=== PATIENT | female | born 1950 | race Caucasian/White ===

== ENCOUNTER 2019-07-10 08:56 | Day surgery (SDC) | payer OTHER ==
[2019-07-09 11:58] LABS: Absolute Lymphocytes (CBC) 1.1 K/uL (0.7-4.9); Basophils % 0.6 % (0-1.3); Hematocrit 41.8 % (36.0-45.0); Lymphocytes % 19.5 % (15.3-44.8); MPV 7.7 fL (7.6-11.3); RBC Red Blood Cell Count 5.04 M/uL (3.86-4.86)
[2019-07-09 12:10] LABS: Protime INR 1.12
[2019-07-09 12:16] LABS: BUN Blood Urea Nitrogen 11 mg/dL (7-18); Bicarbonate 32 mmol/L (21-32); Glucose Level 102 mg/dL (74-106); Potassium 3.9 mmol/L (3.5-5.1); Sodium Level 137 mmol/L (136-145)
--- OUTSIDE RECORDS SUMMARY | 2019-07-10 09:06 | XMS REPORT ---
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
--- OUTSIDE RECORDS SUMMARY | 2019-07-10 09:06 | XMS REPORT ---
:1950 [facility] Address [address] [place] [address] Dr. Kearns [address] [place] [address] Care Team Providers Name Role Phone Unavailable Unavailable Unavailable Problems This patient has no known problems. Allergies, Adverse Reactions, Alerts This patient has no known allergies or adverse reactions. Medications This patient has no known medications.
[2019-07-10] MEDS ORDERED: NA CHLORIDE 0.9% 500 ML ONE (09:17)
[2019-07-10 09:50] VITALS: TEMP 97.2
[2019-07-10] MEDS ORDERED: NICARDIPINE HCL 25 MG/10 ML IV ONE (10:06)
[2019-07-10] MEDS ORDERED: FENTANYL CITR 100 MCG/2 ML ONE (10:06)
[2019-07-10] MEDS ORDERED: HEPARIN 5000 UNIT/ML 1 ML VIAL ONE (10:06)
[2019-07-10] MEDS ORDERED: MIDAZOLAM HCL 2 MG/2 ML INJ ONE ×2 (10:06→10:48)
[2019-07-10] MEDS ORDERED: HEPA 1000U/500MLS 2,000 UNIT/1,000 ML BAG IV ONE (10:06)
[2019-07-10] MEDS ORDERED: ATROPINE SULF 1 MG/10 ML SYR IV ONE (10:07)
[2019-07-10] MEDS ORDERED: NA CHLORIDE 0.9% 0 ML ONE (10:07)
[2019-07-10] MEDS ORDERED: HYDRALAZINE HCL 20 MG/ML VIAL ONE (11:23)
[2019-07-10 12:41] VITALS: O2SAT 98
[2019-07-10 14:09] VITALS: BP 135/53
--- NOTE | 2019-07-10 23:20 | OP ---
Surgeon: Mendoza Kurtz MD [employer] T[employer] Inspector: Nalini Gauthier. Primary Care Physician: Beatriz Hartley. Procedure: Left heart catheterization with coronary left ventricular angiography. Findings: The patient has normal coronary arteries. Normal left ventricular ejection fraction. She had systolic hypertension and she had elevated left ventricular end-diastolic pressure or poor left ventricular relaxation and the recommendation is for medical therapy of hypertension. No need for an y intervention. Procedure In Detail: The patient was brought to the cardiac laboratory equipment cleaner in a fasting state. She gave i nformed consent. She was sedated with Versed and fentanyl. Total sedation time 30 minutes. Prepare d and draped in usual sterile fashion. 1% lidocaine was used to anesthetize the skin around the rig t radial artery. The artery was entered using a 21-gauge needle, cannulated with a 0.021 inch diamet er guidewire, 6-Kinyarwanda Terumo sheath was placed using modified Seldinger technique. The sheath was f lushed and radial cocktail was given consisting of nicardipine, heparin, and nitroglycerin. We guide d a TIG catheter into the ascending aorta using fluoroscopy and a short radius J-tip Glidewire. We w ere then able to angiogram left and right coronaries and left ventricle using the same catheter. At the end of the procedure when it was evident, no interventions would be done. The catheter was remov ed over a wire. The sheath was flushed, removed, and the arteriotomy closed using a TR band. There were no complications. Estimated Blood Loss: 5 cc. Complications: None. THEODORE/GEOVANNA Voice ID: [id number] Report ID: [id number]
== END 2019-07-10 13:30 | disposition home or self-care (01) ==
LOC: CCL 08:56
PROVIDERS: ATTEND Internal Medicine
DX: I20.9 Angina pectoris, unspecified (principal); I10 Essential (primary) hypertension; E78.5 Hyperlipidemia, unspecified; F41.9 Anxiety disorder, unspecified; Z79.82 Long term (current) use of aspirin
CPT/HCPCS: 85025; 80048; 36415; 85610; 85730; 93458; C1893; J0360; J1644; J2250 ×2; J3010; J7040; J0583

== ENCOUNTER 2019-12-05 10:49 | Emergency (ER) | payer OTHER ==
--- OUTSIDE RECORDS SUMMARY | 2019-12-05 10:52 | XMS REPORT | Summary of Care ---
:1950 Author Organization [facility] Address [address] [place] [address] Care Team Providers Name Role Phone Josefina Clayton Primary Care Provider Reason for Visit Reason Comments Prescription Encounter Details Date Type Department Care Team Description 11/16/2019 Nurse Triage [facility] Debra Simpson RN Prescription [address] [phone] [place], [place] [id number] Allergies No Known Allergiesdocumented as of this encounter (statuses as of 11/16/2019) Medications Medication Sig Dispensed Refills Start Date End Date Status pravastatin 80 mg Take 80 mg by 0 Active tablet mouth at bedtime. SERTraline 50 mg Take 150 mg by 0 Active tablet mouth daily. DIETARY SUPPLEMENT Take 1 tablet by 0 Active ORAL mouth daily. telmisartan-hydrochlor Take 1 tablet by 0 Active othiazide 40-12.5 mg mouth daily. per tablet aspirin (ASPIRIN LOW Take 81 mg by 0 Active DOSE) 81 mg EC tablet mouth at bedtime. meloxicam 7.5 mg Take 7.5 mg by 0 Active tablet mouth daily. Patient takes prn metoprolol succinate TAKE 1 TABLET BY 0 07/10/2019 Active XL 25 mg 24 hr tablet MOUTH ONCE DAILY azelastine 137 mcg USE 2 SPRAY(S) IN 0 05/28/2019 Active (0.1 %) nasal spray EACH NOSTRIL ONCE DAILY ezetimibe 10 mg tablet Take 10 mg by 0 Active mouth daily. mupirocin (BACTROBAN) Apply to area(s) 15 g 0 11/16/2019 Active 2 % creamIndications: 3 (three) times Burn daily. mupirocin (BACTROBAN) Apply to area(s) 15 g 0 11/16/2019 Active 2 % creamIndications: 3 (three) times Burn daily. documented as of this encounter (statuses as of 11/16/2019) Active Problems Not on filedocumented as of this encounter (statuses as of 11/16/2019) Social History Tobacco Use Types Packs/Day Years Used Date Never Smoker Smokeless Tobacco: Never Used Alcohol Use Drinks/Week oz/Week Comments No reformed aloholi c x 32 years Sex Assigned at Date Recorded Not on file Job Start Date Occupation Industry Not on file Not on file Not on file Travel History Travel Start Travel End No recent travel history available. documented as of this encounter Last Filed Vital Signs Not on filedocumented in this encounter Plan of Treatment Date Type Specialty Care Team Description 02/17/2020 Office Visit Neurology Alexandro Self MD [address] [place] [address]. [place] [phone] Health Maintenance Due Date Last Done Comments HEPATITIS C (HCV) SCREEN 1950 DTaP,Tdap,and Td Vaccines (1 - Tdap) 1959 Breast Cancer Screening (MAMMOGRAM) 1988 COLONOSCOPY 1998 Zoster Recombinant Vaccine (SHINGRIX) (1 of 2) 1998 Medicare Wellness Visit 2013 Osteoporosis Screening 2013 PNEUMOCOCCAL VACCINES 65+ (1 of 2 - PCV13) 2013 INFLUENZA VACCINE (#1) 2019 documented as of this encounter Results Not on filedocumented in this encounter Insurance Payer Benefit Plan Subscriber ID Effective Dates Phone Address Type / Group HUMANA - HUMANA CHOICE [id number] 2017-Presen Medicare Adv MANAGED t PPO MEDICARE documented as of this encounter
--- OUTSIDE RECORDS SUMMARY | 2019-12-05 10:52 | XMS REPORT ---
:1950 Author Organization [facility] Address [address] [place] [address] Dr. Kearns [address] [place] [address] Care Team Providers Name Role Phone Unavailable Unavailable Unavailable Problems Condition Condition Condition Status Onset Resolution Last Treatin g Comments Name Details Category Date Date Treatment Clinician Date Primary Primary Problem Active osteoarthri osteoarthri tis of tis of right knee right knee Arthritis Arthritis Problem Active of foot, of foot, right right Allergies, Adverse Reactions, Alerts This patient has no known allergies or adverse reactions. Medications Ordered Filled Start Stop Current Ordering Indication Dosage Frequency Signature Comments Components Medication Medication Date Date Medication? Clinician (SIG) Name Name Tramadol Tramadol 2017-08 Yes Salvador 1 tablet HCl HCl 0-12 Benson as needed 00:00: 00 Pravastatin Pravastatin Yes Salvador not Sodium Sodium Benson defined Sertraline Sertraline Yes Salvador not HCl HCl Benson defined Telmisartan Telmisartan Yes Salvador not -HCTZ -HCTZ Benson defined Move Free Move Free Yes Salvador not Joint Joint Benson defined Health Health Advance Advance Latanoprost Latanoprost Yes Salvador not Benson defined Meloxicam Meloxicam Yes Salvador TAKE 1 Benson TABLET BY MOUTH ONCE DAILY Amlodipine Amlodipine Yes Salvador not Besylate Besylate Benson defined Aspirin 81 Aspirin 81 Yes Salvador not Benson defined tramadol tramadol Yes Salvador not Benson defined Ezetimibe Ezetimibe Yes Salvador not Benson defined Restasis Restasis Yes Salvador not Benson defined Modafinil Modafinil Yes Salvador not Benson defined Encounters Start End Encounter Admission Attending Care Care Encounter Date/Time Date/Time Type Type Clinicians Facility Department ID 2019-11-04 2019-11-04 Outpatient Nia Esquivelt [id number] 08:36:00 08:36:00 [facility] 2019-10-02 2019-10-02 Outpatient Nia Esquivelt [id number] 16:17:00 16:17:00 [facility] 2019-05-08 2019-05-08 [id number] 14:28:00 14:28:00 [facility] 2019-04-11 2019-04-11 [id number] 13:30:00 13:30:00 [facility] 2019-04-04 2019-04-04 [id number] 08:30:00 08:30:00 [facility] 2019-03-29 2019-03-29 [id number] 08:30:00 08:30:00 [facility] 2019-03-19 2019-03-19 [id number] 15:30:00 15:30:00 [facility] 2019-03-19 2019-03-19 [id number] 09:00:00 09:00:00 [facility] 2018-07-25 2018-07-25 [id number] 08:38:00 08:38:00 [facility] 2018-05-17 2018-05-17 [id number] 09:23:00 09:23:00 [facility] 2018-05-08 2018-05-08 [id number] 08:02:00 08:02:00 [facility]
--- OUTSIDE RECORDS SUMMARY | 2019-12-05 10:52 | XMS REPORT | Summary of Care ---
:1950 Author Organization [facility] Address [address] [place] [address] Care Team Providers Name Role Phone Josefina Clayton Primary Care Provider Reason for Visit Reason Comments Prescription wanting cheaper prescription Encounter Details Date Type Department Care Team Description 11/16/2019 Telephone [facility] Debra Simpson, Prescription (wanting [address] [place] [address] RN cheaper prescription) [place] [address] [place] [address] [facility] [phone] [place], [place] [id number] Allergies No Known Allergiesdocumented as of this [...] 02/17/2020 Office Visit Neurology Alexandro Self MD [address] [place] [address] [phone] Health Maintenance Due Date Last Done [...] Type / Group HUMANA - HUMANA CHOICE [id number] 2017-Presen Medicare Adv MANAGED t PPO MEDICARE documented as of this encounter
--- OUTSIDE RECORDS SUMMARY | 2019-12-05 10:52 | XMS REPORT ---
:1950 Author Organization eClinicalWorks Care Team Providers Name Role Phone Salvador Benson Provider Role Unavailable Allergies No Known Allergies Problems Problem Type Condition Code Onset Dates Condition Statu s Problem Primary osteoarthritis of right M17.11 Active knee Problem Arthritis of foot, right M19.071 Act caridad Medications No Known Medications Results No Known Results Summary Purpose eClinicalWorks Submission
--- OUTSIDE RECORDS SUMMARY | 2019-12-05 10:53 | XMS REPORT | Summary of Care ---
:1950 Author Organization [facility] Address [address] [place] [address] Care Team Providers Name Role Phone Josefina Clayton Primary Care Provider Reason for Visit Reason Comments Prescription questions Encounter Details Date Type Department Care Team Description 11/16/2019 Telephone [facility] Debra Simpson, Prescription [address] [place] [address] RN (questions) [place] [address] [place] [address] [facility] [phone] [place] [id number] Allergies No Known Allergiesdocumented as of this [...] creamIndications: 3 (three) times Burn daily. mupirocin 2 % Apply to area(s) 22 g 0 11/16/2019 Active ointmentIndications: 3 (three) times Burn daily. documented as [...] 02/17/2020 Office Visit Neurology Alexandro Self MD [address] [place] [address]. [place] [phone] Health Maintenance Due Date Last Done [...] Type / Group HUMANA - HUMANA CHOICE [id number] 2017-Presen Medicare Adv MANAGED t PPO MEDICARE documented as of this encounter
[2019-12-05] MEDS ORDERED: NA CHLORIDE 0.9% 1,000 ML ONE (11:46)
[2019-12-05] MEDS ORDERED: ONDANSETRON 4 MG/2 ML VIAL ONE (11:46)
[2019-12-05 12:02] LABS: Absolute Lymphocytes (CBC) 1.2 K/uL (0.7-4.9); Basophils % 0.6 % (0-1.3); Hematocrit 42.6 % (36.0-45.0); Lymphocytes % 16.1 % (15.3-44.8); MPV 7.5 fL (7.6-11.3); RBC Red Blood Cell Count 5.14 M/uL (3.86-4.86)
[2019-12-05 12:20] LABS: Albumin 3.5 g/dL (3.4-5.0); Bilirubin Direct 0.2 mg/dL (0-0.2); Bilirubin Total 0.5 mg/dL (0.2-1.0); Magnesium 2.2 mg/dL (1.8-2.4); Potassium 3.1 mmol/L (3.5-5.1); Protein, Total 6.8 g/dL (6.4-8.2)
--- NOTE | 2019-12-05 13:05 | EDPHYS ---
Physician Documentation [facility] Name: Davina Niño Age: 69 yrs Sex: Female : 1950 Arrival Date: 12/05/2019 Time: 10:55 Bed 8 Private MD: Osmar Felder H ED Physician Bandar Barker HPI: 12/04 12:50 This 69 yrs old Female presents to ER via Ambulatory with complaints of jr8 General Weakness, Diarrhea, Nausea. 12:50 The patient presents to the emergency department with nausea, diarrhea, 1 times since jr8 the onset of symptoms. Onset: The symptoms/episode began/occurred acutely, 2 day(s) ago. Possible causes: unknown. The symptoms are aggravated by nothing. The symptoms are alleviated by nothing. Associated signs and symptoms: Pertinent positives: general weakness . Severity of symptoms: At their worst the symptoms were moderate in the emergency department the symptoms are unchanged. The patient has not experienced similar symptoms in the past. The patient has been recently seen by a physician:. Patient stated that she had lumbar injection two days ago. Went well. Yesterday started to have nausea and diarrhea x1 episode. Feels generally weak . Historical: - Allergies: 11:12 No Known Allergies; hb - Immunization history:: Adult Immunizations up to date. - Social history:: Smoking status: Patient denies any tobacco usage or history of. ROS: 12:50 Eyes: Negative for injury, pain, redness, and discharge, ENT: Negative for injury, jr8 pain, and discharge, Neck: Negative for injury, pain, and swelling, Cardiovascular: Negative for chest pain, palpitations, and edema, Respiratory: Negative for shortness of breath, cough, wheezing, and pleuritic chest pain, Back: Negative for injury and pain, MS/Extremity: Negative for injury and deformity, Skin: Negative for injury, rash, and discoloration, Neuro: Negative for headache, weakness, numbness, tingling, and seizure. 12:50 Constitutional: Positive for fatigue, malaise. 12:50 Abdomen/GI: Positive for nausea, diarrhea, Negative for abdominal pain, abdominal cramps, abdominal distension, anorexia, dysphagia, hematemesis, black/tarry stool, rectal pain, rectal bleeding, bowel incontinence, flatulence. Exam: 12:50 Eyes: Pupils equal round and reactive to light, extra-ocular motions intact. Lids and jr8 lashes normal. Conjunctiva and sclera are non-icteric and not injected. Cornea within normal limits. Periorbital areas with no swelling, redness, or edema. ENT: Nares patent. No nasal discharge, no septal abnormalities noted. Tympanic membranes are normal and external auditory canals are clear. Oropharynx with no redness, swelling, or masses, exudates, or evidence of obstruction, uvula midline. Mucous membranes moist. Neck: Trachea midline, no thyromegaly or masses palpated, and no cervical lymphadenopathy. Supple, full range of motion without nuchal rigidity, or vertebral point tenderness. No Meningismus. Cardiovascular: Regular rate and rhythm with a normal S1 and S2. No gallops, murmurs, or rubs. Normal PMI, no JVD. No pulse deficits. Respiratory: Lungs have equal breath sounds bilaterally, clear to auscultation and percussion. No rales, rhonchi or wheezes noted. No increased work of breathing, no retractions or nasal flaring. Abdomen/GI: Soft, non-tender, with normal bowel sounds. No distension or tympany. No guarding or rebound. No evidence of tenderness throughout. Back: No spinal tenderness. No costovertebral tenderness. Full range of motion. Injections site clean and without tenderness or erythema Skin: Warm, dry with normal turgor. Normal color with no rashes, no lesions, and no evidence of cellulitis. MS/ Extremity: Pulses equal, no cyanosis. Neurovascular intact. Full, normal range of motion. Neuro: Awake and alert, GCS 15, oriented to person, place, time, and situation. Cranial nerves II-XII grossly intact. Motor strength 5/5 in all extremities. Sensory grossly intact. Cerebellar exam normal. Normal gait. Vital Signs: 11:09 BP 169 / 96; Pulse 96; Resp 16; Temp 97.8; Pulse Ox 100% ; Weight 76.2 kg; Height 5 ft. hb 5 in. (165.10 cm); Pain 0/10; 12:04 BP 181 / 87; Pulse 84; Resp 16; Temp 97.5(TE); Pulse Ox 98% ; mh5 11:09 Body Mass Index 27.96 (76.20 kg, 165.10 cm) hb MDM: 10:58 Patient medically screened. jr8 13:02 Data reviewed: vital signs, nurses notes, lab test result(s). Data interpreted: Pulse oximetry: on room air is 98 %. Interpretation: normal. Counseling: I had a detailed discussion with the patient and/or guardian regarding: the historical points, exam findings, and any diagnostic results supporting the discharge/admit diagnosis, lab results, the need for outpatient follow up, a family practitioner, to return to the emergency department if symptoms worsen or persist or if there are any questions or concerns that arise at home. Response to treatment: the patient's symptoms have mildly improved after treatment, patient is well hydrated. ED course: Replaced potassium. No other suspicious lab findings. Patient doing better. No signs indicative of spinal abscess based on exam . 12/04 11:30 Order name: Basic Metabolic Panel; Complete Time: 12:52 12/04 11:30 Order name: CBC with Diff; Complete Time: 12:52 [facility] 12/04 11:30 Order name: Creatinine for Radiology; Complete Time: 12:52 [facility] 12/04 11:30 Order name: Hepatic Function; Complete Time: 12:52 12/04 11:30 Order name: Lipase; Complete Time: 12:52 12/04 11:30 Order name: Urine Microscopic Only; Complete Time: 14:18 12/04 11:30 Order name: IV Saline Lock; Complete Time: 11:35 12/04 11:30 Order name: Labs collected and sent; Complete Time: 11:35 [facility] 12/04 11:30 Order name: Urine Dipstick-Ancillary (obtain specimen); Complete Time: 13:04 12/04 11:31 Order name: Magnesium; Complete Time: 12:52 12/04 13:05 Order name: Urine Dipstick--Ancillary (enter results); Complete Time: 13:27 em1 Administered Medications: 11:53 Drug: Zofran (Ondansetron) 4 mg Route: IVP; Site: right antecubital; em 12:30 Follow up: Response: No adverse reaction; Marked relief of symptoms; Nausea is decreasedem 11:55 Drug: NS 0.9% 1000 ml Route: IV; Rate: 1000 ml; Site: right antecubital; em 13:29 Drug: Potassium Chloride 40 mEq Route: PO; em 13:29 Follow up: Response: No adverse reaction; Medication administered at discharge. em Disposition: 15:00 Co-signature as Attending Physician, Bandar Barker MD I agree with the assessment and [facility] plan of care. Disposition: 12/05/19 13:05 Discharged to Home. Impression: Muscle weakness (generalized), Nausea, Diarrhea, unspecified, Hypokalemia. - Condition is Stable. - Discharge Instructions: Food Choices to Help Relieve Diarrhea, Adult, Diarrhea, Adult, Weakness. - Prescriptions for Zofran 4 mg Oral Tablet - take 1 tablet by ORAL route every 12 hours As needed; 20 tablet. - Medication Reconciliation Form, Thank You Letter, Antibiotic Education, Prescription Opioid Use form. - Follow up: Private Physician; When: 2 - 3 days; Reason: Recheck today's complaints, Continuance of care, Re-evaluation by your physician. - Problem is new. - Symptoms have improved. Signatures: Dispatcher [employer] Bandar Elliott MD MD cha Munoz, Edgar, RN RN Juan Carlos Cole PA PA jr8 Debra Thomas RN RN Corrections: (The following items were deleted from the chart) 13:02 12:50 Eyes: Pupils equal round and reactive to light, extra-ocular motions intact. Lids jr8 and lashes normal. Conjunctiva and sclera are non-icteric and not injected. Cornea within normal limits. Periorbital areas with no swelling, redness, or edema. ENT: Nares patent. No nasal discharge, no septal abnormalities noted. Tympanic membranes are normal and external auditory canals are clear. Oropharynx with no redness, swelling, or masses, exudates, or evidence of obstruction, uvula midline. Mucous membranes moist. Neck: Trachea midline, no thyromegaly or masses palpated, and no cervical lymphadenopathy. Supple, full range of motion without nuchal rigidity, or vertebral point tenderness. No Meningismus. Cardiovascular: Regular rate and rhythm with a normal S1 and S2. No gallops, murmurs, or rubs. Normal PMI, no JVD. No pulse deficits. Respiratory: Lungs have equal breath sounds bilaterally, clear to auscultation and percussion. No rales, rhonchi or wheezes noted. No increased work of breathing, no retractions or nasal flaring. Abdomen/GI: Soft, non-tender, with normal bowel sounds. No distension or tympany. No guarding or rebound. No evidence of tenderness throughout. Back: No spinal tenderness. No costovertebral tenderness. Full range of motion. Skin: Warm, dry with normal turgor. Normal color with no rashes, no lesions, and no evidence of cellulitis. MS/ Extremity: Pulses equal, no cyanosis. Neurovascular intact. Full, normal range of motion. Neuro: Awake and alert, GCS 15, oriented to person, place, time, and situation. Cranial nerves II-XII grossly intact. Motor strength 5/5 in all extremities. Sensory grossly intact. Cerebellar exam normal. Normal gait. jr8 13:42 13:05 12/05/2019 13:05 Discharged to Home. Impression: Muscle weakness (generalized); hb Nausea; Diarrhea, unspecified; Hypokalemia. Condition is Stable. Forms are Medication Reconciliation Form, Thank You Letter, Antibiotic Education, Prescription Opioid Use. Follow up: Private Physician; When: 2 - 3 days; Reason: Recheck today's complaints, Continuance of care, Re-evaluation by your physician. Problem is new. Symptoms have improved. jr8
--- NOTE | 2019-12-05 13:05 | ER ---
Nurse's Notes [facility] Name: Davina Niño Age: 69 yrs Sex: Female : 1950 Arrival Date: 12/05/2019 Time: 10:55 Bed 8 Private MD: Osmar Felder H Diagnosis: Muscle weakness (generalized);Nausea;Diarrhea, unspecified;Hypokalemia Presentation: 12/04 11:09 Chief complaint: Generalized weakness x 3 days, diarrhea x 2 days, chills today. Denies hb SOB/fever/cough. Coronavirus screen: Proceed with normal triage. Ebola Screen: No symptoms or risks identified at this time. Initial Sepsis Screen: Does the patient meet any 2 criteria? HR > 90 bpm. Does the patient have a suspected source of infection? No. Patient's initial sepsis screen is negative. Risk Assessment: Do you want to hurt yourself or someone else? Patient reports no desire to harm self or others. Onset of symptoms was December 02, 2019. 11:09 Method Of Arrival: Ambulatory hb 11:09 Acuity: VERONICA 3 hb Historical: - Allergies: 11:12 No Known Allergies; hb - Immunization history:: Adult Immunizations up to date. - Social history:: Smoking status: Patient denies any tobacco usage or history of. Screenin:17 Abuse screen: Denies threats or abuse. Nutritional screening: No deficits noted. em Tuberculosis screening: No symptoms or risk factors identified. Fall Risk None identified. Assessment: 11:30 General: Appears in no apparent distress. comfortable, Behavior is calm, cooperative, em appropriate for age, Reports fatigue for 1-2 days, Denies fever. Pain: Denies pain. Neuro: Level of Consciousness is awake, alert, obeys commands, Oriented to person, place, time, situation, Appropriate for age Denies headache. Cardiovascular: Capillary refill < 3 seconds Patient's skin is warm and dry. Respiratory: Airway is patent Respiratory effort is even, unlabored, Respiratory pattern is regular, symmetrical, Denies cough, shortness of breath. GI: Abdomen is flat, Bowel sounds present X 4 quads. Abd is soft and non tender X 4 quads. Reports diarrhea, nausea, Patient currently denies vomiting. : Denies burning with urination. Derm: Skin is intact, is thin, Skin is pink, warm \T\ dry. Musculoskeletal: Capillary refill < 3 seconds, Range of motion: intact in all extremities. Vital Signs: 11:09 BP 169 / 96; Pulse 96; Resp 16; Temp 97.8; Pulse Ox 100% ; Weight 76.2 kg; Height 5 ft. hb 5 in. (165.10 cm); Pain 0/10; 12:04 BP 181 / 87; Pulse 84; Resp 16; Temp 97.5(TE); Pulse Ox 98% ; mh5 11:09 Body Mass Index 27.96 (76.20 kg, 165.10 cm) hb ED Course: 10:55 Patient arrived in ED. am2 10:55 Osmar Felder MD is Private Physician. am2 10:58 Juan Carlos Cole PA is [facility]. jr8 10:58 Bandar Barker MD is Attending Physician. jr8 11:11 Triage completed. hb 11:12 Arm band placed on. hb 11:14 Jonas Gabriel, RN is Primary Nurse. em 11:17 Patient has correct armband on for positive identification. Placed in gown. Bed in low em position. Call light in reach. Pulse ox on. NIBP on. 11:50 Inserted saline lock: 20 gauge in right antecubital area, using aseptic technique. em Blood collected. 13:30 No provider procedures requiring assistance completed. IV discontinued, intact, em bleeding controlled, No redness/swelling at site. Pressure dressing applied. Administered Medications: 11:53 Drug: Zofran (Ondansetron) 4 mg Route: IVP; Site: right antecubital; em 12:30 Follow up: Response: No adverse reaction; Marked relief of symptoms; Nausea is decreasedem 11:55 Drug: NS 0.9% 1000 ml Route: IV; Rate: 1000 ml; Site: right antecubital; em 13:29 Drug: Potassium Chloride 40 mEq Route: PO; em 13:29 Follow up: Response: No adverse reaction; Medication administered at discharge. em Outcome: 13:05 Discharge ordered by . jr8 13:30 Discharged to home via wheelchair. em 13:30 Condition: good 13:30 Discharge instructions given to patient, Instructed on discharge instructions, follow up and referral plans. medication usage, Demonstrated understanding of instructions, follow-up care, medications, Prescriptions given X 1. 13:42 Patient left the ED. hb Signatures: Jonas Gabriel RN RN Juan Carlos Jerome PA PA jr8 Debra Thomas RN RN hb Martinez, Maria [facility] Salma Arcos [facility]
[2019-12-05] MEDS ORDERED: POTASSIUM CL SA 10 MEQ TAB PO ONE (13:18)
[2019-12-05 13:24] LABS: Urine Blood TRACE (NEG); Urine Glucose NEGATIVE (NEG); Urine Protein NEGATIVE (NEG); Urine Specific Gravity 1.025 (1.005-1.030)
[2019-12-05 13:27] LABS: Urine Bacteria <20 /HPF (<20); Urine Culture Reflex Order NOT NEEDED; Urine RBC <5 /HPF (NONE SEEN)
[2019-12-05 13:50] VITALS: BP 181/87; TEMP 97.5; O2SAT 98
== END 2019-12-05 13:42 | disposition home or self-care (01) ==
LOC: ER 10:49
DX: E87.6 Hypokalemia (principal); R11.0 Nausea; R19.7 Diarrhea, unspecified
CPT/HCPCS: 85025; 80048; 36415; 83735; 80076; 83690; 96374; 99284; J7030; J2405; 81003; 81015

== ENCOUNTER 2020-07-19 17:45 | Emergency (ER) | payer OTHER ==
--- OUTSIDE RECORDS SUMMARY | 2020-07-19 17:47 | XMS REPORT | Continuity of Care Document ---
:1950 Author Organization [facility] t Address [address] [place] [address] Care Team Providers Name Role Phone Clair MAY, Gene Attending Clinician Problems Condition Condition Condition Status Onset Resolution Last Treating Co mments Source Name Details Category Date Date Treatment Clinician Date Primary Primary Problem Active [facility] osteoarthr osteoarthr Taisha kes - [facility] of [facility] right knee right knee [facility] Arthritis Arthritis Problem Active [facility] of foot, [facility] foot, [facility] - [facility] right [facility] Allergies, Adverse Reactions, Alerts This patient has no known allergies or adverse reactions. Medications Ordered Filled Start Stop Current Ordering Indication Dosage Frequency Signature Comments Components Source Medication Medication Date Date Medication? Clinician (SIG) Name Name Tramadol Tramadol 2017-08 Yes Salvador [address] [facility] HCl HCl 0-12 Benson as needed [facility] - [facility] Pravastatin Pravastatin Yes Salvador not [facility] Sodium Sodium Benson defined [facility] Sertraline Sertraline Yes Salvador not [facility] HCl HCl Benson defined [facility] Telmisartan Telmisartan Yes Salvador not [facility] -HCTZ -HCTZ Benson defined [facility] Move Free Move Free Yes [facility] not [facility] Benson defined [facility] Advance Advance [facility] Clinics Latanoprost Latanoprost Yes Salvador not [facility] Benson defined [facility] Meloxicam Meloxicam Yes Salvador TAKE [address] [facility] Benson TABLET BY [facility] - MOUTH ONCE Memoria DAILY l [facility]pati ent Clinics Amlodipine Amlodipine Yes Salvador not [facility] Besylate Besylate Benson defined [facility] Aspirin 81 Aspirin 81 Yes Salvador not [facility] Benson defined [facility] tramadol tramadol Yes Salvador not [facility] defined [facility] Ezetimibe Ezetimibe Yes Salvador not [facility] Benson defined [facility] Restasis Restasis Yes Salvador not [facility] Benson defined [facility] Modafinil Modafinil Yes [facility] not [facility] Benson defined [facility] Procedures This patient has no known procedures. Encounters Start End Encounter Admission Attending Care Care Encounter Source Date/Time Date/Time Type Type Clinicians Facility Department ID 2020-06-23 2020-06-23 Telephone [facility] [id number] 00:00:00 00:00:00 Alexandro Fraga [id number] [place] [id number] Professio [id number] [address] 2020-06-16 2020-06-16 Office Clair, [facility] [id number] 09:24:15 10:41:13 Visit Alexandro Fraga [id number] [place] [id number] Professio [id number] [address] 2019-11-04 2019-11-04 [facility] [id number] [facility] 08:36:00 08:36:00 [facility] [place] [facility] 2019-10-02 2019-10-02 [facility] [id number] 16:17:00 16:17:00 t [facility] 2019-05-08 2019-05-08 [facility] [id number] [address] 14:28:00 14:28:00 t [facility] [place] [facility] 2019-04-11 2019-04-11 [facility] [id number] 13:30:00 13:30:00 t [facility] [place] [facility] 2019-04-04 2019-04-04 [facility] [id number] 08:30:00 08:30:00 t [facility] [place] [facility] 2019-03-29 2019-03-29 [facility] [id number] 08:30:00 08:30:00 t [facility] 2019-03-19 2019-03-19 [facility] [id number] 15:30:00 15:30:00 t [facility] 2019-03-19 2019-03-19 [facility] [id number] 09:00:00 09:00:00 t [facility] 2018-07-25 2018-07-25 [facility] [id number] 08:38:00 08:38:00 t [facility] 2018-05-17 2018-05-17 [facility] [id number] 09:23:00 09:23:00 t Bone [facility] 2018-05-08 2018-05-08 [facility] [id number] 08:02:00 08:02:00 t Bone [facility] Results This patient has no known results.
--- OUTSIDE RECORDS SUMMARY | 2020-07-19 17:48 | XMS REPORT | Summary of Care ---
:1950 Author Organization [facility] Address [address] [place] [address] Care Team Providers Name Role Phone Josefina Clayton Primary Care Provider Reason for Visit Reason Comments Follow-up Encounter Details Date Type Department Care Team Description 06/16/2020 Office Visit [facility] Alexandro Self tr emor (Primary Dx); Neurology-Philly Vargas MD Chronic fatigue syndrome; [address] [place] [address] [address] Memory loss; [address], [address] [place], [place] [phone] Allergies No Known Allergiesdocumented as of this encounter (statuses as of 07/01/2020) Medications Medication Sig Dispensed Refills Start Date End Date Status pravastatin 80 mg Take 80 mg by mouth 0 Active tablet at bedtime. DIETARY SUPPLEMENT Take 1 tablet by 0 Active ORAL mouth daily. telmisartan-hydrochl Take 1 tablet by 0 Active orothiazide 40-12.5 mouth daily. mg per tablet aspirin (ASPIRIN LOW Take 81 mg by mouth 0 Active DOSE) 81 mg EC at bedtime. tablet metoprolol succinate TAKE 1 TABLET BY 0 07/10/2019 Active XL 25 mg 24 hr MOUTH ONCE DAILY tablet azelastine 137 mcg USE 2 SPRAY(S) IN 0 05/28/2019 Active (0.1 %) nasal spray EACH NOSTRIL ONCE DAILY ezetimibe 10 mg Take 10 mg by mouth 0 Active tablet daily. mupirocin Apply to area(s) 3 15 g 0 11/16/2019 Active (BACTROBAN) 2 % (three) times daily. creamIndications: Burn mupirocin Apply to area(s) 3 15 g 0 11/16/2019 Active (BACTROBAN) 2 % (three) times daily. creamIndications: Burn mupirocin 2 % Apply to area(s) 3 22 g 0 11/16/2019 Active ointmentIndications: (three) times daily. Burn ARIPiprazole 2 mg aripiprazole 2 mg 0 Active tablet tablet TRINTELLIX 10 mg Tab Take 1 tablet by 0 01/15/2020 Active mouth 2 (two) times daily. latanoprost 0.005 % INSTILL 1 DROP INTO 0 01/15/2020 Active ophthalmic drops RIGHT EYE ONCE DAILY AT BEDTIME DULoxetine Take 60 mg by mouth 0 Active (CYMBALTA) 60 mg daily. capsule pregabalin 50 mg Take 50 mg by mouth 0 Active capsule at bedtime. documented as of this encounter (statuses as of 07/01/2020) Active Problems Not on filedocumented as of this encounter (statuses as of 07/01/2020) Social History Tobacco Use Types Packs/Day Years Used Date Never Smoker Smokeless Tobacco: Never Used Alcohol Use Drinks/Week oz/Week Comments No reformed aloholi c x 32 years Sex Assigned at Date Recorded Not on file COVID-19 Exposure Response Date Recorded In the last month, have you been in contact with No / Unsure 06/16/2020 9:22 AM COMMERCIAL INTERIOR DESIGNER someone who was confirmed or suspected to have Coronavirus / COVID-19? documented as of this encounter Last Filed Vital Signs Vital Sign Reading Time Taken Comments Blood Pressure 120/60 06/16/2020 9:42 AM COMMERCIAL INTERIOR DESIGNER Pulse 82 06/16/2020 9:42 AM COMMERCIAL INTERIOR DESIGNER Temperature - - Respiratory Rate - - Oxygen Saturation 97% 06/16/2020 9:42 AM COMMERCIAL INTERIOR DESIGNER Inhaled Oxygen Concentration - - Weight 76.2 kg (168 lb) 06/16/2020 9:42 AM COMMERCIAL INTERIOR DESIGNER Height - - Body Mass Index 28.84 07/12/2019 3:18 PM COMMERCIAL INTERIOR DESIGNER documented in this encounter Progress Notes Alexandro Self MD - 06/16/2020 9:40 AM CST Amanda Niño is a 70 year old female. Chief complaint: Questions about sleep abnormalities. History: Patient did say that she is seen a neurosurgeon in [place]. She is concerned about excessive fatigue. She did show me a sleep study that she was carrying around that was from back in 2002. I did go through her medication list, and she is taking pregabalin, also Cymbalta, but I dont think these medications are really causing her problems. Another issue that she had really been concerned about was tremor. She is noticing more tremor in her upper extremities but not the lower extremities and this tremor situation can be made worse with stress, as an example. I think either family members had also suffered with tremor as well. Past Medical History: recovering alcoholic , high blood pressure , elevated cholesterol. Family History: There is a family history for tremor, maternal grandparents suffered with stroke and paternal grandparents with heart disease. Mother had breast cancer, bone cancer, depression, high blood pressure. Father had coronary artery disease, high blood pressure, tremor, and a sister suffered with depression and breast cancer. A daughter has familial tremor. Surgeries: Appendectomy, also foot and knee surgery 1998. Social history: The patient does not smoke, and she has quit drinking 26 years ago. She is single and she has retired. Current Outpatient Medications: DULoxetine (CYMBALTA) 60 mg capsule, Take 60 mg by mouth daily., Disp: , Rfl: pregabalin 50 mg capsule, Take 50 mg by mouth at bedtime., Disp: , Rfl: latanoprost 0.005 % ophthalmic drops, INSTILL 1 DROP INTO RIGHT EYE ONCE DAILY AT BEDTIME, Disp: , Rfl: pravastatin 80 mg tablet, Take 80 mg by mouth at bedtime., Disp: , Rfl: telmisartan-hydrochlorothiazide 40-12.5 mg per tablet, Take 1 tablet by mouth daily., Disp: , Rfl: ARIPiprazole 2 mg tablet, aripiprazole 2 mg tablet, Disp: , Rfl: TRINTELLIX 10 mg Tab, Take 1 tablet by mouth 2 (two) times daily., Disp: , Rfl: mupirocin (BACTROBAN) 2 % cream, Apply to area(s) 3 (three) times daily., Disp: 15 g, Rfl: 0 mupirocin (BACTROBAN) 2 % cream, Apply to area(s) 3 (three) times daily., Disp: 15 g, Rfl: 0 mupirocin 2 % ointment, Apply to area(s) 3 (three) times daily., Disp: 22 g, Rfl: 0 azelastine 137 mcg (0.1 %) nasal spray, USE 2 SPRAY(S) IN EACH NOSTRIL ONCE DAILY, Disp: , Rfl:0 ezetimibe 10 mg tablet, Take 10 mg by mouth daily., Disp: , Rfl: metoprolol succinate XL 25 mg 24 hr tablet, TAKE 1 TABLET BY MOUTH ONCE DAILY, Disp: , Rfl: 0 aspirin (ASPIRIN LOW DOSE) 81 mg EC tablet, Take 81 mg by mouth at bedtime., Disp: , Rfl: DIETARY SUPPLEMENT ORAL, Take 1 tablet by mouth daily., Disp: , Rfl: BP 120/60 (BP Location: Right arm, Patient Position: Sitting, BP CUFF SIZE: Adult Medium) | Pulse 82 | Wt 168 lb (76.2 kg) | SpO2 97% | BMI 28.84 kg/m General findings: no new focal weakness of arms, UE tone unchanged, no new focal weakness of legs, LE tone unchanged, normal gait. Patient alert and oriented times 3, cooperative during the examination and no language rn transitional care/expression errors. She does have tremor, it is more of an intention tremor, it was noticed at times when she was movingher hands greater on the right side. Tremor more noticeable than during last exam ICD-10-CM ICD-9-CM 1. Essential tremor G25.0 333.1 2. Chronic fatigue syndrome R53.82 780.71 3. Memory loss R41.3 780.93 4. Dysthymia F34.1 300.4 Impression: I did tell her that there is treatment for tremor and that likely she has essential tremor which is worse as one gets older. Propranolol might be an option for her, but I did encourage herto check back in with her primary provider about that before starting it. I had suggested dosage of 20 mg per day to start off with. Mysoline I am afraid would make her drowsy, and I think Topamax alsowould give her issues with comprehension. She will let me know with her provider says about the possibility of the propranolol. She does utilize an outside hoop driving machine operator helper. Creation of the note was aided by utilizing a cut/paste operation of text from a [employer] Word template created with [employer]. The text was dictated into the template via Dragon Naturally Speaking. ERCIAL INTERIOR DESIGNER documented in this encounter Plan of Treatment Date Type Specialty Care Team Description 08/18/2020 Office Visit Neurology Alexandro Self MD [address] [place] [address]. [place], [place] [phone] Health Maintenance Due Date Last Done Comments HEPATITIS C (HCV) SCREEN 1950 DTaP,Tdap,and Td Vaccines (1 - Tdap) 1967 Breast Cancer Screening (MAMMOGRAM) 1988 COLON CANCER SCREENING ANNUAL FIT/FOBT 1998 COLON CANCER SCREENING FIT DNA EVERY 3 YEARS 1998 COLON CANCER SCREENING SIGMOIDOSCOPY EVERY 5 YEARS 1998 COLONOSCOPY 1998 Colorectal Cancer Screening 1998 Zoster Recombinant Vaccine (SHINGRIX) (1 of 2) 1998 Medicare Wellness Visit 2013 Osteoporosis Screening 2013 PNEUMOCOCCAL VACCINES 65+ (1 of 1 - PPSV23) 2013 INFLUENZA VACCINE (#1) 2020 Depression Screening 06/16/2021 06/16/2020 documented as of this encounter Results Not on filedocumented in this encounter Visit Diagnoses Diagnosis Essential tremor - Primary Essential and other specified forms of t remor Chronic fatigue syndrome Memory loss Dysthymia Dysthymic disorder documented in this encounter Insurance Payer Benefit Plan Subscriber ID Effective Dates Phone Address Type / Group HUMANA - HUMANA CHOICE [id number] 2017-Presen Medicare Adv MANAGED t PPO MEDICARE documented as of this encounter"
--- OUTSIDE RECORDS SUMMARY | 2020-07-19 17:48 | XMS REPORT | Summary of Care ---
:1950 Author Organization [facility] Address [address] [place] [address] Care Team Providers Name Role Phone Josefina Clayton Primary Care Provider Reason for Visit Reason Comments Follow-up Encounter Details Date Type Department Care Team Description 06/16/2020 Office Visit [facility] Alexandro Self tr emor (Primary Dx); Neurology-Philly Vargas MD Chronic fatigue syndrome; [address] [place] [address] [address] Memory loss; [address], [address] [place], [place] [phone] Allergies No Known Allergiesdocumented [...] with No / Unsure 06/16/2020 9:22 AM COMMUNITY ORGANIZATION WORKER someone who was confirmed or suspected to have Coronavirus / COVID-19? documented as of this encounter Last Filed Vital Signs Vital Sign Reading Time Taken Comments Blood Pressure 120/60 06/16/2020 9:42 AM COMMUNITY ORGANIZATION WORKER Pulse 82 06/16/2020 9:42 AM COMMUNITY ORGANIZATION WORKER Temperature - - Respiratory Rate - - Oxygen Saturation 97% 06/16/2020 9:42 AM COMMUNITY ORGANIZATION WORKER Inhaled Oxygen Concentration - - Weight 76.2 kg (168 lb) 06/16/2020 9:42 AM COMMUNITY ORGANIZATION WORKER Height - - Body Mass Index 28.84 07/12/2019 3:18 PM COMMUNITY ORGANIZATION WORKER documented in this encounter Progress Notes Alexandro Self MD - 06/16/2020 9:40 AM CST Amanda Niño is a 70 year old female. Chief complaint: Questions about sleep abnormalities. History: Patient did say that she is seen a neurosurgeon in [place]. She is concerned about excessive fatigue. She [...] cooperative during the examination and no language sales receptionist/expression errors. She does have tremor, it is [...] the propranolol. She does utilize an outside photographic enlarger operator. Creation of the note was aided by utilizing a cut/paste operation of text from a [employer] Word template created with [employer]. The text was dictated into the template via Dragon Naturally Speaking. UNITY ORGANIZATION WORKER documented in this encounter Plan of Treatment Date Type Specialty Care Team Description 08/18/2020 Office Visit Neurology Alexandro Self MD [address] [place] [address]. [place], [place] [phone] Health Maintenance Due Date [...] Type / Group HUMANA - HUMANA CHOICE [id number] 2017-[employer] Medicare Adv MANAGED t PPO MEDICARE documented as of this encounter"
--- OUTSIDE RECORDS SUMMARY | 2020-07-19 17:48 | XMS REPORT | Summary of Care ---
:1950 Author Organization [facility] Address [address] [place] [address] Care Team Providers Name Role Phone Josefina Clayton Primary Care Provider Reason for Visit Reason Comments Appointment telehealth Rx Concern/Question Encounter Details Date Type Department Care Team Description 06/22/2020 Telephone [facility] Alexandro Self Appoin tment Neurology-[place] MAY (telehealth); Rx [address], [address] [place] [phone] Allergies No Known Allergiesdocumented as of this encounter (statuses as of 06/23/2020) Medications Medication Sig Dispensed Refills Start Date [...] as of this encounter (statuses as of 06/23/2020) Active Problems Not on filedocumented as of this encounter (statuses as of 06/23/2020) Social History Tobacco Use Types Packs/Day Years Used Date Never Smoker Smokeless Tobacco: Never Used Alcohol Use Drinks/Week oz/Week Comments No reformed algaviota c x 32 years Sex Assigned at Date Recorded Not on file COVID-19 Exposure Response Date Recorded In the last month, have you been in contact with No / Unsure 06/16/2020 9:22 AM AMMUNITION OFFICER someone who was confirmed or suspected to have Coronavirus / COVID-19? documented as of this encounter Last Filed Vital Signs Not on filedocumented in this encounter Miscellaneous Notes Telephone Encounter - Hammad Graves LVN - 06/23/2020 2:39 PM CSTNurse attempted to call patient to verify if she is wanting a telehealth with Dr. Self or if she wants to discuss medication. . HAMMAD GRAVES LVN 06/23/2020 2:41 PM elephone Encounter - Arianna Oneal - 06/23/2020 11:10 AM CSTAmanda Umesh Niño is a 70 year old female patient calling to see if Dr. Self has spoken with Dr. Mark prieto regarding metoprolol succinate XL 25 mg 24 hr tablet for tremors. Please call. NITION OFFICER Telephone Encounter - Rose Presley - 06/22/2020 9:41 AM CSTAmanda Niño is a 70 year old female Patient is calling to request telehealth appointment to discuss new medication. Please contact at [phone] (home) documented in this encounter Plan of Treatment Date Type Specialty Care Team Description 08/18/2020 Office Visit Neurology Alexandro Self MD [address] [place] [phone] Health Maintenance Due Date Last Done [...] Type / Group HUMANA - HUMANA CHOICE [id number] 2017-[facility] Medicare Adv MANAGED t PPO MEDICARE documented as of this encounter
--- OUTSIDE RECORDS SUMMARY | 2020-07-19 17:48 | XMS REPORT | Summary of Care ---
:1950 Author Organization [facility] Address [address] [place] [address] Care Team Providers Name Role Phone Josefina Clayton Primary Care Provider Reason for Visit Reason Comments Rx Concern/Question Encounter Details Date Type Department Care Team Description 06/23/2020 Telephone [facility] Alexandro Self, Rx Con cern/Question Neurology-[place] [facility] [address], [address] [place] [address]. [address] [place] [id number] Allergies No Known Allergiesdocumented [...] Alcohol Use Drinks/Week oz/Week Comments No reformed kyle c x 32 years Sex Assigned at Date Recorded Not on file COVID-19 Exposure Response Date Recorded In the last month, have you been in contact with No / Unsure 06/16/2020 9:22 AM AGILE TEST LEAD someone who was confirmed or suspected to have Coronavirus / COVID-19? documented as of this encounter Last Filed Vital Signs Not on filedocumented in this encounter Miscellaneous Notes Telephone Encounter - Nandini Bueno LVN - 07/01/2020 2:29 PM CSTSpoke to patient and she stated she had talked to her doctor's office yesterday and they had all theinformation and was under the understanding he is going to contact Dr. Self. Closing encounter. elephone Encounter - Alexandro Self MD - 06/30/2020 4:13 PM CSTMy understanding was that she was going to bring that up with him about the medications switch and it was from metoprolol to propranolol. Metoprolol will not have any effect on tremor. elephone Encounter - Nandini Bueno LVN - 06/29/2020 11:01 AM CSTDrSelin Self, Patient called and is wanting to know if you spoke to Dr. Gonzalez regarding her Metoprolol SuccinateXL 25 mg for tremors. Patient is also asking if she can set up a telehealth appointment to discuss new medication. Please review and advise. E TEST LEAD Telephone Encounter - Arianna Oneal - 06/26/2020 2:31 PM CSTDavinasidney Niño is a 70 year old female patient returning call to clinic. Please call back [phone] signed by Arianna Oneal at 06/26/2020 2:32 PM AGILE TEST LEAD Telephone Encounter - Maru Roche - 06/23/2020 3:10 PM CSTDavinasidney Niño is a 70 year old female Patient is calling and requesting to know if Dr. Self has spoken with Dr. Gonzalez regarding her bp medication and new prescription for tremors as discussed in the last appointment with Dr. Self. Patient provided Dr. Gonzalez # [phone]. Please call patient. documented in this encounter Plan of Treatment Date Type Specialty Care Team Description 08/18/2020 Office Visit Neurology Alexandro Self MD [address] [place], [place] [address]. [place], [place] [phone] Health Maintenance Due Date [...] Type / Group HUMANA - HUMANA CHOICE [id number] 2017-Presen Medicare Adv MANAGED t O MEDICARE documented as of this encounter
[2020-07-19 18:26] LABS: Urine Bacteria <20 /HPF (<20); Urine RBC <5 /HPF (NONE SEEN)
[2020-07-19 18:41] LABS: Absolute Lymphocytes (CBC) 0.7 K/uL (0.7-4.9); Basophils % 0.4 % (0-1.3); Hematocrit 36.4 % (36.0-45.0); Lymphocytes % 4.6 % (15.3-44.8); RBC Red Blood Cell Count 4.54 M/uL (3.86-4.86)
[2020-07-19 18:58] LABS: ALT/SGPT 28 U/L (12-78); AST/SGOT 20 U/L (15-37); Albumin 2.9 g/dL (3.4-5.0); Alkaline Phosphatase 63 U/L (45-117); BUN Blood Urea Nitrogen 9 mg/dL (7-18); Bicarbonate 25 mmol/L (21-32); Bilirubin Direct 0.1 mg/dL (0-0.2); Bilirubin Total 0.4 mg/dL (0.2-1.0); Glucose Level 112 mg/dL (74-106); Lipase 88 U/L (73-393); Magnesium 2.1 mg/dL (1.8-2.4); Potassium 3.1 mmol/L (3.5-5.1); Protein, Total 6.8 g/dL (6.4-8.2); Sodium Level 136 mmol/L (136-145)
[2020-07-19] MEDS ORDERED: NA CHLORIDE 0.9% 500 ML ONE (19:24)
--- NOTE | 2020-07-19 19:28 | RAD REPORT ---
EXAM DESCRIPTION: RAD - Chest Single View - 07/19/2020 6:42 pm CLINICAL HISTORY: FEVER, syncope COMPARISON: June 2019 TECHNIQUE: AP portable chest image was obtained 07/19/2020 6:42 pm . FINDINGS: Lung volumes are low. Lung base assessment is limited but no gross abnormality seen. No si gnificant failure or volume overload. No acute process seen in the mid or upper lung kunz. Heart an d vasculature are normal. No measurable pleural effusion and no pneumothorax. No acute bony abnormali ty seen. No acute aortic findings suspected. IMPRESSION: Shallow inspiration chest exam is without acute cardiopulmonary finding. Lung base/posterior gutter assessment is very limited.
[2020-07-19 20:00] LABS: Urine Blood 2+ (NEG); Urine Glucose NEGATIVE (NEG); Urine Protein NEGATIVE (NEG); Urine Specific Gravity 1.015 (1.005-1.030)
--- NOTE | 2020-07-19 20:08 | RAD REPORT ---
EXAM DESCRIPTION: CT - Head Brain Wo Cont - 07/19/2020 7:33 pm CLINICAL HISTORY: WEAKNESS COMPARISON: <Comparisons> TECHNIQUE: Axial 5 mm thick images of the head were obtained without IV contrast. All CT scans are performed using dose optimization technique as appropriate and may include automated exposure control or mA/KV adjustment according to patient size. FINDINGS: No intracranial hemorrhage is present. There is extensive edema of the right frontal lobe and anterior parietal lobe white matter. Decreased white matter attenuation extends into the right te mporal lobe. There is 13 mm of right to left midline shift at the level of the lateral ventricles. Th e right lateral ventricle is mostly compressed and displaced across the midline. There is entrapment and dilatation of the temporal horn and trigone region of the left lateral ventricle. Right-sided sul ci are effaced. Findings most likely represent an intracranial malignancy with associated Mastoid air cells and visualized portions of the paranasal sinuses are clear. No acute bony findings. IMPRESSION: No intracranial hemorrhage. Pronounced vasogenic edema throughout the right frontal lobe and extending into the parietal and temp oral lobes on the right. Approximately 13 mm of right to left subfalcine shift with right lateral ventricle compression and co ntralateral lateral ventricle entrapment. There appears to be a 3 centimeter right frontal lobe soft tissue mass. There may be an additional ma ss at the right frontal parietal junction approximately 2.5 cm in size.
[2020-07-19] MEDS ORDERED: LEVETIRACETAM 500 MG/5 ML VIAL IV ONE (20:27)
[2020-07-19] MEDS ORDERED: dexAMETHasone 4 MG/ML VIAL ONE (20:27)
[2020-07-19] MEDS ORDERED: CEFTRIAXONE/SWI 1gm 2 GM/20 ML SYR ONE (20:28)
[2020-07-19] MEDS ORDERED: NA CHLORIDE 0.9% 100 ML ONE (20:28)
--- NOTE | 2020-07-19 20:41 | ER ---
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 17:55 Coronavirus screen: Client denies travel out of the [place] in the last 14 days. chills, jl7 fever, Client presents with at least one sign or symptom that may indicate coronavirus-19. Standard/surgical mask placed on the client. Provider contacted for isolation considerations. Ebola Screen: No symptoms or risks identified at this time. Initial Sepsis Screen: Does the patient meet any 2 criteria? Temp <36.0*C (96.8*F)) or > 38.3*C (100.9*F). HR > 90 bpm. Yes Does the patient have a suspected source of infection? Yes: Dysuria/Frequency/Urgency/UTI. Risk Assessment: Do you want to hurt yourself or someone else? Patient reports no desire to harm self or others. Onset of symptoms was July 12, 2020. Care prior to arrival: Medication(s) given: Tylenol, 1000 mg, IV initiated. 20 GA, in the right forearm, Glucose check: 131. 17:55 Method Of Arrival: EMS: [facility] jl7 17:55 Acuity: VERONICA 3 jl7 Triage Assessment: 17:50 General: Appears in no apparent distress. uncomfortable, ill, Behavior is cooperative, jl7 anxious. Pain: Denies pain. Neuro: Level of Consciousness is awake, alert, obeys commands, Oriented to person, place, time, situation. Cardiovascular: Patient's skin is warm and dry. Respiratory: Airway is patent Respiratory effort is even, unlabored, Respiratory pattern is regular, symmetrical. : Reports burning with urination, x 1 week. Derm: Skin is pink, warm \T\ dry. Bruising that is dark purple, on left gluteus svetlana. Historical: - Allergies: 18:38 No Known Allergies; jl7 - PMHx: 18:38 Hyperlipidemia; Hypertension; jl7 - Immunization history:: Adult Immunizations unknown. - Social history:: Smoking status: unknown. Screenin:30 Abuse screen: Denies threats or abuse. Denies injuries from another. Nutritional jl7 screening: No deficits noted. Tuberculosis screening: No symptoms or risk factors identified. Fall Risk Fall in past 12 months (25 points). IV access (20 points). Total Brown Fall Scale indicates Low Risk Score (25-44 pts). Fall prevention measures have been instituted. Side Rails Up X 2 Placed close to Nursing Station Frequent Obs/Assesments occuring Family Present and informed to notify staff if they need to leave bedside As available Patient and Family Educated on Fall Prevention Program and strategies. Assessment: 19:27 General: Appears in no apparent distress. ill, Behavior is appropriate for age. Pain: ea Denies pain. Neuro: Level of Consciousness is awake, alert, obeys commands, Oriented to person, place, time, situation. Cardiovascular: Patient's skin is warm and dry. Respiratory: Airway is patent Respiratory effort is even, unlabored, Respiratory pattern is regular, symmetrical. Derm: Skin is dry, Skin is pale, Skin temperature is warm. 19:30 Reassessment: Patient and/or family updated on plan of care and expected duration. Pain ea level reassessed. Pt taken to CT. 20:10 Reassessment: Patient and/or family updated on plan of care and expected duration. Pain ea level reassessed. Provider at bedside updating pt on plan of care. 21:36 Reassessment: Patient and/or family updated on plan of care and expected duration. Pain ea level reassessed. Patient is alert, oriented x 3, equal unlabored respirations, skin warm/dry/pink. 22:34 Reassessment: Patient and/or family updated on plan of care and expected duration. Pain ea level reassessed. Patient is alert, oriented x 3, equal unlabored respirations, skin warm/dry/pink. 23:07 Reassessment: Report called to Liz RAGLAND [facility]. ea 07/20 00:01 Reassessment: Patient and/or family updated on plan of care and expected duration. Pain ea level reassessed. Patient is alert, oriented x 3, equal unlabored respirations, skin warm/dry/pink. Pt transferred to [facility] at facility for transfer, pt left ED via stretcher per EMS, pt tolerating well. Vital Signs: 07/19 17:55 BP 166 / 91; Pulse 105; Resp 22; Temp 100.3; Pulse Ox 97% ; jl7 18:30 BP 156 / 90; Pulse 94; Resp 17; Pulse Ox 97% ; jl7 19:15 BP 155 / 91; Pulse 95; Resp 16; Pulse Ox 97% ; ea 20:11 Temp 98.6(O); tt3 21:01 BP 146 / 77; Pulse 84; Resp 20; Pulse Ox 99% on R/A; ea 22:35 BP 151 / 71; Pulse 84; Resp 20; Pulse Ox 98% on R/A; ea 23:50 BP 148 / 70; Pulse 80; Resp 18; Pulse Ox 98% on R/A; ea 07/20 00:04 Temp 98.6; ea ED Course: 07/19 17:51 Patient arrived in ED. jl7 17:53 Bandar Calabrese PA is PHCP. cp 17:53 Bandar Barker MD is Attending Physician. cp 17:57 Triage completed. jl7 18:00 Patient has correct armband on for positive identification. Bed in low position. Call jl light in reach. Side rails up X 1. Side rails up X2. Pulse ox on. NIBP on. 18:10 Straight cath inserted, using sterile technique, 16 Fr. Specimen obtained. Returned jl7 clear yellow urine. Patient tolerated well. 18:20 First set of blood cultures drawn by ok. jl7 18:24 Initial lab(s) drawn, by ok, sent to lab. Second set of blood cultures drawn by ok. jl7 18:28 Johnathan Rae, OBIE is Primary Nurse. jl7 18:28 Inserted saline lock: 20 gauge in left wrist, using aseptic technique. Blood collected. jl7 18:32 XRAY CXR (1 view) In Process Unspecified. EDMS 19:33 CT Head Brain wo Cont In Process Unspecified. EDMS 19:36 Arm band placed on right wrist. ea 20:16 Initiated transfer with Jennifer Burr at [facility]. tt3 21:02 No provider procedures requiring assistance completed. Patient transferred, IV remains ea in place. 21:28 Updated Jennifer on covid results - still pending. tt3 Administered Medications: 19:15 Drug: NS 0.9% 500 ml Route: IV; Rate: bolus; Site: right antecubital; ea 21:36 Follow up: Response: No adverse reaction; IV Status: Completed infusion; IV Intake: ea 500ml 20:20 Drug: Decadron - Dexamethasone 10 mg Route: IVP; Site: right wrist; ea 21:37 Follow up: Response: No adverse reaction ea 20:24 Drug: Rocephin - (cefTRIAXone) 2 grams Route: IVPB; Infused Over: 30 mins; Site: right ea wrist; 21:00 Follow up: Response: No adverse reaction; IV Status: Completed infusion ea 20:25 Drug: Keppra 1000 mg Route: IV; Rate: calculated rate; Site: left antecubital; ea 20:40 Follow up: Response: No adverse reaction; IV Status: Completed infusion; IV Intake: ea 100ml 21:54 Drug: Potassium Effervescent Tablet 50 mEq Route: PO; ea 21:56 Follow up: Response: No adverse reaction ea Intake: 20:40 IV: 100ml; Total: 100ml. ea 21:36 IV: 500ml; Total: 600ml. ea Outcome: 20:40 ER care complete, transfer ordered by . cp 21:02 Instructed on the need for transfer, Demonstrated understanding of instructions. ea 07/20 00:01 Transferred by ground EMS to other acute care facility: [facility] . Transfer ea form completed. Condition: stable 00:04 Patient left the ED. ea Signatures: Dispatcher [employer] EDMS Bandar Calabrese PA PA cp Leal, Jahala, RN RN jl7 Antunez, Elena, RN RN ea Trim, Tyler tt3 Corrections: (The following items were deleted from the chart) 07/19 19:17 17:50 BP 156 / 90; Pulse 94bpm; Resp 17bpm; Pulse Ox 97%; jl7 jl7 21:02 21:01 BP 160 / 146; Pulse 84bpm; Resp 20bpm; Pulse Ox 99% RA; ea ea
--- NOTE | 2020-07-19 20:41 | EDPHYS ---
Physician Documentation [facility] Name: Davina Niño Age: 70 yrs Sex: Female : 1950 Arrival Date: 07/19/2020 Time: 17:51 Bed 8 Private MD: ED Physician Bandar Barker HPI: 07/19 18:10 This 70 yrs old Female presents to ER via EMS with complaints of Fever. cp 18:10 The patient reports fever, that was measured at 101.3 degrees Fahrenheit. cp 18:10 Onset: The symptoms/episode began/occurred today. cp 18:10 Associated signs and symptoms: Pertinent positives: general weakness. EMS was called to cp patient's home after patient reports becoming weak and falling to ground while attempting to sit on bed. EMS reports temp of 101.3 and patient c/o burning with urination. Historical: - Allergies: 18:38 No Known Allergies; jl7 - PMHx: 18:38 Hyperlipidemia; Hypertension; jl7 - Immunization history:: Adult Immunizations unknown. - Social history:: Smoking status: unknown. ROS: 18:15 Constitutional: Positive for fever. cp 18:15 Eyes: Negative for injury, pain, redness, and discharge. cp 18:15 Cardiovascular: Negative for chest pain, palpitations. 18:15 Respiratory: Negative for cough, shortness of breath, wheezing. 18:15 Abdomen/GI: Negative for abdominal pain, nausea, vomiting, and diarrhea. 18:15 : Positive for burning with urination. 18:15 Neuro: Positive for general weakness, Negative for altered mental status. 18:15 All other systems are negative. Exam: 18:20 Constitutional: The patient appears in no acute distress, alert, awake, cp non-diaphoretic, non-toxic, well developed, well nourished. 18:20 Head/Face: Normocephalic, atraumatic. cp 18:20 Eyes: Periorbital structures: appear normal, Pupils: equal, round, and reactive to cp light and accomodation, Extraocular movements: intact throughout, Conjunctiva: normal, no exudate, no injection, Lids and lashes: appear normal, bilaterally. 18:20 ENT: External ear(s): are unremarkable, Nose: is normal, Mouth: Lips: moist, Oral mucosa: moist, Posterior pharynx: is normal, airway is patent, no erythema, no exudate. 18:20 Neck: ROM/movement: is normal, is supple, without pain, no range of motions cp limitations, no meningismus. 18:20 Chest/axilla: Inspection: normal, Palpation: is normal, no crepitus, no tenderness. cp 18:20 Cardiovascular: Rate: tachycardic, Rhythm: regular, Edema: is not appreciated, JVD: is not appreciated. 18:20 Respiratory: the patient does not display signs of respiratory distress, Respirations: normal, no use of accessory muscles, no retractions, labored breathing, is not present, Breath sounds: are clear throughout, no decreased breath sounds, no stridor, no wheezing. 18:20 Abdomen/GI: Inspection: abdomen appears normal, Bowel sounds: active, all quadrants, Palpation: soft, in all quadrants, mild abdominal tenderness, in the suprapubic area, rebound tenderness, is not appreciated, voluntary guarding, is not appreciated, involuntary guarding, is not appreciated. 18:20 Back: CVA tenderness, is absent. 18:20 Skin: cellulitis, is not appreciated, no rash present. 18:20 Neuro: Orientation: to person, place \T\ time. Mentation: is normal, Cerebellar function: Romberg testing is negative, normal finger to nose testing, heel to walton testing is normal, Motor: moves all fours, general weakness without focal deficits, Sensation: no obvious gross deficits. Vital Signs: 17:55 BP 166 / 91; Pulse 105; Resp 22; Temp 100.3; Pulse Ox 97% ; jl7 18:30 BP 156 / 90; Pulse 94; Resp 17; Pulse Ox 97% ; jl7 19:15 BP 155 / 91; Pulse 95; Resp 16; Pulse Ox 97% ; ea 20:11 Temp 98.6(O); tt3 21:01 BP 146 / 77; Pulse 84; Resp 20; Pulse Ox 99% on R/A; ea 22:35 BP 151 / 71; Pulse 84; Resp 20; Pulse Ox 98% on R/A; ea 23:50 BP 148 / 70; Pulse 80; Resp 18; Pulse Ox 98% on R/A; ea 07/20 00:04 Temp 98.6; ea MDM: 07/19 17:57 Patient medically screened. donte 20:28 Data reviewed: vital signs, nurses notes, lab test result(s), EKG, radiologic studies, cp CT scan, plain films. Test interpretation: by ED physician or midlevel provider: ECG, chest xray negative for infiltrates. 21:57 Physician consultation: was contacted at 21:58, regarding regarding transfer, [facility] consult, patient's condition, spoke with DR White, neurosurgery, requests transfer to ICU. 22:31 Physician consultation: was contacted at 22:31, regarding regarding transfer, [facility] patient's condition, accepting physician will be DR Green. 07/19 18:01 Order name: Urine Microscopic Only 07/19 18:01 Order name: Basic Metabolic Panel; Complete Time: 18:59 07/19 18:59 Interpretation: Normal except: K 3.1; GLUC 112. 07/19 18:01 Order name: CBC with Diff; Complete Time: 20:58 07/19 19:33 Interpretation: Normal except: WBC 14.7; PLT 468; MPV 7.0; FRANSISCA% 89.9; LYM% 4.6; NEUT A cp 13.2. 07/19 18:01 Order name: Hepatic Function; Complete Time: 18:59 07/19 18:01 Order name: Lipase; Complete Time: 18:59 07/19 18:01 Order name: Procalcitonin; Complete Time: 19:33 07/19 18:01 Order name: Lactate; Complete Time: 19:33 07/19 18:01 Order name: Blood Culture Adult (2) 07/19 18:01 Order name: Magnesium; Complete Time: 18:59 07/19 18:03 Order name: Urine Microscopic Only; Complete Time: 18:48 EDID 07/19 18:48 Interpretation: Reviewed. 07/19 18:12 Order name: Urine Dipstick--Ancillary (enter results); Complete Time: 20:10 em 07/19 20:10 Interpretation: Normal except: UBLD 2+. 07/19 20:18 Order name: Manual Differential; Complete Time: 20:58 EDID 07/19 21:56 Order name: SARS-COV-2 RT PCR; Complete Time: 22:29 EDID 07/19 18:01 Order name: Urine Dipstick-Ancillary (obtain specimen); Complete Time: 18:11 cp 07/19 18:01 Order name: IV Saline Lock; Complete Time: 18:29 cp 07/19 18:01 Order name: Labs collected and sent; Complete Time: 18:29 cp 07/19 18:01 Order name: Cath; Complete Time: 18:29 cp 07/19 18:01 Order name: XRAY CXR (1 view); Complete Time: 19:33 cp 07/19 19:00 Order name: CT Head Brain wo Cont; Complete Time: 20:10 cp Administered Medications: 19:15 Drug: NS 0.9% 500 ml Route: IV; Rate: bolus; Site: right antecubital; ea 21:36 Follow up: Response: No adverse reaction; IV Status: Completed infusion; IV Intake: ea 500ml 20:20 Drug: Decadron - Dexamethasone 10 mg Route: IVP; Site: right wrist; ea 21:37 Follow up: Response: No adverse reaction ea 20:24 Drug: Rocephin - (cefTRIAXone) 2 grams Route: IVPB; Infused Over: 30 mins; Site: right ea wrist; 21:00 Follow up: Response: No adverse reaction; IV Status: Completed infusion ea 20:25 Drug: Keppra 1000 mg Route: IV; Rate: calculated rate; Site: left antecubital; ea 20:40 Follow up: Response: No adverse reaction; IV Status: Completed infusion; IV Intake: ea 100ml 21:54 Drug: Potassium Effervescent Tablet 50 mEq Route: PO; ea 21:56 Follow up: Response: No adverse reaction ea Disposition: 07/20 10:45 Co-signature as Attending Physician, Bandar Barker MD I agree with the assessment and [facility] plan of care. Disposition: 07/19/20 20:40 Transfer ordered to [facility]. 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 - Reason for transfer: Higher level of care. - Accepting physician is DR Green. - Condition is Stable. - Problem is new. - Symptoms have improved. Signatures: Dispatcher [employer] Bandar Elliott MD MD cha Page, Corey, PA PA cp Leal, Jahala, RN RN jl7 Norman, Stefanie, RN RN ea Corrections: (The following items were deleted from the chart) 07/19 20:53 20:25 CORONAVIRUS+MR.[email or web address].CAROLINAZ ordered. EDMS EDMS 22:31 20:40 07/19/2020 20:40 Transfer ordered to [facility]. 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 Reason for transfer: Higher level of care. Accepting physician is Doctor. Condition is Stable. Problem is new. Symptoms have improved. cp 07/20 00:04 07/19 22:31 07/19/2020 20:40 Transfer ordered to [facility]. 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 Reason for transfer: Higher level of care. Accepting physician is DR Green. Condition is Stable. Problem is new. Symptoms have improved. cp
[2020-07-19 20:50] LABS: Blood Morphology Comment NOT SEEN (NOT SEEN); Platelet Estimate ADEQ
[2020-07-19] MEDS ORDERED: POTASSIUM 25 MEQ EFFERV TAB ONE (22:00)
[2020-07-23 05:45] VITALS: TEMP 98.6
[2020-07-23 05:48] VITALS: O2SAT 98
[2020-07-23 05:49] VITALS: BP 148/70
== END 2020-07-20 00:04 | disposition short-term general hospital (02) ==
LOC: ER 17:45
DX: R53.1 Weakness (principal); G93.89 Other specified disorders of brain; Z20.828 Contact with and (suspected) exposure to other viral communicable diseases; I10 Essential (primary) hypertension; W01.0XXA Fall on same level from slipping, tripping and stumbling without subsequent striking against object, initial encounter; Y93.89 Activity, other specified; Y92.9 Unspecified place or not applicable
CPT/HCPCS: 87040 ×2; 85025; 80048; 36415; 83735; 80076; 83605; 83690; 84145; 70450; 71045; 51702; 99285; U0003; J1100; J1953; J0696; J7040; 81003; 81015

== ENCOUNTER 2021-10-22 14:55 | Emergency (ER) | payer OTHER ==
--- OUTSIDE RECORDS SUMMARY | 2021-10-22 15:01 | XMS REPORT | Continuity of Care Document ---
:1950 Author Organization [facility] t Address [address] [place] [address] Care Team Providers Name Role Phone DL CORRALES Attending Clinician Unavailable Ankit NORRIS Attending Clinician Unavailable MARCIANO FULTON Attending Clinician Unavailable ANDER Attending Clinician Unavailable MD GRACIELA RODRIGUEZ Attending Clinician Unavailable JENNIFER Attending Clinician Unavailable SAM SELF Attending Clinician Unavailable SAM SELF Attending Clinician Unavailable Sam Self MD Attending Clinician MICHELL Attending Clinician Unavailable Doctor Unassigned, Name Attending Clinician Unavailable AYE Attending Clinician Unavailable Calvin RAGLAND, M Attending Clinician Unavailable DL CORRALES Admitting Clinician Unavailable JENNIFER Admitting Clinician Unavailable MD GRACIELA RODRIGUEZ Admitting Clinician Unavailable ERNA Admitting Clinician Unavailable Payers Payer Name Policy Type Policy Number Effective Date Expiration Date S ource [employer] MEDICARE [id number] 2018 ADV 00:00:00 MEDICARE A B [id number] 2020 00:00:00 UNITED MEDICARE [id number] 2020 O 00:00:00 [employer] CHOICE [id number] 2017 00:00:00 Problems Condition Condition Condition Status Onset Resolution Last Treating Co mments Source Name Details Category Date Date Treatment Clinician Date Primary Primary Problem Active [facility]r [facility] k[facility] - [facility] right knee right knee [facility] Arthritis Arthritis Problem Active [facility] Allergies, Adverse Reactions, Alerts Allergy Allergy Status Severity Reaction(s) Onset Inactive Treating Comm ents Source Name Type Date Date Clinician NO KNOWN Allergy Active [facility]ERG[facility] S NO KNOWN Drug Active [facility]ERGIE [facility] [place] [facility] [place] Social History Social Habit Start Date Stop Date Quantity Comments Source Sex Assigned At [facility] Exposure to Not sure [facility] SARS-CoV-2 [facility] (event) Branch Tobacco use and 2020-06-16 2020-06-16 Never used Universit [facility] of exposure 00:00:00 00:00:00 [facility] Alcohol intake 2020-06-16 2020-06-16 Current [facility] 00:00:00 00:00:00 non-drinker of [facility] alcohol Branch (finding) Alcohol Comment 2017-12-26 2017-12-26 reformed [facility] of 00:00:00 00:00:00 aloholic x 34 [place] [facility] Branch Smoking Status Start Date Stop Date Source Never smoker [facility] Medications Ordered Filled Start Stop Current Ordering Indication Dosage Frequency Signature Comments Components Source Medication Medication Date Date Medication? Clinician (SIG) Name Name DULoxetine 2019-08 Yes 60mg Take 60 mg U nivers (CYMBALTA) 1-10 by mouth ity o f 60 mg 15:47: daily. [facility] pregabalin 2019-08 Yes 50mg Take 50 mg U nivers 50 mg 1-10 by mouth ity of capsule 15:47: at [place] [address] bedtime. Medical Branch DULoxetine 2019-08 Yes 60mg Take 60 mg U nivers (CYMBALTA) 1-10 by mouth ity o f 60 mg 15:47: daily. [place] capsule [facility] pregabalin 2019-08 Yes 50mg Take 50 mg U nivers 50 mg 1-10 by mouth ity of capsule 15:47: at [place] [address] bedtime. Medical Branch DULoxetine 2019-08 Yes 60mg Take 60 mg U nivers (CYMBALTA) 1-10 by mouth ity o f 60 mg 15:47: daily. [place] capsule [facility] pregabalin 2019-08 Yes 50mg Take 50 mg U nivers 50 mg 1-10 by mouth ity of capsule 15:47: at [place] [address] bedtime. Medical Branch DULoxetine 2019-08 Yes 60mg Take 60 mg U nivers (CYMBALTA) 1-10 by mouth ity o f 60 mg 15:47: daily. capsule Medical Branch pregabalin 2019-08 Yes 50mg Take 50 mg U nivers 50 mg 1-10 by mouth ity of capsule 15:47: at [place] 01 bedtime. Medical Branch DULoxetine 2019-08 Yes 60mg Take 60 mg U nivers (CYMBALTA) 1-10 by mouth ity o f 60 mg 15:47: daily. capsule Medical Branch pregabalin 2019-08 Yes 50mg Take 50 mg U nivers 50 mg 1-10 by mouth ity of capsule 15:47: at [place] [address] bedtime. Medical Branch pravastatin 2019-08 Yes 80mg Take 80 mg Univers 80 mg 1-10 by mouth ity of tablet 15:41: at [place] [address] bedtime. Medical Branch telmisartan 2019-08 Yes 1{tbl} Take 1 Un jes -hydrochlor 1-10 tablet by ity of othiazide 15:41: mouth [place] 40-12.5 mg 53 daily. Medical per tablet Branch aspirin 2019-08 Yes 81mg Take 81 mg Univ ers (ASPIRIN 1-10 by mouth ity of LOW DOSE) 15:41: at [place] 81 mg EC 53 bedtime. Medical tablet Branch ARIPiprazol 2019-08 Yes aripiprazo Univers e 2 mg 1-10 le 2 mg ity of tablet 15:41: tablet [place] [facility] pravastatin 2019-08 Yes 80mg Take 80 mg Univers 80 mg 1-10 by mouth ity of tablet 15:41: at [place] [address] bedtime. Medical Branch telmisartan 2019-08 Yes 1{tbl} Take 1 Un jes -hydrochlor 1-10 tablet by ity of othiazide 15:41: mouth [place] 40-12.5 mg 53 daily. Medical per tablet Branch aspirin 2019-08 Yes 81mg Take 81 mg Univ ers (ASPIRIN 1-10 by mouth ity of LOW DOSE) 15:41: at [place] 81 mg EC 53 bedtime. Medical tablet Branch ARIPiprazol 2019-08 Yes aripiprazo Univers e 2 mg 1-10 le 2 mg ity of tablet 15:41: tablet Medical Branch pravastatin 2019-08 Yes 80mg Take 80 mg Univers 80 mg 1-10 by mouth ity of tablet 15:41: at [place] [address] bedtime. Medical Branch telmisartan 2019-08 Yes 1{tbl} Take 1 Un jes -hydrochlor 1-10 tablet by ity of othiazide 15:41: mouth [place] 40-12.5 mg 53 daily. Medical per tablet Branch aspirin 2019-08 Yes 81mg Take 81 mg Univ ers (ASPIRIN 1-10 by mouth ity of LOW DOSE) 15:41: at [place] 81 mg EC 53 bedtime. Medical tablet Branch ARIPiprazol 2019-08 Yes aripiprazo Univers e 2 mg 1-10 le 2 mg ity of tablet 15:41: tablet [place] [address] Medical Branch pravastatin 2019-08 Yes 80mg Take 80 mg Univers 80 mg 1-10 by mouth ity of tablet 15:41: at [place] [address] bedtime. Medical Branch telmisartan 2019-08 Yes 1{tbl} Take 1 Un jes -hydrochlor 1-10 tablet by ity of othiazide 15:41: mouth [place] 40-12.5 mg 53 daily. Medical per tablet Branch aspirin 2019-08 Yes 81mg Take 81 mg Univ ers (ASPIRIN 1-10 by mouth ity of LOW DOSE) 15:41: at [place] 81 mg EC 53 bedtime. Medical tablet Branch ARIPiprazol 2019-08 Yes aripiprazo Univers e 2 mg 1-10 le 2 mg ity of tablet 15:41: tablet [place] [address] Medical Branch pravastatin 2019-08 Yes 80mg Take 80 mg Univers 80 mg 1-10 by mouth ity of tablet 15:41: at [place] [address] bedtime. Medical Branch telmisartan 2019-08 Yes 1{tbl} Take 1 Un jes -hydrochlor 1-10 tablet by ity of othiazide 15:41: mouth [place] 40-12.5 mg 53 daily. Medical per tablet Branch aspirin 2019-08 Yes 81mg Take 81 mg Univ ers (ASPIRIN 1-10 by mouth ity of LOW DOSE) 15:41: at [place] 81 mg EC 53 bedtime. Medical tablet Branch ARIPiprazol 2019-08 Yes aripiprazo Univers e 2 mg 1-10 le 2 mg ity of tablet 15:41: tablet [place] [address] Medical Branch meloxicam 2020-0 2020- No 7.5mg Take 7.5 Un jes 7.5 mg 7-07 07-07 mg by ity of tablet 21:21: 00:00 mouth [place] 40 :00 daily. Medical Patient Branch takes prn meloxicam 2019-0 2020- No 7.5mg Take 7.5 Un jes 7.5 mg 7-07 07-07 mg by ity of tablet 21:21: 00:00 mouth [place] 40 :00 daily. Medical Patient Branch takes prn ARIPiprazol 2020-0 Yes aripiprazo Univers e 2 mg 7-07 le 2 mg ity of tablet 21:20: tablet [place] 19 Medical Branch ARIPiprazol 2020-0 Yes aripiprazo Univers e 2 mg 7-07 le 2 mg ity of tablet 21:20: tablet [place] 19 Medical Branch ARIPiprazol 2020-0 Yes aripiprazo Univers e 2 mg 7-07 le 2 mg ity of tablet 21:20: tablet [place] 19 Medical Branch ARIPiprazol 2020-0 Yes aripiprazo Univers e 2 mg 7-07 le 2 mg ity of tablet 21:20: tablet [place] 19 Medical Branch SERTraline 2019-0 2020- No 150mg Take 150 U nivers 50 mg 7-07 07-07 mg by ity of tablet 21:19: 00:00 mouth [place] 43 :00 daily. Medical Branch SERTraline 2020-0 2020- No 150mg Take 150 U nivers 50 mg 7-07 07-07 mg by ity of tablet 21:19: 00:00 mouth [place] 43 :00 daily. Medical Branch TRINTELLIX 2020-0 Yes 1{tbl} Take 1 Uni vers 10 mg Tab 6-10 tablet by ity o f 00:00: mouth 2 [place] (two) Medical times Branch daily. latanoprost 2020-0 Yes INSTILL 1 U nivers 0.005 % 6-10 DROP INTO ity of ophthalmic 00:00: RIGHT EYE [place] drops 00 ONCE DAILY Medical AT BEDTIME Branch TRINTELLIX 2020-0 Yes 1{tbl} Take 1 Uni vers 10 mg Tab 6-10 tablet by ity o f 00:00: mouth 2 [place] 00 (two) Medical times Branch daily. latanoprost 2020-0 Yes INSTILL 1 U nivers 0.005 % 6-10 DROP INTO ity of ophthalmic 00:00: RIGHT EYE [place] drops 00 ONCE DAILY Medical AT BEDTIME Branch TRINTELLIX 2020-0 Yes 1{tbl} Take 1 Uni vers 10 mg Tab 6-10 tablet by ity o f 00:00: mouth 2 (two) Medical times Branch daily. latanoprost 2020-0 Yes INSTILL 1 U nivers 0.005 % 6-10 DROP INTO ity of ophthalmic 00:00: RIGHT EYE [place] drops 00 ONCE DAILY Medical AT BEDTIME Branch TRINTELLIX 2020-0 Yes 1{tbl} Take 1 Uni vers 10 mg Tab 6-10 tablet by ity o f 00:00: mouth 2 (two) Medical times Branch daily. latanoprost 2020-0 Yes INSTILL 1 U nivers 0.005 % 6-10 DROP INTO ity of ophthalmic 00:00: RIGHT EYE [place] drops 00 ONCE DAILY Medical AT BEDTIME Branch TRINTELLIX 2020-0 Yes 1{tbl} Take 1 Uni vers 10 mg Tab 6-10 tablet by ity o f 00:00: mouth 2 (two) Medical times Branch daily. latanoprost 2020-0 Yes INSTILL 1 U nivers 0.005 % 6-10 DROP INTO ity of ophthalmic 00:00: RIGHT EYE [place] drops 00 ONCE DAILY Medical AT BEDTIME Branch TRINTELLIX 2020-0 Yes 1{tbl} Take 1 Uni vers 10 mg Tab 6-10 tablet by ity o f 00:00: mouth 2 (two) Medical times Branch daily. latanoprost 2020-0 Yes INSTILL 1 U nivers 0.005 % 6-10 DROP INTO ity of ophthalmic 00:00: RIGHT EYE [place] drops 00 ONCE DAILY Medical AT BEDTIME Branch TRINTELLIX 2020-0 Yes 1{tbl} Take 1 Uni vers 10 mg Tab 6-10 tablet by ity o f 00:00: mouth 2 (two) Medical times Branch daily. latanoprost 2020-0 Yes INSTILL 1 U nivers 0.005 % 6-10 DROP INTO ity of ophthalmic 00:00: RIGHT EYE [place] drops 00 ONCE DAILY Medical AT BEDTIME Branch TRINTELLIX 2020-0 Yes 1{tbl} Take 1 Uni vers 10 mg Tab 6-10 tablet by ity o f 00:00: mouth 2 [place] 00 (two) Medical times Branch daily. latanoprost 2020-0 Yes INSTILL 1 U nivers 0.005 % 6-10 DROP INTO ity of ophthalmic 00:00: RIGHT EYE [place] drops 00 ONCE DAILY Medical AT BEDTIME Branch TRINTELLIX 2020-0 Yes 1{tbl} Take 1 Uni vers 10 mg Tab 6-10 tablet by ity o f 00:00: mouth 2 (two) Medical times [place] daily. latanoprost 2020-0 Yes INSTILL 1 U nivers 0.005 % 6-10 DROP INTO ity of ophthalmic 00:00: RIGHT EYE [place] drops 00 ONCE DAILY Medical AT BEDTIME Branch mupirocin 2020-0 Yes [id number] Apply to Univers (BACTROBAN) 4-11 area(s) 3 ity of 2 % cream 00:00: (three) [place] 00 times Medical daily. Branch mupirocin 2020-0 Yes [id number] Apply to Univers (BACTROBAN) 4-11 area(s) 3 ity of 2 % cream 00:00: (three) [place] 00 times Medical daily. Branch mupirocin 2 2020-0 Yes [id number] Apply to Univers % ointment 4-11 area(s) 3 ity of 00:00: (three) [place] 00 times Medical daily. Branch mupirocin 2020-0 Yes [id number] Apply to Univers (BACTROBAN) 4-11 area(s) 3 ity of 2 % cream 00:00: (three) [place] 00 times Medical daily. Branch mupirocin 2020-0 Yes [id number] Apply to Univers (BACTROBAN) 4-11 area(s) 3 ity of 2 % cream 00:00: (three) [place] 00 times Medical daily. Branch mupirocin 2 2020-0 Yes [id number] Apply to Univers % ointment 4-11 area(s) 3 ity of 00:00: (three) [place] 00 times Medical daily. Branch mupirocin 2020-0 Yes [id number] Apply to Univers (BACTROBAN) 4-11 area(s) 3 ity of 2 % cream 00:00: (three) [place] 00 times Medical daily. Branch mupirocin 2020-0 Yes [id number] Apply to Univers (BACTROBAN) 4-11 area(s) 3 ity of 2 % cream 00:00: (three) [place] 00 times Medical daily. Branch mupirocin 2 2020-0 Yes [id number] Apply to Univers % ointment 4-11 area(s) 3 ity of 00:00: (three) [place] 00 times Medical daily. Branch mupirocin 2020-0 Yes [id number] Apply to Univers (BACTROBAN) 4-11 area(s) 3 ity of 2 % cream 00:00: (three) [place] 00 times Medical daily. Branch mupirocin 2020-0 Yes [id number] Apply to Univers (BACTROBAN) 4-11 area(s) 3 ity of 2 % cream 00:00: (three) [place] 00 times Medical daily. Branch mupirocin 2 2020-0 Yes [id number] Apply to Univers % ointment 4-11 area(s) 3 ity of 00:00: (three) [place] 00 times Medical daily. Branch mupirocin 2020-0 Yes [id number] Apply to Univers (BACTROBAN) 4-11 area(s) 3 ity of 2 % cream 00:00: (three) [place] 00 times Medical daily. Branch mupirocin 2020-0 Yes [id number] Apply to Univers (BACTROBAN) 4-11 area(s) 3 ity of 2 % cream 00:00: (three) [place] 00 times Medical daily. Branch mupirocin 2 2020-0 Yes [id number] Apply to Univers % ointment 4-11 area(s) 3 ity of 00:00: (three) [place] 00 times Medical daily. Branch mupirocin 2020-0 Yes [id number] Apply to Univers (BACTROBAN) 4-11 area(s) 3 ity of 2 % cream 00:00: (three) [place] 00 times Medical daily. Branch mupirocin 2020-0 Yes [id number] Apply to Univers (BACTROBAN) 4-11 area(s) 3 ity of 2 % cream 00:00: (three) [place] 00 times Medical daily. Branch mupirocin 2 2020-0 Yes [id number] Apply to Univers % ointment 4-11 area(s) 3 ity of 00:00: (three) [place] 00 times Medical daily. Branch mupirocin 2020-0 Yes [id number] Apply to Univers (BACTROBAN) 4-11 area(s) 3 ity of 2 % cream 00:00: (three) [place] 00 times Medical daily. Branch mupirocin 2020-0 Yes [id number] Apply to Univers (BACTROBAN) 4-11 area(s) 3 ity of 2 % cream 00:00: (three) [place] 00 times Medical daily. Branch mupirocin 2 2020-0 Yes [id number] Apply to Univers % ointment 4-11 area(s) 3 ity of 00:00: (three) [place] 00 times Medical daily. Branch mupirocin 2020-0 Yes [id number] Apply to Univers (BACTROBAN) 4-11 area(s) 3 ity of 2 % cream 00:00: (three) [place] 00 times Medical daily. Branch mupirocin 2020-0 Yes [id number] Apply to Univers (BACTROBAN) 4-11 area(s) 3 ity of 2 % cream 00:00: (three) [place] 00 times Medical daily. Branch mupirocin 2 2020-0 Yes [id number] Apply to Univers % ointment 4-11 area(s) 3 ity of 00:00: (three) [place] 00 times Medical daily. Branch mupirocin 2020-0 Yes [id number] Apply to Univers (BACTROBAN) 4-11 area(s) 3 ity of 2 % cream 00:00: (three) [place] 00 times Medical daily. Branch mupirocin 2020-0 Yes [id number] Apply to Univers (BACTROBAN) 4-11 area(s) 3 ity of 2 % cream 00:00: (three) [place] 00 times Medical daily. Branch mupirocin 2020-0 Yes [id number] Apply to Univers (BACTROBAN) 4-11 area(s) 3 ity of 2 % cream 00:00: (three) [place] 00 times Medical daily. Branch mupirocin 2020-0 Yes [id number] Apply to Univers (BACTROBAN) 4-11 area(s) 3 ity of 2 % cream 00:00: (three) [place] 00 times Medical daily. Branch mupirocin 2020-0 Yes [id number] Apply to Univers (BACTROBAN) 4-11 area(s) 3 ity of 2 % cream 00:00: (three) [place] 00 times Medical daily. Branch mupirocin 2020-0 Yes [id number] Apply to Univers (BACTROBAN) 4-11 area(s) 3 ity of 2 % cream 00:00: (three) [place] 00 times Medical daily. Branch mupirocin 2 2020-0 Yes [id number] Apply to Univers % ointment 4-11 area(s) 3 ity of 00:00: (three) [place] 00 times Medical daily. Branch mupirocin 2020-0 Yes [id number] Apply to Univers (BACTROBAN) 4-11 area(s) 3 ity of 2 % cream 00:00: (three) [place] 00 times Medical daily. Branch mupirocin 2020-0 Yes [id number] Apply to Univers (BACTROBAN) 4-11 area(s) 3 ity of 2 % cream 00:00: (three) [place] 00 times Medical daily. Branch mupirocin 2 2020-0 Yes [id number] Apply to Univers % ointment 4-11 area(s) 3 ity of 00:00: (three) [place] 00 times Medical daily. [place] ezetimibe 2018-08 Yes 10mg Take 10 mg Un jes 10 mg 2-06 by mouth ity of tablet 21:23: daily. [address] ezetimibe 2018-08 Yes 10mg Take 10 mg Un jes 10 mg 2-06 by mouth ity of tablet 21:23: daily. [address] ezetimibe 2018-08 Yes 10mg Take 10 mg Un jes 10 mg 2-06 by mouth ity of tablet 21:23: daily. [address] ezetimibe 2018-08 Yes 10mg Take 10 mg Un jes 10 mg 2-06 by mouth ity of tablet 21:23: daily. [address] ezetimibe 2018-08 Yes 10mg Take 10 mg Un jes 10 mg 2-06 by mouth ity of tablet 21:23: daily. [address] ezetimibe 2018-08 Yes 10mg Take 10 mg Un jes 10 mg 2-06 by mouth ity of tablet 21:23: daily. [address] ezetimibe 2018-08 Yes 10mg Take 10 mg Un jes 10 mg 2-06 by mouth ity of tablet 21:23: daily. [address] ezetimibe 2018-08 Yes 10mg Take 10 mg Un jes 10 mg 2-06 by mouth ity of tablet 21:23: daily. [address] ezetimibe 2018-08 Yes 10mg Take 10 mg Un jes 10 mg 2-06 by mouth ity of tablet 21:23: daily. [address] ezetimibe 2018-08 Yes 10mg Take 10 mg Un jes 10 mg 2-06 by mouth ity of tablet 21:23: daily. [address] ezetimibe 2018-08 Yes 10mg Take 10 mg Un jes 10 mg 2-06 by mouth ity of tablet 21:23: daily. [address] ezetimibe 2018-08 Yes 10mg Take 10 mg Un jes 10 mg 2-06 by mouth ity of tablet 21:23: daily. [address] ezetimibe 2018-08 Yes 10mg Take 10 mg Un jes 10 mg 2-06 by mouth ity of tablet 21:23: daily. [address] ezetimibe 2018-08 Yes 10mg Take 10 mg Un jes 10 mg 2-06 by mouth ity of tablet 21:23: daily. [address] ezetimibe 2018-08 Yes 10mg Take 10 mg Un jes 10 mg 2-06 by mouth ity of tablet 21:23: daily. [address] SERTraline 2018-08 Yes 150mg Take 150 Un jes 50 mg 2-06 mg by ity of tablet 21:23: mouth [place] 09 daily. [facility] Branch SERTraline 2018-08 Yes 150mg Take 150 Un jes 50 mg 2-06 mg by ity of tablet 21:23: mouth [place] 09 daily. [facility] SERTraline 2018-08 Yes 150mg Take 150 Un jes 50 mg 2-06 mg by ity of tablet 21:23: mouth [place] 09 daily. [facility] Branch SERTraline 2018-08 Yes 150mg Take 150 Un jes 50 mg 2-06 mg by ity of tablet 21:23: mouth [place] 09 daily. [facility] SERTraline 2018-08 Yes 150mg Take 150 Un jes 50 mg 2-06 mg by ity of tablet 21:23: mouth [place] 09 daily. [facility] Branch SERTraline 2018-08 Yes 150mg Take 150 Un jes 50 mg 2-06 mg by ity of tablet 21:23: mouth [place] 09 daily. Medical Branch aspirin 2018-08 Yes 81mg Take 81 mg Univ ers (ASPIRIN 2-06 by mouth ity of LOW DOSE) 21:21: at [place] 81 mg EC 39 bedtime. Medical tablet Branch pravastatin 2018-08 Yes 80mg Take 80 mg Univers 80 mg 2-06 by mouth ity of tablet 21:21: at [place] 39 bedtime. Medical Branch DIETARY 2018-08 Yes 1{tbl} Take 1 Univer s SUPPLEMENT 2-06 tablet by ity of ORAL 21:21: mouth [place] 39 daily. Medical Branch telmisartan 2018-08 Yes 1{tbl} Take 1 Un jes -hydrochlor 2-06 tablet by ity of othiazide 21:21: mouth [place] 40-12.5 mg 39 daily. Medical per tablet Branch aspirin 2018-08 Yes 81mg Take 81 mg Univ ers (ASPIRIN 2-06 by mouth ity of LOW DOSE) 21:21: at [place] 81 mg EC 39 bedtime. Medical tablet Branch meloxicam 2018-08 Yes 7.5mg Take 7.5 Uni vers 7.5 mg 2-06 mg by ity of tablet 21:21: mouth [place] 39 daily. Medical Patient Branch takes prn pravastatin 2018-08 Yes 80mg Take 80 mg Univers 80 mg 2-06 by mouth ity of tablet 21:21: at [place] 39 bedtime. Medical Branch DIETARY 2018-08 Yes 1{tbl} Take 1 Univer s SUPPLEMENT 2-06 tablet by ity of ORAL 21:21: mouth [place] 39 daily. Medical Branch telmisartan 2018-08 Yes 1{tbl} Take 1 Un jes -hydrochlor 2-06 tablet by ity of othiazide 21:21: mouth [place] 40-12.5 mg 39 daily. Medical per tablet Branch aspirin 2018-08 Yes 81mg Take 81 mg Univ ers (ASPIRIN 2-06 by mouth ity of LOW DOSE) 21:21: at [place] 81 mg EC 39 bedtime. Medical tablet Branch pravastatin 2018-08 Yes 80mg Take 80 mg Univers 80 mg 2-06 by mouth ity of tablet 21:21: at [place] 39 bedtime. Medical Branch DIETARY 2018-08 Yes 1{tbl} Take 1 Univer s SUPPLEMENT 2-06 tablet by ity of ORAL 21:21: mouth [place] 39 daily. Medical Branch telmisartan 2018-08 Yes 1{tbl} Take 1 Un jes -hydrochlor 2-06 tablet by ity of othiazide 21:21: mouth [place] 40-12.5 mg 39 daily. Medical per tablet Branch aspirin 2018-08 Yes 81mg Take 81 mg Univ ers (ASPIRIN 2-06 by mouth ity of LOW DOSE) 21:21: at [place] 81 mg EC 39 bedtime. Medical tablet Branch DIETARY 2018-08 Yes 1{tbl} Take 1 Univer s SUPPLEMENT 2-06 tablet by ity of ORAL 21:21: mouth [place] 39 daily. Medical Branch DIETARY 2018-08 Yes 1{tbl} Take 1 Univer s SUPPLEMENT 2-06 tablet by ity of ORAL 21:21: mouth [place] 39 daily. Medical Branch pravastatin 2018-08 Yes 80mg Take 80 mg Univers 80 mg 2-06 by mouth ity of tablet 21:21: at [place] 39 bedtime. Medical Branch DIETARY 2018-08 Yes 1{tbl} Take 1 Univer s SUPPLEMENT 2-06 tablet by ity of ORAL 21:21: mouth [place] 39 daily. Medical Branch DIETARY 2018-08 Yes 1{tbl} Take 1 Univer s SUPPLEMENT 2-06 tablet by ity of ORAL 21:21: mouth [place] 39 daily. Medical Branch DIETARY 2018-08 Yes 1{tbl} Take 1 Univer s SUPPLEMENT 2-06 tablet by ity of ORAL 21:21: mouth [place] 39 daily. Medical Branch telmisartan 2018-08 Yes 1{tbl} Take 1 Un jes -hydrochlor 2-06 tablet by ity of othiazide 21:21: mouth [place] 40-12.5 mg 39 daily. Medical per tablet Branch DIETARY 2018-08 Yes 1{tbl} Take 1 Univer s SUPPLEMENT 2-06 tablet by ity of ORAL 21:21: mouth [place] 39 daily. Medical Branch aspirin 2018-08 Yes 81mg Take 81 mg Univ ers (ASPIRIN 2-06 by mouth ity of LOW DOSE) 21:21: at [place] 81 mg EC 39 bedtime. Medical tablet Branch meloxicam 2018-08 Yes 7.5mg Take 7.5 Uni vers 7.5 mg 2-06 mg by ity of tablet 21:21: mouth [place] 39 daily. Medical Patient Branch takes prn pravastatin 2018-08 Yes 80mg Take 80 mg Univers 80 mg 2-06 by mouth ity of tablet 21:21: at [place] 39 bedtime. Medical Branch DIETARY 2018-08 Yes 1{tbl} Take 1 Univer s SUPPLEMENT 2-06 tablet by ity of ORAL 21:21: mouth [place] 39 daily. Medical Branch telmisartan 2018-08 Yes 1{tbl} Take 1 Un jes -hydrochlor 2-06 tablet by ity of othiazide 21:21: mouth [place] 40-12.5 mg 39 daily. Medical per tablet Branch aspirin 2018-08 Yes 81mg Take 81 mg Univ ers (ASPIRIN 2-06 by mouth ity of LOW DOSE) 21:21: at [place] 81 mg EC 39 bedtime. Medical tablet Branch meloxicam 2018-08 Yes 7.5mg Take 7.5 Uni vers 7.5 mg 2-06 mg by ity of tablet 21:21: mouth [place] 39 daily. Medical Patient Branch takes prn pravastatin 2018-08 Yes 80mg Take 80 mg Univers 80 mg 2-06 by mouth ity of tablet 21:21: at [place] 39 bedtime. Medical Branch DIETARY 2018-08 Yes 1{tbl} Take 1 Univer s SUPPLEMENT 2-06 tablet by ity of ORAL 21:21: mouth [place] 39 daily. Medical Branch telmisartan 2018-08 Yes 1{tbl} Take 1 Un jes -hydrochlor 2-06 tablet by ity of othiazide 21:21: mouth [place] 40-12.5 mg 39 daily. Medical per tablet Branch aspirin 2018-08 Yes 81mg Take 81 mg Univ ers (ASPIRIN 2-06 by mouth ity of LOW DOSE) 21:21: at [place] 81 mg EC 39 bedtime. Medical tablet Branch meloxicam 2018-08 Yes 7.5mg Take 7.5 Uni vers 7.5 mg 2-06 mg by ity of tablet 21:21: mouth [place] 39 daily. Medical Patient Branch takes prn pravastatin 2018-08 Yes 80mg Take 80 mg Univers 80 mg 2-06 by mouth ity of tablet 21:21: at [place] 39 bedtime. Medical Branch DIETARY 2018-08 Yes 1{tbl} Take 1 Univer s SUPPLEMENT 2-06 tablet by ity of ORAL 21:21: mouth [place] 39 daily. Medical Branch telmisartan 2018-08 Yes 1{tbl} Take 1 Un jes -hydrochlor 2-06 tablet by ity of othiazide 21:21: mouth [place] 40-12.5 mg 39 daily. Medical per tablet Branch aspirin 2018-08 Yes 81mg Take 81 mg Univ ers (ASPIRIN 2-06 by mouth ity of LOW DOSE) 21:21: at [place] 81 mg EC 39 bedtime. Medical tablet Branch meloxicam 2018-08 Yes 7.5mg Take 7.5 Uni vers 7.5 mg 2-06 mg by ity of tablet 21:21: mouth [place] 39 daily. Medical Patient Branch takes prn pravastatin 2018-08 Yes 80mg Take 80 mg Univers 80 mg 2-06 by mouth ity of tablet 21:21: at [place] 39 bedtime. Medical Branch pravastatin 2018-08 Yes 80mg Take 80 mg Univers 80 mg 2-06 by mouth ity of tablet 21:21: at [place] 39 bedtime. Medical Branch DIETARY 2018-08 Yes 1{tbl} Take 1 Univer s SUPPLEMENT 2-06 tablet by ity of ORAL 21:21: mouth [place] 39 daily. Medical Branch telmisartan 2018-08 Yes 1{tbl} Take 1 Un jes -hydrochlor 2-06 tablet by ity of othiazide 21:21: mouth [place] 40-12.5 mg 39 daily. Medical per tablet Branch aspirin 2018-08 Yes 81mg Take 81 mg Univ ers (ASPIRIN 2-06 by mouth ity of LOW DOSE) 21:21: at [place] 81 mg EC 39 bedtime. Medical tablet Branch meloxicam 2018-08 Yes 7.5mg Take 7.5 Uni vers 7.5 mg 2-06 mg by ity of tablet 21:21: mouth [place] 39 daily. Medical Patient Branch takes prn DIETARY 2018-08 Yes 1{tbl} Take 1 Univer s SUPPLEMENT 2-06 tablet by ity of ORAL 21:21: mouth [place] 39 daily. Medical Branch pravastatin 2018-08 Yes 80mg Take 80 mg Univers 80 mg 2-06 by mouth ity of tablet 21:21: at [place] 39 bedtime. Medical Branch DIETARY 2018-08 Yes 1{tbl} Take 1 Univer s SUPPLEMENT 2-06 tablet by ity of ORAL 21:21: mouth [place] 39 daily. Medical Branch telmisartan 2018-08 Yes 1{tbl} Take 1 Un jes -hydrochlor 2-06 tablet by ity of othiazide 21:21: mouth [place] 40-12.5 mg 39 daily. Medical per tablet Branch aspirin 2018-08 Yes 81mg Take 81 mg Univ ers (ASPIRIN 2-06 by mouth ity of LOW DOSE) 21:21: at [place] 81 mg EC 39 bedtime. Medical tablet Branch telmisartan 2018-08 Yes 1{tbl} Take 1 Un jes -hydrochlor 2-06 tablet by ity of othiazide 21:21: mouth [place] 40-12.5 mg 39 daily. Medical per tablet Branch metoprolol 2018-08 Yes TAKE 1 Unive rs succinate 2-04 TABLET BY ity o f XL 25 mg 24 00:00: MOUTH ONCE [place] hr tablet 00 DAILY Medical Branch metoprolol 2018-08 Yes TAKE 1 Unive rs succinate 2-04 TABLET BY ity o f XL 25 mg 24 00:00: MOUTH ONCE [place] hr tablet 00 DAILY Medical Branch metoprolol 2018-08 Yes TAKE 1 Unive rs succinate 2-04 TABLET BY ity o f XL 25 mg 24 00:00: MOUTH ONCE [place] hr tablet 00 DAILY Medical Branch metoprolol 2018-08 Yes TAKE 1 Unive rs succinate 2-04 TABLET BY ity o f XL 25 mg 24 00:00: MOUTH ONCE [place] hr tablet 00 DAILY Medical Branch metoprolol 2018-08 Yes TAKE 1 Unive rs succinate 2-04 TABLET BY ity o f XL 25 mg 24 00:00: MOUTH ONCE [place] hr tablet 00 DAILY Medical Branch metoprolol 2018-08 Yes TAKE 1 Unive rs succinate 2-04 TABLET BY ity o f XL 25 mg 24 00:00: MOUTH ONCE [place] hr tablet 00 DAILY Medical Branch metoprolol 2018-08 Yes TAKE 1 Unive rs succinate 2-04 TABLET BY ity o f XL 25 mg 24 00:00: MOUTH ONCE [place] hr tablet 00 DAILY Medical Branch metoprolol 2018-08 Yes TAKE 1 Unive rs succinate 2-04 TABLET BY ity o f XL 25 mg 24 00:00: MOUTH ONCE [place] hr tablet 00 DAILY Medical Branch metoprolol 2018-08 Yes TAKE 1 Unive rs succinate 2-04 TABLET BY ity o f XL 25 mg 24 00:00: MOUTH ONCE [place] hr tablet 00 DAILY Medical Branch metoprolol 2018-08 Yes TAKE 1 Unive rs succinate 2-04 TABLET BY ity o f XL 25 mg 24 00:00: MOUTH ONCE [place] hr tablet 00 DAILY Medical Branch metoprolol 2018-08 Yes TAKE 1 Unive rs succinate 2-04 TABLET BY ity o f XL 25 mg 24 00:00: MOUTH ONCE [place] hr tablet 00 DAILY Medical Branch metoprolol 2018-08 Yes TAKE 1 Unive rs succinate 2-04 TABLET BY ity o f XL 25 mg 24 00:00: MOUTH ONCE [place] hr tablet 00 DAILY Medical Branch metoprolol 2018-08 Yes TAKE 1 Unive rs succinate 2-04 TABLET BY ity o f XL 25 mg 24 00:00: MOUTH ONCE [place] hr tablet 00 DAILY Medical Branch metoprolol 2018-08 Yes TAKE 1 Unive rs succinate 2-04 TABLET BY ity o f XL 25 mg 24 00:00: MOUTH ONCE [place] hr tablet 00 DAILY Medical Branch metoprolol 2018-08 Yes TAKE 1 Unive rs succinate 2-04 TABLET BY ity o f XL 25 mg 24 00:00: MOUTH ONCE [place] hr tablet 00 DAILY Medical Branch azelastine 2018-08 Yes USE 2 Univer s 137 mcg 0-22 SPRAY(S) ity of (0.1 %) 00:00: IN EACH [place] nasal spray 00 NOSTRIL Medic al ONCE DAILY Branch azelastine 2018-08 Yes USE 2 Univer s 137 mcg 0-22 SPRAY(S) ity of (0.1 %) 00:00: IN EACH [place] nasal spray 00 NOSTRIL Medic al ONCE DAILY Branch azelastine 2018-08 Yes USE 2 Univer s 137 mcg 0-22 SPRAY(S) ity of (0.1 %) 00:00: IN EACH [place] nasal spray 00 NOSTRIL Medic al ONCE DAILY Branch azelastine 2018-08 Yes USE 2 Univer s 137 mcg 0-22 SPRAY(S) ity of (0.1 %) 00:00: IN EACH [place] nasal spray 00 NOSTRIL Medic al ONCE DAILY Branch azelastine 2018-08 Yes USE 2 Univer s 137 mcg 0-22 SPRAY(S) ity of (0.1 %) 00:00: IN EACH [place] nasal spray 00 NOSTRIL Medic al ONCE DAILY Branch azelastine 2018-08 Yes USE 2 Univer s 137 mcg 0-22 SPRAY(S) ity of (0.1 %) 00:00: IN EACH [place] nasal spray 00 NOSTRIL Medic al ONCE DAILY Branch azelastine 2018-08 Yes USE 2 Univer s 137 mcg 0-22 SPRAY(S) ity of (0.1 %) 00:00: IN EACH [place] nasal spray 00 NOSTRIL Medic al ONCE DAILY Branch azelastine 2018-08 Yes USE 2 Univer s 137 mcg 0-22 SPRAY(S) ity of (0.1 %) 00:00: IN EACH [place] nasal spray 00 NOSTRIL Medic al ONCE DAILY Branch azelastine 2018-08 Yes USE 2 Univer s 137 mcg 0-22 SPRAY(S) ity of (0.1 %) 00:00: IN EACH [place] nasal spray 00 NOSTRIL Medic al ONCE DAILY Branch azelastine 2018-08 Yes USE 2 Univer s 137 mcg 0-22 SPRAY(S) ity of (0.1 %) 00:00: IN EACH [place] nasal spray 00 NOSTRIL Medic al ONCE DAILY Branch azelastine 2018-08 Yes USE 2 Univer s 137 mcg 0-22 SPRAY(S) ity of (0.1 %) 00:00: IN EACH [place] nasal spray 00 NOSTRIL Medic al ONCE DAILY Branch azelastine 2018-08 Yes USE 2 Univer s 137 mcg 0-22 SPRAY(S) ity of (0.1 %) 00:00: IN EACH [place] nasal spray 00 NOSTRIL Medic al ONCE DAILY Branch azelastine 2018-08 Yes USE 2 Univer s 137 mcg 0-22 SPRAY(S) ity of (0.1 %) 00:00: IN EACH [place] nasal spray 00 NOSTRIL Medic al ONCE DAILY Branch azelastine 2018-08 Yes USE 2 Univer s 137 mcg 0-22 SPRAY(S) ity of (0.1 %) 00:00: IN EACH [place] nasal spray 00 NOSTRIL Medic al ONCE DAILY Branch azelastine 2018-08 Yes USE 2 Univer s 137 mcg 0-22 SPRAY(S) ity of (0.1 %) 00:00: IN EACH [place] nasal spray 00 NOSTRIL Medic al ONCE DAILY Branch Tramadol Tramadol 2017-08 Yes [place] 1 tablet [...] [facility] [...] [facility] Vital Signs Vital Name Observation Time Observation Value Comments Source WEIGHT 2020-07-29 07:00:00 76.749 kg WEIGHT 2020-07-28 05:14:00 70.988 kg WEIGHT 2020-07-27 03:22:00 74.345 kg WEIGHT 2020-07-26 03:11:00 76.749 kg WEIGHT 2020-07-25 03:35:00 75.524 kg WEIGHT 2020-07-24 03:37:00 75.932 kg WEIGHT 2020-07-22 06:00:00 76.431 kg WEIGHT 2020-07-21 05:00:00 76.386 kg WEIGHT 2020-07-20 07:00:00 71.532 kg HEIGHT 2020-07-20 04:30:00 162.6 cm WEIGHT 2020-07-20 04:30:00 70.126 kg HEIGHT 2020-07-20 02:24:00 162.6 cm WEIGHT 2020-07-20 02:24:00 70.126 kg HEIGHT 2021-01-18 11:01:00 162.6 cm WEIGHT 2021-01-18 11:01:00 68.04 kg WEIGHT 2020-11-16 09:41:00 68.04 kg HEIGHT 2020-11-16 09:41:00 162.6 cm HEIGHT 2020-08-17 11:31:00 162.6 cm WEIGHT 2020-08-17 11:31:00 70.534 kg WEIGHT 2020-07-29 07:00:00 76.749 kg WEIGHT 2020-07-28 05:14:00 70.988 kg WEIGHT 2020-07-27 03:22:00 74.345 kg WEIGHT 2020-07-26 03:11:00 76.749 kg WEIGHT 2020-07-25 03:35:00 75.524 kg WEIGHT 2020-07-24 03:37:00 75.932 kg WEIGHT 2020-07-22 06:00:00 76.431 kg WEIGHT 2020-07-21 05:00:00 76.386 kg WEIGHT 2020-07-20 07:00:00 71.532 kg HEIGHT 2020-07-20 04:30:00 162.6 cm WEIGHT 2020-07-20 04:30:00 70.126 kg HEIGHT 2020-07-20 02:24:00 162.6 cm WEIGHT 2020-07-20 02:24:00 70.126 kg Systolic blood 2020-06-16 15:42:00 120 mm[Hg] Univer sity of [facility] Diastolic blood 2020-06-16 15:42:00 60 mm[Hg] Unive rsity of [facility] Heart rate 2020-06-16 15:42:00 82 /min [facility] Body weight 2020-06-16 15:42:00 76.[address] [facility] BMI 2020-06-16 15:42:00 28.84 kg/m2 [facility] Oxygen saturation in 2020-06-16 15:42:00 97 /min [facility] Arterial blood by [facility] Pulse oximetry Branch Systolic blood 2020-06-16 15:42:00 120 mm[Hg] Univer sity of [facility] Diastolic blood 2020-06-16 15:42:00 60 mm[Hg] Unive rsity of [facility] Heart rate 2020-06-16 15:42:00 82 /min [facility] Body weight 2020-06-16 15:42:00 76.204 kg [facility] [place] [facility] [place] BMI 2020-06-16 15:42:00 28.84 kg/m2 Universi ty [facility] Oxygen saturation in 2020-06-16 15:42:00 97 /min [facility] Arterial blood by [facility] Pulse oximetry Branch Systolic blood 2020-02-11 21:18:00 149 mm[Hg] Univer sity of pressure [facility] Diastolic blood 2020-02-11 21:18:00 80 mm[Hg] Unive rsity of pressure [facility] Heart rate 2020-02-11 21:17:00 74 /min Universi ty of [facility] Respiratory rate 2020-02-11 21:17:00 19 /min Univ ersity of [facility] Body weight 2020-02-11 21:17:00 77.474 kg Universi ty [facility] BMI 2020-02-11 21:17:00 29.32 kg/m2 Universi ty [facility] Procedures Procedure Date / Time Performed Performing Clinician [facility] e REFERRAL- 2020-02-25 05:01:00 Doctor Unassigned, No [facility] [place] REQUEST/RESPONSE Name [facility] COGNITIVE ASSESSMENT 2020-02-11 05:01:00 Doctor Unassigned, No [facility] [place] Name [facility] COGNITIVE ASSESSMENT 2019-08-19 06:01:00 Doctor Unassigned, No [facility] of [place] [facility] Encounters Start End Encounter Admission Attending Care Care Encounter Source Date/Time Date/Time Type Type Clinicians Facility Department ID 2020-07-20 Inpatient ER ANTONI, [facility] Neuro ICU [id number] [facility] 01:51:00 DAIMA 2021-12-01 2021-12-01 Outpatient CARMEN TENORIO [facility] [id number] SLE 00:00:00 00:00:00 SITA 2021-01-18 2021-01-18 Outpatient IONA FULTON [facility] [id number] 00:00:00 00:00:00 [facility] 2020-12-28 2020-12-28 Outpatient CARMEN MARTINEZ [facility] [id number] [facility] 00:00:00 00:00:00 [place] 2020-11-16 2020-11-16 [id number] 00:00:00 00:00:00 [facility] 2020-11-16 2020-11-[address] [facility] [id number] 00:00:00 00:00:00 [facility] 2020-09-18 2020-09-23 Inpatient FAKHRI, [facility] [id number] [place] 00:00:00 00:00:00 ALIFIYA [address] 2020-09-14 2020-09-14 Outpatient BUNYAN, [facility] [id number] [place] 00:00:00 00:00:00 SAYL [address] 2020-08-18 2020-08-18 Outpatient ALEXANDRO LARSON [facility] [id number] Univers 16:00:00 16:00:00 ALEXANDRO SELF [id number] [facility] 2020-08-18 2020-08-18 Outpatient ALEXANDRO LARSON [facility] [id number] [facility] 16:00:00 16:00:00 ALEXANDRO SELF [facility] 2020-08-17 2020-08-[address] [facility] [id number] [facility] [address] 11:25:35 11:25:35 [facility] 2020-07-20 2020-07-20 [facility] 1.2.840.114 [id number] Univers 00:00:00 00:00:00 Alexandro Fraga [id number] ity [facility] [id number] [phone] Mt dicnj nal [address] [place] [address] 2020-06-23 2020-06-23 [facility] 1.2.840.114 [id number] Univers 00:00:00 00:00:00 Alexandro Fraga [id number] ity [place] [id number] [phone] Mt dical nal [address] [place] [address] 2020-06-23 2020-06-23 [facility] 1.2.840.114 [id number] 00:00:00 00:00:00 Alexandro Fraga [id number] [place] [id number] Professio [phone] [address] 2020-06-22 2020-06-22 Telephone Ananda [facility] 1.2.840.114 [id number] Univers 00:00:00 00:00:00 Alexandro Fraga [id number] ity [place] [id number] [phone] Mt dic[address] 2020-06-16 2020-06-16 Office Ananda [facility] 1.2.840.114 [id number] [facility] 09:24:15 10:41:13 Visit Alexandro Fraga [id number] ity [place] [id number] [phone] [address] 2020-06-16 2020-06-16 Office Ananda [facility] 1.2.840.114 [id number] [facility] 09:24:15 10:41:13 Visit Alexandro Fraga [id number] [place] [id number] Professio [phone] [address] 2020-06-16 2020-06-16 Outpatient Sveta CONTRERASAsael ALEXANDRO [facility] [id number] Univers 09:40:00 09:40:00 ALEXANDRO SELF [facility] 2020-06-16 2020-06-16 Outpatient Sveta CONTRERASALEXANDRO Vyas [facility] [id number] Univers 09:40:00 09:40:00 ALEXANDRO SELF [facility] 2020-03-27 2020-03-27 Outpatient Sveta GALARZA [facility] [id number] Univers 13:00:00 13:00:00 AMIE [id number] [facility] 2020-03-13 2020-03-13 Outpatient Sveta GALARZA [facility] [id number] Univers 08:30:00 08:30:00 AMIE [facility] 2020-03-13 2020-03-13 Outpatient R MICHELL [facility] [id number] Univers 08:30:00 08:30:00 [facility] 2020-02-25 2020-02-25 Orders Doctor TORI 1.2.840.114 [id number] Univers 00:00:00 00:00:00 Only Unassigned, MAHAD [id number] ity of [place] [facility] [id number] [place] [phone] [address] 2020-02-17 2020-02-17 Outpatient R ALEXANDRO SELF [facility] [id number] Univers 11:00:00 11:00:00 [facility] [id number] [facility] 2020-02-17 2020-02-17 Outpatient R ALEXANDRO SELF [facility] [id number] Univers 11:00:00 11:00:00 ALEXANDRO SELF [facility] 2020-02-11 2020-02-11 Office Ananda [facility] 1.2.840.114 [id number] Univers 16:01:34 16:54:44 Visit Alexandro Fraga [id number] [id number] [phone] [facility] 2020-02-11 2020-02-11 Outpatient R ALEXANDRO SELF [facility] [id number] Univers 16:00:00 16:00:00 [facility]F [id number] [facility] 2020-02-11 2020-02-11 Outpatient R ALEXANDRO SELF [facility] [id number] Univers 16:00:00 16:00:00 ALEXANDRO SELF [facility] 2020-02-11 2020-02-11 Orders Doctor TORI 1.2.840.114 [id number] Univers 00:00:00 00:00:00 Only Unassigned, MAHAD [id number] ity of [place] [facility] [id number] [place] [phone] [address] 2019-11-16 2019-11-16 Outpatient R [facility] [id number] Univers 12:00:00 12:00:00 [id number] ity of [facility] 2019-11-16 2019-11-16 Outpatient R AYE [facility] [id number] Univers 12:00:00 12:00:00 STONE ity of [facility] 2019-11-16 2019-11-16 Nurse TORI Simpson 1.2.840.114 [id number] Univers 00:00:00 00:00:00 Triage Debra M MAHAD [id number] ity of [facility] [id number] [place] [phone] [address] 2019-11-16 2019-11-16 Telephone TORI Simpson 1.2.840.114 [id number] Univers 00:00:00 00:00:00 Debra M MAHAD [id number] ity of [facility] [id number] [place] [phone] [address] 2019-11-16 2019-11-16 Telephone TORI Simpson 1.2.840.114 [id number] Univers 00:00:00 00:00:00 Debra M MAHAD [id number] ity of [facility] [id number] [place] [phone] [address] 2019-11-04 2019-11-04 [facility] [id number] 08:36:00 08:36:00 [facility] [place] 2019-10-02 2019-10-02 [facility] [id number] 16:17:00 16:17:00 t [facility] [place] 2019-08-19 2019-08-19 Office Ananda MOLESLIE 1.2.840.114 [id number] [facility] 16:09:28 16:55:12 Visit Alexandro Fraga [id number] ity [facility] [id number] [phone] [facility] 2019-08-19 2019-08-19 Orders Doctor TORI 1.2.840.114 [id number] Univers 00:00:00 00:00:00 Only Unassigned, MAHAD [id number] ity of [place] [facility] [id number] [place] [phone] [place] [address] Branch 2019-05-08 2019-05-08 Out[facility] [id number] 14:28:00 14:28:00 t [facility] 2019-04-11 2019-04-11 [facility] [id number] 13:30:00 13:30:00 t [facility] 2019-04-04 2019-04-04 [facility] [id number] 08:30:00 08:30:00 t [facility] ent [facility] 2019-03-29 2019-03-29 Out[facility] [id number] 08:30:00 08:30:00 t [facility] ent [facility] 2019-03-19 2019-03-19 Out[facility] [id number] 15:30:00 15:30:00 t [facility] ent [facility] 2019-03-19 2019-03-19 Out[facility] [id number] 09:00:00 09:00:00 t [facility] [place] [place] 2018-07-25 2018-07-25 Out[facility] [id number] 08:38:00 08:38:00 t [facility] [place] [place] 2018-05-17 2018-05-17 Out[facility] [id number] 09:23:00 09:23:00 t [facility] [place] 2018-05-08 2018-05-08 Out[facility] [id number] 08:02:00 08:02:00 t [facility] Results Test Description Test Time Test Comments Results Result [facility] e Comments MR, BRAIN, WITHOUT 2020-12-29 Unlisted / WITH IV CONTRAST 07:50:00 Reason for Exam - Click [facility] Yes and Enter [facility]: Rahat NIÑO->Adriana WHELAN : 1950 Sex: F FINAL REPORT MR, BRAIN, WITHOUT / WITH IV CONTRAST HISTORY: Brain mass COMPARISON: MRI of the brain 07/29/2020 and 07/21/2020 TECHNIQUE:Multiplanar, multisequence MRI of the brain (including diffusion-weighted imaging) was performed before and after the administration of intravenous, gadolinium based contrast. DISCUSSION: Scalp/bone marrow: Right frontotemporal craniotomy changes.Brain sulci: Appropriate for patient's age.Ventricles: Normal in size and configuration. No hydrocephalus. Extra-axial spaces: No definite residual meningioma is seen.No other masses or fluid collections. Parenchyma:Previously seen extensive right frontal vasogenic edema, extending into the right insula and temporal lobe, has nearly completely resolved. Focal encephalomalacia along the right inferior frontal gyrus (pars orbitalis) is present. Residual focal T2/FLAIR hyperintensity adjacent to the encephalomalacia, extending towards the right frontal periventricular white matter, may be gliosis or residual vasogenic edema. There is no significant mass effect. Previously seen right to left midline shift and mild right transalar herniation have resolved. Underlying scattered punctate T2/FLAIR hyperintense foci throughout the supratentorial white matter and monica are likely chronic microvascular ischemic changes.Punctate chronic microhemorrhage in the left cerebellum is stable.Otherwise no mass, acute hemorrhage, or acute vascular insults. Vessels: Normal flow voids in major arteries and veins.Sellar/Suprasell ar region: No abnormalities.Cranioce rvical junction: No abnormalities.Incident al findings: Left ocular lens replacement is noted. IMPRESSION:1.Status post right frontotemporal craniotomy for resection of right inferior frontal meningioma. No definite residual meningioma.2.Previousl y seen extensive right frontal vasogenic edema has nearly completely resolved. Focal encephalomalacia along the right inferior frontal gyrus (pars orbitalis) is more conspicuous. Residual focal T2/FLAIR hyperintensity adjacent to the encephalomalacia, extending towards the right frontal periventricular white matter, may be gliosis or residual vasogenic edema. There is no significant mass effect. Previously seen right to left midline shift and mild right transalar herniation have resolved.3.Otherwise, no acute intracranial abnormalities.4.Underl carlos mild supratentorial/pontine chronic microvascular ischemic change. Signed: Darrell Villegas Verified Date/Time: 12/29/2020 07:50:40 Reading Location: [facility] Room [address] [place] [address] -CoV-2 (COVID-19) RNA [Presence] in Respiratory sp ecimen by 2020-09-14 22:54:18 KENNETH with probe detection Test Item Value Reference Range Interpretation Comme nts SARS-CoV-2 (COVID-19) RNA [Presence] in Respiratory Not detected No t-Detected specimen by KENNETH with probe detection (test code = 33018-4) POCT-GLUCOSE [id number] 11:32:00 Test Item Value Reference Range Interpretation Comments POC-GLUCOSE METER 108 mg/dL 70-110 : TESTED A T [facility] [address] (BEAKER) (test code [facility], = 1538) [place] [address] 384: Simulation Developer/Techni emil ID = [id number] for T yana Cecile POCT-GLUCOSE [id number] 11:31:00 Test Item Value Reference Range Interpretation Comments POC-GLUCOSE METER 169 mg/dL 70-110 H : TESTED A T [facility] [address]47 (BEAKER) (test code [facility] [address], = 1538) [place] [address] 384: Simulation Developer/Techni emil ID = [id number] for A Sheryl dawn POCT-GLUCOSE [id number] 11:31:00 Test Item Value Reference Range Interpretation Comments POC-GLUCOSE METER 75 mg/dL 70-110 : TESTED A T [facility] [address]5680 (BEAKER) (test code = [address], 1538) [place] [address] 384: Simulation Developer/Techni emil ID = [id number] for A lcaraz, Sheryl POCT-GLUCOSE [id number] 11:31:00 Test Item Value Reference Range Interpretation Comments POC-GLUCOSE METER 103 mg/dL 70-110 : TESTED A T [facility] [address]409 (BEAKER) (test code [address] THE, = 1538) [place] [address] 384: Simulation Developer/Techni emil ID = [id number] for Sakina Araujo TISSUE [id number] 11:14:00Surgical Pathology Report Case: [id number] Authorizing Provider: Ramu Fulton Collected: 07/28/2020 02:42 PM MD Marciano OrderingLocation: [facility] - Perioperative Received: 07/28/2020 02:48 PM Services Pathologist: Moi Ruffin MD Specimens: A) -Brain, brain tumor B) - Brain, Brain Tumor A. BRAIN, RIGHT FRONTAL, CRANIOTOMY:SECRETORY MENINGIOMA WITH ATYPICAL FEATURES (SEE COMMENT)B. BRAIN, RIGHT FRONTAL, CRANIOTOMY:SECRETORY MENINGIOMA WITH ATYPICAL FEATURES (SEE COMMENT) Signing Pathologist Direct Phone Line: [phone] signed by Moi Ruffin MD on 08/11/2020 at 11:14 AMThe meningioma is highly cellular with focally prominent nucleoli. Vague whorling is present, although some confluent growth is present. Mitoses number 1-2 or less per 10 high power kunz. No definite necrosis is present, and brain invasion is absent. There are multifocal pseudopsamomma bodies that are filled with proteinaceous inclusions and are rimmed by MADISYN positive tumor cells, typical of the secretory subtype.The Ki67 proliferation index is 15.7%, consistent with a moderately elevated proliferation index. Given the high cellularity and focally prominent nucleoli, just short of fulfilling the criteria for Grade II meningioma, but elevated proliferation index, the tumor may be predisposed to recurrence or aggressive behavior. Close clinical follow- up may be warranted if clinically indicated. 18137 x 2; 10086; 48472; 56013Ppcmb tumor. Procedure: Stealth craniotomy. A. Brain tumor; B. Brain tumorThe instrument, paperwork, containers and cassettes all read [id number].Received in formalin labeled with the patient's name (Niño), and medical record number. Specimen A: . Received in formalin labeled as "braintumor" is a specimen that was previously submitted for frozen section evaluation. This tissue will be transferred to cassette A1FS for permanent section. The remainder of the tissue in the container will be submitted in cassette A2 for permanent section. Specimen B: Received in formalin labeled as "brain tissue" are two luna-emmanuel rubbery segments of tissue. The first measures 2.5 x 1.7 x 1.5 cm. The other measures 2.7 x 2.6 x 2.0 cm. Sectioning reveals a luna-emmanuel cut surface. The specimen is sectioned. The smaller segment is totally submitted in B1 and B2. The larger segment is totally submitted in B3 through B5. JF/pl INTRAOPERATIVE CONSULTATION WITH FROZEN [id number]: BRAIN, MASS LESION, CRANIOTOMY WITH FROZEN SECTION:- MENINGIOMANote: The above findings are preliminary based on limited evaluation at the time of surgery. (dg/es). Please refer to the final report.Quality of frozen section slide= AcceptableIdentify of patient = confirmed prior to giving verbal resultResults given directly to surgeon (Dr. Fulton) at time of preliminary verify.Performed on A and BThe interpretation of this case included the use of immunohistochemistry or special stains.Control Slides Examined: In-house knownpositive controls were evaluated along with the test tissue. These control slides run alongside of the patients sample show appropriate staining. Internal positive and negative controls when availableare evaluated Immunohistochemistry technical testing was performed at [facility], Pathology Laboratory where it was developed and its performance characteristics were determined. It has not been cleared or approved by the U.S. Food and Drug Administration. The FDA has determined that such clearance or approval is not necessary. The test is used for clinical purposes. It should not be regarded as investigational or for research. This laboratory is certified under the Clinical Laboratory Improvement Amendments of 1988 (CLIA- 88) as qualified to perform high complexity clinical laboratory testing.POCT- GLUCOSE [id number] 12:25:00 Test Item Value Reference Range Interpretation Comments POC-GLUCOSE METER 130 mg/dL 70-110 H : TESTED A T [facility] 43784 (BEAKER) (test code [address], = 1538) [place] [address]: Simulation Developer/Techni emil ID = [id number] for Gibson Obregon POCT-GLUCOSE [id number] 05:39:00 Test Item Value Reference Range Interpretation Comments POC-GLUCOSE METER 106 mg/dL 70-110 : TESTED A T [facility] 69755 (BEAKER) (test code [address], = 1538) [place] [address] 384: Simulation Developer/Techni emil ID = [id number] for Damien Cisneros POCT-GLUCOSE [id number] 21:35:00 Test Item Value Reference Range Interpretation Comments POC-GLUCOSE METER 130 mg/dL 70-110 H : TESTED A T [facility] 00124 (BEAKER) (test code [address], = 1538) [place] [address] 384: Simulation Developer/Techni emil ID = [id number] for Damien Cisneros POCT-GLUCOSE [id number] 14:45:00 Test Item Value Reference Range Interpretation Comments POC-GLUCOSE METER 165 mg/dL 70-110 H : TESTED A T [facility] 45016 (BEAKER) (test code [address], = 1538) [place] [address]: Simulation Developer/Techni emil ID = [id number] for Damien Cisneros POCT-GLUCOSE [id number] 12:10:00 Test Item Value Reference Range Interpretation Comments POC-GLUCOSE METER 214 mg/dL 70-110 H : TESTED A T [facility] 85020 (BEAKER) (test code [address], = 1538) [place] [address] 384: Simulation Developer/Techni emil ID = [id number] for Melissa yana Cecile POCT-GLUCOSE [id number] 05:51:00 Test Item Value Reference Range Interpretation Comments POC-GLUCOSE METER 103 mg/dL 70-110 : TESTED A T [facility] 02796 (BEAKER) (test code [address], = 1538) [place] [address]: Simulation Developer/Techni emil ID = [id number] for Damine Cisneros POCT-GLUCOSE [id number] 15:14:00 Test Item Value Reference Range Interpretation Comments POC-GLUCOSE METER 104 mg/dL 70-110 : TESTED A T [facility] [address]66 (BEAKER) (test code [address], = 1538) [place] [address]: Simulation Developer/Techni emil ID = [id number] for Toña Pacheco POCT-GLUCOSE [id number] 15:13:00 Test Item Value Reference Range Interpretation Comments POC-GLUCOSE METER 156 mg/dL 70-110 H : TESTED A T [facility] 78718 (BEAKER) (test code [address], = 1538) [place] [address]: Simulation Developer/Techni emil ID = [id number] for Keanu Wilde POCT-GLUCOSE [id number] 15:12:00 Test Item Value Reference Range Interpretation Comments POC-GLUCOSE METER 89 mg/dL 70-110 : TESTED A T [facility] 36549 (BEAKER) (test code = [address], 1538) [place] [address]: Simulation Developer/Techni emil ID = [id number] for Damien Cisneros POCT-GLUCOSE [id number] 15:12:00 Test Item Value Reference Range Interpretation Comments POC-GLUCOSE METER 228 mg/dL 70-110 H : Notified RN/MD: TESTED (BEAKER) (test code AT [facility] [address] = 1538) [facility] [address]: Simulation Developer/Techni emil ID = [id number] for Damien Cisneros POCT-GLUCOSE [id number] 15:12:00 Test Item Value Reference Range Interpretation Comments POC-GLUCOSE METER 111 mg/dL 70-110 H : TESTED A T [facility] 61828 (BEAKER) (test code [address], = 1538) [place] [address]: Simulation Developer/Techni emil ID = [id number] for S Marylu sevilla POCT-GLUCOSE [id number] 07:46:00 Test Item Value Reference Range Interpretation Comments POC-GLUCOSE METER 93 mg/dL 70-110 : TESTED A T [facility] 42631 (BEAKER) (test code = [facility] [address], 1538) [place] [address]: Simulation Developer/Techni emil ID = [id number] for A Jessica saenz POCT-GLUCOSE [id number] 11:33:00 Test Item Value Reference Range Interpretation Comments POC-GLUCOSE METER 170 mg/dL 70-110 H : TESTED A T [facility] 44784 (BEAKER) (test code [facility] [address], = 1538) [facility] 77 384: Simulation Developer/Techni emil ID = [id number] for Kim Caballero SARS-COV2/RT-PCR ([facility])2020-08-05 11:10:00 Test Item Value Reference Range Interpretation Comments SARS-COV2/RT-PCR (test Negative Not Detected, Negative, code = 0887324) See external report for linked test SARS-COV-2 PERFORMING LAB [facility] (test code = 1497146) Negative result for this test determines that SARS-CoV-2 RNA was not present in the specimen above the Limit of Detection (LOD). However, Negative results do not preclude SARS-CoV-2 infection and should not be used as the sole basis for treatment or patient management decisions. Negative results mustbe combined with clinical observations, patient history, and epidemiological information. A false negative result may occur if a specimen is improperly collected, transported or handled. A false negative result should be considered if patient's recent exposures or clinical presentation indicate that COVID-19 (SARS-CoV-2) is likely and diagnostic tests for other causes of illness are negative. Re-testing should be considered in cases of suspected false negatives.The limit of detection for this assay is 800 copies/mL.This SARS CoV-2 test is a real-time RT-PCR test intended for the qualitative detection of nucleic acid from SARS-CoV-2 in a nasopharyngeal swab specimen collected from individuals suspected of COVID-19 by their healthcare provider.This test has not been Food and Drug Administration (FDA) cleared or approved. This is a modified version of an approved Emergency Use Authorization (EUA) and is in the process of review by the FDA. Once authorized by the FDA, the issued EUA will be effective until the declaration that circumstances exist justifying the authorization of the emergency use of in vitro diagnostic tests for detection and/or diagnosis of COVID-19 is terminated under Section 564(b)(2) of the Act or the EUA is revoked under Section 564(g) of the Act.Fact Sheet for Healthcare Providers:https://www.[employer]/sites/default/files/product/documents/Fact_Shee s_VD_Gbvnhyvtk_Poak_ZSHF-TlD-2.pdfFact Sheet for Healthcare Patients:https://www.[employer]/sites/default/files/product/ documents/Aryr_Kvhwk_Btzqcane_Wzyp_GHVD-TvJ-3.pdfPerforming Laboratory:[place] [address], [place] [address]DAYJ-PJIWVJG METER 2020-08-04 21:50:00 Test Item Value Reference Range Interpretation Comments POC-GLUCOSE METER 145 mg/dL 70-110 H : TESTED A T [facility] 84836 (BEAKER) (test code [address], = 1538) [place] [address]: Simulation Developer/Techni emil ID = [id number] for Toña Pacheco POCT-GLUCOSE [id number] 16:42:00 Test Item Value Reference Range Interpretation Comments POC-GLUCOSE METER 171 mg/dL 70-110 H : TESTED A T [facility] [address]8300 (BEAKER) (test code [address], = 1538) [place] [address]: Simulation Developer/Techni emil ID = [id number] for Shai Wildeis POCT-GLUCOSE [id number] 11:09:00 Test Item Value Reference Range Interpretation Comments POC-GLUCOSE METER 146 mg/dL 70-110 H : TESTED A T [facility] 07929 (BEAKER) (test code [address], = 1538) [place] [address]: Simulation Developer/Techni emil ID = [id number] for Antony Amber sevillae CBC W/PLT COUNT & AUTO [id number] 09:57:00 Test Item Value Reference Range Interpretation Comments WHITE BLOOD CELL COUNT (BEAKER) 12.6 K/ L 4.0-10.0 H (test code = 775) RED BLOOD CELL COUNT (BEAKER) 4.38 M/ L 4.00-5.00 (test code = 761) HEMOGLOBIN (BEAKER) (test code = 12.0 GM/DL 12.0-15.5 410) HEMATOCRIT (BEAKER) (test code = 36.0 % 36.0-46.0 411) MEAN CORPUSCULAR VOLUME (BEAKER) 82.2 fL 82.0-99.0 (test code = 753) MEAN CORPUSCULAR HEMOGLOBIN 27.4 pg 27.0-33.0 (BEAKER) (test code = 751) MEAN CORPUSCULAR HEMOGLOBIN CONC 33.3 GM/DL 32.0-36.0 (BEAKER) (test code = 752) RED CELL DISTRIBUTION WIDTH 13.5 % 12.0-15.0 (BEAKER) (test code = 412) PLATELET COUNT (BEAKER) (test 320 K/CU MM 150-430 code = 756) MEAN PLATELET VOLUME (BEAKER) 9.3 fL 6.0-11.5 (test code = 754) NUCLEATED RED BLOOD CELLS 0 /100 WBC 0-0 (BEAKER) (test code = 413) NEUTROPHILS RELATIVE PERCENT 82 % (BEAKER) (test code = 429) LYMPHOCYTES RELATIVE PERCENT 11 % (BEAKER) (test code = 430) MONOCYTES RELATIVE PERCENT 6 % (BEAKER) (test code = 431) EOSINOPHILS RELATIVE PERCENT 0 % (BEAKER) (test code = 432) BASOPHILS RELATIVE PERCENT 0 % (BEAKER) (test code = 437) NEUTROPHILS ABSOLUTE COUNT 10.27 K/ L 1.80-8.00 H (BEAKER) (test code = 670) LYMPHOCYTES ABSOLUTE COUNT 1.33 K/ L 1.48-4.50 L (BEAKER) (test code = 414) MONOCYTES ABSOLUTE COUNT (BEAKER) 0.70 K/ L 0.00-1.30 (test code = 415) EOSINOPHILS ABSOLUTE COUNT 0.02 K/ L 0.00-0.50 (BEAKER) (test code = 416) BASOPHILS ABSOLUTE COUNT (BEAKER) 0.02 K/ L 0.00-0.20 (test code = 417) IMMATURE GRANULOCYTES-RELATIVE 2 % 0-0 H PERCENT (BEAKER) (test code = 2801) POCT-GLUCOSE [id number] 07:28:00 Test Item Value Reference Range Interpretation Comments POC-GLUCOSE METER 91 mg/dL 70-110 : TESTED A T [facility] 80338 (BEAKER) (test code = [address], 153) [place] [address]: Simulation Developer/Techni emil ID = [id number] for Roland-Alfonso bay, [place] POCT-GLUCOSE [id number] 06:00:00 Test Item Value Reference Range Interpretation Comments POC-GLUCOSE METER 93 mg/dL 70-110 : TESTED A T [facility] 71775 (BEAKER) (test code = [address], 1537) [place] [address]: Simulation Developer/Techni emil ID = [id number] for Shoemaker-Alfonso phu, [place] POCT-GLUCOSE [id number] 22:06:00 Test Item Value Reference Range Interpretation Comments POC-GLUCOSE METER 115 mg/dL 70-110 H : TESTED A T [facility] 20654 (BEAKER) (test code [address], = 1538) [place] [address]: Simulation Developer/Techni emil ID = [id number] for Nays-Roman, Kim POCT-GLUCOSE [id number] 22:05:00 Test Item Value Reference Range Interpretation Comments POC-GLUCOSE METER 148 mg/dL 70-110 H : TESTED A T [facility] 39940 (BEAKER) (test code [address], = 1538) [place] [address]: Simulation Developer/Techni emil ID = [id number] for Nays-Roman, Kim POCT-GLUCOSE [id number] 05:23:00 Test Item Value Reference Range Interpretation Comments POC-GLUCOSE METER 108 mg/dL 70-110 : TESTED A T [facility] 79092 (BEAKER) (test code [address], = 1538) [place] [address]: Simulation Developer/Techni emil ID = [id number] for A ndersmadeline, Jessica POCT-GLUCOSE [id number] 22:26:00 Test Item Value Reference Range Interpretation Comments POC-GLUCOSE METER 152 mg/dL 70-110 H : TESTED A T [facility] 41820 (BEAKER) (test code [address], = 1538) [place] [address]: Simulation Developer/Techni emil ID = [id number] for Artem Lerma POCT-GLUCOSE [id number] 11:46:00 Test Item Value Reference Range Interpretation Comments POC-GLUCOSE METER 189 mg/dL 70-110 H : TESTED A T [facility] 74038 (BEAKER) (test code [address], = 1538) [place] [address]: Simulation Developer/Techni emil ID = [id number] for Marylu Batres POCT-GLUCOSE [id number] 09:46:00 Test Item Value Reference Range Interpretation Comments POC-GLUCOSE METER 152 mg/dL 70-110 H : TESTED A T [facility] 54100 (BEAKER) (test code [address], = 1538) [place] [address]: Simulation Developer/Techni emil ID = [id number] for R Soledad somers POCT-GLUCOSE [id number] 06:51:00 Test Item Value Reference Range Interpretation Comments POC-GLUCOSE METER 103 mg/dL 70-110 : TESTED A T [facility] 97338 (BEAKER) (test code [address], = 1538) [place] [address]: Simulation Developer/Techni emil ID = [id number] for Shoemaker-Alfonso phu, [place] POCT-GLUCOSE [id number] 22:14:00 Test Item Value Reference Range Interpretation Comments POC-GLUCOSE METER 137 mg/dL 70-110 H : TESTED A T [facility] 33551 (BEAKER) (test code [address], = 1538) [place] [address]: Simulation Developer/Techni emil ID = [id number] for Shoemaker-Alfonso phu, [place] POCT-GLUCOSE [id number] 16:25:00 Test Item Value Reference Range Interpretation Comments POC-GLUCOSE METER 133 mg/dL 70-110 H : TESTED A T [facility] 76342 (BEAKER) (test code [address], = 1538) [place] [address]: Simulation Developer/Techni emil ID = [id number] for Gibson Obregon POCT-GLUCOSE [id number] 12:01:00 Test Item Value Reference Range Interpretation Comments POC-GLUCOSE METER 126 mg/dL 70-110 H : TESTED A T [facility] 14764 (BEAKER) (test code [address], = 1538) [place] [address]: Simulation Developer/Techni emil ID = [id number] for Gibson Obregon POCT-GLUCOSE [id number] 05:35:00 Test Item Value Reference Range Interpretation Comments POC-GLUCOSE METER 136 mg/dL 70-110 H : TESTED Joe Torres [facility] 25826 (BEAKER) (test code [facility], = 1538) [facility] 77 384: Simulation Developer/Techni emil ID = [id number] for Jessica Nguyen BASIC METABOLIC [id number] 04:34:00 Test Item Value Reference Range Interpretation Comments SODIUM (BEAKER) 138 meq/L 135-148 (test code = 381) POTASSIUM (BEAKER) 3.5 meq/L 3.5-5.5 (test code = 379) CHLORIDE (BEAKER) 104 meq/L 98-106 (test code = 382) CO2 (BEAKER) (test 24 meq/L 20-31 code = 355) BLOOD UREA NITROGEN 15 mg/dL 10-26 (BEAKER) (test code = 354) CREATININE (BEAKER) 0.61 mg/dL 0.50-1.20 (test code = 358) GLUCOSE RANDOM 150 mg/dL 70-110 H (BEAKER) (test code = 652) CALCIUM (BEAKER) 8.1 mg/dL 8.5-10.5 L (test code = 697) EGFR (BEAKER) (test 96 mL/min/1.73 ESTIMA ASHLEIGH GFR IS code = 1092) sq m NOT ACCURATE CREATININE CLEARANCE IN PREDICTING GLOMERULAR FILTRATION RATE . ESTIMATED GFR I S NOT APPLICABLE FOR DIALYSIS PATIEN TS. Simulation Developer ID - [id number] W/PLT COUNT & AUTO [id number] 03:55:00 Test Item Value Reference Range Interpretation Comments WHITE BLOOD CELL COUNT (BEAKER) 13.1 K/ L 4.0-10.0 H (test code = 775) RED BLOOD CELL COUNT (BEAKER) 3.80 M/ L 4.00-5.00 L (test code = 761) HEMOGLOBIN (BEAKER) (test code = 10.2 GM/DL 12.0-15.5 L 410) HEMATOCRIT (BEAKER) (test code = 31.3 % 36.0-46.0 L 411) MEAN CORPUSCULAR VOLUME (BEAKER) 82.4 fL 82.0-99.0 (test code = 753) MEAN CORPUSCULAR HEMOGLOBIN 26.8 pg 27.0-33.0 L (BEAKER) (test code = 751) MEAN CORPUSCULAR HEMOGLOBIN CONC 32.6 GM/DL 32.0-36.0 (BEAKER) (test code = 752) RED CELL DISTRIBUTION WIDTH 13.4 % 12.0-15.0 (BEAKER) (test code = 412) PLATELET COUNT (BEAKER) (test 288 K/CU MM 150-430 code = 756) MEAN PLATELET VOLUME (BEAKER) 9.4 fL 6.0-11.5 (test code = 754) NUCLEATED RED BLOOD CELLS 0 /100 WBC 0-0 (BEAKER) (test code = 413) NEUTROPHILS RELATIVE PERCENT 87 % (BEAKER) (test code = 429) LYMPHOCYTES RELATIVE PERCENT 6 % (BEAKER) (test code = 430) MONOCYTES RELATIVE PERCENT 5 % (BEAKER) (test code = 431) EOSINOPHILS RELATIVE PERCENT 0 % (BEAKER) (test code = 432) BASOPHILS RELATIVE PERCENT 0 % (BEAKER) (test code = 437) NEUTROPHILS ABSOLUTE COUNT 11.33 K/ L 1.80-8.00 H (BEAKER) (test code = 670) LYMPHOCYTES ABSOLUTE COUNT 0.78 K/ L 1.48-4.50 L (BEAKER) (test code = 414) MONOCYTES ABSOLUTE COUNT (BEAKER) 0.67 K/ L 0.00-1.30 (test code = 415) EOSINOPHILS ABSOLUTE COUNT 0.00 K/ L 0.00-0.50 (BEAKER) (test code = 416) BASOPHILS ABSOLUTE COUNT (BEAKER) 0.01 K/ L 0.00-0.20 (test code = 417) IMMATURE GRANULOCYTES-RELATIVE 2 % 0-0 H PERCENT (BEAKER) (test code = 2801) POCT-GLUCOSE [id number] 21:42:00 Test Item Value Reference Range Interpretation Comments POC-GLUCOSE METER 159 mg/dL 70-110 H : TESTED A T [facility] [address] (BEAKER) (test code [facility], = 1538) [place] [address]: Simulation Developer/Techni emil ID = [id number] for Toña Pacheco POCT-GLUCOSE [id number] 11:41:00 Test Item Value Reference Range Interpretation Comments POC-GLUCOSE METER 182 mg/dL 70-110 H : TESTED A T [facility] 53557 (BEAKER) (test code [facility], = 1538) [place] [address]: Simulation Developer/Techni emil ID = [id number] for Soledad Wilson POCT-GLUCOSE [id number] 06:11:00 Test Item Value Reference Range Interpretation Comments POC-GLUCOSE METER 170 mg/dL 70-110 H : TESTED A T [facility] 07391 (BEAKER) (test code [facility], = 1538) [place] [address]: Simulation Developer/Techni emil ID = [id number] for Irene Hardin MR, BRAIN, [id number] 18:43:00S/p resectionUnlisted Reason for Exam - Click Yes and Enter Reason Below->No [facility] 1950 Sex: FFINAL REPORT MR, BRAIN, WITH \\T\\ WITHOUT CONTRAST INDICATION: Brain mass or lesion, follow-up Technique: MRI of the brain utilizing axial T1, T2, FLAIR, GRE, DWI, sagittal T1; and postgadolinium axial, sagittal, and coronal T1-weighted images. COMPARISON: Preoperative MRI July 21, 2020 FINDINGS: Status post right frontotemporal craniotomy for resection of right sphenoid inferior frontal convexity extra-axial mass (presumed meningioma). A small 3 mm extra-axial collection layers along the right frontal and anterior temporal convexity. No residual enhancing lesionis demonstrated. Additionally, dural thickening formerly seen extending along the anterior temporal convexity (presumed extended meningioma) has also presumably been resected and is no longer identified. There is decreased mass effect and midline shift following resection, formerly 1.3 cm midline shift and now with 1 cm rightward midline shift. Persistent subfalcine herniation, although decreased. There is persistent mild downward displacement of the frontal horn of the right lateral ventricle (without left lateral ventricular entrapment) and unchanged vasogenic edema throughout the right frontal, anterior parietal and temporal white matter. No hydrocephalus. Orbits are within normal limits. No obstructive paranasal sinus disease. Additional findings: None. IMPRESSION: Decreased midline shift and mass effect following resection of presumed meningioma along the right inferior frontal convexity. By imaging, no residual tumor is identified. Signed: Keely Reynolds MDReport Verified Date/Time: 07/29/2020 18:43:09 Reading Location: [address] Neuro Reading Room [id number] 05:31:00 Test Item Value Reference Range Interpretation Comments MAGNESIUM (BEAKER) (test code = 1.8 mg/dL 1.5-3.0 627) Simulation Developer ID - [id number] METABOLIC [id number] 04:14:00 Test Item Value Reference Range Interpretation Comments SODIUM (BEAKER) 140 meq/L 135-148 (test code = 381) POTASSIUM (BEAKER) 3.2 meq/L 3.5-5.5 L (test code = 379) CHLORIDE (BEAKER) 107 meq/L 98-106 H (test code = 382) CO2 (BEAKER) (test 23 meq/L 20-31 code = 355) BLOOD UREA NITROGEN 11 mg/dL 10-26 (BEAKER) (test code = 354) CREATININE (BEAKER) 0.66 mg/dL 0.50-1.20 (test code = 358) GLUCOSE RANDOM 177 mg/dL 70-110 H (BEAKER) (test code = 652) CALCIUM (BEAKER) 8.2 mg/dL 8.5-10.5 L (test code = 697) EGFR (BEAKER) (test 88 mL/min/1.73 ESTIMA ASHLEIGH GFR IS code = 1092) sq m NOT ACCURATE CREATININE CLEARANCE IN PREDICTING GLOMERULAR FILTRATION RATE . ESTIMATED GFR I S NOT APPLICABLE FOR DIALYSIS PATIEN TS. Simulation Developer ID - [id number] (HEMOGRAM ONLY)2020-07-29 03:43:00 Test Item Value Reference Range Interpretation Comments WHITE BLOOD CELL COUNT (BEAKER) 18.9 K/ L 4.0-10.0 H (test code = 775) RED BLOOD CELL COUNT (BEAKER) 4.19 M/ L 4.00-5.00 (test code = 761) HEMOGLOBIN (BEAKER) (test code = 11.2 GM/DL 12.0-15.5 L 410) HEMATOCRIT (BEAKER) (test code = 34.3 % 36.0-46.0 L 411) MEAN CORPUSCULAR VOLUME (BEAKER) 81.9 fL 82.0-99.0 L (test code = 753) MEAN CORPUSCULAR HEMOGLOBIN 26.7 pg 27.0-33.0 L (BEAKER) (test code = 751) MEAN CORPUSCULAR HEMOGLOBIN CONC 32.7 GM/DL 32.0-36.0 (BEAKER) (test code = 752) RED CELL DISTRIBUTION WIDTH 12.7 % 12.0-15.0 (BEAKER) (test code = 412) PLATELET COUNT (BEAKER) (test 395 K/CU MM 150-430 code = 756) MEAN PLATELET VOLUME (BEAKER) 9.1 fL 6.0-11.5 (test code = 754) NUCLEATED RED BLOOD CELLS 0 /100 WBC 0-0 (BEAKER) (test code = 413) POCT-GLUCOSE [id number] 00:24:00 Test Item Value Reference Range Interpretation Comments POC-GLUCOSE METER 208 mg/dL 70-110 H : TESTED A T [facility] [address] (BEAKER) (test code [facility], = 1538) [place] [address] 384: Simulation Developer/Techni emil ID = [id number] for Andrea Mejia SARS-COV2/RT-PCR ([facility])2020-07-28 17:27:00 Test Item Value Reference Range Interpretation Comments SARS-COV2/RT-PCR (test Negative Not Detected, Negative, code = 1046142) See external report for linked test SARS-COV-2 PERFORMING LAB [facility] (test code = 0910146) Negative result for this test determines that SARS-CoV-2 RNA was not present in the specimen above the Limit of Detection (LOD). However, Negative results do not preclude SARS-CoV-2 infection and should not be used as the sole basis for treatment or patient management decisions. Negative results mustbe combined with clinical observations, patient history, and epidemiological information. A false negative result may occur if a specimen is improperly collected, transported or handled. A false negative result should be considered if patient's recent exposures or clinical presentation indicate that COVID-19 (SARS-CoV-2) is likely and diagnostic tests for other causes of illness are negative. Re-testing should be considered in cases of suspected false negatives.The limit of detection for this assay is 800 copies/mL.This SARS CoV-2 test is a real-time RT-PCR test intended for the qualitative detection of nucleic acid from SARS-CoV-2 in a nasopharyngeal swab specimen collected from individuals suspected of COVID-19 by their healthcare provider.This test has not been Food and Drug Administration (FDA) cleared or approved. This is a modified version of an approved Emergency Use Authorization (EUA) and is in the process of review by the FDA. Once authorized by the FDA, the issued EUA will be effective until the declaration that circumstances exist justifying the authorization of the emergency use of in vitro diagnostic tests for detection and/or diagnosis of COVID-19 is terminated under Section 564(b)(2) of the Act or the EUA is revoked under Section 564(g) of the Act.Fact Sheet for Healthcare Providers:https://www.Greenbureau.Retailigence/sites/default/files/product/documents/Fact_Shee c_EK_Vxikatqwe_Urxr_SCBX-VpF-2.pdfFact Sheet for Healthcare Patients:https://www.Greenbureau.com/sites/default/files/product/ documents/Crsx_Vemtc_Ocbnrwis_Lymz_KMND-RwI-4.pdfPerforming Laboratory:[facility], [place] [address]EF/[id number] 04:58:00 Test Item Value Reference Range Interpretation Comments PROTIME (BEAKER) (test code = 14.3 seconds 11.8-14.4 759) INR (BEAKER) (test code = 370) 1.11 1.20-1.50 L PARTIAL THROMBOPLASTIN TIME 27.5 seconds 23.2-36.1 (BEAKER) (test code = 760) RECOMMENDED COUMADIN/WARFARIN INR THERAPY RANGESSTANDARD DOSE: 2.0 - 3.0 Includes: PROPHYLAXIS forvenous thrombosis, systemic embolization; TREATMENT for venous thrombosis and/or pulmonary embolus.HIGH RISK: Target INR is 2.5-3.5 for patients with mechanical heart valves.PROTHROMBIN [id number] 04:57:00 Test Item Value Reference Range Interpretation Comments PROTIME (BEAKER) (test code = 14.3 seconds 11.8-14.4 759) INR (BEAKER) (test code = 370) 1.11 1.20-1.50 L RECOMMENDED COUMADIN/WARFARIN INR THERAPY RANGESSTANDARD DOSE: 2.0 - 3.0 Includes: PROPHYLAXIS forvenous thrombosis, systemic embolization; TREATMENT for venous thrombosis and/or pulmonary embolus.HIGH RISK: Target INR is 2.5-3.5 for patients with mechanical heart valves.POCT-GLUCOSE [id number] 22:05:00 Test Item Value Reference Range Interpretation Comments POC-GLUCOSE METER 167 mg/dL 70-110 H : TESTED A T [facility] 44081 (BEAKER) (test code [facility], = 1538) [place] [address] 384: Simulation Developer/Techni emil ID = [id number] for C mary Daya POCT-GLUCOSE [id number] 16:10:00 Test Item Value Reference Range Interpretation Comments POC-GLUCOSE METER 120 mg/dL 70-110 H : TESTED A T [facility] [address]018 (BEAKER) (test code [facility] [employer] [address] [facility], = 1538) [place] [address] 384: Simulation Developer/Techni emil ID = [id number] for T u-Haja, Aquilito POCT-GLUCOSE [id number] 11:14:00 Test Item Value Reference Range Interpretation Comments POC-GLUCOSE METER 106 mg/dL 70-110 : TESTED A T [facility] 90820 (BEAKER) (test code [facility], = 1538) [place] [address] 384: Simulation Developer/Techni emil ID = [id number] for T u-Haja, Aquilito POCT-GLUCOSE [id number] 05:21:00 Test Item Value Reference Range Interpretation Comments POC-GLUCOSE METER 136 mg/dL 70-110 H : TESTED A T [facility] 22107 (BEAKER) (test code [facility], = 1538) [place] [address] 384: Simulation Developer/Techni emil ID = [id number] for C Daya hernandez POCT-GLUCOSE [id number] 20:53:00 Test Item Value Reference Range Interpretation Comments POC-GLUCOSE METER 136 mg/dL 70-110 H : TESTED A T [facility] 73771 (BEAKER) (test code [facility], = 1538) [place] [address] 384: Simulation Developer/Techni emil ID = [id number] for C Daya hernandez POCT-GLUCOSE [id number] 17:21:00 Test Item Value Reference Range Interpretation Comments POC-GLUCOSE METER 132 mg/dL 70-110 H : TESTED A T [facility] 69424 (BEAKER) (test code [facility], = 1538) [place] [address] 384: Simulation Developer/Techni emil ID = [id number] for P elisabeth, Liz POCT-GLUCOSE [id number] 11:58:00 Test Item Value Reference Range Interpretation Comments POC-GLUCOSE METER 118 mg/dL 70-110 H : TESTED A T [facility] [address]179 (BEAKER) (test code [facility], = 1538) [place] [address] 384: Simulation Developer/Techni emil ID = [id number] for P elisabeth, Liz POCT-GLUCOSE [id number] 05:51:00 Test Item Value Reference Range Interpretation Comments POC-GLUCOSE METER 125 mg/dL 70-110 H : TESTED A T [facility] 90065 (BEAKER) (test code [facility], = 1538) [place] [address] 384: Simulation Developer/Techni emil ID = [id number] for M ang, Patsy POCT-GLUCOSE [id number] 21:10:00 Test Item Value Reference Range Interpretation Comments POC-GLUCOSE METER 85 mg/dL 70-110 : TESTED A T [facility] 32423 (BEAKER) (test code = [facility] [address], 153) [place] [address] 384: Simulation Developer/Techni emil ID = [id number] for M ang, Patsy POCT-GLUCOSE [id number] 16:40:00 Test Item Value Reference Range Interpretation Comments POC-GLUCOSE METER 207 mg/dL 70-110 H : TESTED A T [facility] 69950 (BEAKER) (test code [facility], = 1538) [place] [address] 384: Simulation Developer/Techni emil ID = [id number] for Liz Maddox POCT-GLUCOSE [id number] 11:54:00 Test Item Value Reference Range Interpretation Comments POC-GLUCOSE METER 187 mg/dL 70-110 H : TESTED A T [facility] 04128 (BEAKER) (test code [facility], = 1538) [place] [address] 384: Simulation Developer/Techni emil ID = [id number] for Liz Maddox BASIC METABOLIC [id number] 04:45:00 Test Item Value Reference Range Interpretation Comments SODIUM (BEAKER) 139 meq/L 135-148 (test code = 381) POTASSIUM (BEAKER) 3.4 meq/L 3.5-5.5 L (test code = 379) CHLORIDE (BEAKER) 104 meq/L 98-106 (test code = 382) CO2 (BEAKER) (test 26 meq/L 20-31 code = 355) BLOOD UREA NITROGEN 12 mg/dL 10-26 (BEAKER) (test code = 354) CREATININE (BEAKER) 0.67 mg/dL 0.50-1.20 (test code = 358) GLUCOSE RANDOM 131 mg/dL 70-110 H (BEAKER) (test code = 652) CALCIUM (BEAKER) 8.9 mg/dL 8.5-10.5 (test code = 697) EGFR (BEAKER) (test 87 mL/min/1.73 ESTIMA ASHLEIGH GFR IS code = 1092) sq m NOT ACCURATE CREATININE CLEARANCE IN PREDICTING GLOMERULAR FILTRATION RATE . ESTIMATED GFR I S NOT APPLICABLE FOR DIALYSIS PATIEN TS. Simulation Developer ID - [id number] 03:59:00 Test Item Value Reference Range Interpretation Comments POC-GLUCOSE METER 126 mg/dL 70-110 H : TESTED A T [facility] 08372 (BEAKER) (test code [facility] [address] [facility], = 1538) [place] [address] 384: Simulation Developer/Techni emil ID = [id number] for Patsy Thibodeaux CBC W/PLT COUNT & AUTO [id number] 03:57:00 Test Item Value Reference Range Interpretation Comments WHITE BLOOD CELL COUNT (BEAKER) 8.5 K/ L 4.0-10.0 (test code = 775) RED BLOOD CELL COUNT (BEAKER) 4.85 M/ L 4.00-5.00 (test code = 761) HEMOGLOBIN (BEAKER) (test code = 13.0 GM/DL 12.0-15.5 410) HEMATOCRIT (BEAKER) (test code = 39.4 % 36.0-46.0 411) MEAN CORPUSCULAR VOLUME (BEAKER) 81.2 fL 82.0-99.0 L (test code = 753) MEAN CORPUSCULAR HEMOGLOBIN 26.8 pg 27.0-33.0 L (BEAKER) (test code = 751) MEAN CORPUSCULAR HEMOGLOBIN CONC 33.0 GM/DL 32.0-36.0 (BEAKER) (test code = 752) RED CELL DISTRIBUTION WIDTH 12.5 % 12.0-15.0 (BEAKER) (test code = 412) PLATELET COUNT (BEAKER) (test 404 K/CU MM 150-430 code = 756) MEAN PLATELET VOLUME (BEAKER) 8.7 fL 6.0-11.5 (test code = 754) NUCLEATED RED BLOOD CELLS 0 /100 WBC 0-0 (BEAKER) (test code = 413) NEUTROPHILS RELATIVE PERCENT 77 % (BEAKER) (test code = 429) LYMPHOCYTES RELATIVE PERCENT 17 % (BEAKER) (test code = 430) MONOCYTES RELATIVE PERCENT 5 % (BEAKER) (test code = 431) EOSINOPHILS RELATIVE PERCENT 0 % (BEAKER) (test code = 432) BASOPHILS RELATIVE PERCENT 0 % (BEAKER) (test code = 437) NEUTROPHILS ABSOLUTE COUNT 6.51 K/ L 1.80-8.00 (BEAKER) (test code = 670) LYMPHOCYTES ABSOLUTE COUNT 1.45 K/ L 1.48-4.50 L (BEAKER) (test code = 414) MONOCYTES ABSOLUTE COUNT (BEAKER) 0.38 K/ L 0.00-1.30 (test code = 415) EOSINOPHILS ABSOLUTE COUNT 0.00 K/ L 0.00-0.50 (BEAKER) (test code = 416) BASOPHILS ABSOLUTE COUNT (BEAKER) 0.03 K/ L 0.00-0.20 (test code = 417) IMMATURE GRANULOCYTES-RELATIVE 1 % 0-0 H PERCENT (BEAKER) (test code = 2801) POCT-GLUCOSE [id number] 20:30:00 Test Item Value Reference Range Interpretation Comments POC-GLUCOSE METER 133 mg/dL 70-110 H : TESTED A T [facility] 90337 (BEAKER) (test code [facility] [address], = 1538) [place] [address] 384: Simulation Developer/Techni emil ID = [id number] for M mychal, Patsy POCT-GLUCOSE [id number] 15:57:00 Test Item Value Reference Range Interpretation Comments POC-GLUCOSE METER 261 mg/dL 70-110 H : TESTED A T [facility] 60509 (BEAKER) (test code [facility] [address] [address] [facility], = 1538) [place] [address] 384: Simulation Developer/Techni emil ID = [id number] for T u-Haja, Aquilito POCT-GLUCOSE [id number] 11:36:00 Test Item Value Reference Range Interpretation Comments POC-GLUCOSE METER 134 mg/dL 70-110 H : TESTED A T [facility] 08607 (BEAKER) (test code [facility] [address] [facility], = 1538) [place] [address] 384: Simulation Developer/Techni emil ID = [id number] for T u-Haja, Aquilito POCT-GLUCOSE [id number] 06:20:00 Test Item Value Reference Range Interpretation Comments POC-GLUCOSE METER 119 mg/dL 70-110 H : TESTED A T [facility] 69667 (BEAKER) (test code [facility] [address] [facility], = 1538) [place] [address] 384: Simulation Developer/Techni emil ID = [id number] for M ang, Patsy POCT-GLUCOSE [id number] 21:11:00 Test Item Value Reference Range Interpretation Comments POC-GLUCOSE METER 112 mg/dL 70-110 H : TESTED A T [facility] 84663 (BEAKER) (test code [facility] [address] [address] [facility], = 1538) [place] [address] 384: Simulation Developer/Techni emil ID = [id number] for M ang, Patsy POCT-GLUCOSE [id number] 16:23:00 Test Item Value Reference Range Interpretation Comments POC-GLUCOSE METER 130 mg/dL 70-110 H : TESTED A T [facility] 46471 (BEAKER) (test code [facility] [address] [address] [facility], = 1538) [place] [address] 384: Simulation Developer/Techni emil ID = [id number] for May Toney POCT-GLUCOSE [id number] 11:44:00 Test Item Value Reference Range Interpretation Comments POC-GLUCOSE METER 242 mg/dL 70-110 H : TESTED A T [facility] 95162 (BEAKER) (test code [facility], = 1538) [place] [address] 384: Simulation Developer/Techni emil ID = [id number] for May Toney CBC W/PLT COUNT & AUTO [id number] 04:32:00 Test Item Value Reference Range Interpretation Comments WHITE BLOOD CELL COUNT (BEAKER) 7.9 K/ L 4.0-10.0 (test code = 775) RED BLOOD CELL COUNT (BEAKER) 4.58 M/ L 4.00-5.00 (test code = 761) HEMOGLOBIN (BEAKER) (test code = 12.2 GM/DL 12.0-15.5 410) HEMATOCRIT (BEAKER) (test code = 37.8 % 36.0-46.0 411) MEAN CORPUSCULAR VOLUME (BEAKER) 82.5 fL 82.0-99.0 (test code = 753) MEAN CORPUSCULAR HEMOGLOBIN 26.6 pg 27.0-33.0 L (BEAKER) (test code = 751) MEAN CORPUSCULAR HEMOGLOBIN CONC 32.3 GM/DL 32.0-36.0 (BEAKER) (test code = 752) RED CELL DISTRIBUTION WIDTH 12.3 % 12.0-15.0 (BEAKER) (test code = 412) PLATELET COUNT (BEAKER) (test 445 K/CU MM 150-430 H code = 756) MEAN PLATELET VOLUME (BEAKER) 8.7 fL 6.0-11.5 (test code = 754) NUCLEATED RED BLOOD CELLS 0 /100 WBC 0-0 (BEAKER) (test code = 413) NEUTROPHILS RELATIVE PERCENT 76 % (BEAKER) (test code = 429) LYMPHOCYTES RELATIVE PERCENT 18 % (BEAKER) (test code = 430) MONOCYTES RELATIVE PERCENT 5 % (BEAKER) (test code = 431) EOSINOPHILS RELATIVE PERCENT 0 % (BEAKER) (test code = 432) BASOPHILS RELATIVE PERCENT 0 % (BEAKER) (test code = 437) NEUTROPHILS ABSOLUTE COUNT 6.02 K/ L 1.80-8.00 (BEAKER) (test code = 670) LYMPHOCYTES ABSOLUTE COUNT 1.39 K/ L 1.48-4.50 L (BEAKER) (test code = 414) MONOCYTES ABSOLUTE COUNT (BEAKER) 0.40 K/ L 0.00-1.30 (test code = 415) EOSINOPHILS ABSOLUTE COUNT 0.00 K/ L 0.00-0.50 (BEAKER) (test code = 416) BASOPHILS ABSOLUTE COUNT (BEAKER) 0.03 K/ L 0.00-0.20 (test code = 417) IMMATURE GRANULOCYTES-RELATIVE 1 % 0-0 H PERCENT (BEAKER) (test code = 2801) SARS-COV2/RT-PCR ([facility])2020-07-22 09:14:00 Test Item Value Reference Range Interpretation Comments SARS-COV2/RT-PCR (test Negative Not Detected, Negative, code = 0340769) See external report for linked test SARS-COV-2 PERFORMING LAB [facility] (test code = 8773289) Negative result for this test determines that SARS-CoV-2 RNA was not present in the specimen above the Limit of Detection (LOD). However, Negative results do not preclude SARS-CoV-2 infection and should not be used as the sole basis for treatment or patient management decisions. Negative results mustbe combined with clinical observations, patient history, and epidemiological information. A false negative result may occur if a specimen is improperly collected, transported or handled. A false negative result should be considered if patient's recent exposures or clinical presentation indicate that COVID-19 (SARS-CoV-2) is likely and diagnostic tests for other causes of illness are negative. Re-testing should be considered in cases of suspected false negatives.The limit of detection for this assay is 100 copies/mL.This SARS CoV-2 test is a real-time RT-PCR test intended for the qualitative detection of nucleic acid from SARS-CoV-2 in a nasopharyngeal swab specimen collected from individuals suspected of COVID-19 by their healthcare provider.This test has not been Food and Drug Administration (FDA) cleared or approved. This is a modified version of an approved Emergency Use Authorization (EUA) and is in the process of review by the FDA. Once authorized by the FDA, the issued EUA will be effective until the declaration that circumstances exist justifying the authorization of the emergency use of in vitro diagnostic tests for detection and/or diagnosis of COVID-19 is terminated under Section 564(b)(2) of the Act or the EUA is revoked under Section 564(g) of the Act.Testing was performed using the Monta[employer] SARS-CoV-2 assay.Fact Sheet for Healthcare Providers:https://www.[employer].montaño/wilfredo/ WU_TQBX-QkG-0_RSZ_Uoqn_Uojdc_73-434400.pdfFact Sheet for Healthcare Patients:https://www.[employer].JungleC[employer] scott/wilfredo/DG_PSIX-BsV-2_Ykbhmln_Emwk_Uqiji_GP_37-378217J5.pdfPerforming Laboratory:[address] [place] [address] BASIC METABOLIC [id number] 05:03:00 Test Item Value Reference Range Interpretation Comments SODIUM (BEAKER) 138 meq/L 135-148 (test code = 381) POTASSIUM (BEAKER) 3.8 meq/L 3.5-5.5 (test code = 379) CHLORIDE (BEAKER) 103 meq/L 98-106 (test code = 382) CO2 (BEAKER) (test 24 meq/L 20-31 code = 355) BLOOD UREA NITROGEN 7 mg/dL 10-26 L (BEAKER) (test code = 354) CREATININE (BEAKER) 0.62 mg/dL 0.50-1.20 (test code = 358) GLUCOSE RANDOM 121 mg/dL 70-110 H (BEAKER) (test code = 652) CALCIUM (BEAKER) 8.9 mg/dL 8.5-10.5 (test code = 697) EGFR (BEAKER) (test 95 mL/min/1.73 ESTIMA ASHLEIGH GFR IS code = 1092) sq m NOT ACCURATE CREATININE CLEARANCE IN PREDICTING GLOMERULAR FILTRATION RATE . ESTIMATED GFR I S NOT APPLICABLE FOR DIALYSIS PATIEN TS. Simulation Developer ID - [id number] W/PLT COUNT & AUTO [id number] 04:34:00 Test Item Value Reference Range Interpretation Comments WHITE BLOOD CELL COUNT (BEAKER) 7.4 K/ L 4.0-10.0 (test code = 775) RED BLOOD CELL COUNT (BEAKER) 4.69 M/ L 4.00-5.00 (test code = 761) HEMOGLOBIN (BEAKER) (test code = 12.7 GM/DL 12.0-15.5 410) HEMATOCRIT (BEAKER) (test code = 39.0 % 36.0-46.0 411) MEAN CORPUSCULAR VOLUME (BEAKER) 83.2 fL 82.0-99.0 (test code = 753) MEAN CORPUSCULAR HEMOGLOBIN 27.1 pg 27.0-33.0 (BEAKER) (test code = 751) MEAN CORPUSCULAR HEMOGLOBIN CONC 32.6 GM/DL 32.0-36.0 (BEAKER) (test code = 752) RED CELL DISTRIBUTION WIDTH 12.5 % 12.0-15.0 (BEAKER) (test code = 412) PLATELET COUNT (BEAKER) (test 441 K/CU MM 150-430 H code = 756) MEAN PLATELET VOLUME (BEAKER) 8.6 fL 6.0-11.5 (test code = 754) NUCLEATED RED BLOOD CELLS 0 /100 WBC 0-0 (BEAKER) (test code = 413) NEUTROPHILS RELATIVE PERCENT 79 % (BEAKER) (test code = 429) LYMPHOCYTES RELATIVE PERCENT 15 % (BEAKER) (test code = 430) MONOCYTES RELATIVE PERCENT 5 % (BEAKER) (test code = 431) EOSINOPHILS RELATIVE PERCENT 0 % (BEAKER) (test code = 432) BASOPHILS RELATIVE PERCENT 0 % (BEAKER) (test code = 437) NEUTROPHILS ABSOLUTE COUNT 5.81 K/ L 1.80-8.00 (BEAKER) (test code = 670) LYMPHOCYTES ABSOLUTE COUNT 1.09 K/ L 1.48-4.50 L (BEAKER) (test code = 414) MONOCYTES ABSOLUTE COUNT (BEAKER) 0.40 K/ L 0.00-1.30 (test code = 415) EOSINOPHILS ABSOLUTE COUNT 0.00 K/ L 0.00-0.50 (BEAKER) (test code = 416) BASOPHILS ABSOLUTE COUNT (BEAKER) 0.02 K/ L 0.00-0.20 (test code = 417) IMMATURE GRANULOCYTES-RELATIVE 1 % 0-0 H PERCENT (BEAKER) (test code = 2801) CT, SPINE, LUMBAR, WO [id number] 10:50:00Pt had recent nerve block done in lumbar area, rule out abscess.Unlisted Reason for Exam - Click Yesand Enter Reason Below->No [facility] : 1950 Sex: FFINAL REPORT CT, SPINE, LUMBAR, WO CONTRAST INDICATION: Back pain or radiculopathy, > 6 wks COMPARISON: None TECHNIQUE: Contiguous noncontrast axial images of the lumbar spine are obtained. Computer reformatted coronal and sagittal images are also provided. Axial images are available in both bone and soft tissue algorithm. DOSE REDUCTION: Dose modulation, iterativereconstruction, and/or weight-based adjustment of the mA/kV was utilized to reduce the radiation dose to as low as reasonably achievable. FINDINGS:Limited by suboptimal positioning. There is no evidence of fracture or traumatic subluxation. Alignment demonstrates dextroscoliotic curvature. There are co mpensatory degenerative endplate and facet changes. Vertebral height and integrity is normal. The bones are diffusely demineralized. Intervertebral disk height is decreased throughout the lumbar spine with vacuum disc phenomenon at L3-4 and L5-S1. Pertinent findings by level:L1-2: Broad disc bulge andfacet arthropathy. Mild canal narrowing. Mild bilateral foraminal stenosis. L2-3: Broad disc bulge and facet arthropathy. Moderate canal narrowing. Moderate bilateral foraminal stenosis. L3-4: Broad disc bulge with facet arthropathy and ligamentous redundancy. Moderate canal narrowing. Moderate right and severe left foraminal stenosis. L4-5: Grade 1 anterolisthesis of L5 on S1. Degenerative endplate changes, disc bulge and ligamentous redundancy creating severe canal narrowing. Moderate to severe bilateral foraminal stenosis. L5-S1: multifactorial mild canal narrowing. Severe bilateral foraminal stenosis. Paraspinal soft tissues reveal sequela of diverticulitis. Perforation and abscess formation are not well characterized in the current examination. IMPRESSION: Degenerative changes and scoliotic deformity creating severe canal narrowing and moderate to severe bilateral foraminal stenosis at L4-5. Severe left foraminal stenosis at L3-4. Severe bilateral foraminal stenosis at L5-S1. Signed: JR Zapien Robert MDReport Verified Date/Time: 07/21/2020 10:50:54 Reading Location: [address] Neuro Reading Room MR, BRAIN, WITH 2020-07-21 10:28:00Please complete with Teleborderalth protocolUnlisted Reason for Exam - Click Yes and Enter Reason Below->YesUnlisted Reason for Exam->brain massDeos the patient have an implanted electronic device?->No [facility] : 1950 Sex: FFINAL REPORT MR, BRAIN, WITH \\T\\ WITHOUT CONTRAST INDICATION: Unlisted Reason for Exambrain mass TECHNIQUE: Multiplanar, multisequence MR imaging of the brain was obtained before and after uneventful administration of gadolinium contrast. COMPARISON: None FINDINGS:Right greater sphenoid wing dural based lesion extends to the squamous portion of the right temporal bone. There is avid postcontrast enhancement. Maximal measurements are approximately 26 x 29 x 30 mm. Mild subjacent hyperostosis is present. There is marked mass effect on the underlying brain parenchyma with extensive edema projecting posteriorly to the parieto-occipital junction. More local mass effect results in 16 mm leftward midline shift of the septum pellucidum with anterior subfalcine herniation of the cingulate gyrus. Remaining brain parenchyma demonstrates mild white matter disease but no evidence of recent infarct or hemorrhage. There is no ventricular entrapment. Remote from the mass location, there is no abnormality of the skull base or calvarium. The included paranasal sinuses, mastoid air cells, and orbits are within normal limits. 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 Underlying mass effect creating a marked right hemispheric edema, associated 16 mm leftward midline shift and subfalcine herniation of the cingulate gyrus. Signed: JR Curry, Antoine ZHOUeport Verified Date/Time: 07/21/2020 10:28:53 Reading Location: [facility] C0[facility] Neuro Reading Room E lectronically signed by: ANTOINE ZAPIEN on 07/21/2020 10:28 AMBASIC METABOLIC [id number] 06:42:00 Test Item Value Reference Range Interpretation Comments SODIUM (BEAKER) 140 meq/L 135-148 (test code = 381) POTASSIUM (BEAKER) 3.2 meq/L 3.5-5.5 L (test code = 379) CHLORIDE (BEAKER) 105 meq/L 98-106 (test code = 382) CO2 (BEAKER) (test 25 meq/L 20-31 code = 355) BLOOD UREA NITROGEN 9 mg/dL 10-26 L (BEAKER) (test code = 354) CREATININE (BEAKER) 0.64 mg/dL 0.50-1.20 (test code = 358) GLUCOSE RANDOM 96 mg/dL 70-110 (BEAKER) (test code = 652) CALCIUM (BEAKER) 8.4 mg/dL 8.5-10.5 L (test code = 697) EGFR (BEAKER) (test 91 mL/min/1.73 ESTIMA ASHLEIGH GFR IS code = 1092) sq m NOT ACCURATE CREATININE CLEARANCE IN PREDICTING GLOMERULAR FILTRATION RATE . ESTIMATED GFR I S NOT APPLICABLE FOR DIALYSIS PATIEN TS. Simulation Developer ID - [id number] W/PLT COUNT & AUTO [id number] 06:13:00 Test Item Value Reference Range Interpretation Comments WHITE BLOOD CELL COUNT (BEAKER) 9.8 K/ L 4.0-10.0 (test code = 775) RED BLOOD CELL COUNT (BEAKER) 4.34 M/ L 4.00-5.00 (test code = 761) HEMOGLOBIN (BEAKER) (test code = 11.7 GM/DL 12.0-15.5 L 410) HEMATOCRIT (BEAKER) (test code = 36.5 % 36.0-46.0 411) MEAN CORPUSCULAR VOLUME (BEAKER) 84.1 fL 82.0-99.0 (test code = 753) MEAN CORPUSCULAR HEMOGLOBIN 27.0 pg 27.0-33.0 (BEAKER) (test code = 751) MEAN CORPUSCULAR HEMOGLOBIN CONC 32.1 GM/DL 32.0-36.0 (BEAKER) (test code = 752) RED CELL DISTRIBUTION WIDTH 12.4 % 12.0-15.0 (BEAKER) (test code = 412) PLATELET COUNT (BEAKER) (test 403 K/CU MM 150-430 code = 756) MEAN PLATELET VOLUME (BEAKER) 8.6 fL 6.0-11.5 (test code = 754) NUCLEATED RED BLOOD CELLS 0 /100 WBC 0-0 (BEAKER) (test code = 413) NEUTROPHILS RELATIVE PERCENT 70 % (BEAKER) (test code = 429) LYMPHOCYTES RELATIVE PERCENT 20 % (BEAKER) (test code = 430) MONOCYTES RELATIVE PERCENT 9 % (BEAKER) (test code = 431) EOSINOPHILS RELATIVE PERCENT 0 % (BEAKER) (test code = 432) BASOPHILS RELATIVE PERCENT 0 % (BEAKER) (test code = 437) NEUTROPHILS ABSOLUTE COUNT 6.77 K/ L 1.80-8.00 (BEAKER) (test code = 670) LYMPHOCYTES ABSOLUTE COUNT 1.98 K/ L 1.48-4.50 (BEAKER) (test code = 414) MONOCYTES ABSOLUTE COUNT (BEAKER) 0.87 K/ L 0.00-1.30 (test code = 415) EOSINOPHILS ABSOLUTE COUNT 0.03 K/ L 0.00-0.50 (BEAKER) (test code = 416) BASOPHILS ABSOLUTE COUNT (BEAKER) 0.04 K/ L 0.00-0.20 (test code = 417) IMMATURE GRANULOCYTES-RELATIVE 1 % 0-0 H PERCENT (BEAKER) (test code = 2801) URINALYSIS W/ REFLEX URINE [id number] 13:49:00 Test Item Value Reference Range Interpretation Comments COLOR (BEAKER) (test code = 470) Yellow CLARITY (BEAKER) (test code = 469) Cloudy SPECIFIC GRAVITY UA (BEAKER) (test 1.024 1.001-1.035 code = 468) PH UA (BEAKER) (test code = 467) 5.0 5.0-8.0 PROTEIN UA (BEAKER) (test code = Negative Negative 464) GLUCOSE UA (BEAKER) (test code = Negative Negative 365) KETONES UA (BEAKER) (test code = 20 mg/dL Negative A 371) BILIRUBIN UA (BEAKER) (test code = Negative Negative 462) BLOOD UA (BEAKER) (test code = 461) Negative Negative NITRITE UA (BEAKER) (test code = Negative Negative 465) LEUKOCYTE ESTERASE UA (BEAKER) (test Small Negative A code = 466) UROBILINOGEN UA (BEAKER) (test code < mg/dL 0.2-1.0 = 463) RBC UA (BEAKER) (test code = 519) 4 /HPF WBC UA (BEAKER) (test code = 520) 6 /HPF MUCUS (BEAKER) (test code = 1574) Rare SQUAMOUS EPITHELIAL (BEAKER) (test 1 /HPF code = 516) SOURCE(BEAKER) (test code = 2795) Simulation Developer ID - [auto]Simulation Developer ID - [email or web address] TIME/[id number] 06:51:00 Test Item Value Reference Range Interpretation Comments PROTIME (BEAKER) (test code = 15.4 seconds 11.8-14.4 H 759) INR (BEAKER) (test code = 370) 1.22 1.20-1.50 RECOMMENDED COUMADIN/WARFARIN INR THERAPY RANGESSTANDARD DOSE: 2.0 - 3.0 Includes: PROPHYLAXIS forvenous thrombosis, systemic embolization; TREATMENT for venous thrombosis and/or pulmonary embolus.HIGH RISK: Target INR is 2.5-3.5 for patients with mechanical heart valves.CT, CHEST, WITHOUT [id number] 05:01:00Unlisted Reason for Exam - Click Yes and Enter Reason Below- >YesUnlisted Reason for Exam->ruleout masses [facility] 1950 Sex: FFINAL REPORT CT, CHEST, WITHOUT CONTRAST, CT, ABDOMEN \\T\\ PELVIS, WI THOUT IV CONTRAST INDICATION: Unlisted Reason for Examrule out masses COMPARISON: None TECHNIQUE: Post contrast axially oriented images were obtained from the thoracic inlet through the pelvis. Coronal and sagittal reformats were provided. DOSE REDUCTION: Dose modulation, iterative reconstruction, and/or weight-based adjustment of the mA/kV was utilized to reduce the radiation dose to as low as reasonably achievable. FINDINGS: Chest:Lungs and Pleura: Minimal basilar scarring or atelectasis. No effusion or pneumothorax.Central airways: Patent.Mediastinum: No acute findings.Heart and pericardium: Noacute findings.Great vessels: No acute findings. Regional skeletal structures: Intact. Abdomen and Pelvis:Hepatobiliary: No acute findings. Right liver lobe cyst, 1.8 cm.Pancreas: No acute findings.Spleen: No acute findings.Adrenal Glands: No acute findings.Kidneys and ureters: No hydronephrosis or nephrolithiasis.Bladder and reproductive organs: Asymmetric urinary bladder wall thickening along the margin of the pelvic inflammatory changes..Gastrointestinal tract: Peridiverticular inflammatory changes of the sigmoid colon with circumferential wall thickening and peridiverticular collection containing gas estimated at 2.7 x 2.1 x 1.3 cm. The bowel obstruction..Major vascular structures: No acute fin dings..Peritoneum and retroperitoneum: Small volume free pelvic fluid. Pelvic inflammatory changes with extraluminal gas and poorly defined collection, 2.7 x 2.1 x 2.3 cm.Musculoskeletal: No acute abnormality. Yiko-gb-ybvzyveq lumbar spondylosis. Additional Findings: None. IMPRESSION:ABSENCE OF INTRAVENOUS CONTRAST DECREASES SENSITIVITY FOR DETECTION OF FOCAL LESIONS AND VASCULAR PATHOLOGY. No acuteintrathoracic abnormality. Acute perforated sigmoid diverticulitis. Small peridiverticular poorly defined collection measuring 2.7 x 2.1 x 1.3 cm concerning for developing abscess. Secondary urinary bladder cystitis. Findings discussed with the patient's nurse, Liz, to be immediately conveyed to thepatient's physician on 07/20/2020 4:56 AM. Signed: Chencho Nichole MDReport Verified Date/Time: 07/20/2020 05:01:28 CT, [id number] 05:01:00Unlisted Reason for Exam - Click Yes and Enter Reason Below- >YesUnlisted Reason for Exam->ruleout masses [facility] 1950 Sex: FFINAL REPORT CT, CHEST, WITHOUT CONTRAST, CT, ABDOMEN \\T\\ PELVIS, WI THOUT IV CONTRAST INDICATION: Unlisted Reason for Examrule out masses COMPARISON: None TECHNIQUE: Post contrast axially oriented images were obtained from the thoracic inlet through the pelvis. Coronal and sagittal reformats were provided. DOSE REDUCTION: Dose modulation, iterative reconstruction, and/or weight-based adjustment of the mA/kV was utilized to reduce the radiation dose to as low as reasonably achievable. FINDINGS: Chest:Lungs and Pleura: Minimal basilar scarring or atelectasis. No effusion or pneumothorax.Central airways: Patent.Mediastinum: No acute findings.Heart and pericardium: Noacute findings.Great vessels: No acute findings. Regional skeletal structures: Intact. Abdomen and Pelvis:Hepatobiliary: No acute findings. Right liver lobe cyst, 1.8 cm.Pancreas: No acute findings.Spleen: No acute findings.Adrenal Glands: No acute findings.Kidneys and ureters: No hydronephrosis or nephrolithiasis.Bladder and reproductive organs: Asymmetric urinary bladder wall thickening along the margin of the pelvic inflammatory changes..Gastrointestinal tract: Peridiverticular inflammatory changes of the sigmoid colon with circumferential wall thickening and peridiverticular collection containing gas estimated at 2.7 x 2.1 x 1.3 cm. The bowel obstruction..Major vascular structures: No acute fin dings..Peritoneum and retroperitoneum: Small volume free pelvic fluid. Pelvic inflammatory changes with extraluminal gas and poorly defined collection, 2.7 x 2.1 x 2.3 cm.Musculoskeletal: No acute abnormality. Muec-id-whcvfudz lumbar spondylosis. Additional Findings: None. IMPRESSION:ABSENCE OF INTRAVENOUS CONTRAST DECREASES SENSITIVITY FOR DETECTION OF FOCAL LESIONS AND VASCULAR PATHOLOGY. No acuteintrathoracic abnormality. Acute perforated sigmoid diverticulitis. Small peridiverticular poorly defined collection measuring 2.7 x 2.1 x 1.3 cm concerning for developing abscess. Secondary urinary bladder cystitis. Findings discussed with the patient's nurse, Liz, to be immediately conveyed to thepatient's physician on 07/20/2020 4:56 AM. Signed: Chencho Nichole MDReport Verified Date/Time: 07/20/2020 05:01:28 BASIC METABOLIC PANEL 2020-07-20 03:52:00 Test Item Value Reference Range Interpretation Comments SODIUM (BEAKER) 137 meq/L 135-148 (test code = 381) POTASSIUM (BEAKER) 3.8 meq/L 3.5-5.5 (test code = 379) CHLORIDE (BEAKER) 101 meq/L 98-106 (test code = 382) CO2 (BEAKER) (test 23 meq/L 20-31 code = 355) BLOOD UREA NITROGEN 7 mg/dL 10-26 L (BEAKER) (test code = 354) CREATININE (BEAKER) 0.60 mg/dL 0.50-1.20 (test code = 358) GLUCOSE RANDOM 171 mg/dL 70-110 H (BEAKER) (test code = 652) CALCIUM (BEAKER) 8.7 mg/dL 8.5-10.5 (test code = 697) EGFR (BEAKER) (test 98 mL/min/1.73 ESTIMA ASHLEIGH GFR IS code = 1092) sq m NOT ACCURATE CREATININE CLEARANCE IN PREDICTING GLOMERULAR FILTRATION RATE . ESTIMATED GFR I S NOT APPLICABLE FOR DIALYSIS PATIEN TS. Simulation Developer ID - SHERFARAPID INFLUENZA A&B [id number] 03:46:00 Test Item Value Reference Range Interpretation Comments RAPID INFLUENZA A AG (BEAKER) (test Negative Negative code = 1622) RAPID INFLUENZA B AG (BEAKER) (test Negative Negative code = 1623) CBC (HEMOGRAM ONLY)2020-07-20 03:31:00 Test Item Value Reference Range Interpretation Comments WHITE BLOOD CELL COUNT (BEAKER) 11.1 K/ L 4.0-10.0 H (test code = 775) RED BLOOD CELL COUNT (BEAKER) 4.59 M/ L 4.00-5.00 (test code = 761) HEMOGLOBIN (BEAKER) (test code = 12.3 GM/DL 12.0-15.5 410) HEMATOCRIT (BEAKER) (test code = 37.2 % 36.0-46.0 411) MEAN CORPUSCULAR VOLUME (BEAKER) 81.0 fL 82.0-99.0 L (test code = 753) MEAN CORPUSCULAR HEMOGLOBIN 26.8 pg 27.0-33.0 L (BEAKER) (test code = 751) MEAN CORPUSCULAR HEMOGLOBIN CONC 33.1 GM/DL 32.0-36.0 (BEAKER) (test code = 752) RED CELL DISTRIBUTION WIDTH 12.4 % 12.0-15.0 (BEAKER) (test code = 412) PLATELET COUNT (BEAKER) (test 432 K/CU MM 150-430 H code = 756) MEAN PLATELET VOLUME (BEAKER) 8.9 fL 6.0-11.5 (test code = 754) NUCLEATED RED BLOOD CELLS 0 /100 WBC 0-0 (BEAKER) (test code = 413)
--- NOTE | 2021-10-22 16:29 | RAD REPORT ---
EXAM DESCRIPTION: CT - Head Brain Wo Cont - 10/22/2021 4:16 pm CLINICAL HISTORY: DIZZINESS Headache, drowsiness COMPARISON: Head Brain Wo Cont dated 07/19/2020 TECHNIQUE: All CT scans are performed using dose optimization technique as appropriate and may inclu de automated exposure control or mA/KV adjustment according to patient size. FINDINGS: No intracranial hemorrhage, hydrocephalus or extra-axial fluid collection.Postsurgical donte nges are present right frontal region.No midline shift is evident. The paranasal sinuses and mastoids are clear. Right sided craniotomy noted. IMPRESSION: No acute intracranial abnormality.
[2021-10-22] MEDS ORDERED: MECLIZINE HCL 12.5 MG TAB ONE (18:44)
[2021-10-22] MEDS ORDERED: ONDANSETRON 4 MG/2 ML VIAL ONE ×2 (18:44→21:23)
[2021-10-22 19:02] LABS: Absolute Lymphocytes (CBC) 0.6 K/uL (0.7-4.9); Hematocrit 41.7 % (36.0-45.0); Lymphocytes % 10.8 % (15.3-44.8); MPV 7.1 fL (7.6-11.3); RBC Red Blood Cell Count 5.01 M/uL (3.86-4.86)
[2021-10-22 19:22] LABS: ALT/SGPT 36 U/L (12-78); AST/SGOT 16 U/L (15-37); Albumin 3.8 g/dL (3.4-5.0); Alkaline Phosphatase 75 U/L (45-117); BUN Blood Urea Nitrogen 6 mg/dL (7-18); Bicarbonate 28 mmol/L (21-32); Bilirubin Direct 0.1 mg/dL (0-0.2); Bilirubin Total 0.4 mg/dL (0.2-1.0); Glucose Level 143 mg/dL (74-106); Potassium 3.4 mmol/L (3.5-5.1); Protein, Total 7.1 g/dL (6.4-8.2); Sodium Level 134 mmol/L (136-145)
--- NOTE | 2021-10-22 21:19 | RAD REPORT ---
EXAM DESCRIPTION: CT - Head angio - 10/22/2021 9:06 pm CLINICAL HISTORY: DIZZINESS Headache, drowsiness COMPARISON: Head Brain Wo Cont dated 10/22/2021; Head Brain Wo Cont dated 07/19/2020 TECHNIQUE: CT angiography of the head was performed with MIPs. All CT scans are performed using dose optimization technique as appropriate and may include automated exposure control or mA/KV adjustment according to patient size. FINDINGS: No evidence of aneurysm is detected. No flow-limiting stenosis or vascular malformation id entified. Antegrade flow is seen in the vertebral arteries. The vertebral arteries are codominant. The visualized dural venous sinuses are patent. IMPRESSION: No significant flow abnormality is detected.
[2021-10-22] MEDS ORDERED: POTASSIUM 25 MEQ EFFERV TAB ONE (21:23)
--- NOTE | 2021-10-22 21:25 | RAD REPORT ---
EXAM DESCRIPTION: CT - Neck Angio - 10/22/2021 9:06 pm CLINICAL HISTORY: dizziness Neck pain, headache, drowsiness COMPARISON: No comparisons TECHNIQUE: CT angiography of the neck vessels was performed with MIPs. All CT scans are performed using dose optimization technique as appropriate and may include automated exposure control or mA/KV adjustment according to patient size. FINDINGS: A left aortic arch is identified with normal three vessel configuration of the great vesse ls. No significant flow abnormality is seen of the common carotid bilaterally. Minimal hard plaque is seen left carotid bulb without significant stenosis. Mild narrowing of the rig ht carotid bulb is seen estimated less than 50%. Normal flow is seen within both vertebral arteries. IMPRESSION: Mild narrowing the right carotid bulb with stenosis estimated less than 50% based on SOPHIA CET criteria.
--- NOTE | 2021-10-22 21:32 | EDPHYS ---
Physician Documentation [facility] Name: Davina Niño Age: 71 yrs Sex: Female : 1950 Arrival Date: 10/22/2021 Time: 14:58 Bed 27 Private MD: ED Physician Fabi Nieto HPI: 10/22 18:10 This 71 yrs old Female presents to ER via Wheelchair with complaints of Dizziness, cp Abdominal Pain, Nausea/Vomiting. 18:10 The patient presents with dizziness, lightheadedness, sense of spinning. Onset: The cp symptoms/episode began/occurred today, about 1000. Context: just prior to the episode the patient experienced no apparent symptoms. Associated signs and symptoms: Pertinent positives: nausea, vomiting, Pertinent negatives: abdominal pain, blurred vision, chest pain, confusion, focal weakness, head injury, headache, numbness, palpitations. Severity of symptoms: in the emergency department the symptoms are unchanged despite home interventions. Patient's baseline: Neuro: alert and fully oriented, Motor: no deficits, Ambulation: walks without assistance, Speech: normal, The patient has a previous history of intracranial tumor. Historical: - Allergies: 15:08 No Known Allergies; aa5 - PMHx: 15:08 Hyperlipidemia; Hypertension; aa5 - PSHx: 15:08 Brain Tumor removed 2019; Colon resection 2020; aa5 - Immunization history:: Client reports having NOT received the Covid vaccine. Flu vaccine is not up to date. - Social history:: Smoking status: Patient denies any tobacco usage or history of. ROS: 18:15 Eyes: Negative for injury, pain, redness, and discharge. cp 18:15 Constitutional: Negative for body aches, chills, fever, poor PO intake. 18:15 ENT: Negative for ear pain, sore throat, difficulty swallowing, difficulty handling secretions. 18:15 Cardiovascular: Negative for chest pain, edema, palpitations. 18:15 Respiratory: Negative for cough, shortness of breath, wheezing. 18:15 Abdomen/GI: Positive for nausea and vomiting, Negative for abdominal pain, diarrhea, constipation, hematemesis, black/tarry stool, rectal bleeding. 18:15 Neuro: Positive for dizziness, Negative for altered mental status, loss of consciousness, numbness, syncope, weakness. 18:15 All other systems are negative. Exam: 18:20 Head/Face: Normocephalic, atraumatic. cp 18:20 Constitutional: The patient appears in no acute distress, alert, awake, non-diaphoretic, non-toxic, well developed, well nourished. 18:20 Eyes: Periorbital structures: appear normal, Pupils: equal, round, and reactive to light and accomodation, Extraocular movements: intact throughout, Conjunctiva: normal, no exudate, no injection, Sclera: no appreciated abnormality, Lids and lashes: appear normal, bilaterally. 18:20 ENT: External ear(s): are unremarkable, Nose: is normal, Mouth: Lips: moist, Oral mucosa: moist, Posterior pharynx: Airway: no evidence of obstruction, patent. 18:20 Chest/axilla: Inspection: normal, Palpation: is normal, no crepitus, no tenderness. 18:20 Cardiovascular: Rate: normal, Rhythm: regular, Edema: is not appreciated, JVD: is not appreciated. 18:20 Respiratory: the patient does not display signs of respiratory distress, Respirations: normal, no use of accessory muscles, no retractions, labored breathing, is not present, Breath sounds: are clear throughout, no decreased breath sounds, no stridor, no wheezing. 18:20 Abdomen/GI: Inspection: abdomen appears normal, Palpation: abdomen is soft and non-tender, in all quadrants. 18:20 Back: pain, is absent, ROM is normal. 18:20 Neuro: Orientation: to person, place \T\ time. Mentation: is normal, Cerebellar function: Romberg testing is negative, Motor: moves all fours, strength is normal, Sensation: is normal. Vital Signs: 15:07 BP 182 / 74; Pulse 66; Resp 18 S; Temp 98.4(O); Pulse Ox 98% on R/A; Weight 71.21 kg aa5 (R); Height 5 ft. 4 in. (162.56 cm) (R); 17:45 BP 183 / 74; Pulse 63; Resp 17 S; Pulse Ox 99% ; jg9 18:45 BP 166 / 79; Pulse 66; Resp 17 S; Pulse Ox 98% ; jg9 19:28 BP 172 / 77; Pulse 67; Resp 18; Pulse Ox 99% on R/A; ss7 20:30 BP 174 / 97; Pulse 87; Resp 18; Pulse Ox 99% on R/A; ss7 21:30 BP 174 / 97; Pulse 87; Resp 18; Pulse Ox 99% on R/A; ss7 15:07 Body Mass Index 26.95 (71.21 kg, 162.56 cm) [facility] MDM: 17:00 Differential diagnosis: cardiac arrhythmia, CVA, GI bleed, hypovolemia, idiopathic cp dizziness, TIA, vertigo. 18:03 Patient medically screened. 21:32 Data reviewed: vital signs, nurses notes, lab test result(s), EKG, radiologic studies, cp CT scan, plain films. 21:32 Test interpretation: by ED physician or midlevel provider: ECG, plain radiologic cp studies. Counseling: I had a detailed discussion with the patient and/or guardian regarding: the historical points, exam findings, and any diagnostic results supporting the discharge/admit diagnosis, lab results, radiology results, to return to the emergency department if symptoms worsen or persist or if there are any questions or concerns that arise at home. Response to treatment: the patient's symptoms have markedly improved after treatment, and as a result, I will discharge patient. ED course: VSS. Patient reports symptoms markedly improved with meds. Will discharge to home for continued monitoring. 10/22 15:25 Order name: Glucose, Ancillary Testing EDMS 10/22 18:04 Order name: Basic Metabolic Panel; Complete Time: 20:41 cp 10/22 20:41 Interpretation: Normal except: NA 134; K 3.4; GLUC 143; BUN 6. cp 10/22 18:04 Order name: CBC with Diff; Complete Time: 20:41 cp 10/22 18:04 Order name: LFT's; Complete Time: 20:41 cp 10/22 18:04 Order name: Magnesium; Complete Time: 20:41 cp 10/22 18:04 Order name: Troponin HS; Complete Time: 20:41 cp 10/22 15:14 Order name: CT Head Brain wo Cont; Complete Time: 17:28 aa5 10/22 18:30 Interpretation: Report reviewed. cp 10/22 18:04 Order name: EKG; Complete Time: 18:04 cp 10/22 20:43 Order name: CT Head Angio; Complete Time: 21:30 cp 10/22 20:43 Order name: CT Neck Angio; Complete Time: 21:30 cp 10/22 21:31 Interpretation: Report reviewed. cp 10/22 15:15 Order name: EKG - Nurse/Tech; Complete Time: 15:23 aa5 10/22 18:04 Order name: Cardiac monitoring; Complete Time: 18:51 cp 10/22 18:04 Order name: IV Saline Lock; Complete Time: 18:51 cp 10/22 18:04 Order name: Labs collected and sent; Complete Time: 18:52 cp 10/22 18:04 Order name: O2 Per Protocol; Complete Time: 19:11 cp 10/22 18:04 Order name: O2 Sat Monitoring; Complete Time: 18:52 cp Administered Medications: 18:50 Drug: Zofran (Ondansetron) 4 mg Route: IVP; Site: right forearm; jg9 19:18 Follow up: Response: No adverse reaction; Nausea is decreased jg9 18:52 Drug: Meclizine 25 mg Route: PO; jg9 19:18 Follow up: Response: No adverse reaction jg9 21:29 Drug: Potassium Effervescent Tablet 50 mEq Route: PO; ss7 21:36 Follow up: Response: Medication administered at discharge. ss7 21:30 Drug: Zofran (Ondansetron) 4 mg Route: IVP; Site: right forearm; ss7 21:35 Follow up: Response: Medication administered at discharge. ss7 Point of Care Testing: Blood Glucose: 15:13 Blood Glucose: 161 mg/dL; aa5 Ranges: Critical Glucose Levels:Adult <50 mg/dl or >400 mg/dl <40 mg/dl or >180 mg/dl Disposition Summary: 10/22/21 21:32 Discharge Ordered Location: Home cp Problem: new cp Symptoms: have improved cp Condition: Stable cp Diagnosis - Dizziness and giddiness cp - Nausea with vomiting, unspecified cp Followup: cp - With: Private Physician - When: 2 - 3 days - Reason: Recheck today's complaints Discharge Instructions: - Discharge Summary Sheet cp - Dizziness cp - Nausea and Vomiting, Adult cp Forms: - Medication Reconciliation Form cp - Thank You Letter cp - Antibiotic Education cp - Prescription Opioid Use cp Prescriptions: - Meclizine 25 mg Oral Tablet - take 1 tablet by ORAL route every 8 hours As needed; 30 tablet; Refills: 0, cp Product Selection Permitted - Zofran 4 mg Oral Tablet - take 1 tablet by ORAL route every 12 hours As needed; 20 tablet; Refills: 0, cp Product Selection Permitted Signatures: Dispatcher [employer] EDJackeline Zuniga RN RN aa5 Bandar Calabrese PA PA cp Fabi Nieto MD MD ma2 Daya Sams RN RN jg9 Carmen Peace RN RN ss7 Corrections: (The following items were deleted from the chart) 15:10 15:08 PMHx: Brain sx; aa5 aa5 10/23 20:49 10/22 15:30 This 71 yrs old Female presents to ER via Wheelchair with complaints of cp Dizziness, Abdominal Pain, Nausea/Vomiting. cp 10/24 19:10/22 15:30 The patient presents with dizziness, lightheadedness, sense of spinning, cp cp 10/24 19:10/22 15:30 Onset: The symptoms/episode began/occurred today, about 1000, cp cp 10/24 19:10/22 15:30 Context: just prior to the episode the patient experienced no apparent cp symptoms, cp 10/24 19:10/22 15:30 Associated signs and symptoms: Pertinent positives: nausea, vomiting, cp Pertinent negatives: abdominal pain, blurred vision, chest pain, confusion, focal weakness, head injury, headache, numbness, palpitations, cp 10/23 20:49 10/22 15:30 Severity of symptoms: in the emergency department the symptoms are cp unchanged despite home interventions, cp 10/24 19:10/22 15:30 Patient's baseline: Neuro: alert and fully oriented, Motor: no deficits, cp Ambulation: walks without assistance, Speech: normal, The patient has a previous history of intracranial tumor, cp 10/23 20:50 10/22 15:35 Constitutional: Negative for body aches, chills, fever, poor PO intake, cp cp 10/23 20:50 10/22 15:35 Cardiovascular: Negative for chest pain, edema, palpitations, cp cp 10/23 20:50 10/22 15:35 Respiratory: Negative for cough, shortness of breath, wheezing, cp cp 10/23 20:50 10/22 15:35 Abdomen/GI: Positive for nausea and vomiting, Negative for abdominal pain, cp diarrhea, constipation, hematemesis, black/tarry stool, rectal bleeding, cp 10/23 20:50 10/22 15:35 Eyes: Negative for injury, pain, redness, and discharge, cp cp 10/23 20:50 10/22 15:35 ENT: Negative for ear pain, sore throat, difficulty swallowing, difficulty cp handling secretions, cp 10/23 20:50 10/22 15:35 Neuro: Positive for dizziness, Negative for altered mental status, loss of cp consciousness, numbness, syncope, weakness, cp 10/23 20:50 10/22 15:35 All other systems are negative, cp cp 10/23 20:51 10/22 15:40 Constitutional: The patient appears in no acute distress, alert, awake, cp non-diaphoretic, non-toxic, well developed, well nourished, cp 10/24 19:10/22 15:40 Head/Face: Normocephalic, atraumatic. cp cp 10/24 19:10/22 15:40 Eyes: Periorbital structures: appear normal, Pupils: equal, round, and cp reactive to light and accomodation, Extraocular movements: intact throughout, Conjunctiva: normal, no exudate, no injection, Sclera: no appreciated abnormality, Lids and lashes: appear normal, bilaterally, cp 10/24 19:10/22 15:40 ENT: External ear(s): are unremarkable, Nose: is normal, Mouth: Lips: cp moist, Oral mucosa: moist, Posterior pharynx: Airway: no evidence of obstruction, patent, cp 10/24 19:10/22 15:40 Chest/axilla: Inspection: normal, Palpation: is normal, no crepitus, no cp tenderness, cp 10/24 19:10/22 15:40 Cardiovascular: Rate: normal, Rhythm: regular, Edema: is not appreciated, cp JVD: is not appreciated, cp 10/24 19:10/22 15:40 Respiratory: the patient does not display signs of respiratory distress, cp Respirations: normal, no use of accessory muscles, no retractions, labored breathing, is not present, Breath sounds: are clear throughout, no decreased breath sounds, no stridor, no wheezing, cp 10/24 19:10/22 15:40 Abdomen/GI: Inspection: abdomen appears normal, Palpation: abdomen is soft cp and non-tender, in all quadrants, cp 10/23 20:51 10/22 15:40 Back: pain, is absent, ROM is normal, cp cp 10/23 20:51 10/22 15:40 Neuro: Orientation: to person, place \T\ time. Mentation: is normal, cp Cerebellar function: Romberg testing is negative, Motor: moves all fours, strength is normal, Sensation: is normal, cp
--- NOTE | 2021-10-22 21:32 | ER ---
Nurse's Notes [facility] Name: Davina Niño Age: 71 yrs Sex: Female : 1950 Arrival Date: 10/22/2021 Time: 14:58 Bed 27 Private MD: Diagnosis: Dizziness and giddiness;Nausea with vomiting, unspecified Presentation: 10/22 15:07 Chief complaint: Patient states: dizziness, nausea/vomiting since 1000 today. Pt states aa5 "it feels like I am going to pass out". Pt states "I am being treated for colitis". Coronavirus screen: nausea, vomiting. Ebola Screen: No symptoms or risks identified at this time. Onset of symptoms was October 22, 2021. 15:07 Method Of Arrival: Wheelchair aa5 15:07 Acuity: VERONICA 2 aa5 15:07 Initial Sepsis Screen: Does the patient meet any 2 criteria? No. Patient's initial aa5 sepsis screen is negative. Does the patient have a suspected source of infection? No. Patient's initial sepsis screen is negative. Risk Assessment: Do you want to hurt yourself or someone else? Patient reports no desire to harm self or others. Triage Assessment: 18:30 General: Appears in no apparent distress. Behavior is calm, cooperative. Pain: Denies jg9 pain. GI: Reports nausea. Historical: - Allergies: 15:08 No Known Allergies; aa5 - PMHx: 15:08 Hyperlipidemia; Hypertension; aa5 - PSHx: 15:08 Brain Tumor removed 2019; Colon resection 2020; aa5 - Immunization history:: Client reports having NOT received the Covid vaccine. Flu vaccine is not up to date. - Social history:: Smoking status: Patient denies any tobacco usage or history of. Screenin:19 Abuse screen: Denies threats or abuse. Denies injuries from another. Nutritional jg9 screening: No deficits noted. Tuberculosis screening: No symptoms or risk factors identified. Fall Risk None identified. Assessment: 15:12 Reassessment: Pt states "I want yall to have my care provider on file please", November with [facility] [phone]. 18:30 GI: Bowel sounds present X 4 quads. Abd is soft and non tender X 4 quads. jg9 18:30 Reassessment: No changes from previously documented assessment. jg9 19:28 Reassessment: Care assumed. Pt in stable condition with no current pending orders. Will ss7 continue to monitor. . Vital Signs: 15:07 BP 182 / 74; Pulse 66; Resp 18 S; Temp 98.4(O); Pulse Ox 98% on R/A; Weight 71.21 kg aa5 (R); Height 5 ft. 4 in. (162.56 cm) (R); 17:45 BP 183 / 74; Pulse 63; Resp 17 S; Pulse Ox 99% ; jg9 18:45 BP 166 / 79; Pulse 66; Resp 17 S; Pulse Ox 98% ; jg9 19:28 BP 172 / 77; Pulse 67; Resp 18; Pulse Ox 99% on R/A; ss7 20:30 BP 174 / 97; Pulse 87; Resp 18; Pulse Ox 99% on R/A; ss7 21:30 BP 174 / 97; Pulse 87; Resp 18; Pulse Ox 99% on R/A; ss7 15:07 Body Mass Index 26.95 (71.21 kg, 162.56 cm) aa5 ED Course: 14:58 Patient arrived in ED. ja2 15:06 Arm band placed on. aa5 15:14 Triage completed. aa5 15:22 EKG done, by ED staff, reviewed by Fabi Nieto MD. 5 16:16 CT Head Brain wo Cont In Process Unspecified. EDMS 17:27 Patient placed in an exam room, on a stretcher. ll1 17:57 Bandar Calabrese PA is PHCP. cp 17:57 Fabi Nieto MD is Attending Physician. cp 18:26 Daya Sams, OBIE is Primary Nurse. jg9 18:51 Inserted saline lock: 20 gauge in right forearm, using aseptic technique. Blood jg9 collected. 19:11 Glucose, Ancillary Testing Sent. ss7 19:20 Patient has correct armband on for positive identification. Bed in low position. Call jg9 light in reach. 21:06 CT Head Angio In Process Unspecified. EDMS 21:06 CT Neck Angio In Process Unspecified. EDMS 21:33 No provider procedures requiring assistance completed. IV discontinued, intact. ss7 Administered Medications: 18:50 Drug: Zofran (Ondansetron) 4 mg Route: IVP; Site: right forearm; jg9 19:18 Follow up: Response: No adverse reaction; Nausea is decreased j9 18:52 Drug: Meclizine 25 mg Route: PO; jg9 19:18 Follow up: Response: No adverse reaction jg9 21:29 Drug: Potassium Effervescent Tablet 50 mEq Route: PO; ss7 21:36 Follow up: Response: Medication administered at discharge. ss7 21:30 Drug: Zofran (Ondansetron) 4 mg Route: IVP; Site: right forearm; ss7 21:35 Follow up: Response: Medication administered at discharge. ss7 Point of Care Testing: Blood Glucose: 15:13 Blood Glucose: 161 mg/dL; aa5 Ranges: Outcome: 21:32 Discharge ordered by MD. cp 21:33 Discharged to home via wheelchair, with family. ss7 21:33 Condition: good 21:33 Discharge instructions given to patient, Instructed on discharge instructions, follow up and referral plans. Demonstrated understanding of instructions, follow-up care. 21:47 Patient left the ED. ss7 Signatures: Dispatcher [employer] EDMS Jackeline Virgen RN RN aa5 Bandar Calabrese PA PA cp Martinez, Maria mh5 Lewis, Lynsay, RN RN Shayy Dolan Jennifer, RN RN jg9 Carmen Peace RN RN ss7 Corrections: (The following items were deleted from the chart) 15:10 15:08 PMHx: Brain sx; aa5 aa5
[2021-10-22 22:42] VITALS: TEMP 98.4
[2021-10-22 22:56] VITALS: O2SAT 99
[2021-10-22 22:57] VITALS: BP 174/97
--- NOTE | 2021-10-25 08:26 | EKG ---
Test Date: 2021-10-22 Test Time: 14:17:03 Violin Mechanic: OUSMANE MEASUREMENT RESULTS: Intervals: Rate: 62 OK: 130 QRSD: 120 QT: 478 QTc: 485 [place]: P: 18 OK: 130 QRS: 33 T: 42 INTERPRETIVE STATEMENTS: Normal sinus rhythm Right bundle branch block Abnormal ECG Compared to ECG 07/01/2019 16:07:49 Atrial premature complex(es) no longer present Ventricular premature complex(es) no longer present Electronically Signed On 10-25-21 08:21:37 CDT by Georgi Gonzalez
== END 2021-10-22 21:47 | disposition home or self-care (01) ==
LOC: ER 14:55
DX: R42 Dizziness and giddiness (principal); R11.2 Nausea with vomiting, unspecified; I10 Essential (primary) hypertension
CPT/HCPCS: 93005; 85025; 80048; 36415; 83735; 82947; 80076; 84484; 70450; 70496; 70498; 96374; 99284; Q9967; J2405 ×2; J8597

== ENCOUNTER 2022-07-13 11:58 | Observation (INO) | payer OTHER ==
[2022-07-13 12:47] LABS: Lymphocytes % 12.6 % (15.3-44.8); MCV 84.7 fL (80-100); MPV 6.6 fL (7.6-11.3); RBC Red Blood Cell Count 5.31 M/uL (3.86-4.86)
[2022-07-13 12:51] LABS: Specific Gravity 1.005 (1.005-1.030); Urine Bilirubin NEGATIVE (Negative); Urine Blood Negative (Negative); Urine Clarity Clear (Clear); Urine Color Yellow (Yellow); Urine Glucose NEGATIVE (Negative); Urine Protein NEGATIVE (Negative); Urine Urobilinogen Normal (Normal)
[2022-07-13 12:53] LABS: Protime INR 1.12
[2022-07-13 13:14] LABS: SARS-CoV-2 Antigen Rapid Res Negative (Negative)
[2022-07-13 13:22] LABS: UR MICROALBUMIN 0.6 mg/dL (< 1.9)
[2022-07-13 13:30] LABS: Albumin 4.2 g/dL (3.4-5.0); Bilirubin Direct 0.1 mg/dL (0-0.2); Bilirubin Total 0.5 mg/dL (0.2-1.0); Magnesium 2.4 mg/dL (1.8-2.4); Potassium 3.9 mmol/L (3.5-5.1); Protein, Total 7.5 g/dL (6.4-8.2); Thyroid Stimulating Hormone 1.21 uIU/mL (0.360-3.740)
--- OUTSIDE RECORDS SUMMARY | 2022-07-13 13:34 | XMS REPORT | Continuity of Care Document ---
:1950 Author Organization [facility] t Address [address] [place] [address] Care Team Providers Name Role Phone No, Pcp [facility] Primary Care Physician Unavailable DANE CORRALES Attending Clinician Unavailable SITA DIAZ Attending Clinician Unavailable Sita Diaz MD Attending Clinician SITA DIAZ Attending Clinician Unavailable 1.5, [facility] iFor Mr Attending Clinician Unavailable RAMU FULTON Attending Clinician Unavailable HERIBERTO WORTHINGTON Attending Clinician Unavailable MD ALYSE RODRIGUEZ Attending Clinician Unavailable ALYSE RODRIGUEZ Attending Clinician Unavailable ALEXANDRO SELF Attending Clinician Unavailable ALEXANDRO SELF Attending Clinician Unavailable Alexandro Self MD Attending Clinician AMIE GALARZA Attending Clinician Unavailable Doctor Unassigned, [place] Attending Clinician Unavailable STONE GRIFFITHS Attending Clinician Unavailable Debra Simpson RN Attending Clinician Unavailable DANE CORRALES Admitting Clinician Unavailable ALYSE RODRIGUEZ Admitting Clinician Unavailable MD ALYSE RODRIGUEZ Admitting Clinician Unavailable YUSRA UMANZOR Admitting Clinician Unavailable Payers Payer Name Policy Type Policy Number Effective Date Expiration Date S [facility] MEDICARE [id number] 2018 ADV 00:00:00 MEDICARE A B [id number] 2020 00:00:00 UNITED MEDICARE [id number] 2021 HMO 00:00:00 [facility] MEDICARE [id number] [facility] CHOICE [id number] PPO/MEDICARE PPO MEDICARE PART A [id number] \\T\\ B - [id number] 2021 [facility] 00:00:00 HUMAN CHOICE [id number] 2017 00:00:00 Problems Condition Condition Condition Status Onset Resolution Last Treating Co mments Source Name Details Category Date Date Treatment Clinician Date Palliative Palliative Disease Active 2019-[address] care care 2[facility]16 [facility] encounter [facility]: [facility] joie 00 Center Counseling Counseling Disease Active 2019-[address] regarding regarding 2-16 [facility] advance advance 00:00: Medical care care 00 Center planning planning and goals and goals of care of care Full code Full code Disease Active 2019-[address] [facility] status status 2-16 [facility] 00:[facility]: Medical 00 [place] Brain Brain Disease Active 2019-[address] [facility] tumor tumor 2-14 [facility] 00:[facility]: Medical 00 Center Perforated Perforated Disease Active 2019-[address] diverticul diverticul 2-14 Chris kes um um 00:00: Medical 00 Center Primary Primary Problem Active 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 - [facility] right knee right knee [facility] Arthritis Arthritis Problem Active Com mon of foot, of foot, Spirit right right - [facility] Allergies, Adverse Reactions, Alerts Allergy Allergy Status Severity Reaction(s) Onset Inactive Treating Comm ents Source Name Type Date Date Clinician NO KNOWN Drug Active Univers ALLERGIE Class [facility] [place] [facility] NO KNOWN Allergy Active [facility] ALLERGIE S Social History Social Habit Start Date Stop Date Quantity Comments Source Exposure to Not sure University of SARS-CoV-2 [place] [facility] (event) Branch History SDOH [facility] Alcohol Std Medical Cent[facility] r Drinks History SDOH [facility] Alcohol Binge Medical Ayesha ter Alcohol intake 2021-01-18 2021-01-18 Ex-drinker [facility] es 00:00:00 00:00:00 (finding) Medical Center History SDOH 2020-07-20 2020-07-20 ETOH abuse for KARRIE Patricio Alcohol Comment 00:00:00 00:00:00 34 years. Last Medic al Center drink in 1983. Tobacco use and 2020-07-20 2020-07-[address] Chris lopez exposure 00:00:00 00:00:00 Medical Center History SDOH 2020-07-20 2020-07-[address] [facility] Alcohol Frequency 00:00:00 00:00:00 Medical Center Sex [birth year] F KARRIE Azevedo 00:00:00 00:00:00 Medical Center Smoking Status Start Date Stop Date Source Never smoker [facility] Medications Ordered Filled Start Stop Current Ordering Indication Dosage Frequency Signature Comments Components Source Medication Medication Date Date Medication? Clinician (SIG) Name Name metoprolol Yes 50mg QD Take [address] succinate 6-14 by mouth [facility] (TOPROL-XL) 11:04: daily. Medi joie 50 MG 24 hr 34 Center tablet pravastatin Yes 80mg QD Take [address] (PRAVACHOL) 6-14 by mouth Luke s 80 MG 11:04: nightly. Medical tablet 34 Center telmisartan Yes 1{tbl} Q.5D Take [address] -hydrochlor 6-14 tablet by Shari es othiazide 11:04: mouth 2 Medic al (MICARDIS 34 (two) Center HCT) times 80-12.5 mg daily. per tablet latanoprost Yes 1[drp] QD [address] (XALATAN) 6-14 nightly. [facility] 0.005 % 11:04: Medical ophthalmic 34 Center solution cycloSPORIN Yes 1[drp] QD Apply [address] E 6-14 drop to [facility] (RESTASIS) 11:04: eye(s) Medic al 0.05 % 34 daily Gel Center ophthalmic . emulsion DULoxetine Yes anxiety 60mg QD Take [address] (CYMBALTA) 6-14 with by mouth [facility] 60 MG 11:04: depression nightly. Me dical capsule 34 Center pregabalin Yes 50mg QD Take [address] (LYRICA) 50 6-14 by mouth Luke s MG capsule 11:04: nightly. Med ical 34 [place] amLODIPine Yes 5mg QD Take [address] (NORVASC) 5 3-12 by mouth Luke s MG tablet 00:00: daily. Medica l 00 [place] senna-docus 202- No 1{tbl} Q.5D Take [address] ate -08-08 tablet by [facility] (SENOKOT S) 00:00: 23:59 mouth 2 Me dical 8.6-50 mg 00 :00 (two) Center per tablet times daily. DULoxetine 2019-08 Yes 60mg Take 60 mg U nivers (CYMBALTA) 1-10 by mouth ity o f 60 mg 15:47: daily. [facility] Medical Branch pregabalin 2019-08 Yes 50mg Take 50 mg U nivers 50 mg 1-10 by mouth ity of capsule 15:47: at [place] bedtime. Medical Branch DULoxetine 2019-08 Yes 60mg Take 60 mg U nivers (CYMBALTA) 1-10 by mouth ity o f 60 mg 15:47: daily. [place] [facility] Medical Branch pregabalin 2019-08 Yes 50mg Take 50 mg U nivers 50 mg 1-10 by mouth ity of capsule 15:47: at [place] bedtime. Medical Branch DULoxetine 2019-08 Yes 60mg Take 60 mg U nivers (CYMBALTA) 1-10 by mouth ity o f 60 mg 15:47: daily. [place] [facility] Medical Branch pregabalin 2019-08 Yes 50mg Take 50 mg U nivers 50 mg 1-10 by mouth ity of capsule 15:47: at [place] bedtime. Medical Branch DULoxetine 2019-08 Yes 60mg Take 60 mg U nivers (CYMBALTA) 1-10 by mouth ity o f 60 mg 15:47: daily. [place] [facility] Medical Branch pregabalin 2019-08 Yes 50mg Take 50 mg U nivers 50 mg 1-10 by mouth ity of capsule 15:47: at [place] bedtime. Medical Branch DULoxetine 2019-08 Yes 60mg Take 60 mg U nivers (CYMBALTA) 1-10 by mouth ity o f 60 mg 15:47: daily. [facility] Medical Branch pregabalin 2019-08 Yes 50mg Take 50 mg U nivers 50 mg 1-10 by mouth ity of capsule 15:47: at [place] 01 bedtime. Medical Branch pravastatin 2019-08 Yes 80mg Take 80 mg Univers 80 mg 1-10 by mouth ity of tablet 15:41: at [place] 53 bedtime. Medical Branch telmisartan 2019-08 Yes 1{tbl} [...] 2 mg ity of tablet 15:41: tablet [place] [address] Medical Branch pravastatin 2019-08 Yes 80mg Take 80 mg Univers 80 mg 1-10 by mouth ity of tablet 15:41: at [place] 53 bedtime. Medical Branch telmisartan 2019-08 Yes 1{tbl} [...] 2 mg ity of tablet 15:41: tablet [place] [address] Medical Branch pravastatin 2019-08 Yes 80mg Take 80 mg Univers 80 mg 1-10 by mouth ity of tablet 15:41: at [place] 53 bedtime. Medical Branch telmisartan 2019-08 Yes 1{tbl} [...] 2 mg ity of tablet 15:41: tablet [place] [address] Medical Branch pravastatin 2019-08 Yes 80mg Take 80 mg Univers 80 mg 1-10 by mouth ity of tablet 15:41: at [place] 53 bedtime. Medical Branch telmisartan 2019-08 Yes 1{tbl} [...] 2 mg ity of tablet 15:41: tablet [place] [address] Medical Branch pravastatin 2019-08 Yes 80mg Take 80 mg Univers 80 mg 1-10 by mouth ity of tablet 15:41: at [place] 53 bedtime. Medical Branch telmisartan 2019-08 Yes 1{tbl} [...] 2 mg ity of tablet 15:41: tablet [place] 53 Medical Branch meloxicam 2020-0 2020- No 7.5mg Take 7.5 Un jes 7.5 mg 7-07 07-07 mg by ity of tablet 21:21: 00:00 mouth [place] 40 :00 daily. Medical Patient Branch takes prn meloxicam 2020-0 2020- No 7.5mg Take 7.5 Un jse 7.5 mg 7-07 07-07 mg by ity of tablet 21:21: 00:00 mouth [place] 40 :00 daily. Medical Patient Branch takes prn ARIPiprazol 2019-0 Yes aripiprazo Univers e 2 mg 7-07 le 2 mg ity of tablet 21:20: tablet [place] [facility] ARIPiprazol 2020-0 Yes aripiprazo Univers e 2 mg 7-07 le 2 mg ity of tablet 21:20: tablet [place] [facility] ARIPiprazol 2020-0 Yes aripiprazo Univers e 2 mg 7-07 le 2 mg ity of tablet 21:20: tablet [place] [facility] ARIPiprazol 2020-0 Yes aripiprazo Univers e 2 mg 7-07 le 2 mg ity of tablet 21:20: tablet [place] [facility] SERTraline 2019-0 2020- No 150mg Take 150 U nivers 50 mg 7-07 07-07 mg by ity of tablet 21:19: 00:00 mouth [place] 43 :00 daily. Medical Branch SERTraline 2019-0 2020- No 150mg [...] by ity o f 00:00: mouth 2 [place] (two) Medical times Branch daily. latanoprost 2020-0 [...] Medical AT BEDTIME Branch mupirocin 2020-0 Yes [id number] Apply to Univers (BACTROBAN) 4-11 area(s) 3 ity of 2 % cream 00:00: (three) [place] 00 times Medical daily. Branch mupirocin 2020-0 Yes [id number] Apply to Univers (BACTROBAN) 4-11 area(s) 3 ity of 2 % cream 00:00: (three) [place] 00 times Medical daily. Branch mupirocin 2 2020-0 Yes [id number] Apply to Univers % ointment 4-11 area(s) 3 ity of 00:00: (three) [place] 00 times Medical daily. Branch mupirocin 2020-0 Yes [id number] Apply to Univers (BACTROBAN) 4-11 area(s) 3 ity of 2 % cream 00:00: (three) [place] 00 times Medical daily. Branch mupirocin 2020-0 Yes [id number] Apply to Univers (BACTROBAN) 4-11 area(s) 3 ity of 2 % cream 00:00: (three) [place] 00 times Medical daily. Branch mupirocin 2 2020-0 Yes [id number] Apply to Univers % ointment 4-11 area(s) 3 ity of 00:00: (three) [place] 00 times Medical daily. Branch mupirocin 2020-0 Yes [id number] Apply to Univers (BACTROBAN) 4-11 area(s) 3 ity of 2 % cream 00:00: (three) [place] 00 times Medical daily. Branch mupirocin 2020-0 Yes [id number] Apply to Univers (BACTROBAN) 4-11 area(s) 3 ity of 2 % cream 00:00: (three) [place] 00 times Medical daily. Branch mupirocin 2 2020-0 Yes [id number] Apply to Univers % ointment 4-11 area(s) 3 ity of 00:00: (three) [place] 00 times Medical daily. Branch mupirocin 2020-0 Yes [id number] Apply to Univers (BACTROBAN) 4-11 area(s) 3 ity of 2 % cream 00:00: (three) [place] 00 times Medical daily. Branch mupirocin 2020-0 Yes [id number] Apply to Univers (BACTROBAN) 4-11 area(s) 3 ity of 2 % cream 00:00: (three) [place] 00 times Medical daily. Branch mupirocin 2 2020-0 Yes [id number] Apply to Univers % ointment 4-11 area(s) 3 ity of 00:00: (three) [place] 00 times Medical daily. Branch mupirocin 2020-0 Yes [id number] Apply to Univers (BACTROBAN) 4-11 area(s) 3 ity of 2 % cream 00:00: (three) [place] 00 times Medical daily. Branch mupirocin 2020-0 Yes [id number] Apply to Univers (BACTROBAN) 4-11 area(s) 3 ity of 2 % cream 00:00: (three) [place] 00 times Medical daily. Branch mupirocin 2 2020-0 Yes [id number] Apply to Univers % ointment 4-11 area(s) 3 ity of 00:00: (three) [place] 00 times Medical daily. Branch mupirocin 2020-0 Yes [id number] Apply to Univers (BACTROBAN) 4-11 area(s) 3 ity of 2 % cream 00:00: (three) [place] 00 times Medical daily. Branch mupirocin 2020-0 Yes [id number] Apply to Univers (BACTROBAN) 4-11 area(s) 3 ity of 2 % cream 00:00: (three) [place] 00 times Medical daily. Branch mupirocin 2 2020-0 Yes [id number] Apply to Univers % ointment 4-11 area(s) 3 ity of 00:00: (three) [place] 00 times Medical daily. Branch mupirocin 2020-0 Yes [id number] Apply to Univers (BACTROBAN) 4-11 area(s) 3 ity of 2 % cream 00:00: (three) [place] 00 times Medical daily. Branch mupirocin 2020-0 Yes [id number] Apply to Univers (BACTROBAN) 4-11 area(s) 3 ity of 2 % cream 00:00: (three) [place] 00 times Medical daily. Branch mupirocin 2 2020-0 Yes [id number] Apply to Univers % ointment 4-11 area(s) 3 ity of 00:00: (three) [place] 00 times Medical daily. Branch mupirocin 2020-0 Yes [id number] Apply to Univers (BACTROBAN) 4-11 area(s) 3 ity of 2 % cream 00:00: (three) [place] 00 times Medical daily. Branch mupirocin 2020-0 Yes [id number] Apply to Univers (BACTROBAN) 4-11 area(s) 3 ity of 2 % cream 00:00: (three) [place] 00 times Medical daily. Branch mupirocin 2 2020-0 Yes [id number] Apply to Univers % ointment 4-11 area(s) 3 ity of 00:00: (three) [place] 00 times Medical daily. Branch mupirocin 2020-0 Yes [id number] Apply to Univers (BACTROBAN) 4-11 area(s) 3 ity of 2 % cream 00:00: (three) [place] 00 times Medical daily. Branch mupirocin 2020-0 Yes [id number] Apply to Univers (BACTROBAN) 4-11 area(s) 3 ity of 2 % cream 00:00: (three) [place] 00 times Medical daily. Branch mupirocin 2020-0 Yes [id number] Apply to Univers (BACTROBAN) 4-11 area(s) 3 ity of 2 % cream 00:00: (three) [place] 00 times Medical daily. Branch mupirocin 2020-0 Yes [id number] Apply to Univers (BACTROBAN) 4-11 area(s) 3 ity of 2 % cream 00:00: (three) [place] 00 times Medical daily. Branch mupirocin 2020-0 Yes [id number] Apply to Univers (BACTROBAN) 4-11 area(s) 3 ity of 2 % cream 00:00: (three) [place] 00 times Medical daily. Branch mupirocin 2020-0 Yes [id number] Apply to Univers (BACTROBAN) 4-11 area(s) 3 ity of 2 % cream 00:00: (three) [place] 00 times Medical daily. Branch mupirocin 2 2020-0 Yes [id number] Apply to Univers % ointment 4-11 area(s) 3 ity of 00:00: (three) [place] 00 times Medical daily. Branch mupirocin 2020-0 Yes [id number] Apply to Univers (BACTROBAN) 4-11 area(s) 3 ity of 2 % cream 00:00: (three) [place] 00 times Medical daily. Branch mupirocin 2020-0 Yes [id number] Apply to Univers (BACTROBAN) 4-11 area(s) 3 ity of 2 % cream 00:00: (three) [place] 00 times Medical daily. Branch mupirocin 2 2019-0 Yes [id number] Apply to Univers % ointment 4-11 area(s) 3 ity of 00:00: (three) [place] 00 times Medical daily. [place] ezetimibe 2018-08 Yes 10mg Take 10 mg Un jes 10 mg 2-06 by mouth ity of tablet 21:23: daily. [address] ezetimibe 2018-08 Yes 10mg Take 10 mg Un jes 10 mg 2-06 by mouth ity of tablet 21:23: daily. [address] ezetimibe 2018-08 Yes 10mg Take 10 mg Un jes 10 mg 2-06 by mouth ity of tablet 21:23: daily. [address] ezetimibe 2018-08 Yes 10mg Take 10 mg Un jes 10 mg 2-06 by mouth ity of tablet 21:23: daily. [address] ezetimibe 2018-08 Yes 10mg Take 10 mg Un jes 10 mg 2-06 by mouth ity of tablet 21:23: daily. [address] ezetimibe 2018-08 Yes 10mg Take 10 mg Un jes 10 mg 2-06 by mouth ity of tablet 21:23: daily. [address] ezetimibe 2018-08 Yes 10mg Take 10 mg Un jes 10 mg 2-06 by mouth ity of tablet 21:23: daily. [address] ezetimibe 2018-08 Yes 10mg Take 10 mg Un jes 10 mg 2-06 by mouth ity of tablet 21:23: daily. [address] ezetimibe 2018-08 Yes 10mg Take 10 mg Un jes 10 mg 2-06 by mouth ity of tablet 21:23: daily. [address] ezetimibe 2018-08 Yes 10mg Take 10 mg Un jes 10 mg 2-06 by mouth ity of tablet 21:23: daily. [address] ezetimibe 2018-08 Yes 10mg Take 10 mg Un jes 10 mg 2-06 by mouth ity of tablet 21:23: daily. [place] [address] Medical Branch ezetimibe 2018-08 Yes 10mg Take 10 mg Un jes 10 mg 2-06 by mouth ity of tablet 21:23: daily. [place] [address] Medical Branch ezetimibe 2018-08 Yes 10mg Take 10 mg Un jes 10 mg 2-06 by mouth ity of tablet 21:23: daily. [place] [address] Medical Branch ezetimibe 2018-08 Yes 10mg Take 10 mg Un jes 10 mg 2-06 by mouth ity of tablet 21:23: daily. [place] [address] Medical Branch ezetimibe 2018-08 Yes 10mg Take 10 mg Un jes 10 mg 2-06 by mouth ity of tablet 21:23: daily. [place] [address] Medical Branch SERTraline 2018-08 Yes 150mg Take 150 Un jes 50 mg 2-06 mg by ity of tablet 21:23: mouth [place] 09 daily. Medical Branch SERTraline 2018-08 Yes 150mg Take 150 Un jes 50 mg 2-06 mg by ity of tablet 21:23: mouth [place] 09 daily. Medical Branch SERTraline 2018-08 Yes 150mg Take 150 Un jes 50 mg 2-06 mg by ity of tablet 21:23: mouth [place] 09 daily. Medical Branch SERTraline 2018-08 Yes 150mg Take 150 Un jes 50 mg 2-06 mg by ity of tablet 21:23: mouth [place] 09 daily. Medical Branch SERTraline 2018-08 Yes 150mg Take 150 Un jes 50 mg 2-06 mg by ity of tablet 21:23: mouth [place] 09 daily. Medical Branch SERTraline 2018-08 Yes 150mg Take 150 [...] hr tablet 00 DAILY Medical Branch metoprolol 2018- Yes TAKE 1 Unive rs succinate 2-04 TABLET BY ity o f XL 25 mg 24 00:00: MOUTH ONCE [place] hr tablet 00 DAILY Medical Branch metoprolol 2018- Yes TAKE 1 Unive rs succinate 2-04 TABLET BY ity o f XL 25 mg 24 00:00: MOUTH ONCE [place] hr tablet 00 DAILY Medical Branch metoprolol 2018- Yes TAKE 1 Unive rs succinate 2-04 TABLET BY ity o f XL 25 mg 24 00:00: MOUTH ONCE [place] hr tablet 00 DAILY Medical Branch metoprolol 2018-08 Yes TAKE 1 Unive rs succinate 2-04 TABLET BY ity o f XL 25 mg 24 00:00: MOUTH ONCE [place] hr tablet 00 DAILY Medical Branch metoprolol 2018- Yes TAKE 1 Unive rs succinate 2-04 TABLET BY ity o f XL 25 mg 24 00:00: MOUTH ONCE [place] hr tablet 00 DAILY Medical Branch metoprolol 2018- Yes TAKE 1 Unive rs succinate 2-04 TABLET BY ity o f XL 25 mg 24 00:00: MOUTH ONCE [place] hr tablet 00 DAILY Medical Branch metoprolol 2018- Yes TAKE 1 Unive rs succinate 2-04 TABLET BY ity o f XL 25 mg 24 00:00: MOUTH ONCE [place] hr tablet 00 DAILY Medical Branch metoprolol 2018- Yes TAKE 1 Unive rs succinate 2-04 TABLET BY ity o f XL 25 mg 24 00:00: MOUTH ONCE [place] hr tablet 00 DAILY Medical Branch metoprolol 2018- Yes TAKE 1 Unive rs succinate 2-04 TABLET BY ity o f XL 25 mg 24 00:00: MOUTH ONCE [place] hr tablet 00 DAILY Medical Branch metoprolol 2018- Yes TAKE 1 Unive rs succinate 2-04 TABLET BY ity o f XL 25 mg 24 00:00: MOUTH ONCE [place] hr tablet 00 DAILY Medical Branch metoprolol 2018- Yes TAKE 1 Unive rs succinate 2-04 TABLET BY ity o f XL 25 mg 24 00:00: MOUTH ONCE [place] hr tablet 00 DAILY Medical Branch metoprolol 2018- Yes TAKE 1 Unive rs succinate 2-04 TABLET BY ity o f XL 25 mg 24 00:00: MOUTH ONCE [place] hr tablet 00 DAILY Medical Branch metoprolol 2018-08 Yes TAKE 1 Unive rs succinate 2-04 TABLET BY ity o f XL 25 mg 24 00:00: MOUTH ONCE [place] hr tablet 00 DAILY Medical Branch azelastine 2018-08 Yes USE 2 Univer s 137 mcg 0-22 SPRAY(S) ity of (0.1 %) 00:00: IN EACH [place] nasal spray 00 NOSTRIL Medic al ONCE DAILY Branch azelastine 2018-08 Yes USE 2 Univer s 137 mcg 0-22 SPRAY(S) ity of (0.1 %) 00:00: IN EACH [place] nasal spray 00 NOSTRIL Medic al ONCE DAILY Branch azelastine 2018-08 Yes USE 2 Univer s 137 mcg 0-22 SPRAY(S) ity of (0.1 %) 00:00: IN EACH [place] nasal spray 00 NOSTRIL Medic al ONCE DAILY Branch azelastine 2018-08 Yes USE 2 Univer s 137 mcg 0-22 SPRAY(S) ity of (0.1 %) 00:00: IN EACH [place] nasal spray 00 NOSTRIL Medic al ONCE DAILY Branch azelastine 2018-08 Yes USE 2 Univer s 137 mcg 0-22 SPRAY(S) ity of (0.1 %) 00:00: IN EACH [place] nasal spray 00 NOSTRIL Medic al ONCE DAILY Branch azelastine 2018-08 Yes USE 2 Univer s 137 mcg 0-22 SPRAY(S) ity of (0.1 %) 00:00: IN EACH [place] nasal spray 00 NOSTRIL Medic al ONCE DAILY Branch azelastine 2018-08 Yes USE 2 Univer s 137 mcg 0-22 SPRAY(S) ity of (0.1 %) 00:00: IN EACH [place] nasal spray 00 NOSTRIL Medic al ONCE DAILY Branch azelastine 2018-08 Yes USE 2 Univer s 137 mcg 0-22 SPRAY(S) ity of (0.1 %) 00:00: IN EACH [place] nasal spray 00 NOSTRIL Medic al ONCE DAILY Branch azelastine 2018-08 Yes USE 2 Univer s 137 mcg 0-22 SPRAY(S) ity of (0.1 %) 00:00: IN EACH [place] nasal spray 00 NOSTRIL Medic al ONCE DAILY Branch azelastine 2018-08 Yes USE 2 Univer s 137 mcg 0-22 SPRAY(S) ity of (0.1 %) 00:00: IN EACH [place] nasal spray 00 NOSTRIL Medic al ONCE DAILY Branch azelastine 2018-08 Yes USE 2 Univer s 137 mcg 0-22 SPRAY(S) ity of (0.1 %) 00:00: IN EACH [place] nasal spray 00 NOSTRIL Medic al ONCE DAILY Branch azelastine 2018-08 Yes USE 2 Univer s 137 mcg 0-22 SPRAY(S) ity of (0.1 %) 00:00: IN EACH [place] nasal spray 00 NOSTRIL Medic al ONCE DAILY Branch azelastine 2018-08 Yes USE 2 Univer s 137 mcg 0-22 SPRAY(S) ity of (0.1 %) 00:00: IN EACH [place] nasal spray 00 NOSTRIL Medic al ONCE DAILY Branch azelastine 2018-08 Yes USE 2 Univer s 137 mcg 0-22 SPRAY(S) ity of (0.1 %) 00:00: IN EACH [place] nasal spray 00 NOSTRIL Medic al ONCE DAILY Branch azelastine 2018-08 Yes USE 2 Univer s 137 mcg 0-22 SPRAY(S) ity of (0.1 %) 00:00: IN EACH [place] nasal spray 00 NOSTRIL Medic al ONCE DAILY Branch Tramadol Tramadol 2017-08 Yes [place] 1 tablet Common HCl HCl 0-12 [place] as needed [facility] 00:00: - [facility] 00 [facility] Pravastatin Pravastatin Yes [place] not Common Sodium Sodium [place] defined [facility] Sertraline Sertraline Yes [place] not Common HCl HCl [place] defined [facility] Telmisartan Telmisartan Yes [place] not Common -HCTZ -HCTZ [place] defined [facility] Move Free Move Free Yes [place] not Co mmon [facility] Benson defined [facility] Latanoprost Latanoprost Yes [place] not Common [place] defined [facility] Meloxicam Meloxicam Yes [place] TAKE 1 Common [place] TABLET BY Spirit MOUTH ONCE - CHI DAILY [facility] Amlodipine Amlodipine Yes [place] not Common Besylate Besylate [facility] defined [facility] Aspirin 81 Aspirin 81 Yes [place] not Common [place] defined [facility] tramadol tramadol Yes [place] not Comm on [place] defined [facility] Ezetimibe Ezetimibe Yes [place] not Co mmon [place] defined [facility] Restasis Restasis Yes [place] not Comm on [place] defined [facility] Modafinil Modafinil Yes [place] not Co mmon [place] defined [facility] Vital Signs Vital Name Observation Time Observation [...] 2020-06-16 15:42:00 120 mm[Hg] Univer sity of pressure [place] [facility] Diastolic blood 2020-06-16 15:42:00 60 mm[Hg] Unive rsity of pressure [place] [facility] Heart rate 2020-06-16 15:42:00 82 /min [facility]i ty of [place] [facility] [place] Body weight 2020-06-16 15:42:00 76.204 kg [facility]i ty [facility] [place] [facility] BMI 2020-06-16 15:42:00 28.84 kg/m2 Universi ty of [facility] Branch Oxygen saturation in 2020-06-16 15:42:00 97 /min University of Arterial blood by [facility] Pulse oximetry Branch Systolic blood 2020-06-16 15:42:00 120 mm[Hg] Univer sity of pressure [place] [facility] Diastolic blood 2020-06-16 15:42:00 60 mm[Hg] Unive rsity of pressure [place] [facility] Heart rate 2020-06-16 15:42:00 82 /min [facility]i ty [facility] [place] [facility] Body weight 2020-06-16 15:42:00 76.204 kg [facility] [place] [facility] BMI 2020-06-16 15:42:00 28.84 kg/m2 [facility] [place] [facility] Oxygen saturation in 2020-06-16 15:42:00 97 /min University of Arterial blood by [facility] Pulse oximetry Branch Systolic blood 2020-02-11 21:18:00 149 mm[Hg] Univer sity of pressure [place] [facility] Diastolic blood 2020-02-11 21:18:00 80 mm[Hg] Unive rsity of pressure [place] [facility] Heart rate 2020-02-11 21:17:00 74 /min [facility]i ty [facility] [place] [facility] Respiratory rate 2020-02-11 21:17:00 19 /min Univ ersity of [place] [facility] Body weight 2020-02-11 21:17:00 77.474 kg [facility] BMI 2020-02-11 21:17:00 29.32 kg/m2 [facility] Procedures Procedure Date / Time Performed Performing Clinician Joanna shelley MR BRAIN WITH & 2021-12-01 13:14:[address] [facility] WITHOUT IV CONTRAST Center REFERRAL- 2020-02-25 05:01:00 Doctor Unassigned, No Univer sity of [place] REQUEST/RESPONSE Name [facility] COGNITIVE ASSESSMENT 2020-02-11 05:01:00 Doctor Unassigned, No U niversity of [facility] COGNITIVE ASSESSMENT 2019-08-19 06:01:00 [facility] Care Planned Activity Planned Date Details Comments Source Future Scheduled 2022-04-07 INFLUENZA VACCINE (#1) [facility] [code = INFLUENZA Medical Ce nter VACCINE (#1)] Future Scheduled 2022-01-[address] [facility] 00:00:00 Counseling and Medical Cente r Screening (12+) [code = Tobacco Cessation Counseling and Screening (12+)] Future Scheduled 2021-08-[address] [facility] 00:00:00 WELLNESS (YEAR 2 or Medical Center FIRST YEAR if no IPPE) [code = MEDICARE ANNUAL WELLNESS (YEAR 2 or FIRST YEAR if no IPPE)] Future Scheduled 2021-08-[address] [facility] 00:00:00 (12+) [code = Medical Center DEPRESSION SCREENING (12+)] Future Scheduled 2021-08-07 FALLS RISK SCREENING [facility] 00:00:00 [code = FALLS RISK Medical C enter SCREENING] Future Scheduled 1998 SHINGLES VACCINES ([address] [facility] 00:00:00 2) [code = SHINGLES Medical Center VACCINES (1 of 2)] Future Scheduled 1967 DTAP/TDAP/TD [facility]ACCINES [facility] 00:00:00 (1 - Tdap) [code = Medical C enter DTAP/TDAP/TD VACCINES (1 - Tdap)] Future Scheduled 1966 HEPATITIS C [facility]CRE[facility]ING [facility] 00:00:00 [code = HEPATITIS C Medical Center SCREENING] Future Scheduled 1954 PNEUMOCOCCAL 65+ YRS ([address] [facility] 00:00:00 - PCV) [code = Medical Cente r PNEUMOCOCCAL 65+ YRS (1 - PCV)] Future Scheduled 1948 COVID-19 VACCINE (#1) [facility] 00:00:00 [code = COVID-[address] VACCINE (#1)] Future Scheduled 1948 Screening for malignant [facility] 00:00:00 neoplasm of breast Medical C enter (procedure) [code = 515054771] Future Scheduled 1948 CT Colonography (combo) [facility] 00:00:00 [code = CT Colonography [facility] (combo)] Future Scheduled 1948 Screening for malignant [facility] 00:00:00 neoplasm of colon Medical Ce nter (procedure) [code = 505531462] Future Scheduled 1948 Screening for malignant [facility] 00:00:00 neoplasm of colon Medical Ce nter (procedure) [code = 320660974] Future Scheduled 1950 DXA SCAN [code = DXA [facility] 00:00:00 SCAN] Medical Center Future Scheduled 1948 Screening for malignant [facility] 00:00:00 neoplasm of colon Medical Ce nter (procedure) [code = 525104317] Future Scheduled 1948 Screening for malignant [facility] 00:00:00 neoplasm of colon Medical Ce nter (procedure) [code = 898690922] Future Scheduled 1950 Sigmoidoscopy [code = [facility] Sigmoidoscopy] Medical Cente r Encounters Start End Encounter Admission Attending Care Care Encounter Source Date/Time Date/Time Type Type Clinicians Facility Department ID 2020-07-20 Inpatient ER ANTONI, [facility] Neuro ICU [id number] [facility] 01:51:00 DAIMA 2022-08-24 2022-08-24 Outpatient MARIETTA COLINMARIETTA [facility] [id number] [facility] 00:00:00 00:00:00 SITA 2022-08-24 2022-08-24 Outpatient MARIETTA DIAZ [facility] [id number] [facility] 00:00:00 00:00:00 [facility] 2022-06-27 2022-06-27 Outside Joe [facility] [id number] 00:00:00 00:00:00 Orders [facility] 2021-12-15 2021-12-15 Outpatient SUNSHINE DIAZ [facility] [id number] [facility] 08:47:20 09:30:32 [facility] Ivan e of Medicin e 2021-12-01 2021-12-01 Outpatient SHARON TENORIO [facility] [id number] [facility] 12:10:26 23:59:00 [facility] 2021-12-01 2021-12-01 [facility] Sita Diaz [facility] [id number] 12:10:26 23:59:00 Encounter 1.5, [facility] 2021-01-18 2021-01-18 Outpatient ALY [facility] [id number] 00:00:00 00:00:00 [facility] 2020-12-28 2020-12-28 Outpatient MARIETTA FULTON [facility] [id number] [facility] 00:00:00 00:00:00 BLAINE 2020-11-16 2020-11-16 Outpatient ALY [facility] [id number] 00:00:00 00:00:00 [facility] 2020-11-16 2020-11-16 Outpatient ALY [facility] [id number] 00:00:00 00:00:00 [facility] 2020-09-18 2020-09-23 Inpatient FAKHRI, [facility] [id number] [place] 00:00:00 00:00:00 HERIBERTO [address] 2020-09-14 2020-09-14 Outpatient JENNIFER, [facility] [id number] [place] 00:00:00 00:00:00 SAYL [address] 2020-08-18 2020-08-18 Outpatient ALEXANDRO LARSON [facility] [id number] [facility] 16:00:00 16:00:00 ALEXANDRO SELF itasmita of [facility] 2020-08-17 2020-08-17 Outpatient ALY, [facility] [id number] [facility] 11:25:35 11:25:35 [facility] 2020-07-20 2020-07-20 Telephone Clair [facility] 1.2.840.114 [id number] [facility] 00:00:00 00:00:00 Alexandro Fraga [id number] [place] [phone] Fl dicco nal [address] [place] [address] 2020-06-23 2020-06-23 Rogers Clair, [facility] 1.2.840.114 [id number] [facility] 00:00:00 00:00:00 Alexandro Fraga [id number] [place] [phone] Fl dic[address] 2020-06-23 2020-06-23 [facility] 1.2.840.114 [id number] 00:00:00 00:00:00 Alexandro Fraga 350.1.13.10 [place] 4.2.7.2.686 Professio [phone] [address] 2020-06-22 2020-06-22 Rogers Clair, [facility] 1.2.840.114 [id number] [facility] 00:00:00 00:00:00 Alexandro Fraga [id number] [place] [phone] Fl dicco nal [address] [place] [address] 2020-06-16 2020-06-16 Office Clair, [facility] 1.2.840.[id number] [place] [address] 09:24:15 10:41:13 Visit Alexandro Fraga 350.1.13.10 [place] [phone] Fl dicco nal [address] [place] [address] 2020-06-16 2020-06-16 [facility] 1.2.840.114 [id number] 09:24:15 10:41:13 Visit Alexandro Sam Fraga 350.1.13.10 [place] 4.2.7.2.686 Professio [phone] [address] 2020-06-16 2020-06-16 Outpatient ALEXANDRO LARSON [facility] [id number] Univers 09:40:00 09:40:00 ALEXANDRO SELF [facility] 2020-03-13 2020-03-13 Outpatient R MICHELL [facility] [id number] Univers 08:30:00 08:30:00 AMIE arias [facility] 2020-02-25 2020-02-25 Orders Doctor TORI 1.2.840.114 [id number] Univers 00:00:00 00:00:00 Only Unassigned, MAHAD 350.1.13.10 ity of [place] [facility] 4.2.7.2.686 [place] as [phone] [address] 2020-02-17 2020-02-17 Outpatient ALEXANDRO LARSON [facility] [id number] Univers 11:00:00 11:00:00 ALEXANDRO SELF [facility] 2020-02-11 2020-02-11 Office Clair [facility] 1.2.840.114 [id number] Univers 16:01:34 16:54:44 Visit Alexandro [place] 350.1.13.10 ity [facility] [place] [phone] Fl dical [address] 2020-02-11 2020-02-11 Outpatient ALEXANDRO LARSON [facility] [id number] Univers 16:00:00 16:00:00 ALEXANDRO SELF nahidasmita [facility] 2020-02-11 2020-02-11 Orders Doctor TORI 1.2.840.114 [id number] Univers 00:00:00 00:00:00 Only Unassigned, MAHAD 350.1.13.10 ity of [place] [facility] 4.2.7.2.686 [place] [phone] [address] 2019-11-16 2019-11-16 Outpatient R AYE [facility] [id number] Univers 12:00:00 12:00:00 STONE ity of [facility] 2019-11-16 2019-11-16 Nurse TORI Simpson 1.2.840.114 [id number] Univers 00:00:00 00:00:00 Triage Debra Tayla MAHAD 350.1.13.10 ity of [facility] [id number] [place] [phone] [address] 2019-11-16 2019-11-16 Telephone TORI Simpson 1.2.840.114 [id number] Univers 00:00:00 00:00:00 Debra M MAHAD 350.1.13.10 ity of [facility] [id number] [place] [phone] [address] 2019-11-16 2019-11-16 Telephone TORI Simpson 1.2.840.114 [id number] Univers 00:00:00 00:00:00 Debra M MAHAD 350.1.13.10 ity of [facility] [id number] [place] [phone] [address] 2019-11-04 2019-11-04 Outpatient [facility] [id number] Common 08:36:00 08:36:00 t [facility] Bone [facility] Sp[facility] t [facility] 2019-10-02 2019-10-02 Outpatient [facility] [id number] Common 16:17:00 16:17:00 t Bone Bone and Spiri t and Joint [facility] 2019-08-19 2019-08-19 Crys Self [facility] 1.2.840.114 [id number] Univers 16:09:28 16:55:12 Visit Alexandro Fraga 350.1.13.10 ity of [place] [phone] Fl dical nal [address] [facility] 2019-08-19 2019-08-19 Orders Doctor TORI 1.2.840.114 [id number] Univers 00:00:00 00:00:00 Only Unassigned, MAHAD 350.1.13.10 ity of [place] [facility] 4.2.7.2.686 [place] [phone] [place] [address] Branch 2019-05-08 2019-05-08 Out[facility] [id number] Common 14:28:00 14:28:00 t Bone Bone and Spiri t and Joint [facility] 2019-04-11 2019-04-11 Out[facility] [id number] Common 13:30:00 13:30:00 t Bone Bone and Spiri t and Joint [facility] 2019-04-04 2019-04-04 Outpatient [facility] [id number] Common 08:30:00 08:30:00 t Bone Bone and Spiri t and Joint [facility] 2019-03-29 2019-03-29 Outpatient [facility] [id number] Common 08:30:00 08:30:00 t Bone Bone and Spiri t and Joint [facility] 2019-03-19 2019-03-19 Outpatient [facility] [id number] Common 15:30:00 15:30:00 t Bone Bone and Spiri t and Joint [facility] 2019-03-19 2019-03-19 Outpatient [facility] [id number] Common 09:00:00 09:00:00 t Bone Bone and Spiri t and Joint [facility] 2018-07-25 2018-07-25 Outpatient [facility] [id number] Common 08:38:00 08:38:00 t Bone Bone and Spiri t and Joint [facility] 2018-05-17 2018-05-17 Outpatient [facility] [id number] Common 09:23:00 09:23:00 t Bone Bone and Spiri t and Joint [facility] 2018-05-08 2018-05-08 Outpatient [facility] [id number] Common 08:02:00 08:02:00 t Bone Bone and Spiri t and Joint [facility] - [facility] Results Test Description Test Time Test Comments Results Result [facility] e Comments MR, BRAIN, 2021-12-01 Unlisted Reason WITHOUT / WITH IV 14:54:00 for Exam - Click CONTRAST Yes and Enter [facility] - MEDICAL Below->YesUnlist CENTERName: SIA NIÑO ed Reason for RADHA CLEOPATRA : Exam->benign 1950 Sex: meningiomaAnesth F esia:->NoneDoes the patient have FINAL an implanted REPORT PATIENT ID: electronic [id number] MR, BRAIN, device?->No WITHOUT / WITH IV CONTRAST. History: 71-year-old female with meningioma. Comparison studies: Multiple brain MRIs, most recent dated 12/28/2020. Technique: Multiplanar, multisequence images of the brain without and with IV contrast. Intravenous contrast: 9 cc of Gadavist. FINDINGS: Scalp/bone: Postsurgical changes related to remote right frontotemporal craniotomy for resection of a right inferior frontal meningioma. Extra-axial: No mass, fluid collection, or hemorrhage. Brain sulci: Mildly prominent.Ventricles: Mild compensatory dilatation. No hydrocephalus. Parenchyma:Unchanged confluent right frontal white matter T2/FLAIR hyperintense signal, likely gliosis. Scattered Supratentorial and pontine T2/FLAIR hyperintense foci in the supratentorial white matter, nonspecific however, may represent microvascular ischemic changes. No mass, hemorrhage, acute or chronic vascular insults.No enhancing abnormalities. Suprasellar region: No abnormalities.Cranioce rvical junction: No abnormalities. Patent foramen magnum. No Chiari I malformation.Vessels: Normal flow-voids in the arteries and sinuses. IMPRESSION: Stable postsurgical changes from prior right frontal total meningioma resection with no evidence of recurrent tumor. Signed: Susan Albarado MDReport Verified Date/Time: 12/01/2021 14:54:36 , BRAIN, 2020-12-29 Unlisted Reason WITHOUT / WITH IV 07:50:00 for Exam - Click CONTRAST Yes and Enter [facility] Reason Below->[facility] : 1950 Sex: F FINAL REPORT MR, [...] Villegas Verified Date/Time: 12/29/2020 07:50:40 Reading Location: [facility] Reading Room [address] [place] [address] -CoV-2 (COVID-19) RNA [Presence] in Respiratory sp ecimen by 2020-09-14 22:54:18 KENNETH with probe detection Test Item Value Reference Range Interpretation Comme nts SARS-CoV-2 (COVID-19) RNA [Presence] in Respiratory Not detected No t-Detected specimen by KENNETH with probe detection (test code = 54339-4) [facility] [id number] 11:32:00 Test Item Value Reference Range Interpretation Comments POC-GLUCOSE METER 108 mg/dL 70-110 : TESTED A T [facility] [address] (BEAKER) (test code [facility], = 1538) [place] [address] 384: Electric Serviceman/Techni emil ID = [id number] for Cecile Garcia POCT-GLUCOSE [id number] 11:31:00 Test Item Value Reference Range Interpretation Comments POC-GLUCOSE METER 169 mg/dL 70-110 H : TESTED A T [facility] 77414 (BEAKER) (test code [facility] [address], = 1538) [place] [address] 384: Electric Serviceman/Techni emil ID = [id number] for A Koko dawniana POCT-GLUCOSE [id number] 11:31:00 Test Item Value Reference Range Interpretation Comments POC-GLUCOSE METER 75 mg/dL 70-110 : TESTED A T [facility] 99713 (BEAKER) (test code = [facility] [address], 1538) [place] [address] 384: Electric Serviceman/Techni emil ID = [id number] for A lcaraz, Sheryl POCT-GLUCOSE [id number] 11:31:00 Test Item Value Reference Range Interpretation Comments POC-GLUCOSE METER 103 mg/dL 70-110 : TESTED A T [facility] 14343 (BEAKER) (test code [facility], = 1538) [place] [address] 384: Electric Serviceman/Techni emil ID = [id number] for Sakina Araujo TISSUE [id number] 11:14:00Surgical Pathology Report Case: [id number] Authorizing Provider: Ramu Fulton Collected: 07/28/2020 02:42 PM MD Marciano Ordering Location: [facility] - Perioperative Received: 07/28/2020 02:48 PM Serv [facility] Pathologist: Moi Ruffin MD Specimens: A) - Brain, brain tumor B) - Brain, Brain Tumor A. BRAIN, RIGHT FRONTAL, CRANIOTOMY:SECRETORY MENINGIOMA WITH ATYPICAL FEATURES (SEE COMMENT)B. BRAIN, RIGHT FRONTAL, CRANIOTOMY:SECRETORY MENINGIOMA WITH ATYPICAL FEATURES (SEE COMMENT) Signing Pathologist Direct Phone Line: [phone] signed by Moi Ruffin MD on 08/11/2020 [...] positive tumor cells, typical of the secretory subtype. The Ki67 proliferation index is 15.7%, consistent with a moderately elevated proliferation index. Given the high cellularity and focally prominent nucleoli, just short of fulfilling the c riteria for Grade II meningioma, but elevated proliferation index, the tumor may be predisposed to recurrence or aggressive behavior. Close clinical follow-up may be warranted if clinically indicated. 40681 x 2; 16316; 01603; 41779Qivyv tumor. Procedure: Stealth craniotomy. A. Brain tumor; B. Brain tumorThe instrument, paperwork, containers and cassettes all read [id number].Received in formalin labeled with the patient's name (Niño), and medical record number. Specimen A: . Received in formalin labeled as "brain tumor" is a specimen that was previously submitted [...] Sectioning reveals a luna-emmanuel cut surface. The specimenis sectioned. The smaller segment is totally submitted in B1 and B2. The larger segment is totally submitted in B3 through B5. JF/pl INTRAOPERATIVE CONSULTATION WITH FROZEN [id number]: BRAIN, MASS LESION, CRANIOTOMY WITH FROZEN SECTION:- MENINGIOMANote: The above findings are preliminary based on limited evaluation at the time of surgery. (dg/es). Please refer to the final report.Quality of frozen section slide = AcceptableIdentify of patient = confirmed prior to giving verbal resultResults given directly to surgeon (Dr. Fulton) at time of preliminary verify.Performed on A and BThe interpretationof this case included the use of immunohistochemistry or special stains.Control Slides Examined: In-house known positive controls were evaluated along with the test tissue. These control slides run alongside of the patients sample show appropriate staining. Internal positive and negative controls whenavailable are evaluated Immunohistochemistry technical testing was performed at [facility], Pathology Laboratory where it was developed and [...] perform high complexity clinical laboratory testing.POCT- GLUCOSE [id number] 12:25:00 Test Item Value Reference Range Interpretation Comments POC-GLUCOSE METER 130 mg/dL 70-110 H : TESTED A T [facility] 13909 (BEAKER) (test code [facility] [address], = 1538) [place] [address] 384: Electric Serviceman/Techni emil ID = [id number] for Gibson Obregon POCT-GLUCOSE [id number] 05:39:00 Test Item Value Reference Range Interpretation Comments POC-GLUCOSE METER 106 mg/dL 70-110 : TESTED A T [facility] 53188 (BEAKER) (test code [facility] [address], = 1538) [place] [address] 384: Electric Serviceman/Techni emil ID = [id number] for Damien Cisneros POCT-GLUCOSE [id number] 21:35:00 Test Item Value Reference Range Interpretation Comments POC-GLUCOSE METER 130 mg/dL 70-110 H : TESTED A T [facility] 77192 (BEAKER) (test code [facility] [address], = 1538) [place] [address] 384: Electric Serviceman/Techni emil ID = [id number] for Damien Cisneros POCT-GLUCOSE [id number] 14:45:00 Test Item Value Reference Range Interpretation Comments POC-GLUCOSE METER 165 mg/dL 70-110 H : TESTED A T [facility] 49728 (BEAKER) (test code [facility] [address], = 1538) [place] [address] 384: Electric Serviceman/Techni meil ID = [id number] for Damien Cisneros POCT-GLUCOSE [id number] 12:10:00 Test Item Value Reference Range Interpretation Comments POC-GLUCOSE METER 214 mg/dL 70-110 H : TESTED A T [facility] 14310 (BEAKER) (test code [facility] [address], = 1538) [place] [address] 384: Electric Serviceman/Techni emil ID = [id number] for Melissa millan Cecile POCT-GLUCOSE [id number] 05:51:00 Test Item Value Reference Range Interpretation Comments POC-GLUCOSE METER 103 mg/dL 70-110 : TESTED A T [facility] 77019 (BEAKER) (test code [facility] [address], = 1538) [place] [address] 384: Electric Serviceman/Techni emil ID = [id number] for Damien Cisneros POCT-GLUCOSE [id number] 15:14:00 Test Item Value Reference Range Interpretation Comments POC-GLUCOSE METER 104 mg/dL 70-110 : TESTED A T [facility] 29352 (BEAKER) (test code [facility], = 1538) [place] [address] 384: Electric Serviceman/Techni emil ID = [id number] for Toña Pacheco POCT-GLUCOSE [id number] 15:13:00 Test Item Value Reference Range Interpretation Comments POC-GLUCOSE METER 156 mg/dL 70-110 H : TESTED A T [facility] 17485 (BEAKER) (test code [facility], = 1538) [place] [address] 384: Electric Serviceman/Techni emil ID = [id number] for Keanu Wilde POCT-GLUCOSE [id number] 15:12:00 Test Item Value Reference Range Interpretation Comments POC-GLUCOSE METER 89 mg/dL 70-110 : TESTED A T [facility] 25850 (BEAKER) (test code = [facility] [address], 1538) [place] [address] 384: Electric Serviceman/Techni emil ID = [id number] for Damien Cisneros POCT-GLUCOSE [id number] 15:12:00 Test Item Value Reference Range Interpretation Comments POC-GLUCOSE METER 228 mg/dL 70-110 H : Notified RN/MD: TESTED (BEAKER) (test code AT [facility] [address] [address] = 1538) [facility] [address]93: Electric Serviceman/Techni emil ID = [id number] for Damien Cisneros POCT-GLUCOSE [id number] 15:12:00 Test Item Value Reference Range Interpretation Comments POC-GLUCOSE METER 111 mg/dL 70-110 H : TESTED A T [facility] 92963 (BEAKER) (test code [facility], = 1538) [place] [address] 384: Electric Serviceman/Techni emil ID = [id number] for S lennyMarylu pat POCT-GLUCOSE [id number] 07:46:00 Test Item Value Reference Range Interpretation Comments POC-GLUCOSE METER 93 mg/dL 70-110 : TESTED A T [facility] 63454 (BEAKER) (test code = [facility] [address] [facility], 1538) [place] [address] 384: Electric Serviceman/Techni emil ID = [id number] for A Jessica saenz POCT-GLUCOSE [id number] 11:33:00 Test Item Value Reference Range Interpretation Comments POC-GLUCOSE METER 170 mg/dL 70-110 H : TESTED A T [facility] 57124 (BEAKER) (test code [facility] [address], = 1538) [place] [address] 384: Electric Serviceman/Techni emil ID = [id number] for Radha Caballero SARS-COV2/RT-PCR ([facility])2020-08-05 11:10:00 Test Item Value Reference Range Interpretation Comments SARS-COV2/RT-PCR (test Negative Not Detected, Negative, code = 8642784) See external report for linked test SARS-COV-2 PERFORMING LAB [facility] (test code = 4003431) Negative result for this test determines that SARS-CoV-2 RNA was not present in the specimen above the Limit of Detection (LOD). However, Negative results do not preclude SARS-CoV-2 infection and should not be used as the sole basis for treatment or patient management decisions. Negative results must be combined with clinical observations, patient history, and [...] justifying the authorization of the emergency use ofin vitro diagnostic tests for detection and/or diagnosis of COVID-19 is terminated under Section 564(b)(2) of the Act or the EUA is revoked under Section 564(g) of the Act.Fact Sheet for Healthcare Prov iders:https://www.[employer]/sites/default/files/product/documents/Fact_Sheet_HC _Lyxgqyslk_Qqvc_GESM-RsP-9.pdfFact Sheet for Healthcare Patients:https://www.[employer]/sites/default/files/product/docume nts/Bfsk_Ffwzn_Nqbieoxa_Rfap_XNMT-YhN-2.pdfPerforming Laboratory:[facility], [place] [address]KYOF-GGSEOBL METER 2020-08-04 21:50:00 Test Item Value Reference Range Interpretation Comments POC-GLUCOSE METER 145 mg/dL 70-110 H : TESTED A T [facility] 37230 (BEAKER) (test code [facility] [address], = 1538) [place] [address] 384: Electric Serviceman/Techni emil ID = [id number] for Toña Pacheco POCT-GLUCOSE [id number] 16:42:00 Test Item Value Reference Range Interpretation Comments POC-GLUCOSE METER 171 mg/dL 70-110 H : TESTED A T [facility] 75536 (BEAKER) (test code [facility] [address], = 1538) [place] [address] 384: Electric Serviceman/Techni emil ID = [id number] for Keanu Wilde POCT-GLUCOSE [id number] 11:09:00 Test Item Value Reference Range Interpretation Comments POC-GLUCOSE METER 146 mg/dL 70-110 H : TESTED A T [facility] 69877 (BEAKER) (test code [facility] [address], = 1538) [place] [address] 384: Electric Serviceman/Techni emil ID = [id number] for Antony Marylu sevilla CBC W/PLT COUNT & AUTO [id number] 09:57:00 Test Item Value Reference Range Interpretation [...] PERCENT (BEAKER) (test code = 2801) POCT-GLUCOSE [id number] 07:28:00 Test Item Value Reference Range Interpretation Comments POC-GLUCOSE METER 91 mg/dL 70-110 : [place] [address] (BEAKER) (test code = [facility] [address], 1537) [place] [address] 384: Electric Serviceman/Techni emil ID = [id number] for Shoemaker-Alfonso phu, Millard POCT-GLUCOSE [id number] 06:00:00 Test Item Value Reference Range Interpretation Comments POC-GLUCOSE METER 93 mg/dL 70-110 : TESTED A T [facility] 39027 (BEAKER) (test code = [address], 1537) [place] [address] 384: Electric Serviceman/Techni emil ID = [id number] for Shoemaker-Alfonso phu, Millard POCT-GLUCOSE [id number] 22:06:00 Test Item Value Reference Range Interpretation Comments POC-GLUCOSE METER 115 mg/dL 70-110 H : TESTED A T [facility] 50055 (BEAKER) (test code [address], = 153) [place] [address] 384: Electric Serviceman/Techni emil ID = [id number] for Nays-Roman, Radha POCT-GLUCOSE [id number] 22:05:00 Test Item Value Reference Range Interpretation Comments POC-GLUCOSE METER 148 mg/dL 70-110 H : TESTED A T [facility] 87998 (BEAKER) (test code [address], = 153) [place] [address] 384: Electric Serviceman/Techni emil ID = [id number] for Nays-Roman, Radha POCT-GLUCOSE [id number] 05:23:00 Test Item Value Reference Range Interpretation Comments POC-GLUCOSE METER 108 mg/dL 70-110 : TESTED A T [facility] 99249 (BEAKER) (test code [address], = 1538) [place] [address] 384: Electric Serviceman/Techni emil ID = [id number] for A ndersmadeline, Jessica POCT-GLUCOSE [id number] 22:26:00 Test Item Value Reference Range Interpretation Comments POC-GLUCOSE METER 152 mg/dL 70-110 H : TESTED A T [facility] 15850 (BEAKER) (test code [address], = 153) [place] [address] 384: Electric Serviceman/Techni emil ID = [id number] for S Artem mazariegos POCT-GLUCOSE [id number] 11:46:00 Test Item Value Reference Range Interpretation Comments POC-GLUCOSE METER 189 mg/dL 70-110 H : TESTED A T [facility] 29832 (BEAKER) (test code [address], = 1538) [place] [address] 384: Electric Serviceman/Techni emil ID = [id number] for Marylu Batres POCT-GLUCOSE [id number] 09:46:00 Test Item Value Reference Range Interpretation Comments POC-GLUCOSE METER 152 mg/dL 70-110 H : TESTED A T [facility] 92789 (BEAKER) (test code [address], = 1538) [place] [address] 384: Electric Serviceman/Techni emil ID = [id number] for R Shyam somersabella POCT-GLUCOSE [id number] 06:51:00 Test Item Value Reference Range Interpretation Comments POC-GLUCOSE METER 103 mg/dL 70-110 : TESTED A T [facility] 23378 (BEAKER) (test code [address], = 1538) [place] [address] 384: Electric Serviceman/Techni emil ID = [id number] for Shoemaker-Alfonso phu, Millard POCT-GLUCOSE [id number] 22:14:00 Test Item Value Reference Range Interpretation Comments POC-GLUCOSE METER 137 mg/dL 70-110 H : TESTED A T [facility] 28995 (BEAKER) (test code [address], = 1538) [place] [address] 384: Electric Serviceman/Techni emil ID = [id number] for Shoemaker-Alfonso phu, Millard POCT-GLUCOSE [id number] 16:25:00 Test Item Value Reference Range Interpretation Comments POC-GLUCOSE METER 133 mg/dL 70-110 H : TESTED A T [facility] 01818 (BEAKER) (test code [address], = 1538) [place] [address] 384: Electric Serviceman/Techni emil ID = [id number] for Gibson Obregon POCT-GLUCOSE [id number] 12:01:00 Test Item Value Reference Range Interpretation Comments POC-GLUCOSE METER 126 mg/dL 70-110 H : TESTED A T [facility] 11791 (BEAKER) (test code [address], = 1538) [place] [address] 384: Electric Serviceman/Techni emil ID = [id number] for Kyara solis, Gibson POCT-GLUCOSE [id number] 05:35:00 Test Item Value Reference Range Interpretation Comments POC-GLUCOSE METER 136 mg/dL 70-110 H : TESTED A T [facility] 65870 (BEAKER) (test code [facility], = 1538) [facility] 77 384: Electric Serviceman/Techni emil ID = [id number] for A Jessica saenz BASIC METABOLIC [id number] 04:34:00 Test Item Value Reference Range Interpretation [...] S NOT APPLICABLE FOR DIALYSIS PATIEN TS. Electric Serviceman ID - [id number] W/PLT COUNT & AUTO [id number] 03:55:00 Test Item Value Reference Range Interpretation [...] PERCENT (BEAKER) (test code = 2801) POCT-GLUCOSE [id number] 21:42:00 Test Item Value Reference Range Interpretation Comments POC-GLUCOSE METER 159 mg/dL 70-110 H : TESTED A T [facility] 18329 (BEAKER) (test code [facility], = 1538) [place] [address] 384: Electric Serviceman/Techni emil ID = [id number] for Toña Pacheco POCT-GLUCOSE [id number] 11:41:00 Test Item Value Reference Range Interpretation Comments POC-GLUCOSE METER 182 mg/dL 70-110 H : TESTED A T [facility] 66155 (BEAKER) (test code [facility], = 1538) [place] [address] 384: Electric Serviceman/Techni emil ID = [id number] for Soledad Wilson POCT-GLUCOSE [id number] 06:11:00 Test Item Value Reference Range Interpretation Comments POC-GLUCOSE METER 170 mg/dL 70-110 H : TESTED A T [facility] 59266 (BEAKER) (test code [facility], = 1538) [place] [address] 384: Electric Serviceman/Techni emil ID = [id number] for Irene Hardin MR, BRAIN, [id number] 18:43:00S/p resectionUnlisted Reason for Exam - Click Yes and Enter Reason Below->No [facility] 1950 Sex: FFINAL REPORT MR, BRAIN, WITH \\T\\ WITHOUT CONTRAST INDICATION: Brain mass or lesion,follow-up Technique: MRI of the brain utilizing axial T1, T2, FLAIR, GRE, DWI, sagittal T1; and postgadolinium axial, sagittal, and coronal T1- weighted images. COMPARISON: Preoperative MRI July FINDINGS: Status post right frontotemporal craniotomy for resection of right sphenoid inferior f rontal convexity extra-axial mass (presumed meningioma). A small 3 mm extra- axial collection layers along the right frontal and anterior temporal convexity. No residual enhancing lesion is demonstrated. Additionally, dural thickening formerly seen extending along the anterior temporal convexity (presumed extended meningioma) has also presumably been resected and is no longer identified. There is decreased mass effect and midline shift following resection, formerly 1.3 cm midline shift and now with 1cm rightward midline shift. Persistent subfalcine herniation, although decreased. There is persistent mild downward displacement of the frontal horn of the right lateral ventricle (without left lateralventricular entrapment) and unchanged vasogenic edema throughout the [...] MDReport Verified Date/Time: 07/29/2020 18:43:09 Reading Location: [address] Neuro Reading Room [id number] 05:31:00 Test Item Value Reference Range Interpretation Comments MAGNESIUM (BEAKER) (test code = 1.8 mg/dL 1.5-3.0 627) Electric Serviceman ID - [id number] METABOLIC [id number] 04:14:00 Test Item Value Reference Range Interpretation [...] S NOT APPLICABLE FOR DIALYSIS PATIEN TS. Electric Serviceman ID - [id number] (HEMOGRAM ONLY)2020-07-29 03:43:00 Test Item Value Reference [...] 0-0 (BEAKER) (test code = 413) POCT-GLUCOSE [id number] 00:24:00 Test Item Value Reference Range Interpretation Comments POC-GLUCOSE METER 208 mg/dL 70-110 H : TESTED A T [facility] 51831 (BEAKER) (test code [facility], = 1538) [place] [address] 384: Electric Serviceman/Techni emil ID = [id number] for Andrea Mejia SARS-COV2/RT-PCR ([facility])2020-07-28 17:27:00 Test Item Value Reference Range Interpretation Comments SARS-COV2/RT-PCR (test Negative Not Detected, Negative, code = 2265380) See external report for linked test SARS-COV-2 PERFORMING LAB [facility] (test code = 9324015) Negative result for this test determines that SARS-CoV-2 RNA was not present in the specimen above the Limit of Detection (LOD). However, Negative results do not preclude SARS-CoV-2 infection and should not be used as the sole basis for treatment or patient management decisions. Negative results must be combined with clinical observations, patient history, and [...] justifying the authorization of the emergency use ofin vitro diagnostic tests for detection and/or diagnosis of COVID-19 is terminated under Section 564(b)(2) of the Act or the EUA is revoked under Section 564(g) of the Act.Fact Sheet for Healthcare Prov iders:https://www.[employer]/sites/default/files/product/documents/Fact_Sheet_HC _Fobxwgzwk_Hfsw_FDUG-KtY-4.pdfFact Sheet for Healthcare Patients:https://www.[employer]/sites/default/files/product/docume nts/Mcro_Wvljm_Uoeizqvi_Rejm_JYUC-SuU-4.pdfPerforming Laboratory:[facility], [place] [address]SS/[id number] 04:58:00 Test Item Value Reference Range Interpretation Comments PROTIME (BEAKER) (test code = 14.3 seconds 11.8-14.4 759) INR (BEAKER) (test code = 370) 1.11 1.20-1.50 L PARTIAL THROMBOPLASTIN TIME 27.5 seconds 23.2-36.1 (BEAKER) (test code = 760) RECOMMENDED COUMADIN/WARFARIN INR THERAPY RANGESSTANDARD DOSE: 2.0 - 3.0 Includes: PROPHYLAXIS for venous thrombosis, systemic embolization; TREATMENT for venous thrombosis and/or pulmonary embolus.HIGH RISK: Target INR is 2.5-3.5 for patients with mechanical heart valves.PROTHROMBIN [id number] 04:57:00 Test Item Value Reference Range Interpretation Comments PROTIME (BEAKER) (test code = 14.3 seconds 11.8-14.4 759) INR (BEAKER) (test code = 370) 1.11 1.20-1.50 L RECOMMENDED COUMADIN/WARFARIN INR THERAPY RANGESSTANDARD DOSE: 2.0 - 3.0 Includes: PROPHYLAXIS for venous thrombosis, systemic embolization; TREATMENT for venous thrombosis and/or pulmonary embolus.HIGH RISK: Target INR is 2.5-3.5 for patients with mechanical heart valves.POCT-GLUCOSE [id number] 22:05:00 Test Item Value Reference Range Interpretation Comments POC-GLUCOSE METER 167 mg/dL 70-110 H : TESTED A T [facility] 30807 (BEAKER) (test code [address], = 1538) [place] [address] 384: Electric Serviceman/Techni emil ID = [id number] for C Daya hernandez POCT-GLUCOSE [id number] 16:10:00 Test Item Value Reference Range Interpretation Comments POC-GLUCOSE METER 120 mg/dL 70-110 H : TESTED A T [facility] 26547 (BEAKER) (test code [address], = 1538) [place] [address] 384: Electric Serviceman/Techni emil ID = [id number] for T u-Haja, Aquilito POCT-GLUCOSE [id number] 11:14:00 Test Item Value Reference Range Interpretation Comments POC-GLUCOSE METER 106 mg/dL 70-110 : TESTED A T [facility] 87916 (BEAKER) (test code [address], = 1538) [place] [address] 384: Electric Serviceman/Techni emil ID = [id number] for T u-Haja, Aquilito POCT-GLUCOSE [id number] 05:21:00 Test Item Value Reference Range Interpretation Comments POC-GLUCOSE METER 136 mg/dL 70-110 H : TESTED A T [facility] 83441 (BEAKER) (test code [address], = 1538) [place] [address] 384: Electric Serviceman/Techni emil ID = [id number] for C randycaDaya POCT-GLUCOSE [id number] 20:53:00 Test Item Value Reference Range Interpretation Comments POC-GLUCOSE METER 136 mg/dL 70-110 H : TESTED A T [facility] 78088 (BEAKER) (test code [facility] WAY THE, = 1538) [place] [address] 384: Electric Serviceman/Techni emil ID = [id number] for C randyca, Daya POCT-GLUCOSE [id number] 17:21:00 Test Item Value Reference Range Interpretation Comments POC-GLUCOSE METER 132 mg/dL 70-110 H : TESTED A T [facility] 94638 (BEAKER) (test code [facility] WAY THE, = 1538) [place] [address] 384: Electric Serviceman/Techni emil ID = [id number] for P elisabeth, Liz POCT-GLUCOSE [id number] 11:58:00 Test Item Value Reference Range Interpretation Comments POC-GLUCOSE METER 118 mg/dL 70-110 H : TESTED A T [facility] 08037 (BEAKER) (test code [facility] [address] THE, = 1538) [place] [address] 384: Electric Serviceman/Techni emil ID = [id number] for P elisabeth, Liz POCT-GLUCOSE [id number] 05:51:00 Test Item Value Reference Range Interpretation Comments POC-GLUCOSE METER 125 mg/dL 70-110 H : TESTED A T [facility] 52120 (BEAKER) (test code [facility] [address] THE, = 1538) [place] [address] 384: Electric Serviceman/Techni emil ID = [id number] for M ang, Patsy POCT-GLUCOSE [id number] 21:10:00 Test Item Value Reference Range Interpretation Comments POC-GLUCOSE METER 85 mg/dL 70-110 : TESTED A T [facility] 40709 (BEAKER) (test code = [facility] [address] THE, 1538) [place] [address] 384: Electric Serviceman/Techni emil ID = [id number] for M ang, Patsy POCT-GLUCOSE [id number] 16:40:00 Test Item Value Reference Range Interpretation Comments POC-GLUCOSE METER 207 mg/dL 70-110 H : TESTED A T [facility] 76680 (BEAKER) (test code [facility] [address] THE, = 1538) [place] [address] 384: Electric Serviceman/Techni emil ID = [id number] for Liz Maddox POCT-GLUCOSE [id number] 11:54:00 Test Item Value Reference Range Interpretation Comments POC-GLUCOSE METER 187 mg/dL 70-110 H : TESTED A T [facility] 91962 (BEAKER) (test code [facility], = 1538) [place] [address] 384: Electric Serviceman/Techni emil ID = [id number] for Liz Maddox BASIC METABOLIC [id number] 04:45:00 Test Item Value Reference Range Interpretation [...] S NOT APPLICABLE FOR DIALYSIS PATIEN TS. Electric Serviceman ID - [id number] 03:59:00 Test Item Value Reference Range Interpretation Comments POC-GLUCOSE METER 126 mg/dL 70-110 H : TESTED A T [facility] 15750 (BEAKER) (test code [facility], = 1538) [place] [address] 384: Electric Serviceman/Techni emil ID = [id number] for Patsy Thibodeaux CBC W/PLT COUNT & AUTO [id number] 03:57:00 Test Item Value Reference Range Interpretation [...] PERCENT (BEAKER) (test code = 2801) POCT-GLUCOSE [id number] 20:30:00 Test Item Value Reference Range Interpretation Comments POC-GLUCOSE METER 133 mg/dL 70-110 H : TESTED A T [facility] 49911 (BEAKER) (test code [address], = 1538) [place] [address] 384: Electric Serviceman/Techni emil ID = [id number] for M Mario Alberto hortaanca POCT-GLUCOSE [id number] 15:57:00 Test Item Value Reference Range Interpretation Comments POC-GLUCOSE METER 261 mg/dL 70-110 H : TESTED A T [facility] 66797 (BEAKER) (test code [address], = 1538) [place] [address] 384: Electric Serviceman/Techni emil ID = [id number] for T u-Haja, Aquilito POCT-GLUCOSE [id number] 11:36:00 Test Item Value Reference Range Interpretation Comments POC-GLUCOSE METER 134 mg/dL 70-110 H : TESTED A T [facility] 52786 (BEAKER) (test code [address], = 1538) [place] [address] 384: Electric Serviceman/Techni emil ID = [id number] for T u-Haja, Aquilito POCT-GLUCOSE [id number] 06:20:00 Test Item Value Reference Range Interpretation Comments POC-GLUCOSE METER 119 mg/dL 70-110 H : TESTED A T [facility] 63255 (BEAKER) (test code [facility] [address], = 1538) [place] [address] 384: Electric Serviceman/Techni emil ID = [id number] for Tayla horta, Patsy POCT-GLUCOSE [id number] 21:11:00 Test Item Value Reference Range Interpretation Comments POC-GLUCOSE METER 112 mg/dL 70-110 H : TESTED A T [facility] 38542 (BEAKER) (test code [facility] [address], = 1538) [place] [address] 384: Electric Serviceman/Techni emil ID = [id number] for M ang, Patsy POCT-GLUCOSE [id number] 16:23:00 Test Item Value Reference Range Interpretation Comments POC-GLUCOSE METER 130 mg/dL 70-110 H : TESTED A T [facility] 37409 (BEAKER) (test code [facility] [address], = 1538) [place] [address] 384: Electric Serviceman/Techni emil ID = [id number] for May Toney POCT-GLUCOSE [id number] 11:44:00 Test Item Value Reference Range Interpretation Comments POC-GLUCOSE METER 242 mg/dL 70-110 H : TESTED A T [facility] 44428 (BEAKER) (test code [facility] [address] [facility], = 1538) [place] [address] 384: Electric Serviceman/Techni emil ID = [id number] for May Toney CBC W/PLT COUNT & AUTO [id number] 04:32:00 Test Item Value Reference Range Interpretation [...] (BEAKER) (test code = 2801) SARS-COV2/RT-PCR ([facility])2020-07-22 09:14:00 Test Item Value Reference Range Interpretation Comments SARS-COV2/RT-PCR (test Negative Not Detected, Negative, code = 8837006) See external report for linked test SARS-COV-2 PERFORMING LAB [facility] (test code = 5487217) Negative result for this test determines that SARS-CoV-2 RNA was not present in the specimen above the Limit of Detection (LOD). However, Negative results do not preclude SARS-CoV-2 infection and should not be used as the sole basis for treatment or patient management decisions. Negative results must be combined with clinical observations, patient history, and [...] justifying the authorization of the emergency use ofin vitro diagnostic tests for detection and/or diagnosis of COVID-19 is terminated under Section 564(b)(2) of the Act or the EUA is revoked under Section 564(g) of the Act.Testing was performed using the Montaño SARS-CoV-2 assay.Fact Sheet for Healthcare Providers:https://www.[employer].Gruvi/wilfredo/RT_SAR K-DxK-8_EWS_Xgyp_Mdgpf_34-705141.pdfFact Sheet for Healthcare Patients:https://www.[employer].Gruvi/s al/EX_JEEZ-HdF-7_Isuflyw_Mdqt_Ipxya_GM_19-956659F6.pdfPerforming Laboratory:[address] [address] BASIC METABOLIC [id number] 05:03:00 Test Item Value Reference Range Interpretation [...] S NOT APPLICABLE FOR DIALYSIS PATIEN TS. Electric Serviceman ID - [id number] W/PLT COUNT & AUTO [id number] 04:34:00 Test Item Value Reference Range Interpretation [...] code = 2801) CT, SPINE, LUMBAR, WO [id number] 10:50:00Pt had recent nerve block done in lumbar area, rule out abscess.Unlisted Reason for Exam - Click Yesand Enter Reason Below->No [facility] : 1950 Sex: FFINAL REPORT CT, SPINE, LUMBAR, WO CONTRAST INDICATION: Back pain or radiculopathy,> 6 wks COMPARISON: None TECHNIQUE: Contiguous noncontrast axial images of the lumbar spine are obtained. Computer reformatted coronal and sagittal images are also provided. Axial images are available in both bone and soft tissue algorithm. DOSE REDUCTION: Dose modulation, iterative reconstruction,and/or weight-based adjustment of the mA/kV was utilized to reduce the radiation dose to as low as reasonably achievable. FINDINGS:Limited by suboptimal positioning. There is no evidence of fracture ortraumatic subluxation. Alignment demonstrates dextroscoliotic curvature. There are compensatory degenerative endplate and facet changes. Vertebral height and integrity is normal. The bones are diffusely demineralized. Intervertebral disk height is decreased throughout the lumbar spine with vacuum discphenomenon at L3-4 and L5-S1. Pertinent findings by level:L1-2: Broad disc bulge and facet arthropathy. Mild canal narrowing. Mild bilateral foraminal [...] MDReport Verified Date/Time: 07/21/2020 10:50:54 Reading Location: [address] Neuro Reading Room MR, BRAIN, [id number] 10:28:00Please complete with Lawn [place] protocolUnlisted Reason for Exam - Click Yes and Enter Reason Below->YesUnlisted Reason for Exam->brain massDeos the patient have an implanted electronic device?->No [facility] 1950 Sex: FFINAL REPORT [...] More local mass effect results in 16 mmleftward midline shift of the septum pellucidum with anterior subfalcine herniation of the cingulategyrus. Remaining brain parenchyma demonstrates mild white matter disease but no evidence of recent infarct or hemorrhage. There is no ventricular entrapment. Remote from the mass location, there is no abnormality of the skull base or calvarium. The included paranasal sinuses, mastoid air cells, and orb its are within normal limits. 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 Underlying mass effect creating a marked right hemispheric edema, associated 16 mm leftward midline shift andsubfalcine herniation of the cingulate gyrus. Signed: JR Curry, Antoine ZHOUeprochelle Verified Date/Time: 07/21/2020 10:28:53 Reading Location: [facility] C013V Neuro Reading Room BASIC METABOLIC [id number] 06:42:00 Test Item Value Reference Range Interpretation [...] S NOT APPLICABLE FOR DIALYSIS PATIEN TS. Electric Serviceman ID - [id number] W/PLT COUNT & AUTO [id number] 06:13:00 Test Item Value Reference Range Interpretation [...] code = 2801) URINALYSIS W/ REFLEX URINE [id number] 13:49:00 Test Item Value Reference Range Interpretation [...] = 516) SOURCE(BEAKER) (test code = 2795) Electric Serviceman ID - [auto]Electric Serviceman ID - [id number] 06:51:00 Test Item Value Reference Range Interpretation Comments PROTIME (BEAKER) (test code = 15.4 seconds 11.8-14.4 H 759) INR (BEAKER) (test code = 370) 1.22 1.20-1.50 RECOMMENDED COUMADIN/WARFARIN INR THERAPY RANGESSTANDARD DOSE: 2.0 - 3.0 Includes: PROPHYLAXIS for venous thrombosis, systemic embolization; TREATMENT for venous thrombosis and/or pulmonary embolus.HIGH RISK: Target INR is 2.5-3.5 for patients with mechanical heart valves.CT, CHEST, WITHOUT [id number] 05:01:00Unlisted Reason for Exam - Click Yes and Enter Reason Below- >YesUnlisted Reason for Exam->ruleout masses [facility] 1950 Sex: FFINAL REPORT CT, CHEST, WITHOUT CONTRAST, CT, ABDOMEN \\T\\ PELVIS, WITHOUT IV CONTRAST INDICATION: Unlisted Reason for Examrule out masses COMPARISON: None TECHNIQUE: Post contrast axially oriented images were obtained from the thoracic inlet through the pelvis. Coronal and sagittal reformats were provided. DOSE REDUCTION: Dose modulation, iterative reconstruction, and/or weight-basedadjustment of the mA/kV was utilized to reduce the radiation dose to as low as reasonably achievable. FINDINGS: Chest:Lungs and Pleura: Minimal basilar scarring or atelectasis. No effusion or pneumothorax.Central airways: Patent.Mediastinum: No acute findings.Heart and pericardium: No acute findings.Great vessels: No acute findings. Regional skeletal structures: Intact. Abdomen and Pelvis:Hepatobiliary: No acute findings. Right liver lobe cyst, 1.8 cm.Pancreas: No acute findings.Spleen: No acute findings.Adrenal Glands: No acute findings.Kidneys and ureters: No hydronephrosis or nephrolithiasis.Bladder and reproductive organs: Asymmetric urinary bladder wall thickening along the margin of the pelvic inflammatory changes..Gastrointestinal tract: Peridiverticular inflammatory changes of the sigmoidcolon with circumferential wall thickening and peridiverticular collection containing gas estimated at 2.7 x 2.1 x 1.3 cm. The bowel obstruction..Major vascular structures: No acute findings..Peritoneum and retroperitoneum: Small volume free pelvic fluid. Pelvic inflammatory changes with extraluminal gas and poorly defined collection, 2.7 x 2.1 x 2.3 cm.Musculoskeletal: No acute abnormality. Kzce-bl-ybbjlndy lumbar spondylosis. Additional Findings: None. IMPRESSION:ABSENCE OF INTRAVENOUS CONTRAST DECREASES SENSITIVITY FOR DETECTION OF FOCAL LESIONS AND VASCULAR PATHOLOGY. No acute intrathoracic abnormality. Acute perforated sigmoid diverticulitis. Small peridiverticular poorly defined collection measuring 2.7 x 2.1 x 1.3 cm concerning for developing abscess. Secondary urinary bladder cystitis. Findings discussed with the patient's nurse, Liz, to be immediately conveyed to the patient's physician on 07/20/2020 4:56 AM. Signed: Chencho Plummer MDReport Verified Date/Time: 07/20/2020 05:01:28 CT, [id number] 05:01:00Unlisted Reason for Exam - Click Yes and Enter Reason Below- >YesUnlisted Reason for Exam->ruleout masses [facility] : 1950 Sex: FFINAL REPORT CT, CHEST, WITHOUT CONTRAST, CT, ABDOMEN \\T\\ PELVIS, WITHOUT IV CONTRAST INDICATION: Unlisted Reason for Examrule out masses COMPARISON: None TECHNIQUE: Post contrast axially oriented images were obtained from the thoracic inlet through the pelvis. Coronal and sagittal reformats were provided. DOSE REDUCTION: Dose modulation, iterative reconstruction, and/or weight-basedadjustment of the mA/kV was utilized to reduce the radiation dose to as low as reasonably achievable. FINDINGS: Chest:Lungs and Pleura: Minimal basilar scarring or atelectasis. No effusion or pneumothorax.Central airways: Patent.Mediastinum: No acute findings.Heart and pericardium: No acute findings.Great vessels: No acute findings. Regional skeletal structures: Intact. Abdomen and Pelvis:Hepatobiliary: No acute findings. Right liver lobe cyst, 1.8 cm.Pancreas: No acute findings.Spleen: No acute findings.Adrenal Glands: No acute findings.Kidneys and ureters: No hydronephrosis or nephrolithiasis.Bladder and reproductive organs: Asymmetric urinary bladder wall thickening along the margin of the pelvic inflammatory changes..Gastrointestinal tract: Peridiverticular inflammatory changes of the sigmoidcolon with circumferential wall thickening and peridiverticular collection containing gas estimated at 2.7 x 2.1 x 1.3 cm. The bowel obstruction..Major vascular structures: No acute findings..Peritoneum and retroperitoneum: Small volume free pelvic fluid. Pelvic inflammatory changes with extraluminal gas and poorly defined collection, 2.7 x 2.1 x 2.3 cm.Musculoskeletal: No acute abnormality. Kdkw-sk-coplybsm lumbar spondylosis. Additional Findings: None. IMPRESSION:ABSENCE OF INTRAVENOUS CONTRAST DECREASES SENSITIVITY FOR DETECTION OF FOCAL LESIONS AND VASCULAR PATHOLOGY. No acute intrathoracic abnormality. Acute perforated sigmoid diverticulitis. Small peridiverticular poorly defined collection measuring 2.7 x 2.1 x 1.3 cm concerning for developing abscess. Secondary urinary bladder cystitis. Findings discussed with the patient's nurse, Liz, to be immediately conveyed to the patient's physician on 07/20/2020 4:56 AM. Signed: Chencho Plummer MDReport Verified Date/Time: 07/20/2020 05:01:28 BASIC METABOLIC [...] S NOT APPLICABLE FOR DIALYSIS PATIEN TS. Electric Serviceman ID - MILLYID INFLUENZA A&B [id number] 03:46:00 Test Item Value Reference Range Interpretation [...]
[2022-07-13] MEDS ORDERED: ONDANSETRON 4 MG (ODT) TAB PO PRN (15:00)
[2022-07-13] MEDS ORDERED: DIPHENHYDRAMINE 25 MG TAB/CAP PO PRN (15:00)
[2022-07-13] MEDS ORDERED: ACETAMINOPHEN 325 MG TABLET PO PRN (15:00)
[2022-07-13] MEDS ORDERED: POLYETHYL GLY 3350 17 GM/DOSE PO PRN (15:00)
[2022-07-13] MEDS ORDERED: LOPERAMIDE HCL 2 MG CAPSULE PO PRN (15:00)
[2022-07-13] MEDS ORDERED: ONDANSETRON 4 MG/2 ML VIAL IV PRN (15:00)
--- NOTE | 2022-07-13 15:34 | RAD REPORT ---
EXAM DESCRIPTION: RAD - Chest Pa And Lat (2 Views) - 07/13/2022 3:23 pm CLINICAL HISTORY: hyponatremia COMPARISON: Thirteen , two view chest 07/01/2019 TECHNIQUE: Frontal and lateral views of the chest were obtained. FINDINGS: The lungs are clear of an acute process. Interstitial pattern matches comparison. Heart size is normal and central vasculature is within normal limits. No pleural effusion or pneumothorax seen. No acute bony finding noted. No aortic abnormality. No significant change from comparison st udy. IMPRESSION: No acute cardiopulmonary process.
[2022-07-13 16:27] VITALS: BMI 26.2
--- NOTE | 2022-07-13 17:04 | RAD REPORT ---
EXAM DESCRIPTION: MRI - Brain W/Wo Cont - 07/13/2022 4:42 pm CLINICAL HISTORY: Hyponatremia COMPARISON: Head Brain Wo Cont dated 10/22/2021 TECHNIQUE: Sagittal and axial T1-weighted images were obtained. Axial PD/heavily T2-weighted and T2- FLAIR images were obtained along with axial DWI/ADC mapping sequences. Coronal heavily T2 weighted s equence obtained. Axial and coronal post-contrast T1-weighted images were also obtained. A 15 ml Mul tihance contrast following utilized. FINDINGS: No intracranial hemorrhage, mass or acute infarction. There is no edema or shift of midli ne structures. No extra-axial fluid collections. Focal hypointense T1 and hyperintense T2 signal is p resent in the right frontal lobe. There is overlying craniotomy changes to the skull. This is presume d to be the site prior right-sided brain tumor removal. No suspicion for residual or recurrent tumor. Atrophy changes are mild. Ventricles are in proportion to volume loss. Mild cerebral white matter ch ronic ischemic signal pattern is present. This is seen minimally in the brainstem. Post-contrast imag es show no abnormal enhancement the surgical site nor elsewhere in the dura or brain parenchyma. Sig nal voids are seen as a normal finding in the major intracranial vessels. No cortical edema or enhancement findings. No suspicion for osmotic demyelination syndrome on imaging . Mastoid air cells and paranasal sinuses are clear. No globe or orbital content abnormality. IMPRESSION: No acute intracranial findings are identifiable. Postsurgical changes are present in the right frontal lobe and adjacent dura and skull. No suspicion for residual or recurrent tumor. Patient has mild atrophy and minimal chronic ischemic change.
[2022-07-13] MEDS ORDERED: METOPROLOL XL 50 MG TAB PO PRN (17:49)
[2022-07-13] MEDS ORDERED: PREGABALIN 50 MG CAP PO PRN (17:49)
[2022-07-13] MEDS ORDERED: LACTOBACILLUS/ACIDOPHILUS TAB PO SCH ×2 (21:00)
[2022-07-13] MEDS ORDERED: FAMOTIDINE 20 MG TAB PO SCH (21:00)
[2022-07-13] MEDS: HOME MED 1 EA UNK (Cyclosporine [Restasis] Droperette) OPTH SCH (21:00)
[2022-07-13] MEDS ORDERED: BIMATOPROST OPHTH DROPS/2.5 ML BTL OPTH SCH (21:00)
[2022-07-14 04:03] LABS: Absolute Lymphocytes (CBC) 1.8 K/uL (0.7-4.9); Hematocrit 39.5 % (36.0-45.0); Lymphocytes % 30.7 % (15.3-44.8); MCV 84.6 fL (80-100); MPV 6.6 fL (7.6-11.3); RBC Red Blood Cell Count 4.67 M/uL (3.86-4.86)
[2022-07-14 04:11] LABS: Magnesium 2.4 mg/dL (1.8-2.4); Phosphorus 4.4 mg/dL (2.5-4.9); Potassium 4.4 mmol/L (3.5-5.1)
[2022-07-14] MEDS: VENLAFAXINE HCL XR 75 MG CAP PO SCH ×2 (08:38→09:00)
[2022-07-14] MEDS ORDERED: METOPROLOL XL 50 MG TAB PO SCH (09:00)
[2022-07-14] MEDS ORDERED: ENOXAPARIN 40 MG/0.4 ML SQ SCH (09:00)
[2022-07-14] MEDS ORDERED: MAGNESIUM GLYCINATE MAG OXIDE PO SCH (09:00)
[2022-07-14] MEDS: HOME MED 1 EA UNK (Cyclosporine [Restasis] Droperette) OPTH SCH (09:00)
[2022-07-14 12:54] VITALS: BP 139/84; TEMP 98
--- NOTE | 2022-07-14 13:09 | P.DS ---
Admission Date: 07/13/22 Discharge Date: 07/14/22 Disposition: ROUTINE DISCHARGE Discharge Condition: FAIR Brief History of Present Illness: KRYSTAL IS AN ANXIOUS LADY. HER BP WAS DOING GREAT ON SPIRONOLACTONE. SHE STARTED TO DRINK TOO MUCH LIQUIDS A DAY AND SODIUM DROPPED. HER LAB REPORTS SUGGEST POLYDYPSIA INDUCED HYPONATREMIA. I PUT HER ON FLUID RESTRICTION AND SODIUM CAME UP FROM 126 AT [facility] TO 134 HERE. SHE IS STABLE. SHE IS TO LIMIT DRINKS, STOP ALDACTONE AND ADD HYDROXYZINE FOR ANXIETY. Vital Signs/Physical Exam: Temp Pulse Resp BP Pulse Ox 98.0 F 87 16 139/84 98 07/14/22 12:00 07/14/22 12:00 07/14/22 12:00 07/14/22 12:00 07/14/22 12:00 Laboratory Data at Discharge: WBC Cancelled 07/14/22 14:37 Hgb Cancelled 07/14/22 14:37 Hct Cancelled 07/14/22 14:37 Plt Count Cancelled 07/14/22 14:37 PT 12.3 SECONDS (9.5-12.5) 07/13/22 12:32 INR 1.12 07/13/22 12:32 APTT 34.4 SECONDS (24.3-36.9) 07/14/22 03:34 Sodium Cancelled 07/14/22 14:38 Potassium Cancelled 07/14/22 14:38 BUN Cancelled 07/14/22 14:38 Creatinine Cancelled 07/14/22 14:38 Glucose Cancelled 07/14/22 14:38 Phosphorus Cancelled 07/14/22 Unknown Magnesium 2.4 mg/dL (1.8-2.4) 07/14/22 03:34 Total Bilirubin Cancelled 07/13/22 Unknown AST Cancelled 07/13/22 Unknown ALT Cancelled 07/13/22 Unknown Alkaline Phosphatase Cancelled 07/13/22 Unknown Home Medications: Bimatoprost [Lumigan Opthalmic Drops*] 1 drop EACH EYE BEDTIME 07/13/22 Cyclosporine [Restasis] 1 drop EACH EYE BID 07/13/22 Famotidine 1 tab PO DAILY 07/13/22 L.acidoph/B.long/L.plant/B.lac [Probiotic Pearls Max Potency] 1 cap PO BEDTIME 07/13/22 Lactobacillus Acidophilus [Digestive Probiotic] 1 cap PO DAILY 07/13/22 Magnesium Glycinate, Mag Oxide [Magnesium Glycinate] 2 cap PO DAILY 07/13/22 Metoprolol Succinate [Toprol Xl*] 1 tab PO BEDTIME PRN 07/13/22 Metoprolol Succinate [Toprol Xl*] 1 tab PO DAILY 07/13/22 Pregabalin [Lyrica*] 1 cap PO BEDTIME PRN 07/13/22 Pregabalin [Lyrica*] 1 cap PO DAILY 07/13/22 Venlafaxine HCl [Venlafaxine HCl ER] 1 tab PO DAILY 07/13/22 hydrOXYzine pamoate [Hydroxyzine Pamoate] 25 mg PO BID #60 07/14/22 New Medications: hydrOXYzine pamoate [Hydroxyzine Pamoate] 25 mg PO BID #60
--- NOTE | 2022-07-14 16:01 | EKG ---
Test Date: 2022-07-13 Test Time: 14:38:58 Senior Electrical Engineer: ARLEEN MEASUREMENT RESULTS: Intervals: Rate: 69 MO: 142 QRSD: 114 QT: 416 QTc: 445 [place]: P: 78 MO: 142 QRS: 87 T: 42 INTERPRETIVE STATEMENTS: Normal sinus rhythm Right bundle branch block Abnormal ECG Compared to ECG 10/22/2021 14:17:03 No significant changes Electronically Signed On 07-14-22 16:00:14 LEAN MANAGER by John Murrieta
[2022-07-14] MEDS ORDERED: BIMATOPROST OPTH SCH (21:00)
== END 2022-07-14 15:35 | disposition home or self-care (01) ==
LOC: 2ND 13:27
PROVIDERS: ADMIT Internal Medicine; ATTEND Internal Medicine
DX: E87.1 Hypo-osmolality and hyponatremia (principal); R63.1 Polydipsia; F41.9 Anxiety disorder, unspecified
CPT/HCPCS: 36415; 70553; 71046; 80048; 80076; 81003; 82043; 82306; 82570; 82607; 83036; 83735; 83930; 83935; 84100; 84300; 84443; 85025; 85610; 85730; 87811; 93005; A9577; G0378; G0379; J1650

== ENCOUNTER 2022-10-03 17:32 | Emergency (ER) | payer OTHER ==
--- OUTSIDE RECORDS SUMMARY | 2022-10-03 17:38 | XMS REPORT | Continuity of Care Document ---
:1950 Author Organization [facility] t Address [address] [facility]. [address] [place] [address] Care Team Providers Name Role Phone No, Pcp [facility] Primary Care Physician Unavailable DANE CORRALES Attending Clinician Unavailable SITA DIAZ Attending Clinician Unavailable SITA DIAZ Attending Clinician Unavailable Sita Diaz MD Attending Clinician 1.5, [facility] Fior Mr Attending Clinician Unavailable RAMU FULTON Attending Clinician Unavailable HERIBERTO WORTHINGTON Attending Clinician Unavailable MD ALYSE RODRIGUEZ Attending Clinician Unavailable ALYSE RODRIGUEZ Attending Clinician Unavailable ALEXANDRO SELF Attending Clinician Unavailable ALEXANDRO SELF Attending Clinician Unavailable Alexandro Self MD Attending Clinician AMIE GALARZA Attending Clinician Unavailable Doctor Unassigned, Boomer Attending Clinician Unavailable STONE GRIFFITHS Attending Clinician Unavailable Debra Simpson RN Attending Clinician Unavailable DANE CORRALES Admitting Clinician Unavailable ALYSE RODRIGUEZ Admitting Clinician Unavailable MD ALYSE RODRIGUEZ Admitting Clinician Unavailable YUSRA UMANZOR Admitting Clinician Unavailable Payers Payer Name Policy Type Policy Number Effective Date Expiration Date S [facility] MEDICARE [id number] 2018 ADV 00:00:00 MEDICARE A B [id number] 2020 00:00:00 UNITED MEDICARE [id number] 2021 HMO 00:00:00 [facility] MEDICARE [id number] [facility] CHOICE [id number] PPO/MEDICARE PPO MEDICARE PART A [id number] \\T\\ [id number] MEDICARE ANEUDY [id number] 2021 [facility] 00:00:00 [facility] CHO[facility] [id number] 2017 00:00:00 Problems Condition Condition Condition Status Onset Resolution Last Treating Co mments Source Name Details Category Date Date Treatment Clinician Date Diverticul Diverticul Disease Active M ethodi itis of itis of -[facility] large 00:00: Hospita intestine intestine 00 l with with abscess abscess without without bleeding bleeding Palliative Palliative Disease Active 2019-[address] care care 2-16 [facility] encounter [facility]: [facility] joie 00 Center Counseling Counseling Disease Active 2019-[address] regarding regarding 2-16 [facility] advance advance 00:00: Medical care care 00 Center planning planning and goals and goals of care of care Full code Full code Disease Active 2019-[address] [facility] [address] status status 2-16 [facility] 00:[facility]: Medical 00 [place] 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 right knee [facility] Arthritis Arthritis Problem Active Com mon of foot, of foot, Spirit right right - [facility] Allergies, Adverse Reactions, Alerts Allergy Allergy Status Severity Reaction(s) Onset Inactive Treating Comm ents Source Name Type Date Date Clinician NO KNOWN Drug Active Univers ALLERGIE Class ity of S [facility] NO KNOWN Allergy Active [facility] ALLERGIE S Family History Family Member Diagnosis Comments Start Date Stop Date Source Paternal grandfather Heart disease [facility] Paternal grandfather Hypertension [facility] Paternal grandmother Hypertension [facility] Natural father Hyperlipidemia Method [facility] Natural father Hypertension [facility] Maternal grandfather Heart disease [facility] Maternal grandmother Hypertension [facility] Natural mother Cancer [facility] Natural mother Hyperlipidemia Method [facility] Natural mother Hypertension [facility] Natural mother Stroke [facility] Social History Social Habit Start Date Stop Date Quantity Comments Source Exposure to Not sure [facility]-CoV-2 [place] [facility] (event) Branch History SDOH [facility] Alcohol Std Medical Cente r Drinks History SDOH [facility] Alcohol Binge Medical Ayesha ter Alcohol intake 2020-09-22 2020-09-22 Ex-drinker [facility] 00:00:00 00:00:00 (finding) Alcohol Comment 2020-09-09 2020-09-09 sober 37 yrs [facility] 00:00:00 00:00:00 Tobacco use and 2020-07-20 2020-07-[address] [address] [facility] exposure 00:00:00 00:00:00 Medical Center History SDOH 2020-07-20 2020-07-[address] [facility] Alcohol Frequency 00:00:00 00:00:[address] [facility] Sex Assigned At [address] [facility] 00:00:00 00:00:00 Medical Center Smoking Status Start Date Stop Date Source Never smoker [facility] Branch Medications Ordered Filled Start Stop Current Ordering [...] nightly. [facility] 0.005 % 11:04: Medical ophthalmic [address] [place] [address] solution cycloSPORIN Yes 1[drp] QD Apply [address] E 6-14 drop to [facility] (RESTASIS) 11:04: eye(s) Medic al 0.05 % 34 daily Gel Center ophthalmic . emulsion DULoxetine Yes anxiety 60mg QD Take [address] (CYMBALTA) 6-14 with by mouth [facility] 60 MG 11:04: depression nightly. Me dical capsule 34 [place] pregabalin Yes 50mg QD Take [address] (LYRICA) 50 6-14 by mouth Luke s MG capsule 11:04: nightly. Med ical 34 [place] metoprolol Yes 50mg QD Take [address] succinate 6-14 by mouth [facility] (TOPROL-XL) 11:04: daily. Medi joie 50 MG 24 hr 34 [place] tablet pravastatin Yes 80mg QD Take [address] (PRAVACHOL) 6-14 by mouth Luke s 80 MG 11:04: nightly. Medical tablet 34 [place] telmisartan Yes 1{tbl} Q.5D Take [address] -hydrochlor 6-14 tablet by Shari es othiazide 11:04: mouth 2 Medic al (MICARDIS 34 (two) Center HCT) times 80-12.5 mg daily. per tablet latanoprost Yes 1[drp] QD [address] (XALATAN) 6-14 nightly. [facility] 0.005 % 11:04: Medical ophthalmic [address] [place] [address] solution cycloSPORIN Yes 1[drp] QD Apply [address] E 6-14 drop to [facility] (RESTASIS) 11:04: eye(s) Medic al 0.05 % 34 daily Gel Center ophthalmic . emulsion DULoxetine Yes anxiety 60mg QD Take [address] (CYMBALTA) 6-14 with by mouth [facility] 60 MG 11:04: depression nightly. Me dical capsule [address] [place] [address] pregabalin 2021-0 Yes 50mg QD Take [address] (LYRICA) 50 6-14 by mouth Luke s MG capsule 11:04: nightly. [address] metoprolol Yes 50mg QD Take [address] succinate 6-14 by mouth [facility] (TOPROL-XL) 11:04: daily. Medi joie 50 MG 24 hr 34 [place] tablet pravastatin Yes 80mg QD Take [address] (PRAVACHOL) 6-14 by mouth Luke s 80 MG 11:04: nightly. Medical tablet [address] [place] [address] telmisartan Yes 1{tbl} Q.5D Take [address] -hydrochlor 6-14 tablet by Shari es othiazide 11:04: mouth 2 Medic al (MICARDIS 34 (two) Center HCT) times 80-12.5 mg daily. per tablet latanoprost Yes 1[drp] QD [address] (XALATAN) 6-14 nightly. [facility] 0.005 % 11:04: Medical ophthalmic [address] [place] [address] solution cycloSPORIN Yes 1[drp] QD Apply [address] E 6-14 drop to [facility] (RESTASIS) 11:04: eye(s) Medic al 0.05 % 34 daily Gel Center ophthalmic . emulsion DULoxetine Yes anxiety 60mg QD Take [address] (CYMBALTA) 6-14 with by mouth [facility] 60 MG 11:04: depression nightly. Me dical capsule [address] [place] [address] pregabalin Yes 50mg QD Take [address] (LYRICA) 50 6-14 by mouth Luke s MG capsule 11:04: nightly. [address] metoprolol Yes 50mg QD Take [address] succinate 6-14 by mouth [facility] (TOPROL-XL) 11:04: daily. Medi joie 50 MG 24 hr 34 Center tablet pravastatin Yes 80mg QD Take [address] (PRAVACHOL) 6-14 by mouth Luke s 80 MG 11:04: nightly. Medical tablet [address] [place] [address] telmisartan Yes 1{tbl} Q.5D Take [address] -hydrochlor 6-14 tablet by Shari es othiazide 11:04: mouth 2 Medic al (MICARDIS 34 (two) Center HCT) times 80-12.5 mg daily. per tablet latanoprost Yes 1[drp] QD [address] (XALATAN) 6-14 nightly. [facility] 0.005 % 11:04: Medical ophthalmic [address] [place] [address] solution cycloSPORIN Yes 1[drp] QD Apply [address] E 6-14 drop to [facility] (RESTASIS) 11:04: eye(s) Medic al 0.05 % 34 daily Gel Center ophthalmic . emulsion DULoxetine Yes anxiety 60mg QD Take [address] (CYMBALTA) 6-14 with by mouth [facility] 60 MG 11:04: depression nightly. Me dical capsule 34 [place] pregabalin Yes 50mg QD Take [address] (LYRICA) 50 6-14 by mouth Luke s MG capsule 11:04: nightly. Med ical 34 [place] metoprolol Yes 50mg QD Take [address] succinate 6-14 by mouth [facility] (TOPROL-XL) 11:04: daily. Medi joie 50 MG 24 hr 34 [place] tablet pravastatin Yes 80mg QD Take [address] (PRAVACHOL) 6-14 by mouth Luke s 80 MG 11:04: nightly. Medical tablet 34 [place] telmisartan Yes 1{tbl} Q.5D Take [address] -hydrochlor 6-14 tablet by Shari es othiazide 11:04: mouth 2 Medic al (MICARDIS 34 (two) [place] HCT) times 80-12.5 mg daily. per tablet latanoprost Yes 1[drp] QD [address] (XALATAN) 6-14 nightly. [facility] 0.005 % 11:04: Medical ophthalmic [address] [place] [address] solution cycloSPORIN Yes 1[drp] QD Apply [address] E 6-14 drop to [facility] (RESTASIS) 11:04: eye(s) Medic al 0.05 % 34 daily Gel Center ophthalmic . emulsion DULoxetine Yes anxiety 60mg QD Take [address] (CYMBALTA) 6-14 with by mouth [facility] 60 MG 11:04: depression nightly. Me dical capsule [address] [place] [address] pregabalin Yes 50mg QD Take [address] (LYRICA) 50 6-14 by mouth Luke s MG capsule 11:04: nightly. Med ica[address] metoprolol Yes 50mg QD Take [address] succinate 6-14 by mouth [facility] (TOPROL-XL) 11:04: daily. Medi joie 50 MG 24 hr 34 [place] tablet pravastatin Yes 80mg QD Take [address] (PRAVACHOL) 6-14 by mouth Luke s 80 MG 11:04: nightly. Medical tablet [address] [place] [address] telmisartan Yes 1{tbl} Q.5D Take [address] -hydrochlor 6-14 tablet by Shari es othiazide 11:04: mouth 2 Medic al (MICARDIS 34 (two) Center HCT) times 80-12.5 mg daily. per tablet latanoprost Yes 1[drp] QD [address] (XALATAN) 6-14 nightly. [facility] 0.005 % 11:04: Medical ophthalmic [address] [place] [address] solution cycloSPORIN Yes 1[drp] QD Apply [address] E 6-14 drop to [facility] (RESTASIS) 11:04: eye(s) Medic al 0.05 % 34 daily Gel [place] ophthalmic . emulsion DULoxetine Yes anxiety 60mg QD Take [address] (CYMBALTA) 6-14 with by mouth [facility] 60 MG 11:04: depression nightly. Me dical capsule [address] [place] [address] pregabalin Yes 50mg QD Take [address] (LYRICA) 50 6-14 by mouth Luke s MG capsule 11:04: nightly. [facility] ica[address] metoprolol Yes 50mg QD Take [address] succinate 6-14 by mouth [facility] (TOPROL-XL) 11:04: daily. Medi joie 50 MG 24 hr 34 [place] tablet pravastatin Yes 80mg QD Take [address] (PRAVACHOL) 6-14 by mouth Luke s 80 MG 11:04: nightly. Medical tablet [address] [place] [address] telmisartan Yes 1{tbl} Q.5D Take [address] -hydrochlor 6-14 tablet by Shari es othiazide 11:04: mouth 2 Medic al (MICARDIS 34 (two) Center HCT) times 80-12.5 mg daily. per tablet latanoprost Yes 1[drp] QD [address] (XALATAN) 6-14 nightly. [facility] 0.005 % 11:04: Medical ophthalmic 34 [place] solution cycloSPORIN Yes 1[drp] QD Apply [address] E 6-14 drop to [facility] (RESTASIS) 11:04: eye(s) Medic al 0.05 % 34 daily Gel Center ophthalmic . emulsion DULoxetine Yes anxiety 60mg QD Take [address] (CYMBALTA) 6-14 with by mouth [facility] 60 MG 11:04: depression nightly. Me dical capsule 34 [place] pregabalin Yes 50mg QD Take [address] (LYRICA) 50 6-14 by mouth Luke s MG capsule 11:04: nightly. Med ical 34 Center metoprolol Yes 50mg QD Take [address] succinate 6-14 by mouth [facility] (TOPROL-XL) 11:04: daily. Medi joie 50 MG 24 hr 34 Center tablet pravastatin Yes 80mg QD Take [address] (PRAVACHOL) 6-14 by mouth Luke s 80 MG 11:04: nightly. Medical tablet 34 [place] telmisartan Yes 1{tbl} Q.5D Take [address] -hydrochlor 6-14 tablet by Shari es othiazide 11:04: mouth 2 Medic al (MICARDIS 34 (two) Center HCT) times 80-12.5 mg daily. per tablet latanoprost Yes 1[drp] QD [address] (XALATAN) 6-14 nightly. [facility] 0.005 % 11:04: Medical ophthalmic [address] [place] [address] solution cycloSPORIN Yes 1[drp] QD Apply [address] E 6-14 drop to [facility] (RESTASIS) 11:04: eye(s) Medic al 0.05 % 34 daily Gel Center ophthalmic . emulsion DULoxetine Yes anxiety 60mg QD Take [address] (CYMBALTA) 6-14 with by mouth [facility] 60 MG 11:04: depression nightly. Ga dical capsule 34 Center pregabalin Yes 50mg QD Take [address] (LYRICA) 50 6-14 by mouth Luke s MG capsule 11:04: nightly. Med ical 34 [place] amLODIPine Yes 5mg QD Take [address] (NORVASC) 5 3-12 by mouth Luke s MG tablet 00:00: daily. Medica 00 [place] amLODIPine 0 Yes 5mg QD Take [address] (NORVASC) 5 3-12 by mouth Luke s MG tablet 00:00: daily. Medica 00 [place] amLODIPine Yes 5mg QD Take [address] (NORVASC) 5 3-12 by mouth Luke s MG tablet 00:00: daily. Medica 00 [place] amLODIPine Yes 5mg QD Take [address] (NORVASC) 5 3-12 by mouth Luke s MG tablet 00:00: daily. Medica 00 [place] amLODIPine 0 Yes 5mg QD Take [address] (NORVASC) 5 3-12 by mouth Luke s MG tablet 00:00: daily. Medica 00 [place] amLODIPine 0 Yes 5mg QD Take [address] (NORVASC) 5 3-12 by mouth Luke s MG tablet 00:00: daily. Medica 00 [place] amLODIPine Yes 5mg QD Take [address] (NORVASC) 5 3-12 by mouth Luke s MG tablet 00:00: daily. Medica 00 [place] amLODIPine 0 Yes 5mg QD Take [address] (NORVASC) 5 3-12 by mouth Luke s MG tablet 00:00: daily. Medica 00 [place] metoprolol Yes 50mg QD Take 50 mg M ethodi succinate 2-[address] XL 17:39: daily. Hospita (TOPROL-XL) 34 l 50 mg 24 hr tablet cyclosporin Yes QD Apply to [facility] [place] [facility] [facility] (RESTASIS 2-[address] OPHT) 17:39: Both eyes Hospita 34 l telmisartan Yes 1{tbl} QD Take 1 Me thodi -hydrochlor 2-[address] othiazid 17:39: mouth Hospita (MICARDIS 34 daily. l HCT) 80-12.5 mg per tablet DULoxetine Yes 60mg QD Take 60 mg M ethodi (CYMBALTA) 2-[address] 60 MG 17:39: nightly. Hospita capsule 34 l pravastatin Yes 80mg QD Take 80 mg Methodi (PRAVACHOL) 2-[address] 80 MG 17:39: nightly. Hospita tablet 34 l pregabalin Yes 50mg QD Take 50 mg M ethodi (LYRICA) 50 2-[address] MG capsule 17:39: nightly. Hos rosario 34 l latanoprost Yes 1[drp] QD Administer Methodi (XALATAN) 2-[address] 0.005 % 17:39: the right Hospi ta ophthalmic 34 eye l solution nightly. senna-docus 2021- No 1{tbl} Q.5D Take [address] ate 08-08 tablet by [facility] (SENOKOT S) 00:00: 23:59 mouth 2 Me dical 8.6-50 mg 00 :00 (two) Center per tablet times daily. senna-docus 2021- No 1{tbl} Q.5D Take [address] ate 08-08 tablet by [facility] (SENOKOT S) 00:00: 23:59 mouth 2 Me dical 8.6-50 mg 00 :00 (two) Center per tablet times daily. senna-docus 2021- No 1{tbl} Q.5D Take [address] ate 08-08 tablet by [facility] (SENOKOT S) 00:00: 23:59 mouth 2 Me dical 8.6-50 mg 00 :00 (two) Center per tablet times daily. DULoxetine 2019-08 Yes 60mg Take 60 mg U nivers (CYMBALTA) 1-10 by mouth ity o f 60 mg 15:47: daily. [address] pregabalin 2019-08 Yes 50mg Take 50 mg U nivers 50 mg 1-10 by mouth ity of capsule 15:47: at [place] 01 bedtime. Medical Branch DULoxetine 2019-08 Yes 60mg Take 60 mg U nivers (CYMBALTA) 1-10 by mouth ity o f 60 mg 15:47: daily. capsule Medical Branch pregabalin 2019-08 Yes 50mg Take 50 mg U nivers 50 mg 1-10 by mouth ity of capsule 15:47: at [place] 01 bedtime. Medical Branch DULoxetine 2019-08 Yes 60mg Take 60 mg U nivers (CYMBALTA) 1-10 by mouth ity o f 60 mg 15:47: daily. capsule Medical Branch pregabalin 2019-08 Yes 50mg Take 50 mg U nivers 50 mg 1-10 by mouth ity of capsule 15:47: at [place] 01 bedtime. Medical Branch DULoxetine 2019-08 Yes 60mg Take 60 mg U nivers (CYMBALTA) 1-10 by mouth ity o f 60 mg 15:47: daily. capsule Medical Branch pregabalin 2019-08 Yes 50mg Take 50 mg U nivers 50 mg 1-10 by mouth ity of capsule 15:47: at [place] 01 bedtime. Medical Branch DULoxetine 2019-08 Yes [...] by mouth ity of tablet 15:41: at [place] 53 bedtime. Medical Branch telmisartan 2019-08 Yes 1{tbl} Take 1 Un jse -hydrochlor 1-10 tablet by ity of othiazide 15:41: mouth [place] 40-12.5 mg 53 daily. Medical per tablet Branch aspirin 2019-08 Yes 81mg Take 81 mg Univ ers (ASPIRIN 1-10 by mouth ity of LOW DOSE) 15:41: at [place] 81 mg EC 53 bedtime. Medical tablet Branch ARIPiprazol 2019-08 Yes aripiprazo Univers e 2 mg 1-10 le 2 mg ity of tablet 15:41: tablet [place] [address] Medical Branch pravastatin 2019-08 Yes 80mg Take 80 mg Univers 80 mg 1-10 by mouth ity of tablet 15:41: at [place] [address] bedtime. Medical Branch telmisartan 2019-08 Yes 1{tbl} [...] 2 mg ity of tablet 15:41: tablet [place] [address] Medical Branch pravastatin 2019-08 Yes 80mg Take 80 mg Univers 80 mg 1-10 by mouth ity of tablet 15:41: at [place] [address] bedtime. Medical Branch telmisartan 2019-08 Yes 1{tbl} [...] 2 mg ity of tablet 15:41: tablet [place] [address] Medical Branch pravastatin 2019-08 Yes 80mg Take 80 mg Univers 80 mg 1-10 by mouth ity of tablet 15:41: at [place] [address] bedtime. Medical Branch telmisartan 2019-08 Yes 1{tbl} [...] tablet 15:41: tablet [place] 53 Medical Branch pravastatin 2019-08 Yes 80mg Take 80 mg Univers 80 mg 1-10 by mouth ity of tablet 15:41: at [place] 53 bedtime. Medical Branch telmisartan 2019-08 Yes [...] 2 mg ity of tablet 15:41: tablet [place] [address] Medical Branch meloxicam 2019-0 2020- No 7.5mg Take 7.5 [...] mg ity of tablet 21:20: tablet [place] 19 Medical Branch ARIPiprazol 2020-0 Yes aripiprazo Univers e 2 mg 7-07 le 2 mg ity of tablet 21:20: tablet [place] 19 Medical Branch ARIPiprazol 2020-0 Yes aripiprazo Univers e 2 mg 7-07 le 2 mg ity of tablet 21:20: tablet [place] 19 Medical Branch ARIPiprazol 2019-0 Yes aripiprazo Univers e 2 mg 7-07 le 2 mg ity of tablet 21:20: tablet [place] [address] Medical Branch SERTraline 2019-0 2020- No 150mg [...] Medical AT BEDTIME Branch mupirocin 2020-0 Yes [id number] Apply to Univers (BACTROBAN) 4-11 area(s) 3 ity of 2 % cream 00:00: (three) [place] 00 times Medical daily. Branch mupirocin 2020-0 Yes [id number] Apply to Univers (BACTROBAN) 4-11 area(s) 3 ity of 2 % cream 00:00: (three) [place] 00 times Medical daily. Branch mupirocin 2 2020-0 Yes [id number] Apply to Univers % ointment 4-11 area(s) 3 ity of 00:00: (three) [place] 00 times Medical daily. Branch mupirocin 2020-0 Yes [id number] Apply to Univers (BACTROBAN) 4-11 area(s) 3 ity of 2 % cream 00:00: (three) [place] 00 times Medical daily. Branch mupirocin 2020-0 Yes [id number] Apply to Univers (BACTROBAN) 4-11 area(s) 3 ity of 2 % cream 00:00: (three) [place] 00 times Medical daily. Branch mupirocin 2 2020-0 Yes [id number] Apply to Univers % ointment 4-11 area(s) 3 ity of 00:00: (three) [place] 00 times Medical daily. Branch mupirocin 2020-0 Yes [id number] Apply to Univers (BACTROBAN) 4-11 area(s) 3 ity of 2 % cream 00:00: (three) [place] 00 times Medical daily. Branch mupirocin 2020-0 Yes [id number] Apply to Univers (BACTROBAN) 4-11 area(s) 3 ity of 2 % cream 00:00: (three) [place] 00 times Medical daily. Branch mupirocin 2 2020-0 Yes [id number] Apply to Univers % ointment 4-11 area(s) 3 ity of 00:00: (three) [place] 00 times Medical daily. Branch mupirocin 2020-0 Yes [id number] Apply to Univers (BACTROBAN) 4-11 area(s) 3 ity of 2 % cream 00:00: (three) [place] 00 times Medical daily. Branch mupirocin 2020-0 Yes [id number] Apply to Univers (BACTROBAN) 4-11 area(s) 3 ity of 2 % cream 00:00: (three) [place] 00 times Medical daily. Branch mupirocin 2 2020-0 Yes [id number] Apply to Univers % ointment 4-11 area(s) 3 ity of 00:00: (three) [place] 00 times Medical daily. Branch mupirocin 2020-0 Yes [id number] Apply to Univers (BACTROBAN) 4-11 area(s) 3 ity of 2 % cream 00:00: (three) [place] 00 times Medical daily. Branch mupirocin 2020-0 Yes [id number] Apply to Univers (BACTROBAN) 4-11 area(s) 3 ity of 2 % cream 00:00: (three) [place] 00 times Medical daily. Branch mupirocin 2 2020-0 Yes [id number] Apply to Univers % ointment 4-11 area(s) 3 ity of 00:00: (three) [place] 00 times Medical daily. Branch mupirocin 2020-0 Yes [id number] Apply to Univers (BACTROBAN) 4-11 area(s) 3 ity of 2 % cream 00:00: (three) [place] 00 times Medical daily. Branch mupirocin 2020-0 Yes [id number] Apply to Univers (BACTROBAN) 4-11 area(s) 3 ity of 2 % cream 00:00: (three) [place] 00 times Medical daily. Branch mupirocin 2 2020-0 Yes [id number] Apply to Univers % ointment 4-11 area(s) 3 ity of 00:00: (three) [place] 00 times Medical daily. Branch mupirocin 2020-0 Yes [id number] Apply to Univers (BACTROBAN) 4-11 area(s) 3 ity of 2 % cream 00:00: (three) [place] 00 times Medical daily. Branch mupirocin 2020-0 Yes [id number] Apply to Univers (BACTROBAN) 4-11 area(s) 3 ity of 2 % cream 00:00: (three) [place] 00 times Medical daily. Branch mupirocin 2 2020-0 Yes [id number] Apply to Univers % ointment 4-11 area(s) 3 ity of 00:00: (three) [place] 00 times Medical daily. Branch mupirocin 2020-0 Yes [id number] Apply to Univers (BACTROBAN) 4-11 area(s) 3 ity of 2 % cream 00:00: (three) [place] 00 times Medical daily. Branch mupirocin 2020-0 Yes [id number] Apply to Univers (BACTROBAN) 4-11 area(s) 3 ity of 2 % cream 00:00: (three) [place] 00 times Medical daily. Branch mupirocin 2 2020-0 Yes [id number] Apply to Univers % ointment 4-11 area(s) 3 ity of 00:00: (three) [place] 00 times Medical daily. Branch mupirocin 2020-0 Yes [id number] Apply to Univers (BACTROBAN) 4-11 area(s) 3 ity of 2 % cream 00:00: (three) [place] 00 times Medical daily. Branch mupirocin 2020-0 Yes [id number] Apply to Univers (BACTROBAN) 4-11 area(s) 3 ity of 2 % cream 00:00: (three) [place] 00 times Medical daily. Branch mupirocin 2020-0 Yes [id number] Apply to Univers (BACTROBAN) 4-11 area(s) 3 ity of 2 % cream 00:00: (three) [place] 00 times Medical daily. Branch mupirocin 2020-0 Yes [id number] Apply to Univers (BACTROBAN) 4-11 area(s) 3 ity of 2 % cream 00:00: (three) [place] 00 times Medical daily. Branch mupirocin 2020-0 Yes [id number] Apply to Univers (BACTROBAN) 4-11 area(s) 3 ity of 2 % cream 00:00: (three) [place] 00 times Medical daily. Branch mupirocin 2020-0 Yes [id number] Apply to Univers (BACTROBAN) 4-11 area(s) 3 ity of 2 % cream 00:00: (three) [place] 00 times Medical daily. Branch mupirocin 2 2020-0 Yes [id number] Apply to Univers % ointment 4-11 area(s) 3 ity of 00:00: (three) [place] 00 times Medical daily. Branch mupirocin 2020-0 Yes [id number] Apply to Univers (BACTROBAN) 4-11 area(s) 3 ity of 2 % cream 00:00: (three) [place] 00 times Medical daily. Branch mupirocin 2020-0 Yes [id number] Apply to Univers (BACTROBAN) 4-11 area(s) 3 ity of 2 % cream 00:00: (three) [place] 00 times Medical daily. Branch mupirocin 2 2020-0 Yes [id number] Apply to Univers % ointment 4-11 area(s) 3 ity of 00:00: (three) [place] 00 times Medical daily. Branch ezetimibe 2019-1 Yes 10mg Take 10 mg Un jes 10 mg 2-06 by mouth ity of tablet 21:23: daily. [address] Branch ezetimibe 2019-1 Yes 10mg Take 10 mg Un jes 10 mg 2-06 by mouth ity of tablet 21:23: daily. [address] ezetimibe 2018-08 Yes 10mg Take 10 mg Un jes 10 mg 2-06 by mouth ity of tablet 21:23: daily. [address] ezetimibe 2018-08 Yes 10mg Take 10 mg Un jes 10 mg 2-06 by mouth ity of tablet 21:23: daily. [address] ezetimibe 2018-08 Yes 10mg Take 10 mg Un jes 10 mg 2-06 by mouth ity of tablet 21:23: daily. [address] ezetimibe 2018-08 Yes 10mg Take 10 mg Un jes 10 mg 2-06 by mouth ity of tablet 21:23: daily. [address] ezetimibe 2018-08 Yes 10mg Take 10 mg Un jes 10 mg 2-06 by mouth ity of tablet 21:23: daily. [address] ezetimibe 2018-08 Yes 10mg Take 10 mg Un jes 10 mg 2-06 by mouth ity of tablet 21:23: daily. 61 [address] ezetimibe 2018-08 Yes 10mg Take 10 mg Un jes 10 mg 2-06 by mouth ity of tablet 21:23: daily. [address] ezetimibe 2018-08 Yes 10mg Take 10 mg Un jes 10 mg 2-06 by mouth ity of tablet 21:23: daily. [address] ezetimibe 2018-08 Yes 10mg Take 10 mg Un jes 10 mg 2-06 by mouth ity of tablet 21:23: daily. [address] ezetimibe 2018-08 Yes 10mg Take 10 mg Un jes 10 mg 2-06 by mouth ity of tablet 21:23: daily. [address] ezetimibe 2018-08 Yes 10mg Take 10 mg Un jes 10 mg 2-06 by mouth ity of tablet 21:23: daily. [address] ezetimibe 2018-08 Yes 10mg Take 10 mg Un jes 10 mg 2-06 by mouth ity of tablet 21:23: daily. [address] ezetimibe 2018-08 Yes 10mg Take 10 mg Un jes 10 mg 2-06 by mouth ity of tablet 21:23: daily. [address] SERTraline 2018-08 Yes 150mg Take 150 [...] 0-12 Benson as needed Spirit 00:00: - [facility] 00 [facility] Amlodipine Amlodipine Yes [place] not Common Besylate Besylate Benson defined Spir [facility] Aspirin 81 Aspirin 81 Yes Salvador [...] Benson defined [facility] Pravastatin Pravastatin Yes [place] not Common Sodium Sodium Benson defined [facility] Sertraline Sertraline Yes [place] not Common HCl HCl Benson defined [facility] Telmisartan Telmisartan Yes [place] not Common -HCTZ -HCTZ Benson defined [facility] Move Free Move Free Yes [place] not [facility] defined [facility] Advance [facility] Latanoprost Latanoprost Yes [place] not Common Benson defined [facility] Meloxicam Meloxicam Yes [place] TAKE 1 Common Benson TABLET BY [facility] MOUTH ONCE - [facility] DAILY [facility] Vital Signs Vital Name Observation Time Observation [...] 15:42:00 120 mm[Hg] Univer sity of pressure [facility] Diastolic blood 2020-06-16 15:42:00 60 mm[Hg] Unive rsity of pressure [facility] Heart rate 2020-06-16 15:42:00 82 /min [facility] Body weight 2020-06-16 15:42:00 76.204 kg [facility] BMI 2020-06-16 15:42:00 28.84 kg/m2 [facility] Oxygen saturation in 2020-06-16 15:42:00 97 /min [facility] Arterial blood by [facility] Pulse oximetry Branch Systolic blood 2020-06-16 [...] 97 /min [facility] Arterial blood by [facility] Pulse oximetry Branch Systolic blood 2020-02-11 21:18:00 149 mm[Hg] [facility] Diastolic blood 2020-02-11 21:18:00 80 mm[Hg] [facility] Heart rate 2020-02-11 21:17:00 74 /min [facility] Respiratory rate 2020-02-11 21:17:00 19 /min [facility] Body weight 2020-02-11 21:17:00 77.474 kg [facility] BMI 2020-02-11 21:17:00 29.32 kg/m2 [facility] Procedures Procedure Date / Time Performing Clinician Source Performed AMB REF TO 2022-08-31 09:14:55 [facility]STRO[facility] Medicine MR BRAIN WITH & WITHOUT IV 2021-12-01 13:14:00 Sita Diaz [facility] [place] REFERRAL- REQUEST/RESPONSE 2020-02-25 05:01:00 Doctor Unassigned , [facility] COGNITIVE ASSESSMENT 2020-02-11 05:01:00 Doctor Unassigned, [facility] Name [facility] COGNITIVE ASSESSMENT 2019-08-19 06:01:00 Doctor Unassigned, [facility] Plan of Care Planned Activity Planned Date Details Comments Source Future Scheduled 2022-09-02 COVID-19 VACCINE (#1) [facility] Test 22:35:24 [code = COVID-19 VACCINE (#1)] Future Scheduled 2022-09-02 Hepatitis C screening [facility] Test 22:35:24 (procedure) [code = 634791341] Future Scheduled 2022-09-02 BREAST CANCER [facility] Test 22:35:24 SCREENING [code = BREAST CANCER SCREENING] Future Scheduled 2022-09-02 COLONOSCOPY SCREENING [facility] Test 22:35:24 [code = COLONOSCOPY SCREENING] Future Scheduled 2022-09-02 [facility]INES ([facility]:35:24 of 2) [code = SHINGLES VACCINES (1 of 2)] Future Scheduled 2022-09-02 65[facility] 22:35:24 VACCINE (1 - PCV) [code = 65+ PNEUMOCOCCAL VACCINE (1 - PCV)] Future Scheduled 2022-09-02 [facility]INE [facility] 22:35:24 [code = INFLUENZA VACCINE] Future Scheduled 2022-08-[address] [facility] Test 00:00:00 (12+) [code = Medical Center DEPRESSION SCREENING (12+)] Future Scheduled 2022-08-07 FALLS RISK SCREENING [facility] Test 00:00:00 [code = FALLS RISK Medical C enter SCREENING] Future Scheduled 2022-08-[address] [facility] Test 00:00:00 (12+) [code = Medical Center DEPRESSION SCREENING (12+)] Future Scheduled 2022-08-07 FALLS RISK SCREENING [facility] Test 00:00:00 [code = FALLS RISK Medical C enter SCREENING] Future Scheduled 2022-08-[address] [facility] Test 00:00:00 (12+) [code = Medical Center DEPRESSION SCREENING (12+)] Future Scheduled 2022-08-07 FALLS RISK SCREENING [facility] Test 00:00:00 [code = FALLS RISK Medical C enter SCREENING] Future Scheduled 2022-08-[address] [facility] Test 00:00:00 (12+) [code = Medical Center DEPRESSION SCREENING (12+)] Future Scheduled 2022-08-07 FALLS RISK SCREENING [facility] Test 00:00:00 [code = FALLS RISK Medical C enter SCREENING] Future Scheduled 2022-08-[address] [facility] Test 00:00:00 (12+) [code = Medical Center DEPRESSION SCREENING (12+)] Future Scheduled 2022-08-07 FALLS RISK SCREENING [facility] Test 00:00:00 [code = FALLS RISK Medical C enter SCREENING] Future Scheduled 2022-04-07 INFLUENZA VACCINE (#1) [facility]00 [code = INFLUENZA Medical Ce nter VACCINE (#1)] Future Scheduled 2022-04-07 INFLUENZA VACCINE (#1) [facility] 00:00:00 [code = INFLUENZA Medical Ce nter VACCINE (#1)] Future Scheduled 2022-04-07 INFLUENZA VACCINE (#1) [facility] 00:00:00 [code = INFLUENZA Medical Ce nter VACCINE (#1)] Future Scheduled 2022-04-07 INFLUENZA VACCINE (#1) [facility] 00:00:00 [code = INFLUENZA Medical Ce nter VACCINE (#1)] Future Scheduled 2022-04-07 INFLUENZA VACCINE (#1) [facility] 00:00:00 [code = INFLUENZA Medical Ce nter VACCINE (#1)] Future Scheduled 2022-04-07 INFLUENZA VACCINE (#1) [facility] 00:00:00 [code = INFLUENZA Medical Ce nter VACCINE (#1)] Future Scheduled 2022-04-07 INFLUENZA VACCINE (#1) [facility] 00:00:00 [code = INFLUENZA Medical Ce nter VACCINE (#1)] Future Scheduled 2022-04-07 INFLUENZA VACCINE (#1) [facility] 00:00:00 [code = INFLUENZA Medical Ce nter VACCINE (#1)] Future Scheduled 2022-01-[address] [facility] Test 00:00:00 [facility]ing [facility] Medical Cent[facility] r Screening (12+) [code = Tobacco Cessation Counseling and Screening (12+)] Future Scheduled 2022-01-[address] [facility] Test 00:00:00 [facility]ing and Medical Cent[facility] r Screening (12+) [code = Tobacco Cessation Counseling and Screening (12+)] Future Scheduled 2022-01-[address] [facility] Test 00:00:00 Counseling and Medical Cente r Screening (12+) [code = Tobacco Cessation Counseling and Screening (12+)] Future Scheduled 2022-01-[address] [facility] Test 00:00:00 Counseling and Medical Cente r Screening (12+) [code = Tobacco Cessation Counseling and Screening (12+)] Future Scheduled 2022-01-[address] [facility] Test 00:00:00 Counseling and Medical Cente r Screening (12+) [code = Tobacco Cessation Counseling and Screening (12+)] Future Scheduled 2022-01-[address] [facility] Test 00:00:00 Counseling and Medical Cente r Screening (12+) [code = Tobacco Cessation Counseling and Screening (12+)] Future Scheduled 2022-01-[address] [facility] Test 00:00:00 Counseling and Medical Cente r Screening (12+) [code = Tobacco Cessation Counseling and Screening (12+)] Future Scheduled 2022-01-[address] [facility] Test 00:00:00 Counseling and Medical Cente r Screening (12+) [code = Tobacco Cessation Counseling and Screening (12+)] Future Scheduled 2021-08-[address] [facility] 00:00:00 WELLNESS (YEAR 2 or Medical Center FIRST YEAR if no IPPE) [code = MEDICARE ANNUAL WELLNESS (YEAR 2 or FIRST YEAR if no IPPE)] Future Scheduled 2021-08-[address] [facility] 00:00:00 WELLNESS (YEAR 2 or Medical Center FIRST YEAR if no IPPE) [code = MEDICARE ANNUAL WELLNESS (YEAR 2 or FIRST YEAR if no IPPE)] Future Scheduled 2021-08-[address] [facility] 00:00:00 WELLNESS (YEAR 2 or Medical Center FIRST YEAR if no IPPE) [code = MEDICARE ANNUAL WELLNESS (YEAR 2 or FIRST YEAR if no IPPE)] Future Scheduled 2021-08-[address] [facility] 00:00:00 WELLNESS (YEAR 2 or Medical Center FIRST YEAR if no IPPE) [code = MEDICARE ANNUAL WELLNESS (YEAR 2 or FIRST YEAR if no IPPE)] Future Scheduled 2021-08-[address] [facility] 00:00:00 WELLNESS (YEAR 2 or Medical Center FIRST YEAR if no IPPE) [code = MEDICARE ANNUAL WELLNESS (YEAR 2 or FIRST YEAR if no IPPE)] Future Scheduled 2021-08-[address] [facility] 00:00:00 WELLNESS (YEAR 2 or Medical Center FIRST YEAR if no IPPE) [code = MEDICARE ANNUAL WELLNESS (YEAR 2 or FIRST YEAR if no IPPE)] Future Scheduled 2021-08-[address] [facility] 00:00:00 WELLNESS (YEAR 2 or Medical Center FIRST YEAR if no IPPE) [code = MEDICARE ANNUAL WELLNESS (YEAR 2 or FIRST YEAR if no IPPE)] Future Scheduled 2021-08-[address] [...] RISK Medical C enter SCREENING] Future Scheduled 2021-08-[address] [facility] Test 00:00:00 (12+) [code = Medical Center DEPRESSION SCREENING (12+)] Future Scheduled 2021-08-07 FALLS RISK SCREENING [facility] Test 00:00:00 [code = FALLS RISK Medical C enter SCREENING] Future Scheduled 2021-08-[address] [facility] Test 00:00:00 (12+) [code = Medical Center DEPRESSION SCREENING (12+)] Future Scheduled 2021-08-07 FALLS RISK SCREENING [facility] Test 00:00:00 [code = FALLS RISK Medical C enter SCREENING] Future Scheduled 1998 SHINGLES VACCINES ([address] [facility] Test 00:00:00 of 2) [code = SHINGLES Medic al Center VACCINES (1 of 2)] Future Scheduled 1998 SHINGLES VACCINES ([address] [facility] Test 00:00:00 of 2) [code = SHINGLES Medic al Center VACCINES (1 of 2)] Future Scheduled 1998 SHINGLES VACCINES ([address] [facility] Test 00:00:00 of 2) [code = SHINGLES Medic al Center VACCINES (1 of 2)] Future Scheduled 1998 SHINGLES VACCINES ([address] [facility] 00:00:00 of 2) [code = SHINGLES Medic al Center VACCINES (1 of 2)] Future Scheduled 1998 SHINGLES VACCINES ([address] [facility] Test 00:00:00 of 2) [code = SHINGLES Medic al Center VACCINES (1 of 2)] Future Scheduled 1998 SHINGLES VACCINES ([address] [facility] 00:00:00 of 2) [code = SHINGLES Medic al Center VACCINES (1 of 2)] Future Scheduled 1998 SHINGLES VACCINES ([address] [facility] Test 00:00:00 of 2) [code = SHINGLES Medic al Center VACCINES (1 of 2)] Future Scheduled 1998 SHINGLES VACCINES ([address] [facility] Test 00:00:00 of 2) [code = SHINGLES Medic al Center VACCINES (1 of 2)] Future Scheduled 1967 DTAP/TDAP/TD [facility]ACCINES [facility]:00 (1 - Tdap) [code = Medical C enter DTAP/TDAP/TD VACCINES (1 - Tdap)] Future Scheduled 1967 DTAP/TDAP/TD [facility]ACCINES [facility] 00:00:00 (1 - Tdap) [code = Medical C enter DTAP/TDAP/TD VACCINES (1 - Tdap)] Future Scheduled 1967 DTAP/TDAP/TD [facility]ACCINES [facility] 00:00:00 (1 - Tdap) [code = Medical C enter DTAP/TDAP/TD VACCINES (1 - Tdap)] Future Scheduled 1967 DTAP/TDAP/TD [facility]ACCINES [facility] 00:00:00 (1 - Tdap) [code = Medical C enter DTAP/TDAP/TD VACCINES (1 - Tdap)] Future Scheduled 1967 DTAP/TDAP/TD [facility]ACCINES [facility] 00:00:00 (1 - Tdap) [code = Medical C enter DTAP/TDAP/TD VACCINES (1 - Tdap)] Future Scheduled 1967 DTAP/TDAP/TD [facility]ACCINES [facility] 00:00:00 (1 - Tdap) [code = Medical C enter DTAP/TDAP/TD VACCINES (1 - Tdap)] Future Scheduled 1967 DTAP/TDAP/TD [facility]ACCINES [facility] 00:00:00 (1 - Tdap) [code = Medical C enter DTAP/TDAP/TD VACCINES (1 - Tdap)] Future Scheduled 1967 DTAP/TDAP/TD [facility]ACCINES [facility] 00:00:00 (1 - Tdap) [code = Medical C enter DTAP/TDAP/TD VACCINES (1 - Tdap)] Future Scheduled 1966 HEPATITIS C [facility]CRE[facility]ING [facility]:00:00 [code = HEPATITIS C Medical Center SCREENING] Future Scheduled 1966 HEPATITIS C [facility] 00:00:00 [code = HEPATITIS C Medical Center SCREENING] Future Scheduled 1966 HEPATITIS C [facility] 00:00:00 [code = HEPATITIS C Medical Center SCREENING] Future Scheduled 1966 HEPATITIS C [facility] 00:00:00 [code = HEPATITIS C Medical Center SCREENING] Future Scheduled 1966 HEPATITIS C [facility] 00:00:00 [code = HEPATITIS C Medical Center SCREENING] Future Scheduled 1966 HEPATITIS C [facility] 00:00:00 [code = HEPATITIS C Medical Center SCREENING] Future Scheduled 1966 HEPATITIS C [facility] 00:00:00 [code = HEPATITIS C Medical Center SCREENING] Future Scheduled 1966 HE[facility]ITIS C [facility]:00:00 [code = HEPATITIS C Medical Center SCREENING] Future Scheduled 1954 PNEUMOCOCCAL 65+ YRS [facility] Test 00:00:00 (1 - PCV) [code = Medical Ce nter PNEUMOCOCCAL 65+ YRS (1 - PCV)] Future Scheduled 1954 PNEUMOCOCCAL 65+ YRS [facility] Test 00:00:00 (1 - PCV) [code = Medical Ce nter PNEUMOCOCCAL 65+ YRS (1 - PCV)] Future Scheduled 1954 PNEUMOCOCCAL 65+ YRS [facility] Test 00:00:00 (1 - PCV) [code = Medical Ce nter PNEUMOCOCCAL 65+ YRS (1 - PCV)] Future Scheduled 1954 PNEUMOCOCCAL 65+ YRS [facility] Test 00:00:00 (1 - PCV) [code = Medical Ce nter PNEUMOCOCCAL 65+ YRS (1 - PCV)] Future Scheduled 1954 PNEUMOCOCCAL 65+ YRS [facility] 00:00:00 (1 - PCV) [code = Medical Ce nter PNEUMOCOCCAL 65+ YRS (1 - PCV)] Future Scheduled 1954 PNEUMOCOCCAL 65+ YRS [facility] Test 00:00:00 (1 - PCV) [code = Medical Ce nter PNEUMOCOCCAL 65+ YRS (1 - PCV)] Future Scheduled 1954 PNEUMOCOCCAL 65+ YRS [facility] Test 00:00:00 (1 - PCV) [code = Medical Ce nter PNEUMOCOCCAL 65+ YRS (1 - PCV)] Future Scheduled 1954 PNEUMOCOCCAL 65+ YRS [facility] Test 00:00:00 (1 - PCV) [code = Medical Ce nter PNEUMOCOCCAL 65+ YRS (1 - PCV)] Future Scheduled 1948 COVID-19 VACCINE (#1[facility] 00:[facility]:00 [code = COVID-[address] VACCINE (#1)] Future Scheduled 1948 COVID-19 VACCINE (#1) [facility] 00:00:00 [code = COVID-[address] VACCINE (#1)] Future Scheduled 1948 COVID-19 VACCINE (#1) [facility] 00:00:00 [code = COVID-[address] VACCINE (#1)] Future Scheduled 1948 COVID-19 VACCINE (#1) [facility] 00:00:00 [code = COVID-[address] VACCINE (#1)] Future Scheduled 1948 COVID-19 VACCINE (#1) [facility] 00:00:00 [code = COVID-[address] VACCINE (#1)] Future Scheduled 1948 COVID-19 VACCINE (#1) [facility] 00:00:00 [code = COVID-[address] VACCINE (#1)] Future Scheduled 1948 COVID-19 VACCINE (#1) [facility] 00:00:00 [code = COVID-[address] VACCINE (#1)] Future Scheduled 1948 COVID-19 VACCINE (#1) [facility] 00:00:00 [code = COVID-[address] VACCINE (#1)] Future Scheduled [address] [facility]00 malignant neoplasm of [facility] Center breast (procedure) [code = [id number]] Future Scheduled [address] [facility] 00:00:00 (combo) [code = CT Medical C enter Colonography (combo)] Future Scheduled [address] [facility] 00:00:00 malignant [facility] colon (procedure) [code = 562153964] Future Scheduled [address] [facility] 00:00:00 malignant neoplasm of [facility] Center colon (procedure) [code = 061734419] Future Scheduled 1948 DXA SCAN [code = DXA [facility] Test 00:00:00 SCAN] [facility] Future Scheduled [address] [facility] 00:00:00 malignant neoplasm of [facility] Center colon (procedure) [code = 769561891] Future Scheduled [address] [facility] 00:00:00 malignant neoplasm of [facility] Center colon (procedure) [code = 940843163] Future Scheduled 1948 Sigmoidoscopy [facility] [address] [facility] 00:00:00 malignant neoplasm of [facility] Center breast (procedure) [code = 623327972] Future Scheduled [address] [facility] 00:00:00 (combo) [code = CT Medical C enter Colonography (combo)] Future Scheduled [address] [facility] 00:00:00 malignant neoplasm of [facility] Center colon (procedure) [code = 855045993] Future Scheduled [address] [facility] 00:00:00 malignant neoplasm [facility] colon (procedure) [code = 407613004] Future Scheduled 1948 DXA SCAN [code = DXA [facility] 00:00:00 SCAN] [facility] Future Scheduled [address] [facility] 00:00:00 malignant neoplasm of [facility] Center colon (procedure) [code = 241545830] Future Scheduled [address] [facility] 00:00:00 malignant neoplasm of [facility] Center colon (procedure) [code = 016403515] Future Scheduled 1948 Sigmoidoscopy [facility]code [facility]] [facility] Future Scheduled [address] [facility] 00:00:00 malignant neoplasm [facility] breast (procedure) [code = 670428690] Future Scheduled [address] [facility] 00:00:00 (combo) [code = CT Medical C enter Colonography (combo)] Future Scheduled [address] [facility] 00:00:00 malignant [facility] Center colon (procedure) [code = 951116094] Future Scheduled [address] [facility] 00:00:00 malignant neoplasm of [facility] Center colon (procedure) [code = 953097157] Future Scheduled 1948 DXA SCAN [code = DXA [facility] 00:00:00 SCAN] [facility] Future Scheduled [address] [facility] 00:00:00 malignant neoplasm of [facility] Center colon (procedure) [code = 588513293] Future Scheduled [address] [facility] 00:00:00 malignant neoplasm of [facility] Center colon (procedure) [code = 627454133] Future Scheduled 1948 Sigmoidoscopy [facility]code [facility] [address] [facility] 00:00:00 malignant neoplasm of [facility] Center breast (procedure) [code = 300726553] Future Scheduled [address] [facility] 00:00:00 (combo) [code = CT Medical C enter Colonography (combo)] Future Scheduled [address] [facility] 00:00:00 malignant neoplasm [facility] colon (procedure) [code = 742811243] Future Scheduled [address] [facility] 00:00:00 malignant [facility] colon (procedure) [code = 802118949] Future Scheduled 1948 DXA SCAN [code = DXA [facility] 00:00:00 SCAN] [facility] Future Scheduled [address] [facility] 00:00:00 malignant [facility] colon (procedure) [code = 064373065] Future Scheduled [address] [facility] 00:00:00 malignant neoplasm [facility] colon (procedure) [code = 229017877] Future Scheduled 1948 S[facility]oidoscopy [facility]] [facility] Future Scheduled [address] [facility] 00:00:00 malignant neoplasm of [facility] Center breast (procedure) [code = 444503870] Future Scheduled [address] [facility] 00:00:00 (combo) [code = CT Medical C enter Colonography (combo)] Future Scheduled [address] [facility] 00:00:00 malignant neoplasm of [facility] colon (procedure) [code = 236540314] Future Scheduled [address] [facility] 00:00:00 malignant neoplasm of [facility] Center colon (procedure) [code = 308542549] Future Scheduled 1948 DXA SCAN [code = DXA [facility] 00:00:00 SCAN] [facility] Future Scheduled [address] [facility] 00:00:00 malignant neoplasm of [facility] Center colon (procedure) [code = 085022681] Future Scheduled [address] [facility] 00:00:00 malignant neoplasm of [facility] Center colon (procedure) [code = 352248040] Future Scheduled 1948 Sigmoidoscopy [facility]code = [facility] S[facility]] [facility] Future Scheduled [address] [facility] 00:00:00 malignant neoplasm of [facility] Center breast (procedure) [code = 447558399] Future Scheduled [address] [facility] 00:00:00 (combo) [code = CT Medical C enter Colonography (combo)] Future Scheduled [address] [facility] 00:00:00 malignant neoplasm of [facility] Center colon (procedure) [code = 339128021] Future Scheduled [address] [facility] 00:00:00 malignant neoplasm [facility] Center colon (procedure) [code = 163203115] Future Scheduled 1948 DXA SCAN [code = DXA [facility] 00:00:00 SCAN] [facility] Future Scheduled [address] [facility] 00:00:00 malignant neoplasm of [facility] Center colon (procedure) [code = 101238113] Future Scheduled [address] [facility] 00:00:00 malignant neoplasm of [facility] Center colon (procedure) [code = 882314542] Future Scheduled 1948 Sigmoidoscopy [facility]code [facility] S[facility]] [facility] Future Scheduled [address] [facility] 00:00:00 malignant neoplasm of [facility] Center breast (procedure) [code = 729210554] Future Scheduled [address] [facility] 00:00:00 (combo) [code = CT Medical C enter Colonography (combo)] Future Scheduled [address] [facility] 00:00:00 malignant neoplasm of [facility] Center colon (procedure) [code = 272959062] Future Scheduled [address] [facility] 00:00:00 malignant neoplasm of [facility] Center colon (procedure) [code = 409584693] Future Scheduled 1948 DXA SCAN [code = DXA [facility] 00:00:00 SCAN] [facility] Future Scheduled [address] [facility] 00:00:00 malignant neoplasm of [facility] Center colon (procedure) [code = 556055610] Future Scheduled [address] [facility] 00:00:00 malignant neoplasm of [facility] Center colon (procedure) [code = 359627354] Future Scheduled 1948 Sigmoidoscopy [facility]code [facility] Future Scheduled [address] [facility] 00:00:00 malignant neoplasm of [facility] Center breast (procedure) [code = 443219250] Future Scheduled [address] [facility] 00:00:00 (combo) [code = CT Medical C enter Colonography (combo)] Future Scheduled [address] [facility] 00:00:00 malignant neoplasm of [facility] Center colon (procedure) [code = 157193402] Future Scheduled [address] [facility] 00:00:00 malignant neoplasm of [facility] Center colon (procedure) [code = 434260692] Future Scheduled 1948 DXA SCAN [code = DXA [facility] 00:00:00 SCAN] [facility] Future Scheduled [address] [facility] 00:00:00 malignant neoplasm of [facility] Center colon (procedure) [code = 968103118] Future Scheduled [address] [facility] 00:00:00 malignant neoplasm [facility] Center colon (procedure) [code = 326352102] Future Scheduled 1948 Sigmoidoscopy [facility]code [facility] S[facility]oscopy] [facility] Start End Encounter Admission Attending Care Care Encounter Source Date/Time Date/Time Type Type Clinicians Facility Department ID 2020-07-20 Inpatient ER ANTONI, [facility] Neuro ICU [id number] [facility] 01:51:00 DAIMA 2022-11-08 2022-11-08 Outpatient CARMEN TENORIO [facility] [id number] SLE 00:00:00 00:00:00 [facility] 2022-08-31 2022-08-31 Outpatient MYRNA, [facility] [id number] [facility] 08:44:35 09:15:37 [facility] 2022-08-24 2022-08-24 Outpatient MAR[facility]ETTA DIAZ [facility] [id number] [facility] 00:00:00 00:00:00 [facility] 2022-08-24 2022-08-24 Outpatient MAR[facility]ETTA DIAZ [facility] [id number] [facility] 00:00:00 00:00:00 [facility] 2022-06-27 2022-06-27 Outside [facility], [facility] [id number] 00:00:00 00:00:00 Orders [facility] 2022-06-27 2022-06-27 Outside [facility], [facility] [id number] 00:00:00 00:00:00 Orders [facility] 2021-12-15 2021-12-15 Outpatient DIAZ, [facility] [id number] [facility] 08:47:20 09:30:32 [facility] 2021-12-01 2021-[facility] [id number] [facility] 12:10:26 23:59:00 Encounter 1.5, [facility] 2021-12-01 2021-12-01 Outpatient MAR[facility]ETTA DIAZ [facility] [id number] SLE 12:10:26 23:59:00 [facility] 2021-12-01 2021-12-[address] [facility] [id number] [facility] 12:10:26 23:59:00 [facility], [facility] 2021-01-18 2021-01-18 Outpatient [facility] [id number] 00:00:00 00:00:00 [facility] 2020-12-28 2020-12-[address] [facility] [id number] SLE 00:00:00 00:00:00 [place] 2020-11-16 2020-11-16 Outpatient [facility] [id number] 00:00:00 00:00:00 [facility] 2020-11-16 2020-11-16 Outpatient [facility] [id number] 00:00:00 00:00:00 [facility] 2020-09-18 2020-09-23 Inpatient ANDER, [facility] [id number] [place] 00:00:00 00:00:00 ALIFIYA [address] 2020-09-14 2020-09-14 Outpatient LOCRAND, [facility] [id number] [place] 00:00:00 00:00:00 SAYL [address] 2020-08-18 2020-08-18 Outpatient ALEXANDRO LARSON [facility] [id number] [facility] 16:00:00 16:00:00 ALEXANDRO SELF [facility] 2020-08-17 2020-08-17 Outpatient [facility] [id number] 11:25:35 11:25:35 [facility] 2020-07-20 2020-07-20 [facility] 1.2.840.114 [id number] Univers 00:00:00 00:00:00 Alexandro Fraga [id number] [place] [phone] [address] 2020-06-23 2020-06-23 [facility] 1.2.840.114 [id number] Univers 00:00:00 00:00:00 Alexandro Fraga [id number] [id number] [phone] Ga dic[address] 2020-06-23 2020-06-23 [facility]phone [facility] 1.2.840.114 [id number] 00:00:00 00:00:00 Alexandro Fraga [id number] [place] 4.2.7.2.686 Professio [phone] [address] 2020-06-22 2020-06-22 [facility]phone [facility] 1.2.840.114 [id number] Univers 00:00:00 00:00:00 Alexandro Fraga [id number] [id number] [phone] [address] 2020-06-16 2020-06-16 Office [facility] 1.2.840.114 [id number] [facility] 09:24:15 10:41:13 Visit Alexandro Sam Fraga [id number] [place] [phone] [address] 2020-06-16 2020-06-16 Office [facility] 1.2.840.114 [id number] [facility] 09:24:15 10:41:13 Visit Alexandro Fraga [id number] [place] 4.2.7.2.686 Professio [phone] [address] 2020-06-16 2020-06-16 Outpatient R ALEXANDRO SELF [facility] [id number] Univers 09:40:00 09:40:00 ALEXANDRO SELF [facility] 2020-03-13 2020-03-13 Outpatient Sveta GALARZA [facility] [id number] Univers 08:30:00 08:30:00 AMIE [facility] 2020-02-25 2020-02-25 Orders Doctor VALLE 1.2.840.114 [id number] Univers 00:00:00 00:00:00 Only Unassigned, MAHAD 350.1.13.10 it[place] of [place] [facility] 4.2.7.2.686 [place] as [phone] [address] 2020-02-17 2020-02-17 Outpatient R ALEXANDRO SELF [facility] [id number] Univers 11:00:00 11:00:00 ALEXANDRO SELF [facility] 2020-02-11 2020-02-11 Office Clair [facility] 1.2.840.114 [id number] Univers 16:01:34 16:54:44 Visit Alexandro Fraga 350.1.13.10 ity [facility] 4.2.7.2.[place] [phone] Ga dical nal 092 [facility] 2020-02-11 2020-02-11 Outpatient ALEXANDRO LARSON [facility] [id number] Univers 16:00:00 16:00:00 ALEXANDRO SELF [facility] 2020-02-11 2020-02-11 Orders Doctor TORI 1.2.840.114 [id number] Univers 00:00:00 00:00:00 Only Unassigned, MAHAD 350.1.13.10 [place] [facility] 4.2.7.2.686 [place] [phone] [address] 2019-11-16 2019-11-16 Outpatient R AYE [facility] [id number] Univers 12:00:00 12:00:00 STONE ity [facility] 2019-11-16 2019-11-16 Nurse TORI Simpson 1.2.840.114 [id number] Univers 00:00:00 00:00:00 Triage Debra M MAHAD 350.1.13.10 ity of [place] [id number] [place] as [phone] [address] 2019-11-16 2019-11-16 Telephone TORI Simpson 1.2.840.114 [id number] Univers 00:00:00 00:00:00 Debra M MAHAD 350.1.13.10 ity of [address]2.686 [place] [phone] [address] 2019-11-16 2019-11-16 Telephone TORI Simpson 1.2.840.114 [id number] Univers 00:00:00 00:00:00 Debra M MAHAD 350.1.13.10 ity of [facility] 4.2.7.2.686 [place] [phone] [facility] [address] 2019-11-04 2019-11-04 Outpatient Brazmala Esquivelt [id number] Common 08:36:00 08:36:00 [facility] 2019-10-02 2019-10-02 Outpatient [place] [id number] Common 16:17:00 16:17:00 t [facility] - [facility] 2019-08-19 2019-08-19 Office JESSY Self 1.2.840.114 [id number] [facility] 16:09:28 16:55:12 Visit Alexandro Fraga 350.1.13.10 [id number] [phone] Ga dical [facility] 092 Branch [facility] 2019-08-19 2019-08-19 Orders Doctor TORI 1.2.840.114 [id number] Univers 00:00:00 00:00:00 Only Unassigned, MAHAD 350.1.13.10 ity of [place] [facility] [id number] [place] [phone] [facility] 009 [address] 2019-05-08 2019-05-08 Outpatient Brazmala Esquivelt [id number] Common 14:28:00 14:28:00 t Bone Bone and Spiri t and [facility] - [facility] 2019-04-11 2019-04-11 [place]patient [facility] [id number] Common 13:30:00 13:30:00 t Bone Bone and Spiri t and Joint [facility] - [facility] 2019-04-04 2019-04-04 [place]patient [facility] [id number] Common 08:30:00 08:30:00 t Bone Bone and Spiri t and Joint Joint - [facility] 2019-03-29 2019-03-29 [place]patient [facility] [id number] Common 08:30:00 08:30:00 t Bone Bone and Spiri t and Joint Joint - [facility] 2019-03-19 2019-03-19 [place]patient [facility] [id number] Common 15:30:00 15:30:00 t Bone Bone and Spiri t and Joint Joint - [facility] 2019-03-19 2019-03-19 Outpatient [facility] [id number] Common 09:00:00 09:00:00 t Bone Bone and Spiri t and Joint Joint - [facility] 2018-07-25 2018-07-25 Outpatient [facility] [id number] Common 08:38:00 08:38:00 t Bone Bone and Spiri t and Joint [facility] - [facility] 2018-05-17 2018-05-17 Outpatient [facility] [id number] Common 09:23:00 09:23:00 t Bone Bone and Spiri t and Joint Joint - [facility] 2018-05-08 2018-05-08 Outpatient [facility] [id number] Common 08:02:00 08:02:00 t Bone Bone and Spiri t and Joint [facility] - [facility] Results Test Description Test Time Test Comments Results Result [facility] e Comments MR, BRAIN, 2021-12-01 Unlisted Reason WITHOUT / WITH IV 14:54:00 for Exam - Click CONTRAST Yes and Enter [facility] MEDICAL Below->YesUnlist CENTERName: SIA NIÑO ed Reason for RADHA WHELAN : Exam->benign 1950 Sex: meningiomaAnesth F esia:->NoneDoes the patient have FINAL an implanted REPORT PATIENT ID: electronic [id number] MR, BRAIN, device?->No WITHOUT / WITH IV [...] Yes and Enter [facility] Reason Below->No [facility] : 1950 Sex: F FINAL [...] Villegas Verified Date/Time: 12/29/2020 07:50:40 Reading Location: [facility] Reading Room [address] [place] [address] -CoV-2 (COVID-19) RNA [Presence] in Respiratory sp ecimen by 2020-09-14 22:54:18 KENNETH with probe detection Test Item Value Reference Range Interpretation Comme nts SARS-CoV-2 (COVID-19) RNA [Presence] in Respiratory Not detected No t-Detected specimen by KENNETH with probe detection (test code = 75894-6) Felix López [facility] [id number] 11:32:00 Test Item Value Reference Range Interpretation Comments POC-GLUCOSE METER 108 mg/dL 70-110 : TESTED A T [facility] 27186 (BEAKER) (test code [address] THE, = 1538) [place] [address] 384: Salon Manager/Techni emil ID = [id number] for T yana Cecile POCT-GLUCOSE [id number] 11:31:00 Test Item Value Reference Range Interpretation Comments POC-GLUCOSE METER 169 mg/dL 70-110 H : TESTED A T [facility] 90135 (BEAKER) (test code [address] THE, = 1538) [place] [address] 384: Salon Manager/Techni emil ID = [id number] for A lcaraz, Sheryl POCT-GLUCOSE [id number] 11:31:00 Test Item Value Reference Range Interpretation Comments POC-GLUCOSE METER 75 mg/dL 70-110 : TESTED A T [facility] 30748 (BEAKER) (test code = [facility] [address] THE, 1538) [place] [address] 384: Salon Manager/Techni emil ID = [id number] for A lcaraz, Sheryl POCT-GLUCOSE [id number] 11:31:00 Test Item Value Reference Range Interpretation Comments POC-GLUCOSE METER 103 mg/dL 70-110 : TESTED A T [facility] 97875 (BEAKER) (test code [address] THE, = 1538) [place] [address] 384: Salon Manager/Techni emil ID = [id number] for H Sakina matthews TISSUE [id number] 11:14:00Surgical Pathology Report Case: [id number] Authorizing Provider: Ramu Fulton Collected: 07/28/2020 02:42 PM MD Marciano Ordering Location: [facility] - Perioperative Received: 07/28/2020 02:48 PM Galo bush Pathologist: Moi Ruffin MD Specimens: A) - Brain, brain tumor B) - Brain, Brain Tumor A. BRAIN, RIGHT FRONTAL, CRANIOTOMY:SECRETORY MENINGIOMA WITH ATYPICAL FEATURES (SEE COMMENT)B. BRAIN, RIGHT FRONTAL, CRANIOTOMY:SECRETORY MENINGIOMA WITH ATYPICAL FEATURES (SEE COMMENT) Signing Pathologist Direct Phone Line: [phone] signed by Moi Ruffin MD on 08/11/2020 at 11:14AMThe meningioma is highly cellular with focally prominent nucleoli. Vague whorling is present, although some confluent growth is present. Mitoses number 1-2 or less per 10 high power kunz. No definite necrosis is present, and brain invasion is absent. There are multifocal pseudopsamomma bodies thatare filled with proteinaceous inclusions and are rimmed by MADISYN positive tumor cells, typical of the secretory subtype. The Ki67 proliferation index is 15.7%, consistent with a moderately elevated prolif eration index. Given the high cellularity and focally prominent nucleoli, just short of fulfilling the criteria for Grade II meningioma, but elevated proliferation index, the tumor may be predisposed to recurrence or aggressive behavior. Close clinical follow-up may be warranted if clinically indicated. 06371 x 2; 73612; 24958; 06418Ygrqt tumor. Procedure: Stealth craniotomy. A. Brain tumor; B. BraintumorThe instrument, paperwork, containers and cassettes all read [id number].Received in formalin labeled with the patient's name [...] for permanent section. Specimen B: Received in formalinlabeled as "brain tissue" are two luna-emmanuel rubbery segments of tissue. The first measures 2.5 x 1.7 x 1.5 cm. The other measures 2.7 x 2.6 x 2.0 cm. Sectioning reveals a luna-emmanuel cut surface. The specimen is sectioned. The smaller segment is totally submitted in B1 and B2. The larger segment is totally submitted in B3 through B5. JF/pl INTRAOPERATIVE CONSULTATION WITH FROZEN [id number]: BRAIN, MASS L ESION, CRANIOTOMY WITH FROZEN SECTION:- MENINGIOMANote: The above [...] use of immunohistochemistry or special stains.Control Slides Examined:In-house known positive controls were evaluated along with the test tissue. These control slides runalongside of the patients sample show appropriate staining. Internal positive and negative controls when available are evaluated Immunohistochemistry technical testing was performed at [facility] Pathology Laboratory where it was [...] the Clinical Laboratory Improvement Amendments of 1988 (CLIA-88) as qualified to perform high complexity clinical laboratory testing.POCT-GLUCOSE [id number] 12:25:00 Test Item Value Reference Range Interpretation Comments POC-GLUCOSE METER 130 mg/dL 70-110 H : TESTED A T [facility] 72893 (BEAKER) (test code [facility] [employer] [address] THE, = 1538) [place] [address] 384: Salon Manager/Techni emil ID = [id number] for Gibson Obregon POCT-GLUCOSE [id number] 05:39:00 Test Item Value Reference Range Interpretation Comments POC-GLUCOSE METER 106 mg/dL 70-110 : TESTED A T [facility] 97678 (BEAKER) (test code [facility] [address] THE, = 1538) [place] [address] 384: Salon Manager/Techni emil ID = [id number] for Damien Cisneros POCT-GLUCOSE [id number] 21:35:00 Test Item Value Reference Range Interpretation Comments POC-GLUCOSE METER 130 mg/dL 70-110 H : TESTED A T [facility] 32596 (BEAKER) (test code [address] THE, = 1538) [place] [address] 384: Salon Manager/Techni emil ID = [id number] for Damien Cisneros POCT-GLUCOSE [id number] 14:45:00 Test Item Value Reference Range Interpretation Comments POC-GLUCOSE METER 165 mg/dL 70-110 H : TESTED A T [facility] 35076 (BEAKER) (test code [facility] [address] THE, = 1538) [place] [address] 384: Salon Manager/Techni emil ID = [id number] for Damien Cisneros POCT-GLUCOSE [id number] 12:10:00 Test Item Value Reference Range Interpretation Comments POC-GLUCOSE METER 214 mg/dL 70-110 H : TESTED A T [facility] 11001 (BEAKER) (test code [address] THE, = 1538) [place] [address] 384: Salon Manager/Techni emil ID = [id number] for Cecile Garcia POCT-GLUCOSE [id number] 05:51:00 Test Item Value Reference Range Interpretation Comments POC-GLUCOSE METER 103 mg/dL 70-110 : TESTED A T [facility] 51787 (BEAKER) (test code [facility] [address] THE, = 1538) [place] [address] 384: Salon Manager/Techni emil ID = [id number] for Damien Cisneros POCT-GLUCOSE [id number] 15:14:00 Test Item Value Reference Range Interpretation Comments POC-GLUCOSE METER 104 mg/dL 70-110 : TESTED A T [facility] 29843 (BEAKER) (test code [facility] [address] THE, = 1538) [place] [address] 384: Salon Manager/Techni emil ID = [id number] for B Toña luther POCT-GLUCOSE [id number] 15:13:00 Test Item Value Reference Range Interpretation Comments POC-GLUCOSE METER 156 mg/dL 70-110 H : TESTED A T [facility] 63495 (BEAKER) (test code [facility] [address] THE, = 1538) [place] [address] 384: Salon Manager/Techni emil ID = [id number] for Keanu Wilde POCT-GLUCOSE [id number] 15:12:00 Test Item Value Reference Range Interpretation Comments POC-GLUCOSE METER 89 mg/dL 70-110 : TESTED A T [facility] 91521 (BEAKER) (test code = [facility] [address] THE, 1538) [place] [address] 384: Salon Manager/Techni emil ID = [id number] for Damien Cisneros POCT-GLUCOSE [id number] 15:12:00 Test Item Value Reference Range Interpretation Comments POC-GLUCOSE METER 228 mg/dL 70-110 H : Notified RN/MD: TESTED (BEAKER) (test code AT [facility] [address] = 1538) [facility] [place] [address]: Salon Manager/Techni emil ID = [id number] for Damien Cisneros POCT-GLUCOSE [id number] 15:12:00 Test Item Value Reference Range Interpretation Comments POC-GLUCOSE METER 111 mg/dL 70-110 H : TESTED A T [facility] 44349 (BEAKER) (test code [facility] [address] THE, = 1538) [place] [address] 384: Salon Manager/Techni emil ID = [id number] for Marylu Batres POCT-GLUCOSE [id number] 07:46:00 Test Item Value Reference Range Interpretation Comments POC-GLUCOSE METER 93 mg/dL 70-110 : TESTED A T [facility] 40863 (BEAKER) (test code = [facility] THE, 1538) [place] [address] 384: Salon Manager/Techni emil ID = [id number] for A Jessica saenz POCT-GLUCOSE [id number] 11:33:00 Test Item Value Reference Range Interpretation Comments POC-GLUCOSE METER 170 mg/dL 70-110 H : TESTED A T [facility] 63452 (BEAKER) (test code [facility] [address], = 1538) [place] [address] 384: Salon Manager/Techni emil ID = [id number] for Radha Caballero SARS-COV2/RT-PCR ([facility])2020-08-05 11:10:00 Test Item Value Reference Range Interpretation Comments SARS-COV2/RT-PCR (test Negative Not Detected, Negative, code = 0466394) See external report for linked test SARS-COV-2 PERFORMING LAB [facility] (test code = 2027842) Negative result for this test determines that [...] of the Act.Fact Sheet for Healthcare Prov iders:https://www.[employer]/sites/default/files/product/documents/Fact_Sheet_HC _Azimtwxvh_Djvn_OJBL-HjI-9.pdfFact Sheet for Healthcare Patients:https://www.[employer]/sites/default/files/product/docume nts/Ngfl_Ygehx_Bdlvjhvv_Gwge_IYKV-RsJ-7.pdfPerforming Laboratory:[facility], [place] [address]KUIX-MYRUWQH METER 2020-08-04 21:50:00 Test Item Value Reference Range Interpretation Comments POC-GLUCOSE METER 145 mg/dL 70-110 H : TESTED A T [facility] 27724 (BEAKER) (test code [facility] [address] THE, = 1538) [place] [address] 384: Salon Manager/Techni emil ID = [id number] for Toña Pacheco POCT-GLUCOSE [id number] 16:42:00 Test Item Value Reference Range Interpretation Comments POC-GLUCOSE METER 171 mg/dL 70-110 H : TESTED A T [facility] 80964 (BEAKER) (test code [facility], = 1538) [place] [address] 384: Salon Manager/Techni emil ID = [id number] for Keanu Wilde POCT-GLUCOSE [id number] 11:09:00 Test Item Value Reference Range Interpretation Comments POC-GLUCOSE METER 146 mg/dL 70-110 H : TESTED A T [facility] 78493 (BEAKER) (test code [facility] THE, = 1538) [place] [address] 384: Salon Manager/Techni emil ID = [id number] for Marylu Batres CBC W/PLT COUNT & AUTO [id number] 09:57:00 Test Item Value Reference Range Interpretation [...] PERCENT (BEAKER) (test code = 2801) POCT-GLUCOSE [id number] 07:28:00 Test Item Value Reference Range Interpretation Comments POC-GLUCOSE METER 91 mg/dL 70-110 : TESTED A T [facility] 61393 (BEAKER) (test code = [facility] [address] THE, 153) [place] [address] 384: Salon Manager/Techni emil ID = [id number] for Shoemaker-Alfonso phu, [place] POCT-GLUCOSE [id number] 06:00:00 Test Item Value Reference Range Interpretation Comments POC-GLUCOSE METER 93 mg/dL 70-110 : TESTED A T [facility] 54497 (BEAKER) (test code = [facility] [address] THE, 1538) [place] [address] 384: Salon Manager/Techni emil ID = [id number] for Shoemaker-Alfonso phu, [place] POCT-GLUCOSE [id number] 22:06:00 Test Item Value Reference Range Interpretation Comments POC-GLUCOSE METER 115 mg/dL 70-110 H : TESTED A T [facility] 86791 (BEAKER) (test code [facility] [address] THE, = 1538) [place] [address] 384: Salon Manager/Techni emil ID = [id number] for Nays-Roman, Radha POCT-GLUCOSE [id number] 22:05:00 Test Item Value Reference Range Interpretation Comments POC-GLUCOSE METER 148 mg/dL 70-110 H : TESTED A T [facility] 82374 (BEAKER) (test code [address] THE, = 1538) [place] [address] 384: Salon Manager/Techni emil ID = [id number] for Nasara-Roman, Radha POCT-GLUCOSE [id number] 05:23:00 Test Item Value Reference Range Interpretation Comments POC-GLUCOSE METER 108 mg/dL 70-110 : TESTED A T [facility] 83965 (BEAKER) (test code [facility] [address] THE, = 1538) [place] [address] 384: Salon Manager/Techni emil ID = [id number] for A Kyara saenza POCT-GLUCOSE [id number] 22:26:00 Test Item Value Reference Range Interpretation Comments POC-GLUCOSE METER 152 mg/dL 70-110 H : TESTED A T [facility] 36570 (BEAKER) (test code [facility] [address] THE, = 1538) [place] [address] 384: Salon Manager/Techni emil ID = [id number] for S Jarred mazariegoson POCT-GLUCOSE [id number] 11:46:00 Test Item Value Reference Range Interpretation Comments POC-GLUCOSE METER 189 mg/dL 70-110 H : TESTED A T [facility] 89250 (BEAKER) (test code [facility] [address] THE, = 1538) [place] [address] 384: Salon Manager/Techni emil ID = [id number] for S Marylu sevilla POCT-GLUCOSE [id number] 09:46:00 Test Item Value Reference Range Interpretation Comments POC-GLUCOSE METER 152 mg/dL 70-110 H : TESTED A T [facility] 84255 (BEAKER) (test code [facility] [address] THE, = 1538) [place] [address] 384: Salon Manager/Techni emil ID = [id number] for R Lilibeth somersa POCT-GLUCOSE [id number] 06:51:00 Test Item Value Reference Range Interpretation Comments POC-GLUCOSE METER 103 mg/dL 70-110 : TESTED A T [facility] 86965 (BEAKER) (test code [facility] [address] THE, = 1538) [place] [address] 384: Salon Manager/Techni emil ID = [id number] for Shahab bay, [place] POCT-GLUCOSE [id number] 22:14:00 Test Item Value Reference Range Interpretation Comments POC-GLUCOSE METER 137 mg/dL 70-110 H : TESTED A T [facility] 77749 (BEAKER) (test code [facility] [address] THE, = 1538) [place] [address] 384: Salon Manager/Techni emil ID = [id number] for Shomadisynker-Alfonso phu, [place] POCT-GLUCOSE [id number] 16:25:00 Test Item Value Reference Range Interpretation Comments POC-GLUCOSE METER 133 mg/dL 70-110 H : TESTED A T [facility] 01354 (BEAKER) (test code [facility] [address] THE, = 1538) [place] [address] 384: Salon Manager/Techni emil ID = [id number] for Gibson [place]regon POCT-GLUCOSE [id number] 12:01:00 Test Item Value Reference Range Interpretation Comments POC-GLUCOSE METER 126 mg/dL 70-110 H : TESTED A T [facility] 63205 (BEAKER) (test code [facility] [address] THE, = 1538) [place] [address] 384: Salon Manager/Techni emil ID = [id number] for Gibson [place]regon POCT-GLUCOSE [id number] 05:35:00 Test Item Value Reference Range Interpretation Comments POC-GLUCOSE METER 136 mg/dL 70-110 H : TESTED A T [facility] 83854 (BEAKER) (test code [address], = 1538) [place] [address] 384: Salon Manager/Techni emil ID = [id number] for A Jessica saenz BASIC METABOLIC [id number] 04:34:00 Test Item Value Reference Range Interpretation [...] S NOT APPLICABLE FOR DIALYSIS PATIEN TS. Salon Manager ID - [id number] W/PLT COUNT & AUTO [id number] 03:55:00 Test Item Value Reference Range Interpretation [...] PERCENT (BEAKER) (test code = 2801) POCT-GLUCOSE [id number] 21:42:00 Test Item Value Reference Range Interpretation Comments POC-GLUCOSE METER 159 mg/dL 70-110 H : TESTED A T [facility] [id number] (BEAKER) (test code [address], = 1538) [place] [address] 384: Salon Manager/Techni emil ID = [id number] for B Hiral lutherza POCT-GLUCOSE [id number] 11:41:00 Test Item Value Reference Range Interpretation Comments POC-GLUCOSE METER 182 mg/dL 70-110 H : TESTED A T [facility] [address] (BEAKER) (test code [address], = 1538) [place] [address] 384: Salon Manager/Techni emil ID = [id number] for R ossi, Soledad POCT-GLUCOSE [id number] 06:11:00 Test Item Value Reference Range Interpretation Comments POC-GLUCOSE METER 170 mg/dL 70-110 H : TESTED A T [facility] [address]142 (BEAKER) (test code [address], = 1538) [place] [address] 384: Salon Manager/Techni emil ID = [id number] for Irene Hardin MR, BRAIN, [id number] 18:43:00S/p resectionUnlisted Reason for Exam - Click Yes and Enter Reason Below->No [facility] 1950 Sex: FFINAL REPORT [...] MDReport Verified Date/Time: 07/29/2020 18:43:09 Reading Location: [facility] Neuro Reading Room [id number] 05:31:00 Test Item Value Reference Range Interpretation Comments MAGNESIUM (BEAKER) (test code = 1.8 mg/dL 1.5-3.0 627) Salon Manager ID - [id number] METABOLIC [id number] 04:14:00 Test Item Value Reference Range Interpretation [...] S NOT APPLICABLE FOR DIALYSIS PATIEN TS. Salon Manager ID - [id number] (HEMOGRAM ONLY)2020-07-29 03:43:00 Test Item Value Reference [...] 0-0 (BEAKER) (test code = 413) POCT-GLUCOSE [id number] 00:24:00 Test Item Value Reference Range Interpretation Comments POC-GLUCOSE METER 208 mg/dL 70-110 H : TESTED A T [facility] [address] (BEAKER) (test code [address], = 1538) [place] [address] 384: Salon Manager/Techni emil ID = [id number] for Andrea Mejia SARS-COV2/RT-PCR ([facility])2020-07-28 17:27:00 Test Item Value Reference Range Interpretation Comments SARS-COV2/RT-PCR (test Negative Not Detected, Negative, code = 0522118) See external report for linked test SARS-COV-2 PERFORMING LAB [facility] (test code = 0816913) Negative result for this test determines that [...] of the Act.Fact Sheet for Healthcare Prov iders:https://www.[employer]/sites/default/files/product/documents/Fact_Sheet_HC _Rqgeruqab_Koma_UJES-EwE-6.pdfFact Sheet for Healthcare Patients:https://www.[employer]/sites/default/files/product/docume nts/Bqpy_Pzovy_Bacnadlr_Rieo_CQMK-NpB-5.pdfPerforming Laboratory:[facility], [place] [address]YK/[id number] 04:58:00 Test Item Value Reference Range Interpretation [...] 2.5-3.5 for patients with mechanical heart valves.PROTHROMBIN [id number] 04:57:00 Test Item Value Reference Range Interpretation Comments PROTIME (BEAKER) (test code = 14.3 seconds 11.8-14.4 759) INR (BEAKER) (test code = 370) 1.11 1.20-1.50 L RECOMMENDED COUMADIN/WARFARIN INR THERAPY RANGESSTANDARD DOSE: 2.0 - 3.0 Includes: PROPHYLAXIS for venous thrombosis, systemic embolization; TREATMENT for venous thrombosis and/or pulmonary embolus.HIGH RISK: Target INR is 2.5-3.5 for patients with mechanical heart valves.POCT-GLUCOSE [id number] 22:05:00 Test Item Value Reference Range Interpretation Comments POC-GLUCOSE METER 167 mg/dL 70-110 H : TESTED A T [facility] [address]20 (BEAKER) (test code [address], = 1538) [place] [address] 384: Salon Manager/Techni emil ID = [id number] for C mary, Daya POCT-GLUCOSE [id number] 16:10:00 Test Item Value Reference Range Interpretation Comments POC-GLUCOSE METER 120 mg/dL 70-110 H : TESTED A T [facility] 10647 (BEAKER) (test code [address], = 1538) [place] [address] 384: Salon Manager/Techni emil ID = [id number] for T u-Haja, Aquilito POCT-GLUCOSE [id number] 11:14:00 Test Item Value Reference Range Interpretation Comments POC-GLUCOSE METER 106 mg/dL 70-110 : TESTED A T [facility] 16938 (BEAKER) (test code [address], = 1538) [place] [address] 384: Salon Manager/Techni emil ID = [id number] for T u-Haja, Aquilito POCT-GLUCOSE [id number] 05:21:00 Test Item Value Reference Range Interpretation Comments POC-GLUCOSE METER 136 mg/dL 70-110 H : TESTED A T [facility] [address]27[address] (BEAKER) (test code [address], = 1538) [place] [address] 384: Salon Manager/Techni emil ID = [id number] for C mary, Daya POCT-GLUCOSE [id number] 20:53:00 Test Item Value Reference Range Interpretation Comments POC-GLUCOSE METER 136 mg/dL 70-110 H : TESTED A T [facility] 13742 (BEAKER) (test code [address], = 1538) [place] [address] 384: Salon Manager/Techni emil ID = [id number] for C anaca, Daya POCT-GLUCOSE [id number] 17:21:00 Test Item Value Reference Range Interpretation Comments POC-GLUCOSE METER 132 mg/dL 70-110 H : TESTED A T [facility] 63990 (BEAKER) (test code [address], = 1538) [place] [address] 384: Salon Manager/Techni emil ID = [id number] for P Liz barber POCT-GLUCOSE [id number] 11:58:00 Test Item Value Reference Range Interpretation Comments POC-GLUCOSE METER 118 mg/dL 70-110 H : TESTED A T [facility] [address]687 (BEAKER) (test code [facility], = 1538) [place] [address] 384: Salon Manager/Techni emil ID = [id number] for Liz Maddox POCT-GLUCOSE [id number] 05:51:00 Test Item Value Reference Range Interpretation Comments POC-GLUCOSE METER 125 mg/dL 70-110 H : TESTED A T [facility] 23790 (BEAKER) (test code [facility], = 1538) [place] [address] 384: Salon Manager/Techni emil ID = [id number] for M ang, Patsy POCT-GLUCOSE [id number] 21:10:00 Test Item Value Reference Range Interpretation Comments POC-GLUCOSE METER 85 mg/dL 70-110 : TESTED A T [facility] 57762 (BEAKER) (test code = [facility], 1538) [place] [address] 384: Salon Manager/Techni emil ID = [id number] for M ang, Patsy POCT-GLUCOSE [id number] 16:40:00 Test Item Value Reference Range Interpretation Comments POC-GLUCOSE METER 207 mg/dL 70-110 H : TESTED A T [facility] [address]806 (BEAKER) (test code [facility], = 1538) [place] [address] 384: Salon Manager/Techni emil ID = [id number] for Liz Maddox POCT-GLUCOSE [id number] 11:54:00 Test Item Value Reference Range Interpretation Comments POC-GLUCOSE METER 187 mg/dL 70-110 H : TESTED A T [facility] [address] (BEAKER) (test code [facility], = 1538) [place] [address] 384: Salon Manager/Techni emil ID = [id number] for Liz Maddox BASIC METABOLIC [id number] 04:45:00 Test Item Value Reference Range Interpretation [...] S NOT APPLICABLE FOR DIALYSIS PATIEN TS. Salon Manager ID - [id number] 03:59:00 Test Item Value Reference Range Interpretation Comments POC-GLUCOSE METER 126 mg/dL 70-110 H : TESTED A T [facility] [address] (BEAKER) (test code [facility], = 1538) [facility] 77 384: Salon Manager/Techni emil ID = [id number] for Patsy Thibodeaux CBC W/PLT COUNT & AUTO [id number] 03:57:00 Test Item Value Reference Range Interpretation [...] PERCENT (BEAKER) (test code = 2801) POCT-GLUCOSE [id number] 20:30:00 Test Item Value Reference Range Interpretation Comments POC-GLUCOSE METER 133 mg/dL 70-110 H : TESTED A T [facility] 79437 (BEAKER) (test code [facility] [employer] [address] THE, = 1538) [place] [address] 384: Salon Manager/Techni emil ID = [id number] for M Rachel hortaa POCT-GLUCOSE [id number] 15:57:00 Test Item Value Reference Range Interpretation Comments POC-GLUCOSE METER 261 mg/dL 70-110 H : TESTED A T [facility] [address]96[address] (BEAKER) (test code [facility] [address] [facility], = 1538) [place] [address] 384: Salon Manager/Techni emil ID = [id number] for T tylor-Haja, Talonilito POCT-GLUCOSE [id number] 11:36:00 Test Item Value Reference Range Interpretation Comments POC-GLUCOSE METER 134 mg/dL 70-110 H : TESTED A T [facility] [address]4071 (BEAKER) (test code [facility] [address] [facility], = 1538) [place] [address] 384: Salon Manager/Techni emil ID = [id number] for Donovan Lopezto POCT-GLUCOSE [id number] 06:20:00 Test Item Value Reference Range Interpretation Comments POC-GLUCOSE METER 119 mg/dL 70-110 H : TESTED A T [facility] [address]409 (BEAKER) (test code [facility] [address], = 1538) [place] [address] 384: Salon Manager/Techni emil ID = [id number] for Rachel Thibodeauxa POCT-GLUCOSE [id number] 21:11:00 Test Item Value Reference Range Interpretation Comments POC-GLUCOSE METER 112 mg/dL 70-110 H : TESTED A T [facility] [address]38[address] (BEAKER) (test code [facility] [address], = 1538) [place] [address] 384: Salon Manager/Techni emil ID = [id number] for Rachel Thibodeauxa POCT-GLUCOSE [id number] 16:23:00 Test Item Value Reference Range Interpretation Comments POC-GLUCOSE METER 130 mg/dL 70-110 H : TESTED A T [facility] 61330 (BEAKER) (test code [facility] [address], = 1538) [place] [address] 384: Salon Manager/Techni emil ID = [id number] for May Toney POCT-GLUCOSE [id number] 11:44:00 Test Item Value Reference Range Interpretation Comments POC-GLUCOSE METER 242 mg/dL 70-110 H : TESTED A T [facility] 41758 (BEAKER) (test code [facility] [address], = 1538) [place] [address] 384: Salon Manager/Techni emil ID = [id number] for May Toney CBC W/PLT COUNT & AUTO [id number] 04:32:00 Test Item Value Reference Range Interpretation [...] PERCENT (BEAKER) (test code = 2801) SARS-COV2/RT-PCR ([facility])2020-07-22 09:14:00 Test Item Value Reference Range Interpretation Comments SARS-COV2/RT-PCR (test Negative Not Detected, Negative, code = 3602301) See external report for linked test SARS-COV-[address] [facility] (test code = 8265854) Negative result for this test determines that [...] the Montaño SARS-CoV-2 assay.Fact Sheet for Healthcare Providers:https://www.molecular.montaño/wilfredo/RT_SAR B-YxJ-3_TOJ_Vyna_Kzyrp_00-955046.pdfFact Sheet for Healthcare Patients:https://www.[employer].montaño/s al/RK_TSJC-UnE-6_Kxxtzsv_Hifp_Vevap_EX_54-961346F6.pdfPerforming Laboratory:[facility] [place] [address] BASIC METABOLIC [id number] 05:03:00 Test Item Value Reference Range Interpretation [...] S NOT APPLICABLE FOR DIALYSIS PATIEN TS. Salon Manager ID - [id number] W/PLT COUNT & AUTO [id number] 04:34:00 Test Item Value Reference Range Interpretation [...] code = 2801) CT, SPINE, LUMBAR, WO [id number] 10:50:00Pt had recent nerve block done in lumbar area, rule out abscess.Unlisted Reason for Exam - Click Yesand Enter Reason Below->No [facility] 1950 Sex: FFINAL [...] bilateral foraminal stenosis at L5-S1. Signed: JR Zapein Robert MDReport Verified Date/Time: 07/21/2020 10:50:54 Reading Location: [facility] Neuro Reading Room MR, BRAIN, [id number] 10:28:00Please complete with stealth protocolUnlisted Reason for Exam - Click Yes and Enter Reason Below->YesUnlisted Reason for Exam->brain massDeos the patient have an implanted electronic device?->No [facility] : 1950 Sex: FFINAL REPORT [...] Remote from the mass location, there is noabnormality of the skull base or calvarium. The included paranasal sinuses, mastoid air cells, and orbits are within normal limits. 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 Underlying mass effect creating a marked right hemispheric edema, associated 16 mm leftward midline shift and subfalcine herniation of the cingulate gyrus. Signed: JR Curry, Antoine Sloan Verified Date/Time: 07/21/2020 10:28:53 Reading Location: [address] Neuro Reading Room BASIC METABOLIC [id number] 06:42:00 Test Item Value Reference Range Interpretation [...] S NOT APPLICABLE FOR DIALYSIS PATIEN TS. Salon Manager ID - [id number] W/PLT COUNT & AUTO [id number] 06:13:00 Test Item Value Reference Range Interpretation [...] code = 2801) URINALYSIS W/ REFLEX URINE [id number] 13:49:00 Test Item Value Reference Range Interpretation [...] = 516) SOURCE(BEAKER) (test code = 2795) Salon Manager ID - [auto]Salon Manager ID - [email or web address] [id number] 06:51:00 Test Item Value Reference Range Interpretation Comments PROTIME (DAVIE) (test code = 15.4 seconds 11.8-14.4 H 759) INR (BEAKER) (test code = 370) 1.22 1.20-1.50 RECOMMENDED COUMADIN/WARFARIN INR THERAPY RANGESSTANDARD DOSE: 2.0 - 3.0 Includes: PROPHYLAXIS for venous thrombosis, systemic embolization; TREATMENT for venous thrombosis and/or pulmonary embolus.HIGH RISK: Target INR is 2.5-3.5 for patients with mechanical heart valves.CT, CHEST, WITHOUT [id number] 05:01:00Unlisted Reason for Exam - Click Yes and Enter Reason Below- >YesUnlisted Reason for Exam->ruleout masses [facility] : 1950 Sex: FFINAL REPORT CT, CHEST, [...] 2.1 x 2.3 cm.Musculoskeletal: No acute abnormality. Lyxm-mv-jcvsgvnk lumbar spondylosis. Additional Findings: None. IMPRESSION:ABSENCE OF [...] Chencho Plummer MDReport Verified Date/Time: 07/20/2020 05:01:28 [facility] [id number] 05:01:00Unlisted Reason for Exam - Click Yes and Enter Reason Below- >YesUnlisted Reason for Exam->ruleout masses [facility] : 1950 Sex: FFINAL [...] 2.1 x 2.3 cm.Musculoskeletal: No acute abnormality. Eswo-qn-zilhdsjo lumbar spondylosis. Additional Findings: None. IMPRESSION:ABSENCE OF [...] patient's physician on 07/20/2020 4:56 AM. Signed: Elian, Chencho MDReport Verified Date/Time: 07/20/2020 05:01:28 BASIC METABOLIC [...] S NOT APPLICABLE FOR DIALYSIS PATIEN TS. Salon Manager ID - SHERFARAPID INFLUENZA A&B [id number] 03:46:00 Test Item Value Reference Range Interpretation [...]
[2022-10-03] MEDS ORDERED: NA CHLORIDE 0.9% 1,000 ML ONE (18:13)
[2022-10-03] MEDS ORDERED: ONDANSETRON 4 MG/2 ML VIAL ONE ×2 (18:13→20:48)
[2022-10-03 18:29] LABS: Absolute Lymphocytes (CBC) 1.3 K/uL (0.7-4.9); Hematocrit 38.9 % (36.0-45.0); Lymphocytes % 18.9 % (15.3-44.8); MCV 82.7 fL (80-100); MPV 6.8 fL (7.6-11.3); RBC Red Blood Cell Count 4.71 M/uL (3.86-4.86)
[2022-10-03 18:46] LABS: Albumin 3.8 g/dL (3.4-5.0); Bilirubin Total 0.2 mg/dL (0.2-1.0); Potassium 3.3 mmol/L (3.5-5.1); Protein, Total 6.8 g/dL (6.4-8.2)
--- NOTE | 2022-10-03 19:01 | RAD REPORT ---
EXAM DESCRIPTION: [facility] Single View10/03/2022 6:42 pm CLINICAL HISTORY: MALAISE COMPARISON: Chest Pa And Lat (2 Views) dated 07/13/2022; Chest Single View dated 07/19/2020; Chest Pa And Lat (2 Views) dated 07/01/2019 TECHNIQUE: Portable AP view of the chest. FINDINGS: The lungs are clear. No pneumothorax or effusion. The cardiomediastinal contours are unrem arkable. Rounded focus of mineralization adjacent to the right humeral head/neck junction is stable. Anterior cervical plating hardware. IMPRESSION: No acute cardiopulmonary process.
[2022-10-03 19:50] LABS: Urine Blood Trace-intact (Negative); Urine Glucose Negative (Negative); Urine Protein Negative (Negative)
[2022-10-03] MEDS ORDERED: HYDRALAZINE HCL 20 MG/ML VIAL ONE (19:56)
--- NOTE | 2022-10-03 20:05 | RAD REPORT ---
EXAM DESCRIPTION: CT - Abdomen Pelvis W Contrast - 10/03/2022 7:36 pm CLINICAL HISTORY: Abd pain Nausea, dehydration, diarrhea COMPARISON: Abdomen Pelvis W Contrast dated 12/15/2020; Abdomen Pelvis W Contrast dated 11/13/2019 TECHNIQUE: Thin cut axial CT imaging of the abdomen and pelvis was performed following intravenous a dministration of 95 mL Isovue 300. Multiplanar reformats were generated and reviewed. All CT scans are performed using dose optimization technique as appropriate and may include automated exposure control or mA/KV adjustment according to patient size. FINDINGS: No suspicious findings in the lung bases. The liver demonstrates stable hypoattenuating ovoid segment 8 well-circumscribed fluid density 1.9 ce ntimeter lesion as well as other subcentimeter hypoattenuating lesions, too small to characterize. Fi ndings are most suggestive of small hepatic cysts. The spleen, and pancreas show no suspicious findin gs. Gallbladder and biliary tree are also without suspicious finding. Symmetric renal function is seen with no hydronephrosis or suspicious renal mass. No dilated bowel loops or bowel wall thickening. Sequelae of distal colon resection with a colorectal anastomosis again noted. No free air, free fluid or inflammatory stranding. No hernia, mass or bulky lymphadenopathy. The urinary bladder is without significant finding. No suspicious bony findings. IMPRESSION: No acute intra-abdominal process. Stable findings, as above.
[2022-10-03 20:06] LABS: Urine Bacteria None Seen /HPF (<20); Urine RBC <5 /HPF (None Seen)
--- NOTE | 2022-10-03 20:17 | ER ---
Nurse's Notes [facility] Name: Davina Niño Age: 72 yrs Sex: Female : 1950 Arrival Date: 10/03/2022 Time: 17:33 Bed 23 Private MD: Efe Martinez V Diagnosis: Nausea;Dehydration Presentation: 10/03 17:46 Chief complaint: Patient states: Nausea, Shaky, dehydration X 2 weeks. Pt reports ld1 starting with diarrhea, now c/o constipation. Coronavirus screen: At this time, the client does not indicate any symptoms associated with coronavirus-19. Ebola Screen: No symptoms or risks identified at this time. Risk Assessment: Do you want to hurt yourself or someone else? Patient reports no desire to harm self or others. Onset of symptoms was October 03, 2022. 17:46 Method Of Arrival: Ambulatory ld1 17:46 Acuity: VERONICA 3 ld1 Triage Assessment: 17:46 General: Appears in no apparent distress. uncomfortable, Behavior is calm, cooperative, ld1 appropriate for age. Pain: Complains of pain in left lower quadrant Pain does not radiate. Pain currently is 6 out of 10 on a pain scale. Quality of pain is described as throbbing. EENT: No signs and/or symptoms were reported regarding the EENT system. EENT:. Neuro: Level of Consciousness is awake, alert, obeys commands, Oriented to person, place, time, situation, Appropriate for age. Cardiovascular: Capillary refill < 3 seconds Patient's skin is warm and dry. Respiratory: Airway is patent Respiratory effort is even, unlabored. GI: Abdomen is flat, non-distended, Reports constipation, diarrhea, nausea. : No signs and/or symptoms were reported regarding the genitourinary system. Derm: No signs and/or symptoms reported regarding the dermatologic system. Musculoskeletal: No signs and/or symptoms reported regarding the musculoskeletal system. Historical: - Allergies: 17:46 No Known Allergies; ld1 - Home Meds: 17:46 Zoloft Oral [Active]; amitriptyline Oral [Active]; metoprolol tartrate 50 mg Oral tab 1 ld1 tab 2 times per day [Active]; budesonide 3 mg oral CECX 3 caps once daily [Active]; hydroxyzine HCl 25 mg Oral tab 1 tab 3 times per day [Active]; pregabalin 50 mg Oral cap 1 cap 3 times per day [Active]; - PMHx: 17:46 Hyperlipidemia; Hypertension; ld1 - PSHx: 17:46 Brain Tumor removed 2019; Colon resection 2020; ld1 - Immunization history:: Adult Immunizations up to date, Client reports receiving the 2nd dose of the Covid vaccine. - Social history:: Smoking status: Patient denies any tobacco usage or history of. Patient/guardian denies using alcohol. Screenin:12 [facility] ED Fall Risk Assessment (Adult) History of falling in the last 3 months, mb9 including since admission No falls in past 3 months (0 pts) Confusion or Disorientation No (0 pts) Intoxicated or Sedated No (0 pts) Impaired Gait No (0 pts) Mobility Assist Device Used No (0 pt) Altered Elimination No (0 pt) Score/Fall Risk Level 0 - 2 = Low Risk Oriented to surroundings, Maintained a safe environment, Educated pt \T\ family on fall prevention, incl call for assistance when getting out of bed. Abuse screen: Denies threats or abuse. Nutritional screening: No deficits noted. Tuberculosis screening: No symptoms or risk factors identified. Assessment: 19:01 General: Appears in no apparent distress. Behavior is calm, cooperative. Pain: mb9 Complains of pain in abdomen Pain radiates to left lower quadrant Quality of pain is described as throbbing. Neuro: Level of Consciousness is awake, alert, obeys commands, Oriented to person, place, time, situation, Appropriate for age Facial symmetry appears normal, Pupils are PERRLA, Denies blurred vision dizziness, headache. Cardiovascular: Heart tones S1 S2 present Rhythm is regular. Respiratory: Airway is patent Respiratory effort is even, unlabored, Respiratory pattern is regular, symmetrical, Breath sounds are clear bilaterally. GI: Abdomen is round non-distended, Bowel sounds present X 4 quads. Abd is soft Abdomen is tender to palpation in left lower quadrant Reports constipation, diarrhea, nausea. 19:04 : No signs and/or symptoms were reported regarding the genitourinary system. Derm: mb9 Reports increased sweating. Musculoskeletal: Range of motion: intact in all extremities. 21:18 Reassessment: No changes from previously documented assessment. Patient and/or family mb9 updated on plan of care and expected duration. Pain level reassessed. Patient is alert, oriented x 3, equal unlabored respirations, skin warm/dry/pink. Patient states feeling better. Patient states symptoms have improved. Vital Signs: 17:46 BP 193 / 97; Pulse 87; Resp 18; Temp 97.7; Pulse Ox 100% on R/A; Weight 67.13 kg; ld1 Height 5 ft. 4 in. (162.56 cm); Pain 6/10; 19:04 BP 223 / 113; Pulse 84; Resp 18; Pulse Ox 100% ; mb9 19:39 BP 208 / 89; Pulse 68; Resp 18; Pulse Ox 97% on R/A; mb9 20:11 BP 188 / 88; Pulse 80; Resp 17; Pulse Ox 98% ; mb9 21:18 BP 158 / 83; Pulse 78; Resp 16; Pulse Ox 99% ; mb9 17:46 Body Mass Index 25.40 (67.13 kg, 162.56 cm) ld1 ED Course: 17:33 Patient arrived in ED. am2 17:34 Efe Martinez MD is Private Physician. am2 17:36 [facility]stein [facility]NP [facility] jh7 17:36 Brooks Franco DO is Attending Physician. jh7 17:46 Triage completed. ld1 17:46 Arm band placed on right wrist. ld1 17:54 Petra Hernandez, RN is Primary Nurse. mb9 18:00 Placed in gown. Bed in low position. Call light in reach. Side rails up X 1. Client mb9 placed on continuous cardiac and pulse oximetry monitoring. NIBP monitoring applied. playground monitor on. 18:05 EKG done, by ED staff, reviewed by Daya GASPAR. Inserted saline lock: 20 gauge mb9 in left antecubital area, using aseptic technique. 18:50 XRAY Chest (1 view) In Process Unspecified. EDMS 19:13 No provider procedures requiring assistance completed. mb9 19:38 CT Abd/Pelvis - IV Contrast Only In Process Unspecified. EDMS 19:52 Urine Microscopic Only Sent. mb9 20:01 IV discontinued, intact, bleeding controlled, No redness/swelling at site. Pressure mb9 dressing applied. 20:16 Efe Martinez MD is Referral Physician. [facility] Administered Medications: 18:20 Drug: NS 0.9% 1000 ml Route: IV; Rate: 1 bolus; Site: left antecubital; mb9 20:49 Follow up: Response: No adverse reaction; IV Status: Completed infusion mb9 18:20 Drug: Zofran (Ondansetron) 4 mg Route: IVP; Site: left antecubital; mb9 19:04 Follow up: Response: No adverse reaction mb9 18:33 Not Given (Patient Refused): morphine 2 mg IVP once over 4 mins mb9 20:01 Drug: hydrALAZINE 10 mg Route: IVP; Site: left antecubital; mb9 20:48 Follow up: Response: No adverse reaction mb9 20:54 Drug: Zofran (Ondansetron) 4 mg Route: IVP; Site: left antecubital; mb9 Medication: 19:13 VIS not applicable for this client. mb9 Outcome: 20:17 Discharge ordered by . jh7 21:18 Discharged to home ambulatory. mb9 21:18 Condition: stable 21:18 Discharge instructions given to patient, Instructed on discharge instructions, follow up and referral plans. Demonstrated understanding of instructions, follow-up care. 21:19 Patient left the ED. mb9 Signatures: Dispatcher [employer] EDMS Salma Arcos am2 Yadi Jessica, RN RN ld1 Daya Goldstein, RACE STEWARD RACE STEWARD 7 Petra Hernandez RN RN mb9 Corrections: (The following items were deleted from the chart) 19:05 19:01 GI: Abdomen is round non-distended, Bowel sounds present X 4 quads. Abd is soft mb9 Abdomen is tender to palpation in left lower quadrant mb9 19:07 19:01 Neuro: Level of Consciousness is awake, alert, obeys commands, Oriented to mb9 person, place, time, situation, Appropriate for age Facial symmetry appears normal, Pupils are PERRLA, mb9 19:14 19:01 GI: Abdomen is round non-distended, Bowel sounds present X 4 quads. Abd is soft mb9 Abdomen is tender to palpation in left lower quadrant Reports nausea, mb9
--- NOTE | 2022-10-03 20:17 | EDPHYS ---
Physician Documentation [facility] Name: Davina Niño Age: 72 yrs Sex: Female : 1950 Arrival Date: 10/03/2022 Time: 17:33 Bed 23 Private MD: Efe Martinez V ED Physician Brooks Franco HPI: 10/03 17:40 This 72 yrs old Female presents to ER via Ambulatory with complaints of shaky, jh7 dehydration, Nausea. 17:40 Onset: The symptoms/episode began/occurred 2 week(s) ago. Associated signs and jh7 symptoms: Pertinent positives: abdominal pain, Pertinent negatives: chest pain, fever, vomiting. 72-year-old female reports dehydration, nausea, left lower quadrant pain, and feeling shaky for the past 2 weeks. Reports that she sees Dr. Martinez as her PCP and Dr. Cage is her purchasing expeditor. Reports that she initially had some diarrhea and now feels like she is constipated. Last bowel movement yesterday. Reports a decrease in appetite. States that Dr. Felder has been treating her for lymphocytic colitis and she is concerned about colitis today. Also reports that Dr. Martinez stopped her Venlafaxine and started her on Zoloft 25 mg 1 week ago. Reports that she has an appointment with Dr. Martinez tomorrow.. Historical: - Allergies: 17:46 No Known Allergies; ld1 - Home Meds: 17:46 Zoloft Oral [Active]; amitriptyline Oral [Active]; metoprolol tartrate 50 mg Oral tab 1 ld1 tab 2 times per day [Active]; budesonide 3 mg oral CECX 3 caps once daily [Active]; hydroxyzine HCl 25 mg Oral tab 1 tab 3 times per day [Active]; pregabalin 50 mg Oral cap 1 cap 3 times per day [Active]; - PMHx: 17:46 Hyperlipidemia; Hypertension; ld1 - PSHx: 17:46 Brain Tumor removed 2019; Colon resection 2020; ld1 - Immunization history:: Adult Immunizations up to date, Client reports receiving the 2nd dose of the Covid vaccine. - Social history:: Smoking status: Patient denies any tobacco usage or history of. Patient/guardian denies using alcohol. ROS: 17:40 Eyes: Negative for injury, pain, redness, and discharge, ENT: Negative for injury, jh7 pain, and discharge, Neck: Negative for injury, pain, and swelling, Cardiovascular: Negative for chest pain, palpitations, and edema, Respiratory: Negative for shortness of breath, cough, wheezing, and pleuritic chest pain, Back: Negative for injury and pain, MS/Extremity: Negative for injury and deformity, Skin: Negative for injury, rash, and discoloration, Neuro: Negative for headache, weakness, numbness, tingling, and seizure. 17:40 Constitutional: Positive for malaise, Negative for fever. 17:40 Abdomen/GI: Positive for abdominal pain, nausea, constipation, Negative for vomiting, rectal bleeding. 17:40 All other systems are negative. Exam: 17:40 Constitutional: This is a well developed, well nourished patient who is awake, alert, jh7 and in no acute distress. Head/Face: Normocephalic, atraumatic. Eyes: Pupils equal round and reactive to light, extra-ocular motions intact. Lids and lashes normal. Conjunctiva and sclera are non-icteric and not injected. Cornea within normal limits. Periorbital areas with no swelling, redness, or edema. Neck: Trachea midline, no thyromegaly or masses palpated, and no cervical lymphadenopathy. Supple, full range of motion without nuchal rigidity, or vertebral point tenderness. No Meningismus. Cardiovascular: Regular rate and rhythm with a normal S1 and S2. No gallops, murmurs, or rubs. Normal PMI, no JVD. No pulse deficits. Respiratory: Lungs have equal breath sounds bilaterally, clear to auscultation and percussion. No rales, rhonchi or wheezes noted. No increased work of breathing, no retractions or nasal flaring. Back: No spinal tenderness. No costovertebral tenderness. Full range of motion. Skin: Warm, dry with normal turgor. Normal color with no rashes, no lesions, and no evidence of cellulitis. MS/ Extremity: Pulses equal, no cyanosis. Neurovascular intact. Full, normal range of motion. Neuro: Awake and alert, GCS 15, oriented to person, place, time, and situation. Motor strength 5/5 in all extremities. Sensory grossly intact. Normal gait. 17:40 Abdomen/GI: Inspection: abdomen appears normal, Bowel sounds: normal, Palpation: soft, mild abdominal tenderness, in the left lower quadrant. Vital Signs: 17:46 BP 193 / 97; Pulse 87; Resp 18; Temp 97.7; Pulse Ox 100% on R/A; Weight 67.13 kg; ld1 Height 5 ft. 4 in. (162.56 cm); Pain 6/10; 19:04 BP 223 / 113; Pulse 84; Resp 18; Pulse Ox 100% ; mb9 19:39 BP 208 / 89; Pulse 68; Resp 18; Pulse Ox 97% on R/A; mb9 20:11 BP 188 / 88; Pulse 80; Resp 17; Pulse Ox 98% ; mb9 21:18 BP 158 / 83; Pulse 78; Resp 16; Pulse Ox 99% ; mb9 17:46 Body Mass Index 25.40 (67.13 kg, 162.56 cm) ld1 MDM: 17:36 Patient medically screened. jh7 19:05 ED course: Petra Corbin RN reported that the patient's blood pressure was 223/113. She jh7 states that the patient states that she does have hypertension and that she has whitecoat syndrome. Ordered hydralazine 10 mg IV.. 20:10 Differential diagnosis: Diverticulitis, colitis, irritable bowel syndrome, bowel jh7 obstruction, serotonin syndrome, anxiety. Data reviewed: vital signs, nurses notes, lab test result(s), EKG, radiologic studies, CT scan. I considered the following discharge prescriptions or medication management in the emergency department Medications were administered in the Emergency Department. See MAR. Care significantly affected by the following chronic conditions: Hypertension. Counseling: I had a detailed discussion with the patient and/or guardian regarding: the historical points, exam findings, and any diagnostic results supporting the discharge/admit diagnosis, to return to the emergency department if symptoms worsen or persist or if there are any questions or concerns that arise at home. Special discussion: The patient remained stable throughout the ER visit. She stated that Dr. Martinez actually started her on the Zoloft 2 weeks ago and that she believes that medication is making her feel nauseated. Strongly encouraged her to follow-up with Dr. Martinez as scheduled tomorrow. Discussed nonacute CT findings and lab results. She also reported alternating constipation and diarrhea and advised her to follow-up with Dr. Cage for possible IBS. If she develops any new concerning symptoms, or current symptoms worsen, she may return to the ER for eval.. 10/03 17:48 Order name: CBC with Diff [facility] 10/03 17:48 Order name: CMP [facility] 10/03 17:48 Order name: Lipase [facility] 10/03 17:48 Order name: Urine Microscopic Only; Complete Time: 20:06 [facility] 10/03 18:31 Order name: CBC with Automated Diff [facility] 10/03 19:51 Order name: Urine Dipstick-Ancillary; Complete Time: 19:53 EDMS 10/03 17:48 Order name: CT Abd/Pelvis - IV Contrast Only; Complete Time: 20:06 [facility] 10/03 17:52 Order name: EKG; Complete Time: 17:53 [facility] 10/03 18:18 Order name: XRAY Chest (1 view); Complete Time: 19:02 [facility] 10/03 17:48 Order name: IV Saline Lock; Complete Time: 18:33 [facility] 10/03 17:48 Order name: Labs collected and sent; Complete Time: 18:33 [facility] 10/03 17:48 Order name: Urine Dipstick-Ancillary (obtain specimen); Complete Time: 19:52 [facility] 10/03 17:52 Order name: EKG - Nurse/Tech; Complete Time: 18:07 [facility] EC:04 Rate is 88 beats/min. Rhythm is regular. QRS [place] is Normal. CO interval is normal at 7 128 msec. QRS interval is normal at 118 msec. QT interval is normal at 408 msec. No Q waves. T waves are Normal. No ST changes noted. Clinical impression: Normal sinus rhythm with right bundle branch block. Administered Medications: 18:20 Drug: NS 0.9% 1000 ml Route: IV; Rate: 1 bolus; Site: left antecubital; mb9 20:49 Follow up: Response: No adverse reaction; IV Status: Completed infusion mb9 18:20 Drug: Zofran (Ondansetron) 4 mg Route: IVP; Site: left antecubital; mb9 19:04 Follow up: Response: No adverse reaction mb9 18:33 Not Given (Patient Refused): morphine 2 mg IVP once over 4 mins mb9 20:01 Drug: hydrALAZINE 10 mg Route: IVP; Site: left antecubital; mb9 20:48 Follow up: Response: No adverse reaction 9 20:54 Drug: Zofran (Ondansetron) 4 mg Route: IVP; Site: left antecubital; 9 Disposition: 19:11 Co-signature as Attending Physician, Brooks Franco DO I was immediately available on-site ms3 in the Emergency Department for consultation in the care of the patient. Disposition Summary: 10/03/22 20:17 Discharge Ordered Location: Home [facility] Problem: new [facility] Symptoms: have improved [facility] Condition: Stable [facility] Diagnosis - Nausea [facility] - Dehydration [facility] Followup: [facility] - With: Efe Martinez MD - When: Tomorrow - Reason: Recheck today's complaints Discharge Instructions: - Discharge Summary Sheet [facility] - Dehydration, Adult [facility] - Nausea, Adult [facility] Forms: - Medication Reconciliation Form [facility] - Thank You Letter [facility] Signatures: Dispatcher [employer] EDMS Brooks Franco DO DO ms3 Yadi Jessica, RN RN ld1 Maci Dixon RN RN kd3 Daya Goldstein, OVERHAULER OVERHAULER [facility] Petra Hernandez RN RN mb9
[2022-10-03 22:08] VITALS: TEMP 97.7
[2022-10-03 22:13] VITALS: BP 158/83; O2SAT 99
--- NOTE | 2022-10-04 12:51 | EKG ---
Test Date: 2022-10-03 Test Time: 18:04:37 [employer]: MB MEASUREMENT RESULTS: Intervals: Rate: 88 NV: 128 QRSD: 118 QT: 408 QTc: 493 [place]: P: -26 NV: 128 QRS: -2 T: 43 INTERPRETIVE STATEMENTS: Normal sinus rhythm Right bundle branch block Abnormal ECG Compared to ECG 07/13/2022 14:38:58 No significant changes Electronically Signed On 10-04-22 12:49:23 MANAGER ACTION by John Murrieta
== END 2022-10-03 21:19 | disposition home or self-care (01) ==
LOC: ER 17:32
DX: R11.0 Nausea (principal); E86.0 Dehydration; R10.32 Left lower quadrant pain; I10 Essential (primary) hypertension; E78.5 Hyperlipidemia, unspecified
CPT/HCPCS: 85025; 36415; 83690; 80053; 74177; 71045; Q9967; J0360; J7030; J2405 ×2; 81003; 81015; 93005; 96361; 96374; 96375; 99284

== ENCOUNTER 2023-01-07 11:59 | Emergency (ER) | payer OTHER ==
--- OUTSIDE RECORDS SUMMARY | 2023-01-07 12:19 | XMS REPORT | Continuity of Care Document ---
:1950 Author Organization [facility] t Address [address] [facility] [address] [place] [address] Care Team Providers Name Role Phone Efe Martinez MD Primary Care Physician DANE CORRALES Attending Clinician Unavailable SITA NORRIS. Attending Clinician Unavailable Doctor Unassigned, Corn Attending Clinician Unavailable SITA NORRIS Attending Clinician Unavailable Sita Norris MD Attending Clinician 1.5, [facility] Attending Clinician Unavailable RAMU LU Attending Clinician Unavailable HERIBERTO WORTHINGTON Attending Clinician Unavailable MD ALYSE CALDERÓN Attending Clinician Unavailable ALYSE CALDERÓN Attending Clinician Unavailable ALEXANDRO MALAVE Attending Clinician Unavailable ALEXANDRO MALAVE Attending Clinician Unavailable Alexandro Malave MD Attending Clinician AMIE GALARZA Attending Clinician Unavailable STONE GRIFFITHS Attending Clinician Unavailable Debra Simpson RN Attending Clinician Unavailable DANE CORRALES Admitting Clinician Unavailable ALYSE CALDERÓN Admitting Clinician Unavailable MD ALYSE CALDERÓN Admitting Clinician Unavailable YUSRA UMANZOR Admitting Clinician Unavailable Payers Payer Name Policy Type Policy Number Effective Date Expiration Date Antony HASKINS MEDICARE [id number] 2018 ADV 00:00:00 MEDICARE A B [id number] 2020 00:00:00 UNITED MEDICARE [id number] 2021 HMO 00:00:00 [facility] MEDICARE [id number] [facility] CHOICE [id number] PPO/MEDICARE PPO MEDICARE PART A [id number] \\T\\ [id number] - MEDICARE AMBETTER - [id number] 2021 [facility] 00:00:00 Problems Condition Condition Condition Status Onset Resolution Last Treating Co mments Source Name Details Category Date Date Treatment Clinician Date Diverticul Diverticul Disease Active M ethodi itis of itis of [facility] 00:00: Hospita intestine intestine 00 l with with abscess abscess without without bleeding bleeding Palliative Palliative Disease Active 2019-[address] care care 2-16 [facility] encounter encounter 00:00: [facility] joie 00 Center Counseling Counseling Disease Active 2019-[address] regarding regarding -16 [facility] [place] 00:00: [facility] care care 00 Center planning planning and goals and goals of care of care Full code Full code Disease Active 2019-[address] [facility] status status 2-16 [facility] 00:[facility]: Medical 00 [place] 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 right knee [facility] Arthritis Arthritis Problem Active Com mon of foot, of foot, Spirit right right - [facility] Allergies, Adverse Reactions, Alerts Allergy Allergy Status Severity Reaction(s) Onset Inactive Treating Comm ents Source Name Type Date Date Clinician NO KNOWN Drug Active Univers ALLERGIE Class ity of S [facility] NO KNOWN Allergy Active [facility] ALLERGIE S Family History Family Member Diagnosis Comments Start Date Stop Date Source Paternal grandfather Heart disease [facility] Paternal grandfather Hypertension [facility] Paternal grandmother Hypertension [facility] Natural father Hyperlipidemia Method [facility] Natural father [facility]pertension [facility] Maternal grandfather Heart disease [facility] Maternal grandmother Hypertension [facility] Natural mother Cancer [facility] Natural mother Hyperlipidemia Method [facility] Natural mother Hypertension [facility] Natural mother Stroke [facility] Social History Social Habit Start Date Stop Date Quantity Comments Source Gender identity 2021-06-30 Identifies as Method ist 11:02:11 female gender Hospital (finding) Sexual orientation 2021-06-30 Heterosexual Meth odist 11:02:11 (finding) Hospital History SDOH [facility] Alcohol Std Drinks [facility] History SDOH [facility] Alcohol Binge Medical Ayesha ter Exposure to Not sure University of SARS-CoV-2 (event) [facility] History of Social 2022-10-15 2022-10-[address] function 00:00:00 00:00:00 Hospital Alcohol intake 2021-01-18 2021-01-18 Ex-drinker [facility] 00:00:00 00:00:00 (finding) Medical Center History SDOH 2020-07-20 2020-07-[address] [facility] Alcohol Frequency 00:00:00 00:00:00 Medical Center Alcohol Comment 2020-07-20 2020-07-20 ETOH abuse for [address] [facility] 00:00:00 00:00:00 years. Last drink Medical Center in 1983. Tobacco use and 2020-07-20 2020-07-20 Smokeless tobacco [facility] exposure 00:00:00 00:00:00 non-user [facility] Center Sex Assigned At [address] Taisha kes 00:00:00 00:00:00 Medical Center Smoking Status Start Date Stop Date Source [facility] Medications Ordered Filled Start Stop Current [...] nightly. [facility] 0.005 % 11:04: Medical ophthalmic [address] [place] [address] solution cycloSPORIN Yes 1[drp] QD Apply 1 [...] 80 MG 11:04: nightly. Medical tablet 34 [place] telmisartan Yes 1{tbl} Q.5D Take [address] -hydrochlor 6-14 tablet by Shari es othiazide 11:04: mouth 2 Medic al (MICARDIS 34 (two) Center HCT) times 80-12.5 mg daily. per tablet latanoprost Yes 1[drp] QD [address] (XALATAN) 6-14 nightly. [facility] 0.005 % 11:04: Medical ophthalmic [address] [place] [address] solution cycloSPORIN Yes 1[drp] QD Apply [address] E 6-14 drop to [facility] (RESTASIS) 11:04: eye(s) Medic al 0.05 % 34 daily Gel Center ophthalmic . emulsion DULoxetine Yes anxiety 60mg QD Take [address] (CYMBALTA) 6-14 with by mouth [facility] 60 MG 11:04: depression nightly. Me dical capsule [address] [place] [address] pregabalin Yes 50mg QD Take [address] (LYRICA) 50 6-14 by mouth Luke s MG capsule 11:04: nightly. Med ical [address] [place] [address] metoprolol Yes 50mg QD Take [address] succinate 6-14 by mouth [facility] (TOPROL-XL) 11:04: daily. Medi joie 50 MG 24 hr 34 [place] tablet pravastatin Yes 80mg QD Take [address] (PRAVACHOL) 6-14 by mouth Luke s 80 MG 11:04: nightly. Medical tablet [address] [place] [address] telmisartan Yes 1{tbl} Q.5D Take [address] -hydrochlor 6-14 tablet by Shari es othiazide 11:04: mouth 2 Medic al (MICARDIS 34 (two) Center HCT) times 80-12.5 mg daily. per tablet latanoprost Yes 1[drp] QD [address] (XALATAN) 6-14 nightly. [facility] 0.005 % 11:04: Medical ophthalmic [address] [place] [address] solution cycloSPORIN Yes 1[drp] QD Apply [address] E 6-14 drop to [facility] (RESTASIS) 11:04: eye(s) Medic al 0.05 % 34 daily Gel Center ophthalmic . emulsion DULoxetine Yes anxiety 60mg QD Take [address] (CYMBALTA) 6-14 with by mouth [facility] 60 MG 11:04: depression nightly. Me dical capsule [address] [place] [address] pregabalin Yes 50mg QD Take [address] (LYRICA) 50 6-14 by mouth Luke s MG capsule 11:04: nightly. Med ica[address] metoprolol Yes 50mg QD Take [address] succinate 6-14 by mouth [facility] (TOPROL-XL) 11:04: daily. Medi joie 50 MG 24 hr 34 Center tablet pravastatin Yes 80mg QD Take [address] (PRAVACHOL) 6-14 by mouth Luke s 80 MG 11:04: nightly. Medical tablet 34 [place] telmisartan Yes 1{tbl} Q.5D Take [address] -hydrochlor 6-14 tablet by Shari es othiazide 11:04: mouth 2 Medic al (MICARDIS 34 (two) Center HCT) times 80-12.5 mg daily. per tablet latanoprost Yes 1[drp] QD [address] (XALATAN) 6-14 nightly. [facility] 0.005 % 11:04: Medical ophthalmic 34 [place] solution cycloSPORIN Yes 1[drp] QD Apply [address] E 6-14 drop to [facility] (RESTASIS) 11:04: eye(s) Medic al 0.05 % 34 daily Gel Center ophthalmic . emulsion DULoxetine Yes anxiety 60mg QD Take [address] (CYMBALTA) 6-14 with by mouth [facility] 60 MG 11:04: depression nightly. Me dical capsule 34 [place] pregabalin Yes 50mg QD Take [address] (LYRICA) 50 6-14 by mouth Luke s MG capsule 11:04: nightly. Med ical 34 [place] metoprolol Yes 50mg QD Take [address] succinate 6-14 by mouth [facility] (TOPROL-XL) 11:04: daily. Medi joie 50 MG 24 hr 34 Center tablet pravastatin Yes 80mg QD Take [address] (PRAVACHOL) 6-14 by mouth Luke s 80 MG 11:04: nightly. Medical tablet 34 [place] telmisartan Yes 1{tbl} Q.5D Take [address] -hydrochlor 6-14 tablet by Shari es othiazide 11:04: mouth 2 Medic al (MICARDIS 34 (two) Center HCT) times 80-12.5 mg daily. per tablet latanoprost Yes 1[drp] QD [address] (XALATAN) 6-14 nightly. [facility] 0.005 % 11:04: Medical ophthalmic [address] [place] [address] solution cycloSPORIN Yes 1[drp] QD Apply [address] E 6-14 drop to [facility] (RESTASIS) 11:04: eye(s) Medic al 0.05 % 34 daily Gel Center ophthalmic . emulsion DULoxetine Yes anxiety 60mg QD Take [address] (CYMBALTA) 6-14 with by mouth [facility] 60 MG 11:04: depression nightly. Me dical capsule 34 [place] pregabalin Yes 50mg QD Take [address] (LYRICA) 50 6-14 by mouth Luke s MG capsule 11:04: nightly. Med ical 34 [place] metoprolol Yes 50mg QD Take [address] succinate 6-14 by mouth [facility] (TOPROL-XL) 11:04: daily. Medi joie 50 MG 24 hr 34 [place] tablet pravastatin Yes 80mg QD Take [address] (PRAVACHOL) 6-14 by mouth Luke s 80 MG 11:04: nightly. Medical tablet 34 [place] telmisartan Yes 1{tbl} Q.5D Take [address] -hydrochlor 6-14 tablet by Shari es othiazide 11:04: mouth 2 Medic al (MICARDIS 34 (two) Center HCT) times 80-12.5 mg daily. per tablet latanoprost Yes 1[drp] QD [address] (XALATAN) 6-14 nightly. [facility] 0.005 % 11:04: Medical ophthalmic [address] [place] [address] solution cycloSPORIN Yes 1[drp] QD Apply [address] E 6-14 drop to [facility] (RESTASIS) 11:04: eye(s) Medic al 0.05 % 34 daily Gel Center ophthalmic . emulsion DULoxetine Yes anxiety 60mg QD Take [address] (CYMBALTA) 6-14 with by mouth [facility] 60 MG 11:04: depression nightly. Me dical capsule [address] [place] [address] pregabalin Yes 50mg QD Take [address] (LYRICA) 50 6-14 by mouth Luke s MG capsule 11:04: nightly. Med ica[address] metoprolol Yes 50mg QD Take [address] succinate 6-14 by mouth [facility] (TOPROL-XL) 11:04: daily. Medi joie 50 MG 24 hr 34 Center tablet pravastatin Yes 80mg QD Take [address] (PRAVACHOL) 6-14 by mouth Luke s 80 MG 11:04: nightly. Medical tablet 34 [place] telmisartan Yes 1{tbl} Q.5D Take [address] -hydrochlor 6-14 tablet by Shari es othiazide 11:04: mouth 2 Medic al (MICARDIS 34 (two) [place] HCT) times 80-12.5 mg daily. per tablet latanoprost Yes 1[drp] QD [address] (XALATAN) 6-14 nightly. [facility] 0.005 % 11:04: Medical ophthalmic [address] [place] [address] solution cycloSPORIN Yes 1[drp] QD Apply [address] E 6-14 drop to [facility] (RESTASIS) 11:04: eye(s) Medic al 0.05 % 34 daily Gel [place] ophthalmic . emulsion DULoxetine Yes anxiety 60mg QD Take [address] (CYMBALTA) 6-14 with by mouth [facility] 60 MG 11:04: depression nightly. Me dical capsule [address] [place] [address] pregabalin Yes 50mg QD Take [address] (LYRICA) 50 6-14 by mouth Luke s MG capsule 11:04: nightly. [facility] ica[address] metoprolol Yes 50mg QD Take [address] succinate 6-14 by mouth [facility] (TOPROL-XL) 11:04: daily. Medi joie 50 MG 24 hr 34 Center tablet pravastatin Yes 80mg QD Take [address] (PRAVACHOL) 6-14 by mouth Luke s 80 MG 11:04: nightly. Medical tablet [address] [place] [address] telmisartan Yes 1{tbl} Q.5D Take [address] -hydrochlor 6-14 tablet by Shari es othiazide 11:04: mouth 2 Medic al (MICARDIS 34 (two) [place] HCT) times 80-12.5 mg daily. per tablet latanoprost Yes 1[drp] QD [address] (XALATAN) 6-14 nightly. [facility] 0.005 % 11:04: Medical ophthalmic [address] [place] [address] solution cycloSPORIN Yes 1[drp] QD Apply [address] E 6-14 drop to [facility] (RESTASIS) 11:04: eye(s) Medic al 0.05 % 34 daily Gel Center ophthalmic . emulsion DULoxetine Yes anxiety 60mg QD Take [address] (CYMBALTA) 6-14 with by mouth [facility] 60 MG 11:04: depression nightly. Me dical capsule [address] [place] [address] pregabalin Yes 50mg QD Take [address] (LYRICA) 50 6-14 by mouth Luke s MG capsule 11:04: nightly. Med ical 34 [place] metoprolol Yes 50mg QD Take [address] succinate 6-14 by mouth [facility] (TOPROL-XL) 11:04: daily. Medi joie 50 MG 24 hr 34 [place] tablet pravastatin Yes 80mg QD Take [address] (PRAVACHOL) 6-14 by mouth Luke s 80 MG 11:04: nightly. Medical tablet 34 [place] telmisartan Yes 1{tbl} Q.5D Take [address] -hydrochlor 6-14 tablet by Shari es othiazide 11:04: mouth 2 Medic al (MICARDIS 34 (two) Center HCT) times 80-12.5 mg daily. per tablet latanoprost Yes 1[drp] QD [address] (XALATAN) 6-14 nightly. [facility] 0.005 % 11:04: Medical ophthalmic [address] [place] [address] solution cycloSPORIN Yes 1[drp] QD Apply [address] E 6-14 drop to [facility] (RESTASIS) 11:04: eye(s) Medic al 0.05 % 34 daily Gel Center ophthalmic . emulsion DULoxetine Yes anxiety 60mg QD Take [address] (CYMBALTA) 6-14 with by mouth [facility] 60 MG 11:04: depression nightly. Me dical capsule [address] [place] [address] pregabalin Yes 50mg QD Take [address] (LYRICA) 50 6-14 by mouth Luke s MG capsule 11:04: nightly. Med ica[address] metoprolol Yes 50mg QD Take [address] succinate 6-14 by mouth [facility] (TOPROL-XL) 11:04: daily. Medi joie 50 MG 24 hr 34 Center tablet pravastatin Yes 80mg QD Take [address] (PRAVACHOL) 6-14 by mouth Luke s 80 MG 11:04: nightly. Medical tablet 34 [place] telmisartan Yes 1{tbl} Q.5D Take [address] -hydrochlor 6-14 tablet by Shari es othiazide 11:04: mouth 2 Medic al (MICARDIS 34 (two) Center HCT) times 80-12.5 mg daily. per tablet latanoprost Yes 1[drp] QD [address] (XALATAN) 6-14 nightly. [facility] 0.005 % 11:04: Medical ophthalmic [address] [place] [address] solution cycloSPORIN Yes 1[drp] QD Apply [address] E 6-14 drop to [facility] (RESTASIS) 11:04: eye(s) Medic al 0.05 % 34 daily Gel Center ophthalmic . emulsion DULoxetine Yes anxiety 60mg QD Take [address] (CYMBALTA) 6-14 with by mouth [facility] 60 MG 11:04: depression nightly. Me dical capsule [address] [place] [address] pregabalin Yes 50mg QD Take [address] (LYRICA) 50 6-14 by mouth Luke s MG capsule 11:04: nightly. [address] metoprolol Yes 50mg QD Take [address] succinate 6-14 by mouth [facility] (TOPROL-XL) 11:04: daily. Medi joie 50 MG 24 hr 34 Center tablet pravastatin Yes 80mg QD Take [address] (PRAVACHOL) 6-14 by mouth Luke s 80 MG 11:04: nightly. Medical tablet [address] [place] [address] telmisartan Yes 1{tbl} Q.5D Take [address] -hydrochlor 6-14 tablet by Shari es othiazide 11:04: mouth 2 Medic al (MICARDIS 34 (two) Center HCT) times 80-12.5 mg daily. per tablet latanoprost Yes 1[drp] QD [address] (XALATAN) 6-14 nightly. [facility] 0.005 % 11:04: Medical ophthalmic 34 [place] solution cycloSPORIN Yes 1[drp] QD Apply 1 [...] Medi joie 50 MG 24 hr 34 [place] tablet pravastatin Yes 80mg QD Take 80 [...] nightly. [facility] 0.005 % 11:04: Medical ophthalmic [address] [place] [address] solution cycloSPORIN Yes 1[drp] QD Apply [address] E 6-14 drop to [facility] (RESTASIS) 11:04: eye(s) Medic al 0.05 % 34 daily Gel Center ophthalmic . emulsion DULoxetine Yes anxiety 60mg QD Take [address] (CYMBALTA) 6-14 with by mouth [facility] 60 MG 11:04: depression nightly. Me dical capsule 34 [place] pregabalin Yes 50mg QD Take [address] (LYRICA) 50 6-14 by mouth Luke s MG capsule 11:04: nightly. Med ica[address] metoprolol Yes 50mg QD Take [address] succinate 6-14 by mouth [facility] (TOPROL-XL) 11:04: daily. Medi joie 50 MG 24 hr 34 [place] tablet pravastatin Yes 80mg QD Take [address] (PRAVACHOL) 6-14 by mouth Luke s 80 MG 11:04: nightly. Medical tablet 34 [place] telmisartan Yes 1{tbl} Q.5D Take [address] -hydrochlor 6-14 tablet by Shari es othiazide 11:04: mouth 2 Medic al (MICARDIS 34 (two) Center HCT) times 80-12.5 mg daily. per tablet latanoprost Yes 1[drp] QD [address] (XALATAN) 6-14 nightly. [facility] 0.005 % 11:04: Medical ophthalmic 34 [place] solution cycloSPORIN Yes 1[drp] QD Apply [address] E 6-14 drop to [facility] (RESTASIS) 11:04: eye(s) Medic al 0.05 % 34 daily Gel Center ophthalmic . emulsion DULoxetine Yes anxiety 60mg QD Take [address] (CYMBALTA) 6-14 with by mouth [facility] 60 MG 11:04: depression nightly. Me dical capsule [address] [place] [address] pregabalin Yes 50mg QD Take [address] (LYRICA) 50 6-14 by mouth Luke s MG capsule 11:04: nightly. Med ica[address] amLODIPine Yes 5mg QD Take [address] (NORVASC) 5 3-12 by mouth Luke s MG tablet 00:00: daily. Medica l [address] [place] amLODIPine Yes 5mg QD Take [address] (NORVASC) 5 3-12 by mouth Luke s MG tablet 00:00: daily. Medica l 00 [place] amLODIPine Yes 5mg QD Take [address] (NORVASC) 5 3-12 by mouth Luke s MG tablet 00:00: [facility]. [facility] [place] amLODIPine 1-0 Yes 5mg QD Take [address] (NORVASC) 5 3-12 by mouth Luke s MG tablet 00:00: [facility]. [facility] 00 [place] amLODIPine 2020-0 Yes 5mg QD Take [address] (NORVASC) 5 3-12 by mouth Luke s MG tablet 00:00: daily. [facility] 00 [place] amLODIPine 2020-0 Yes 5mg QD Take [address] (NORVASC) 5 3-12 by mouth Luke s MG tablet 00:00: [facility]. [facility] 00 [place] amLODIPine 2020-0 Yes 5mg QD Take [address] (NORVASC) 5 3-12 by mouth Luke s MG tablet 00:00: [facility]. [facility] 00 [place] amLODIPine 2020-0 Yes 5mg QD Take [address] (NORVASC) 5 3-12 by mouth Luke s MG tablet 00:00: [facility]. [facility] 00 [place] amLODIPine 2020-0 Yes 5mg QD Take [address] (NORVASC) 5 3-12 by mouth Luke s MG tablet 00:00: daily. [facility] 00 [place] amLODIPine 2020-0 Yes 5mg QD Take [address] (NORVASC) 5 3-12 by mouth Luke s MG tablet 00:00: daily. [facility] 00 [place] amLODIPine 2020-0 Yes 5mg QD Take [address] (NORVASC) 5 3-12 by mouth Luke s MG tablet 00:00: daily. [facility] 00 [place] amLODIPine 2020-0 Yes 5mg QD Take [address] (NORVASC) 5 3-12 by mouth Luke s MG tablet 00:00: daily. [facility] 00 [place] amLODIPine 1-0 Yes 5mg QD Take [address] (NORVASC) 5 3-12 by mouth Luke s MG tablet 00:00: daily. [facility] 00 [place] metoprolol 2020-0 Yes 50mg QD Take 50 mg M ethodi succinate 2-[address] XL 17:39: daily. Hospita (TOPROL-XL) 34 l 50 mg 24 hr tablet cyclosporin 2020-0 Yes QD Apply to Me thodi e (RESTASIS 2-[address] OPHT) 17:39: Both eyes Hospita 34 l telmisartan 2020-0 Yes 1{tbl} QD Take 1 Me thodi -hydrochlor 2-[address] othiazid 17:39: mouth Hospita (MICARDIS 34 daily. l HCT) 80-12.5 mg per tablet DULoxetine 2020-0 Yes 60mg QD Take 60 mg M ethodi (CYMBALTA) 2-[address] 60 MG 17:39: nightly. Hospita capsule 34 l pravastatin 2020-0 Yes 80mg QD Take 80 mg Methodi (PRAVACHOL) 2-[address] 80 MG 17:39: nightly. Hospita tablet 34 l pregabalin 2020-0 Yes 50mg QD Take 50 mg M ethodi (LYRICA) 50 2-[address] MG capsule 17:39: nightly. Hos rosario 34 l latanoprost 2020-0 Yes 1[drp] QD Administer Methodi (XALATAN) 2-[address] 0.005 % 17:39: the right Hospi ta ophthalmic 34 eye l solution nightly. metoprolol 2020-0 Yes 50mg QD Take 50 mg M ethodi succinate 2-[address] XL 17:39: daily. Hospita (TOPROL-XL) 34 l 50 mg 24 hr tablet cyclosporin 2020-0 Yes QD Apply to Me thodi e (RESTASIS 2-[address] OPHT) 17:39: Both eyes Hospita 34 l telmisartan 2020-0 Yes 1{tbl} QD Take 1 Me thodi -hydrochlor 2-[address] othiazid 17:39: mouth Hospita (MICARDIS 34 daily. l HCT) 80-12.5 mg per tablet DULoxetine 2020-0 Yes 60mg QD Take 60 mg M ethodi (CYMBALTA) 2-[address] 60 MG 17:39: nightly. Hospita capsule 34 l pravastatin 2020-0 Yes 80mg QD Take 80 mg Methodi (PRAVACHOL) 2-[address] 80 MG 17:39: nightly. Hospita tablet 34 l pregabalin 2021-0 Yes 50mg QD Take 50 mg M ethodi (LYRICA) 50 2-[address] MG capsule 17:39: nightly. Hos rosario 34 l latanoprost 0 Yes 1[drp] QD Administer Methodi (XALATAN) 2-[address] 0.005 % 17:39: the right Hospi ta ophthalmic 34 eye l solution nightly. metoprolol 0 Yes 50mg QD Take 50 mg M ethodi succinate 2-[address] XL 17:39: daily. Hospita (TOPROL-XL) 34 l 50 mg 24 hr tablet cyclosporin 2020-0 Yes QD Apply to Me thodi e (RESTASIS 2-[address] OPHT) 17:39: Both eyes Hospita 34 l telmisartan 0 Yes 1{tbl} QD Take 1 Me thodi -hydrochlor 2-[address] othiazid 17:39: mouth Hospita (MICARDIS 34 daily. l HCT) 80-12.5 mg per tablet DULoxetine Yes 60mg QD Take 60 mg M ethodi (CYMBALTA) 2-[address] 60 MG 17:39: nightly. Hospita capsule 34 l pravastatin 0 Yes 80mg QD Take 80 mg Methodi (PRAVACHOL) 2-[address] 80 MG 17:39: nightly. Hospita tablet 34 l pregabalin 0 Yes 50mg QD Take 50 mg M ethodi (LYRICA) 50 2-[address] MG capsule 17:39: nightly. Hos rosario 34 l latanoprost 2020-0 Yes 1[drp] QD Administer Methodi (XALATAN) 2-[address] 0.005 % 17:39: the right Hospi ta ophthalmic 34 eye l solution nightly. metoprolol 0 Yes 50mg QD Take 50 mg M ethodi succinate 2-[address] XL 17:39: daily. Hospita (TOPROL-XL) 34 l 50 mg 24 hr tablet cyclosporin 2020-0 Yes QD Apply to Me thodi e (RESTASIS 2-[address] OPHT) 17:39: Both eyes Hospita 34 l telmisartan 2020-0 Yes 1{tbl} QD Take 1 Me thodi [...] ity o f 60 mg 15:47: daily. [address] pregabalin 2019-08 Yes 50mg Take 50 mg U nivers 50 mg 1-10 by mouth ity of capsule 15:47: at [place] 01 bedtime. Medical Branch DULoxetine 2019-08 Yes 60mg Take 60 mg U nivers (CYMBALTA) 1-10 by mouth ity o f 60 mg 15:47: daily. [place] capsule Medical Branch pregabalin 2019-08 Yes 50mg Take 50 mg U nivers 50 mg 1-10 by mouth ity of capsule 15:47: at [place] 01 bedtime. Medical Branch DULoxetine 2019-08 Yes 60mg Take 60 mg U nivers (CYMBALTA) 1-10 by mouth ity o f 60 mg 15:47: daily. capsule Medical Branch pregabalin 2019-08 Yes 50mg Take 50 mg U nivers 50 mg 1-10 by mouth ity of capsule 15:47: at [place] 01 bedtime. Medical Branch DULoxetine 2019-08 Yes 60mg Take 60 mg U nivers (CYMBALTA) 1-10 by mouth ity o f 60 mg 15:47: daily. capsule Medical Branch pregabalin 2019-08 Yes 50mg Take 50 mg U nivers 50 mg 1-10 by mouth ity of capsule 15:47: at [place] 01 bedtime. Medical Branch DULoxetine 2019-08 Yes 60mg Take 60 mg U nivers (CYMBALTA) 1-10 by mouth ity o f 60 mg 15:47: daily. capsule Medical Branch pregabalin 2019-08 Yes 50mg Take 50 mg U nivers 50 mg 1-10 by mouth ity of capsule 15:47: at [place] 01 bedtime. Medical Branch pravastatin 2019-08 Yes [...] 2 mg ity of tablet 15:41: tablet [place] 53 Medical Branch pravastatin 2019-08 Yes 80mg Take 80 mg Univers 80 mg 1-10 by mouth ity of tablet 15:41: at [place] [address] bedtime. Medical Branch telmisartan 2019-08 Yes 1{tbl} [...] 2 mg ity of tablet 15:41: tablet [place] [address] Medical Branch pravastatin 2019-08 Yes 80mg Take 80 mg Univers 80 mg 1-10 by mouth ity of tablet 15:41: at [place] [address] bedtime. Medical Branch telmisartan 2019-08 Yes 1{tbl} Take 1 Un jes -hydrochlor 1-10 tablet by ity of othiazide 15:41: mouth [place] 40-12.5 mg 53 daily. Medical per tablet Branch aspirin 2019-08 Yes 81mg Take 81 mg Univ ers (ASPIRIN 1-10 by mouth ity of LOW DOSE) 15:41: at [place] 81 mg EC 53 bedtime. Medical tablet Branch ARIPiprazol 2019-08 Yes aripiprazo Univers e 2 mg 1-10 le 2 mg ity of tablet 15:41: tablet [place] [address] Medical Branch pravastatin 2019-08 Yes 80mg Take 80 mg Univers 80 mg 1-10 by mouth ity of tablet 15:41: at [place] [address] bedtime. Medical Branch telmisartan 2019-08 Yes 1{tbl} [...] 2 mg ity of tablet 15:41: tablet [place] [address] Medical Branch pravastatin 2019-08 Yes 80mg Take 80 mg Univers 80 mg 1-10 by mouth ity of tablet 15:41: at [place] 53 bedtime. Medical Branch telmisartan 2019- Yes 1{tbl} Take 1 Un jes -hydrochlor 1-10 tablet by ity of othiazide 15:41: mouth [place] 40-12.5 mg 53 daily. Medical per tablet Branch aspirin 2019- Yes 81mg Take 81 mg Univ ers (ASPIRIN 1-10 by mouth ity of LOW DOSE) 15:41: at [place] 81 mg EC 53 bedtime. Medical tablet Branch ARIPiprazol 2019-08 Yes aripiprazo Univers e 2 mg 1-10 le 2 mg ity of tablet 15:41: tablet [place] [address] Medical Branch DULoxetine 2019- Yes 60mg Take 60 mg U nivers (CYMBALTA) 1-10 by mouth ity o f 60 mg 09:47: daily. [place] capsule Medical Branch pregabalin 2019- Yes 50mg Take 50 mg U nivers 50 mg 1-10 by mouth ity of capsule 09:47: at [place] 01 bedtime. Medical Branch DULoxetine 2019- Yes 60mg Take 60 mg U nivers (CYMBALTA) 1-10 by mouth ity o f 60 mg 09:47: daily. capsule Medical Branch pregabalin 2019- Yes 50mg Take 50 mg U nivers 50 mg 1-10 by mouth ity of capsule 09:47: at [place] 01 bedtime. Medical Branch pravastatin 2019- Yes 80mg Take 80 mg Univers 80 mg 1-10 by mouth ity of tablet 09:41: at [place] [address] bedtime. Medical Branch telmisartan 2019- Yes 1{tbl} Take 1 Un jes -hydrochlor 1-10 tablet by ity of othiazide 09:41: mouth [place] 40-12.5 mg 53 daily. Medical per tablet Branch aspirin 2019- Yes 81mg Take 81 mg Univ ers (ASPIRIN 1-10 by mouth ity of LOW DOSE) 09:41: at [place] 81 mg EC 53 bedtime. Medical tablet Branch ARIPiprazol 2019-08 Yes aripiprazo Univers e 2 mg 1-10 le 2 mg ity of tablet 09:41: tablet Medical Branch pravastatin 2019- Yes 80mg Take 80 mg Univers 80 mg 1-10 by mouth ity of tablet 09:41: at [place] 53 bedtime. Medical Branch telmisartan 2019- Yes 1{tbl} Take 1 Un jes -hydrochlor 1-10 tablet by ity of othiazide 09:41: mouth [place] 40-12.5 mg 53 daily. Medical per tablet Branch aspirin 2019-08 Yes 81mg Take 81 mg Univ ers (ASPIRIN 1-10 by mouth ity of LOW DOSE) 09:41: at [place] 81 mg EC 53 bedtime. Medical tablet Branch ARIPiprazol 2019-08 Yes aripiprazo Univers e 2 mg 1-10 le 2 mg ity of tablet 09:41: tablet [place] 53 Medical Branch meloxicam 2019-0 2020- No 7.5mg [...] 2 mg ity of tablet 21:20: tablet [place] 19 Medical Branch ARIPiprazol 2020-0 Yes aripiprazo Univers e 2 mg 7-07 le 2 mg ity of tablet 21:20: tablet [place] 19 Medical Branch ARIPiprazol 2020-0 Yes aripiprazo Univers e 2 mg 7-07 le 2 mg ity of tablet 21:20: tablet [place] 19 Medical Branch ARIPiprazol 2019-0 Yes aripiprazo Univers e 2 mg 7-07 le 2 mg ity of tablet 21:20: tablet [place] [address] Medical Branch SERTraline 2019-0 2020- No 150mg [...] Medical AT BEDTIME Branch mupirocin 2020-0 Yes [id number] Apply to Univers (BACTROBAN) 4-11 area(s) 3 ity of 2 % cream 00:00: (three) [place] 00 times Medical daily. Branch mupirocin 2020-0 Yes [id number] Apply to Univers (BACTROBAN) 4-11 area(s) 3 ity of 2 % cream 00:00: (three) [place] 00 times Medical daily. Branch mupirocin 2 2020-0 Yes [id number] Apply to Univers % ointment 4-11 area(s) 3 ity of 00:00: (three) [place] 00 times Medical daily. Branch mupirocin 2020-0 Yes [id number] Apply to Univers (BACTROBAN) 4-11 area(s) 3 ity of 2 % cream 00:00: (three) [place] 00 times Medical daily. Branch mupirocin 2020-0 Yes [id number] Apply to Univers (BACTROBAN) 4-11 area(s) 3 ity of 2 % cream 00:00: (three) [place] 00 times Medical daily. Branch mupirocin 2 2020-0 Yes [id number] Apply to Univers % ointment 4-11 area(s) 3 ity of 00:00: (three) [place] 00 times Medical daily. Branch mupirocin 2020-0 Yes [id number] Apply to Univers (BACTROBAN) 4-11 area(s) 3 ity of 2 % cream 00:00: (three) [place] 00 times Medical daily. Branch mupirocin 2020-0 Yes [id number] Apply to Univers (BACTROBAN) 4-11 area(s) 3 ity of 2 % cream 00:00: (three) [place] 00 times Medical daily. Branch mupirocin 2 2020-0 Yes [id number] Apply to Univers % ointment 4-11 area(s) 3 ity of 00:00: (three) [place] 00 times Medical daily. Branch mupirocin 2020-0 Yes [id number] Apply to Univers (BACTROBAN) 4-11 area(s) 3 ity of 2 % cream 00:00: (three) [place] 00 times Medical daily. Branch mupirocin 2020-0 Yes [id number] Apply to Univers (BACTROBAN) 4-11 area(s) 3 ity of 2 % cream 00:00: (three) [place] 00 times Medical daily. Branch mupirocin 2 2020-0 Yes [id number] Apply to Univers % ointment 4-11 area(s) 3 ity of 00:00: (three) [place] 00 times Medical daily. Branch mupirocin 2020-0 Yes [id number] Apply to Univers (BACTROBAN) 4-11 area(s) 3 ity of 2 % cream 00:00: (three) [place] 00 times Medical daily. Branch mupirocin 2020-0 Yes [id number] Apply to Univers (BACTROBAN) 4-11 area(s) 3 ity of 2 % cream 00:00: (three) [place] 00 times Medical daily. Branch mupirocin 2 2020-0 Yes [id number] Apply to Univers % ointment 4-11 area(s) 3 ity of 00:00: (three) [place] 00 times Medical daily. Branch mupirocin 2020-0 Yes [id number] Apply to Univers (BACTROBAN) 4-11 area(s) 3 ity of 2 % cream 00:00: (three) [place] 00 times Medical daily. Branch mupirocin 2020-0 Yes [id number] Apply to Univers (BACTROBAN) 4-11 area(s) 3 ity of 2 % cream 00:00: (three) [place] 00 times Medical daily. Branch mupirocin 2 2020-0 Yes [id number] Apply to Univers % ointment 4-11 area(s) 3 ity of 00:00: (three) [place] 00 times Medical daily. Branch mupirocin 2020-0 Yes [id number] Apply to Univers (BACTROBAN) 4-11 area(s) 3 ity of 2 % cream 00:00: (three) [place] 00 times Medical daily. Branch mupirocin 2020-0 Yes [id number] Apply to Univers (BACTROBAN) 4-11 area(s) 3 ity of 2 % cream 00:00: (three) [place] 00 times Medical daily. Branch mupirocin 2 2020-0 Yes [id number] Apply to Univers % ointment 4-11 area(s) 3 ity of 00:00: (three) [place] 00 times Medical daily. Branch mupirocin 2020-0 Yes [id number] Apply to Univers (BACTROBAN) 4-11 area(s) 3 ity of 2 % cream 00:00: (three) [place] 00 times Medical daily. Branch mupirocin 2020-0 Yes [id number] Apply to Univers (BACTROBAN) 4-11 area(s) 3 ity of 2 % cream 00:00: (three) [place] 00 times Medical daily. Branch mupirocin 2 2020-0 Yes [id number] Apply to Univers % ointment 4-11 area(s) 3 ity of 00:00: (three) [place] 00 times Medical daily. Branch mupirocin 2020-0 Yes [id number] Apply to Univers (BACTROBAN) 4-11 area(s) 3 ity of 2 % cream 00:00: (three) [place] 00 times Medical daily. Branch mupirocin 2020-0 Yes [id number] Apply to Univers (BACTROBAN) 4-11 area(s) 3 ity of 2 % cream 00:00: (three) [place] 00 times Medical daily. Branch mupirocin 2 2020-0 Yes [id number] Apply to Univers % ointment 4-11 area(s) 3 ity of 00:00: (three) [place] 00 times Medical daily. Branch mupirocin 2020-0 Yes [id number] Apply to Univers (BACTROBAN) 4-11 area(s) 3 ity of 2 % cream 00:00: (three) [place] 00 times Medical daily. Branch mupirocin 2020-0 Yes [id number] Apply to Univers (BACTROBAN) 4-11 area(s) 3 ity of 2 % cream 00:00: (three) [place] 00 times Medical daily. Branch mupirocin 2 2020-0 Yes [id number] Apply to Univers % ointment 4-11 area(s) 3 ity of 00:00: (three) [place] 00 times Medical daily. Branch mupirocin 2020-0 Yes [id number] Apply to Univers (BACTROBAN) 4-11 area(s) 3 ity of 2 % cream 00:00: (three) [place] 00 times Medical daily. Branch mupirocin 2020-0 Yes [id number] Apply to Univers (BACTROBAN) 4-11 area(s) 3 ity of 2 % cream 00:00: (three) [place] 00 times Medical daily. Branch mupirocin 2020-0 Yes [id number] Apply to Univers (BACTROBAN) 4-11 area(s) 3 ity of 2 % cream 00:00: (three) [place] 00 times Medical daily. Branch mupirocin 2020-0 Yes [id number] Apply to Univers (BACTROBAN) 4-11 area(s) 3 ity of 2 % cream 00:00: (three) [place] 00 times Medical daily. Branch mupirocin 2020-0 Yes [id number] Apply to Univers (BACTROBAN) 4-11 area(s) 3 ity of 2 % cream 00:00: (three) [place] 00 times Medical daily. Branch mupirocin 2020-0 Yes [id number] Apply to Univers (BACTROBAN) 4-11 area(s) 3 ity of 2 % cream 00:00: (three) [place] 00 times Medical daily. Branch mupirocin 2 2020-0 Yes [id number] Apply to Univers % ointment 4-11 area(s) 3 ity of 00:00: (three) [place] 00 times Medical daily. Branch mupirocin 2020-0 Yes [id number] Apply to Univers (BACTROBAN) 4-11 area(s) 3 ity of 2 % cream 00:00: (three) [place] 00 times Medical daily. Branch mupirocin 2020-0 Yes [id number] Apply to Univers (BACTROBAN) 4-11 area(s) 3 ity of 2 % cream 00:00: (three) [place] 00 times Medical daily. Branch mupirocin 2 2020-0 Yes [id number] Apply to Univers % ointment 4-11 area(s) 3 ity of 00:00: (three) [place] 00 times Medical daily. [place] ezetimibe 2018-08 Yes 10mg Take 10 mg Un jes 10 mg 2-06 by mouth ity of tablet 21:23: daily. [address] ezetimibe 2018-08 Yes 10mg Take 10 mg Un jes 10 mg 2-06 by mouth ity of tablet 21:23: daily. [address] ezetimibe 2018-08 Yes 10mg Take 10 mg Un jes 10 mg 2-06 by mouth ity of tablet 21:23: daily. [address] ezetimibe 2018-08 Yes 10mg Take 10 mg Un jes 10 mg 2-06 by mouth ity of tablet 21:23: daily. [address] ezetimibe 2018-08 Yes 10mg Take 10 mg Un jes 10 mg 2-06 by mouth ity of tablet 21:23: daily. [address] ezetimibe 2018-08 Yes 10mg Take 10 mg Un jes 10 mg 2-06 by mouth ity of tablet 21:23: daily. [address] ezetimibe 2018-08 Yes 10mg Take 10 mg Un jes 10 mg 2-06 by mouth ity of tablet 21:23: daily. [address] ezetimibe 2018-08 Yes 10mg Take 10 mg Un jes 10 mg 2-06 by mouth ity of tablet 21:23: daily. [address] ezetimibe 2018-08 Yes 10mg Take 10 mg Un jes 10 mg 2-06 by mouth ity of tablet 21:23: daily. [address] ezetimibe 2018-08 Yes 10mg Take 10 mg Un jes 10 mg 2-06 by mouth ity of tablet 21:23: daily. [address] ezetimibe 2018-08 Yes 10mg Take 10 mg Un jes 10 mg 2-06 by mouth ity of tablet 21:23: daily. [address] ezetimibe 2018-08 Yes 10mg Take 10 mg Un jes 10 mg 2-06 by mouth ity of tablet 21:23: daily. [address] ezetimibe 2018-08 Yes 10mg Take 10 mg Un jes 10 mg 2-06 by mouth ity of tablet 21:23: daily. [address] ezetimibe 2018-08 Yes 10mg Take 10 mg Un jes 10 mg 2-06 by mouth ity of tablet 21:23: daily. [address] ezetimibe 2018-08 Yes 10mg Take 10 mg Un jes 10 mg 2-06 by mouth ity of tablet 21:23: daily. [address] SERTraline 2018-08 Yes 150mg Take 150 Un jes 50 mg 2-06 mg by ity of tablet 21:23: mouth [place] 09 daily. [facility] SERTraline 2018-08 Yes 150mg Take 150 Un jes 50 mg 2-06 mg by ity of tablet 21:23: mouth [place] 09 daily. [facility] SERTraline 2018-08 Yes 150mg Take 150 [...] mg 39 daily. Medical per tablet Branch ezetimibe 2018-08 Yes 10mg Take 10 mg Un jes 10 mg 2-06 by mouth ity of tablet 15:23: daily. [address] ezetimibe 2018-08 Yes 10mg Take 10 mg Un jes 10 mg 2-06 by mouth ity of tablet 15:23: daily. [address] DIETARY 2018-08 Yes 1{tbl} Take 1 Univer s SUPPLEMENT 2-06 tablet by ity of ORAL 15:21: mouth [place] 39 daily. Medical Branch DIETARY 2018-08 Yes 1{tbl} Take 1 Univer s SUPPLEMENT 2-06 tablet by ity of ORAL 15:21: mouth [place] 39 daily. Medical Branch metoprolol 2018-08 Yes TAKE 1 [...] hr tablet 00 DAILY Medical Branch metoprolol 2019- Yes TAKE 1 Unive rs succinate 2-04 [...] ity of (0.1 %) 00:00: IN EACH [place] nasal spray 00 NOSTRIL Medic al ONCE DAILY Branch azelastine 2018-08 Yes USE 2 Univer s 137 mcg 0-22 SPRAY(S) ity of (0.1 %) 00:00: IN EACH [place] nasal spray 00 NOSTRIL Medic al ONCE DAILY Branch azelastine 2018-08 Yes USE 2 Univer s 137 mcg 0-22 SPRAY(S) ity of (0.1 %) 00:00: IN EACH [place] nasal spray 00 NOSTRIL Medic al ONCE DAILY Branch azelastine 2018-08 Yes USE 2 Univer s 137 mcg 0-22 SPRAY(S) ity of (0.1 %) 00:00: IN EACH [place] nasal spray 00 NOSTRIL Medic al ONCE DAILY Branch azelastine 2018-08 Yes USE 2 Univer s 137 mcg 0-22 SPRAY(S) ity of (0.1 %) 00:00: IN EACH [place] nasal spray 00 NOSTRIL Medic al ONCE DAILY Branch azelastine 2018-08 Yes USE 2 Univer s 137 mcg 0-22 SPRAY(S) ity of (0.1 %) 00:00: IN EACH [place] nasal spray 00 NOSTRIL Medic al ONCE DAILY Branch azelastine 2018-08 Yes USE 2 Univer s 137 mcg 0-22 SPRAY(S) ity of (0.1 %) 00:00: IN EACH [place] nasal spray 00 NOSTRIL Medic al ONCE DAILY Branch azelastine 2018-08 Yes USE 2 Univer s 137 mcg 0-22 SPRAY(S) ity of (0.1 %) 00:00: IN EACH [place] nasal spray 00 NOSTRIL Medic al ONCE DAILY Branch azelastine 2018-08 Yes USE 2 Univer s 137 mcg 0-22 SPRAY(S) ity of (0.1 %) 00:00: IN EACH [place] nasal spray 00 NOSTRIL Medic al ONCE DAILY Branch azelastine 2018-08 Yes USE 2 Univer s 137 mcg 0-22 SPRAY(S) ity of (0.1 %) 00:00: IN EACH [place] nasal spray 00 NOSTRIL Medic al ONCE DAILY Branch azelastine 2018-08 Yes USE 2 Univer s 137 mcg 0-22 SPRAY(S) ity of (0.1 %) 00:00: IN EACH [place] nasal spray 00 NOSTRIL Medic al ONCE DAILY Branch azelastine 2018-08 Yes USE 2 Univer s 137 mcg 0-22 SPRAY(S) ity of (0.1 %) 00:00: IN EACH [place] nasal spray 00 NOSTRIL Medic al ONCE DAILY Branch azelastine 2018-08 Yes USE 2 Univer s 137 mcg 0-22 SPRAY(S) ity of (0.1 %) 00:00: IN EACH [place] nasal spray 00 NOSTRIL Medic al ONCE DAILY Branch azelastine 2018-08 Yes USE 2 Univer s 137 mcg 0-22 SPRAY(S) ity of (0.1 %) 00:00: IN EACH [place] nasal spray 00 NOSTRIL Medic al ONCE DAILY Branch azelastine 2018-08 Yes USE 2 Univer s 137 mcg 0-22 SPRAY(S) ity of (0.1 %) 00:00: IN EACH [place] nasal spray 00 NOSTRIL Medic al ONCE DAILY Branch azelastine 2018-08 Yes USE 2 Univer s 137 mcg 0-22 SPRAY(S) ity of (0.1 %) 00:00: IN EACH [place] nasal spray 00 NOSTRIL Medic al ONCE DAILY Branch azelastine 2018-08 Yes USE 2 Univer s 137 mcg 0-22 SPRAY(S) ity of (0.1 %) 00:00: IN EACH [place] nasal spray 00 NOSTRIL Medic al ONCE DAILY Branch Tramadol Tramadol 2017-08 Yes [place] 1 tablet Common HCl HCl 0-12 [place] as needed [facility] 00:00: - [facility] 00 [facility] Telmisartan Telmisartan Yes [place] not Common -HCTZ -HCTZ [facility] defined [facility] Move Free Move Free Yes [place] not Co mmon [facility] defined [facility] Latanoprost Latanoprost Yes [place] not Common [facility] defined [facility] Meloxicam Meloxicam Yes [place] TAKE 1 Common [place] TABLET BY Spirit MOUTH ONCE - [facility] DAILY [facility] Amlodipine Amlodipine Yes [place] not Common Besylate Besylate [facility] defined [facility] Aspirin 81 Aspirin 81 Yes [place] not Common [facility] defined [facility] tramadol tramadol Yes [place] not Comm on [facility] Ezetimibe Ezetimibe Yes [place] [facility] Restasis Yes [place] not Comm on [place] defined [facility] Modafinil Modafinil Yes [place] not Co mmon [place] defined [facility] Pravastatin Pravastatin Yes [place] not Common Sodium Sodium [place] defined [facility] Sertraline Sertraline Yes [place] not Common HCl HCl [place] defined [facility] Vital Signs Vital Name Observation Time [...] 15:42:00 120 mm[Hg] Univer sity of pressure [facility] Diastolic blood 2020-06-16 15:42:00 60 mm[Hg] Unive rsity of pressure [facility] Heart rate 2020-06-16 15:42:00 82 /min Universi ty of [facility] Body weight 2020-06-16 15:42:00 76.204 kg Universi ty of [facility] BMI 2020-06-16 15:42:00 28.84 kg/m2 Universi ty of [place] [facility] [place] Oxygen saturation in 2020-06-16 15:42:00 97 /min University of Arterial blood by [facility] Pulse oximetry Branch Systolic blood 2020-06-16 15:42:00 120 mm[Hg] Univer sity of pressure [facility] Diastolic blood 2020-06-16 15:42:00 60 mm[Hg] Unive rsity of pressure [facility] Heart rate 2020-06-16 15:42:00 82 /min Universi ty of [facility] Body weight 2020-06-16 15:42:00 76.204 kg [facility]i ty of [place] [facility] [place] BMI 2020-06-16 15:42:00 28.84 kg/m2 Universi ty of [facility] Oxygen saturation in 2020-06-16 15:42:00 97 /min University of Arterial blood by [facility] Pulse oximetry Branch Systolic blood 2020-02-11 21:18:00 149 mm[Hg] Univer sity of pressure [facility] Diastolic blood 2020-02-11 21:18:00 80 mm[Hg] Unive rsity of pressure [facility] Heart rate 2020-02-11 21:17:00 74 /min [facility] Respiratory rate 2020-02-11 21:17:00 19 /min [facility] Body weight 2020-02-11 21:17:00 77.474 kg [facility] BMI 2020-02-11 21:17:00 29.32 kg/m2 [facility] Procedures Procedure Date / Time Performing Clinician Source Performed AUTHORIZATION FOR RELEASE 2022-09-21 06:01:00 Doctor Unafrances, [facility] Name Medical [place] AMB REF TO 2022-08-31 09:14:55 [facility] Medicine AUTHORIZATION FOR RELEASE 2022-08-24 06:01:00 Doctor Unafrances, [facility] Name Medical [place] MR BRAIN WITH & WITHOUT IV 2021-12-01 13:14:[address] [place] [facility] Medical CONTRAST Center REFERRAL- REQUEST/RESPONSE 2020-02-25 05:01:00 Doctor Unafrances , [facility] Name [facility] COGNITIVE ASSESSMENT 2020-02-11 05:01:00 Doctor Unassromel, [facility] Name [facility] COGNITIVE ASSESSMENT 2019-08-19 06:01:00 Doctor Unassromel, [facility] Name [facility] Plan of Care Planned Activity Planned Date Details Comments Source Future Scheduled 2023-04-[address] [facility] Test 00:00:00 (Season Ended) [code = Medic al Center INFLUENZA VACCINE (Season Ended)] Future Scheduled 2023-04-[address] [facility] Test 00:00:00 (Season Ended) [code = Medic al Center INFLUENZA VACCINE (Season Ended)] Future Scheduled 2023-04-[address] [facility] Test 00:00:00 (Season Ended) [code = Medic al Center INFLUENZA VACCINE (Season Ended)] Future Scheduled 2023-04-[address] [facility] Test 00:00:00 (Season Ended) [code = Medic al Center INFLUENZA VACCINE (Season Ended)] Future Scheduled 2023-01-04 [facility] 13:22:43 [code = COLONOSCOPY SCREENING] Future Scheduled 2023-01-04 SHINGLES VACCINES (1 [facility] Test 13:22:43 of 2) [code = SHINGLES VACCINES (1 of 2)] Future Scheduled 2023-01-04 65+ P[facility]UMOCOCCAL [facility] Test 13:22:43 VACCINE (1 - PCV) [code = 65+ PNEUMOCOCCAL VACCINE (1 - PCV)] Future Scheduled 2023-01-04 INFLUENZA VACCINE [facility] Test 13:22:43 [code = INFLUENZA VACCINE] Future Scheduled 2023-01-04 COVID-19 VACCINE (#1) [facility] Test 13:22:43 [code = COVID-19 VACCINE (#1)] Future Scheduled 2023-01-04 Hepatitis C screening [facility] Test 13:22:43 (procedure) [code = 769158874] Future Scheduled 2023-01-[address] [facility] Test 13:22:43 SCREENING [code = BREAST CANCER SCREENING] Future Scheduled 2022-11-07 COVID-19 VACCINE (#1) [facility] Test 03:07:05 [code = COVID-19 VACCINE (#1)] Future Scheduled 2022-11-07 Hepatitis C screening [facility] Test 03:07:05 (procedure) [code = [id number]] Future Scheduled 2022-11-[address] [facility] Test 03:07:05 SCREENING [code = BREAST CANCER SCREENING] Future Scheduled 2022-11-07 COLONOSCOPY SCREENING [facility] Test 03:07:05 [code = COLONOSCOPY SCREENING] Future Scheduled 2022-11-07 SHINGLES VACCINES (1 [facility] Test 03:07:05 of 2) [code = SHINGLES VACCINES (1 of 2)] Future Scheduled 2022-11-07 65+ P[facility]UMOCOCCAL [facility] Test 03:07:05 VACCINE (1 - PCV) [code = 65+ PNEUMOCOCCAL VACCINE (1 - PCV)] Future Scheduled 2022-11-07 INFLUENZA VACCINE Method [facility] Hospital Test 03:07:05 [code = INFLUENZA VACCINE] Future Scheduled 2022-11-03 65+ PNEUMOCOCCAL [facility] Test 12:47:38 VACCINE (1 - PCV) [code = 65+ PNEUMOCOCCAL VACCINE (1 - PCV)] Future Scheduled 2022-11-03 INFLUENZA VACCINE [facility] ist Hospital Test 12:47:38 [code = INFLUENZA VACCINE] Future Scheduled 2022-11-03 COVID-19 VACCINE (#1) [facility] Test 12:47:38 [code = COVID-19 VACCINE (#1)] Future Scheduled 2022-11-03 Hepatitis C screening [facility] Test 12:47:38 (procedure) [code = [id number]] Future Scheduled 2022-11-03 BREAST CANCER [facility] Test 12:47:38 SCREENING [code = BREAST CANCER SCREENING] Future Scheduled 2022-11-03 COLONOSCOPY SCREENING [facility] Test 12:47:38 [code = COLONOSCOPY SCREENING] Future Scheduled 2022-11-03 SHINGLES VACCINES (1 [facility] Test 12:47:38 of 2) [code = SHINGLES VACCINES (1 of 2)] Future Scheduled 2022-09-02 COVID-19 VACCINE (#1) [facility] Test 22:35:24 [code = COVID-19 VACCINE (#1)] Future Scheduled 2022-09-02 Hepatitis C screening [facility] Test 22:35:24 (procedure) [code = [id number]] Future Scheduled 2022-09-02 BREAST CANCER [facility] Test 22:35:24 SCREENING [code = BREAST CANCER SCREENING] Future Scheduled 2022-09-02 COLONOSCOPY SCREENING [facility] Test 22:35:24 [code = COLONOSCOPY SCREENING] Future Scheduled 2022-09-02 SHINGLES VACCINES (1 [facility] Test 22:35:24 of 2) [code = SHINGLES VACCINES (1 of 2)] Future Scheduled 2022-09-02 65+ [facility]OCOCCAL [facility] Test 22:35:24 VACCINE (1 - PCV) [...] VACCINES (1 - Tdap)] Future Scheduled 1967 SHINGLES VACCINES ([address] [facility] Test [...] VACCINES (1 - Tdap)] Future Scheduled 1967 SHINGLES VACCINES ([address] [facility] Test 00:00:00 of 2) [code = SHINGLES Medic al Center VACCINES (1 of 2)] Future Scheduled 1967 DTAP/TDAP/TD [facility]ACCINES [facility] 00:[facility]:00 (1 - Tdap) [code = Medical C enter DTAP/TDAP/TD VACCINES (1 - Tdap)] Future Scheduled 1967 SHINGLES VACCINES ([address] [facility] Test 00:00:00 of 2) [code = SHINGLES Medic al Center VACCINES (1 of 2)] Future Scheduled 1967 DTAP/TDAP/TD [facility]ACCINES [facility] 00:00:00 (1 - Tdap) [code = Medical C enter DTAP/TDAP/TD VACCINES (1 - Tdap)] Future Scheduled 1967 SHINGLES VACCINES ([address] [facility] Test 00:00:00 of 2) [code = SHINGLES Medic al Center VACCINES (1 of 2)] Future Scheduled 1967 DTAP/TDAP/TD VACCINES [facility] 00:00:00 (1 - Tdap) [code = Medical C enter DTAP/TDAP/TD VACCINES (1 - Tdap)] Future Scheduled 1967 SHINGLES VACCINES ([address] [facility] Test [...] [facility] Test 00:00:00 [facility] [code = [id number]] Future Scheduled [address] [facility] Test 00:00:00 (combo) [code = CT Medical C enter Colonography (combo)] Future Scheduled [address] [facility] 00:00:00 [facility] (procedure) [code = 206920723] Future Scheduled [address] [facility] Test 00:00:00 malignant neoplasm of Medica l Center colon (procedure) [code = 219086494] Future Scheduled 1948 DXA SCAN [code = DXA [facility] Test 00:00:00 SCAN] [facility] Future Scheduled [address] [facility] Test 00:00:00 malignant neoplasm of Medica l Center colon (procedure) [code = [id number]] Future Scheduled [address] [facility] Test 00:00:00 malignant neoplasm of Medica l Center colon (procedure) [code = 132004254] Future Scheduled 1948 Sigmoidoscopy [facility]code [facility]] [facility] Future Scheduled [address] [facility] Test 00:00:00 malignant neoplasm of Medica l Center breast (procedure) [code = [id number]] Future Scheduled [address] [facility] 00:00:00 (combo) [code = CT Medical C enter Colonography (combo)] Future Scheduled [address] [facility] colon (procedure) [code = 893405971] Future Scheduled [address] [facility] 00:00:00 [facility] colon (procedure) [code = 982222195] Future Scheduled 1948 DXA SCAN [code = DXA [facility] 00:[facility]:00 SCAN] [facility] Future Scheduled [address] [facility] 00:[facility]:00 [facility] colon (procedure) [code = 095408946] Future Scheduled [address] [facility] 00:00:00 [facility] colon (procedure) [code = 712514980] Future Scheduled 1948 Sigmoidoscopy [facility]code = [facility]] [facility] Future Scheduled [address] [facility] 00:00:00 [facility] breast (procedure) [code = 689795829] Future Scheduled [address] [facility] 00:00:00 (combo) [code = CT Medical C enter Colonography (combo)] Future Scheduled [address] [facility] 00:00:00 [facility] colon (procedure) [code = 507055132] Future Scheduled [address] [facility] 00:00:00 [facility] colon (procedure) [code = 863612835] Future Scheduled 1948 DXA SCAN [code = DXA [facility] 00:00:00 SCAN] [facility] Future Scheduled [address] [facility] 00:00:00 [facility] colon (procedure) [code = 256628437] Future Scheduled [address] [facility] 00:00:00 [facility] colon (procedure) [code = 604759230] Future Scheduled 1948 [facility]oidoscopy [facility]] [facility] Future Scheduled [address] [facility] 00:00:00 [facility] breast (procedure) [code = 659899748] Future Scheduled [address] [facility] 00:00:00 (combo) [code = CT Medical C enter Colonography (combo)] Future Scheduled [address] [facility] 00:00:00 [facility] colon (procedure) [code = 380759443] Future Scheduled [address] [facility] 00:00:00 [facility] colon (procedure) [code = 298625648] Future Scheduled 1948 DXA SCAN [code = DXA [facility] 00:00:00 SCAN] [facility] Future Scheduled [address] [facility] 00:00:00 [facility] colon (procedure) [code = 842005121] Future Scheduled [address] [facility] 00:00:00 [facility] colon (procedure) [code = 994971217] Future Scheduled 1948 [facility]oidoscopy [facility]] [facility] Future Scheduled [address] [facility] 00:00:00 [facility] breast (procedure) [code = 103287078] Future Scheduled [address] [facility] 00:00:00 (combo) [code = CT Medical C enter Colonography (combo)] Future Scheduled [address] [facility] 00:00:00 [facility] colon (procedure) [code = 197245750] Future Scheduled [address] [facility] 00:00:00 [facility] colon (procedure) [code = 179042416] Future Scheduled 1948 DXA SCAN [code = DXA [facility] 00:00:00 SCAN] [facility] Future Scheduled [address] [facility] 00:00:00 [facility] colon (procedure) [code = 097761062] Future Scheduled [address] [facility] 00:00:00 [facility] colon (procedure) [code = 361604551] Future Scheduled 1948 [facility]oidoscopy [facility] [address] [facility] 00:00:00 [facility] breast (procedure) [code = 333112400] Future Scheduled [address] [facility] 00:00:00 (combo) [code = CT Medical C enter Colonography (combo)] Future Scheduled [address] [facility] 00:00:00 [facility] colon (procedure) [code = 425443336] Future Scheduled [address] [facility] 00:00:00 [facility] colon (procedure) [code = 243519523] Future Scheduled 1948 DXA SCAN [code = DXA [facility] 00:00:00 SCAN] [facility] Future Scheduled [address] [facility] 00:00:00 [facility] colon (procedure) [code = 207027956] Future Scheduled [address] [facility] 00:00:00 [facility] colon (procedure) [code = 260603158] Future Scheduled 1948 [facility]oidoscopy [facility] Scheduled [address] [facility] 00:00:00 [facility] breast (procedure) [code = 308423001] Future Scheduled [address] [facility] 00:00:00 (combo) [code = CT Medical C enter Colonography (combo)] Future Scheduled [address] [facility] 00:00:00 [facility] colon (procedure) [code = 475224721] Future Scheduled [address] [facility] 00:00:00 [facility] colon (procedure) [code = 856357342] Future Scheduled 1948 DXA SCAN [code = DXA [facility] 00:00:00 SCAN] [facility] Future Scheduled [address] [facility] 00:00:00 [facility] colon (procedure) [code = 956203277] Future Scheduled [address] [facility] 00:00:00 [facility] colon (procedure) [code = 729521868] Future Scheduled 1948 [facility]oidoscopy [facility]] [facility] Future Scheduled [address] [facility] 00:00:00 [facility] breast (procedure) [code = 344205379] Future Scheduled [address] [facility] 00:00:00 (combo) [code = CT Medical C enter Colonography (combo)] Future Scheduled [address] [facility] 00:00:00 [facility] colon (procedure) [code = 512359296] Future Scheduled [address] [facility] 00:00:00 [facility] colon (procedure) [code = 697646863] Future Scheduled 1948 DXA SCAN [code = DXA [facility] 00:00:00 SCAN] [facility] Future Scheduled [address] [facility] 00:00:00 [facility] colon (procedure) [code = 951129985] Future Scheduled [address] [facility] 00:00:00 [facility] colon (procedure) [code = 145624553] Future Scheduled 1948 [facility]oidoscopy [facility]code [facility]] [facility] Future Scheduled [address] [facility] 00:00:00 [facility] breast (procedure) [code = 732689868] Future Scheduled [address] [facility] 00:00:00 (combo) [code = CT Medical C enter Colonography (combo)] Future Scheduled [address] [facility] 00:00:00 [facility] colon (procedure) [code = 604076350] Future Scheduled [address] [facility] 00:00:00 [facility] colon (procedure) [code = 312220378] Future Scheduled 1948 DXA SCAN [code = DXA [facility] 00:00:00 SCAN] [facility] Future Scheduled [address] [facility] 00:00:00 [facility] colon (procedure) [code = 155076903] Future Scheduled [address] [facility] 00:00:00 [facility] colon (procedure) [code = 976323211] Future Scheduled 1948 [facility]oidoscopy [facility]code [facility]] [facility] Future Scheduled [address] [facility] 00:00:00 [facility] breast (procedure) [code = 494541952] Future Scheduled [address] [facility] 00:00:00 (combo) [code = CT Medical C enter Colonography (combo)] Future Scheduled [address] [facility] 00:00:00 [facility] colon (procedure) [code = 174456504] Future Scheduled [address] [facility] 00:00:00 [facility] colon (procedure) [code = 167934950] Future Scheduled 1948 DXA SCAN [code = DXA [facility] 00:00:00 SCAN] [facility] Future Scheduled [address] [facility] 00:00:00 [facility] colon (procedure) [code = 375980074] Future Scheduled [address] [facility] 00:00:00 [facility] colon (procedure) [code = 245754293] Future Scheduled 1948 [facility]oidoscopy [facility] [address] [facility] 00:00:00 [facility] breast (procedure) [code = 943273802] Future Scheduled [address] [facility] 00:00:00 (combo) [code = CT Medical C enter Colonography (combo)] Future Scheduled [address] [facility] 00:00:00 [facility] colon (procedure) [code = 874428268] Future Scheduled [address] [facility] 00:00:00 [facility] colon (procedure) [code = 281542500] Future Scheduled 1948 DXA SCAN [code = DXA [facility] 00:00:00 SCAN] [facility] Future Scheduled [address] [facility] 00:00:00 [facility] colon (procedure) [code = 716849603] Future Scheduled [address] [facility] 00:00:00 [facility] colon (procedure) [code = 435153652] Future Scheduled 1948 [facility]oidoscopy [facility]] [facility] [address] [facility] 00:00:00 malignant [facility] breast (procedure) [code = 298165837] Future Scheduled [address] [facility] 00:00:00 (combo) [code = CT Medical C enter Colonography (combo)] Future Scheduled [address] [facility] 00:00:00 [facility] colon (procedure) [code = 459578576] Future Scheduled [address] [facility] 00:00:00 malignant [facility] colon (procedure) [code = 237551952] Future Scheduled 1948 DXA SCAN [code = DXA [facility] 00:00:00 SCAN] [facility] Future Scheduled [address] [facility] 00:00:00 [facility] colon (procedure) [code = 620113169] Future Scheduled [address] [facility] 00:00:00 [facility] colon (procedure) [code = 569861536] Future Scheduled 1948 [facility]oidoscopy [facility]code [facility]] [facility] Future Scheduled [address] [facility] 00:00:00 [facility] breast (procedure) [code = 946882708] Future Scheduled [address] [facility] 00:00:00 (combo) [code = CT Medical C enter Colonography (combo)] Future Scheduled [address] [facility] 00:00:00 [facility] colon (procedure) [code = 758511065] Future Scheduled [address] [facility] 00:00:00 [facility] colon (procedure) [code = 271028482] Future Scheduled 1948 DXA SCAN [code = DXA [facility] 00:00:00 SCAN] [facility] Future Scheduled [address] [facility] 00:00:00 [facility] colon (procedure) [code = 900961922] Future Scheduled [address] [facility] 00:00:00 malignant [facility] colon (procedure) [code = 086233433] Future Scheduled 1948 [facility]oidoscopy [facility] Start End Encounter Admission Attending Care Care Encounter Source Date/Time Date/Time Type Type Clinicians Facility Department ID 2020-07-20 Inpatient ER ANTONI, [facility] Neuro ICU [id number] [facility] 01:51:00 [facility] 2022-11-08 2022-11-08 Outpatient MARIETTA NORRIS, [facility] [id number] SLE 00:00:00 00:00:00 [facility] 2022-09-21 2022-09-21 Orders Doctor TORI Qureshi.2.840.114 [id number] Univers 00:00:00 00:00:00 Only Unassigned, MAHAD 350.1.13.10 ity [facility] 4.2.7.2.686 [place] [phone] [facility] [address] 2022-08-31 2022-08-31 Outpatient MYRNA [facility] [id number] [facility] 08:44:35 09:15:37 [facility] Angelag e of Medicin e 2022-08-24 2022-08-[address] [facility] [id number] SLE 00:00:00 00:00:00 [facility] 2022-08-24 2022-08-[address] [facility] [id number] SLE 00:00:00 00:00:00 [facility] 2022-08-24 2022-08-24 Orders Doctor TORI Rawls2.840.114 [id number] Univers 00:00:00 00:00:00 Only Unassigned, MAHAD 350.1.13.10 [facility] [place] H[facility] 4.2.7.2.686 [place] [phone] [facility] [address] 2022-06-27 2022-06-27 Outside [facility] [id number] 00:00:00 00:00:00 Orders [facility] 2022-06-27 2022-06-27 Outside [facility] [id number] 00:00:00 00:00:00 Orders [facility] 2021-12-15 2021-12-15 Outpatient SUNSHINE NORRIS [facility] [id number] [facility] 08:47:20 09:30:32 SITA Millerdevin e of Medicin e 2021-12-01 2021-12-01 Outpatient CARMEN TENORIO [facility] [id number] [facility] 12:10:26 23:59:00 [facility] 2021-12-01 2021-12-01 [facility] Sita Norris [facility] [id number] [facility] 12:10:26 23:59:00 [facility] 2021-01-18 2021-01-[address] [facility] [id number] 00:00:00 00:00:00 [facility] 2020-12-28 2020-12-[address] [facility] [id number] SLE 00:00:00 00:00:00 [place] 2020-11-16 2020-11-[address] [facility] [id number] 00:00:00 00:00:00 [facility] 2020-11-16 2020-11-[address] [facility] [id number] 00:00:00 00:00:00 [facility] 2020-09-18 2020-09-23 Inpatient FAKHRI, [facility] [id number] [place] 00:00:00 00:00:00 ALIERICAYA [address] 2020-09-14 2020-09-14 Outpatient BUNYAN, [facility] [id number] [place] 00:00:00 00:00:00 SAYL [address] 2020-08-18 2020-08-18 Outpatient ALEXANDRO LARSON [facility] [id number] Univers 16:00:00 16:00:00 ALEXANDRO MALAVE asmita [facility] 2020-08-17 2020-08-[address] [facility] [id number] 11:25:35 11:25:35 [facility] 2020-07-20 2020-07-20 [facility]phone [facility] 1.2.840.114 [id number] Univers 00:00:00 00:00:00 Alexandro Fraga 350.1.13.10 [place] [phone] [address] 2020-06-23 2020-06-23 [place] [facility] 1.2.840.114 [id number] Univers 00:00:00 00:00:00 Alexandro Fraga 350.1.13.10 [place] [phone] [address] 2020-06-23 2020-06-23 [place] [facility] 1.2.840.114 [id number] 00:00:00 00:00:00 Alexandro Fraga 350.1.13.10 [place] 4.2.7.2.686 Professio [phone] [address] 2020-06-22 2020-06-22 [place] [facility] 1.2.840.114 [id number] Univers 00:00:00 00:00:00 Alexandro Fraga 350.1.13.10 [place] [phone] [address] 2020-06-16 2020-06-16 [facility] 1.2.840.114 [id number] [facility] 09:24:15 10:41:13 Visit Alexandro Vargas [place] 350.1.13.10 [place] [phone] [address] 2020-06-16 2020-06-16 [facility] 1.2.840.114 [id number] 09:24:15 10:41:13 Visit Alexandro Sam Fraga 350.1.13.10 [place] 4.2.7.2.686 Professio [phone] [address] 2020-06-16 2020-06-16 Outpatient R ANANDAALEXANDRO ZAVALA [facility] [id number] Univers 09:40:00 09:40:00 ANANDAALEXANDRO juana [facility] 2020-03-13 2020-03-13 Outpatient R MICHELL [facility] [id number] Univers 08:30:00 08:30:00 [facility] 2020-02-25 2020-02-25 Orders Doctor TORI 1.2.840.114 [id number] Univers 00:00:00 00:00:00 Only Unassigned, MAHAD 350.1.13.10 [place] [facility] 4.2.7.2.686 [place] [phone] [address] 2020-02-17 2020-02-17 Outpatient Sveta ANANDAALEXANDRO ZAVALA [facility] [id number] Univers 11:00:00 11:00:00 ANANDAALEXANDRO Vyas juana [facility] 2020-02-11 2020-02-11 Office Ananda [facility] 1.2.840.114 [id number] Univers 16:01:34 16:54:44 Visit Alexandro Fraga 350.1.13.10 ity [facility] 4[place]2.7.[place] [phone] Mt dical [address] 2020-02-11 2020-02-11 Outpatient Sveta ANANDAALEXANDRO Vyas [facility] [id number] Univers 16:00:00 16:00:00 ANANDAALEXANDRO juana [facility] 2020-02-11 2020-02-11 Orders Doctor VALLE 1.2.840.114 [id number] Univers 00:00:00 00:00:00 Only Unassigned, MAHAD [facility].13.10 [facility] 4.2.7.2.686 [place] [phone] [address] 2019-11-16 2019-11-16 Outpatient R AYE [facility] [id number] Univers 12:00:00 12:00:00 [facility] 2019-11-16 2019-11-16 Nurse TORI [place] 1.2.840.114 [id number] Univers 00:00:00 00:00:00 Triage Debra Tayla MAHAD 350.1.13.10 ity of HOSPITAL 4.2.7.2.686 [place] [phone] [address] 2019-11-16 2019-11-16 Telephone TORI Simpson2.840.114 [id number] Univers 00:00:00 00:00:00 Debra M MAHAD 350.1.13.10 ity of HOSPITAL 4.2.7.2.686 [place] [phone] [address] 2019-11-16 2019-11-16 Telephone TORI Simpson2.840.114 [id number] Univers 00:00:00 00:00:00 Debra M MAHAD 350.1.13.10 ity of [facility] 4.2.7.2.686 [place] [phone] [address] 2019-11-04 2019-11-04 Outpatient [facility] [id number] Common 08:36:00 08:36:00 t [facility] 2019-10-02 2019-10-02 Outpatient [facility] [id number] Common 16:17:00 16:17:00 t Bone Bone and Spiri t and Joint [facility] - [facility] 2019-08-19 2019-08-19 Office JESSY Malave 1.2.840.114 [id number] [facility] 16:09:28 16:55:12 Visit Alexandro Fraga 350.1.13.10 [place] [phone] Mt dical nal [address] 2019-08-19 2019-08-19 Orders Doctor TORI 1.2.840.114 [id number] Univers 00:00:00 00:00:00 Only Unassigned, MAHAD 350.1.13.10 it[place] of [place] HOSPITAL 4.2.7.2.686 [place] [phone] [place] [address] [address] 2019-05-08 2019-05-08 Out[facility] [id number] Common 14:28:00 14:28:00 t Bone Bone and Spiri t and Joint [facility] - [facility] 2019-04-11 2019-04-11 Outpatient [facility] [id number] Common 13:30:00 13:30:00 t Bone Bone and Spiri t and Joint Joint - [facility] 2019-04-04 2019-04-04 Outpatient [facility] [id number] Common 08:30:00 08:30:00 t Bone Bone and Spiri t and Joint Joint - [facility] 2019-03-29 2019-03-29 Outpatient [facility] [id number] Common 08:30:00 08:30:00 t Bone Bone and Spiri t and Joint Joint - [facility] 2019-03-19 2019-03-19 Outpatient [facility] [id number] Common 15:30:00 15:30:00 t Bone Bone and Spiri t and Joint Joint - [facility] 2019-03-19 2019-03-19 Outpatient [facility] [id number] Common 09:00:00 09:00:00 t Bone Bone and Spiri t and Joint [facility] - [facility] 2018-07-25 2018-07-25 Outpatient [facility] [id number] Common 08:38:00 08:38:00 t Bone Bone and Spiri t and Joint [facility] 2018-05-17 2018-05-17 Outpatient [facility] [id number] Common 09:23:00 09:23:00 t Bone Bone and Spiri t and Joint Joint - [facility] 2018-05-08 2018-05-08 Outpatient [facility] [id number] Common 08:02:00 08:02:00 t Bone Bone and Spiri t and Joint [facility] - [facility] Results Test Description Test Time Test Comments Results Result [facility] e Comments MR, BRAIN, 2021-12-01 Unlisted Reason WITHOUT / WITH IV 14:54:00 for Exam - Click CONTRAST Yes and Enter [facility] Below->YesUnlist CENTERName: HENRY SIA catalan Reason for RADHA CLEOPATRA : Exam->benign 1950 Sex: meningiomaAnesth F esia:->NoneDoes the patient have FINAL an implanted REPORT PATIENT ID: electronic [id number] MR, BRAIN, device?->No WITHOUT / WITH IV [...] no evidence of recurrent tumor. Signed: Susan Morgan MDReport Verified Date/Time: 12/01/2021 14:54:36 , BRAIN, 2020-12-29 Unlisted Reason WITHOUT / WITH IV 07:50:00 for Exam - Click CONTRAST Yes and Enter [facility] Reason Below->No [facility] CENTERName: KRYSTAL HENRY : 1950 Sex: F FINAL REPORT MR, [...] Villegas Verified Date/Time: 12/29/2020 07:50:40 Reading Location: [facility] Reading Room [address] [place] [address] -CoV-2 (COVID-19) RNA [Presence] in Respiratory sp ecimen by 2020-09-14 22:54:18 KENNETH with probe detection Test Item Value Reference Range Interpretation Comme nts SARS-CoV-2 (COVID-19) RNA [Presence] in Respiratory Not detected No t-Detected specimen by KENNETH with probe detection (test code = 07193-2) Felix [facility]Christ[facility]PO[facility]SE [id number] 11:32:00 Test Item Value Reference Range Interpretation Comments POC-GLUCOSE METER 108 mg/dL 70-110 : TESTED A T [facility] 10568 (BEAKER) (test code [address], = 1538) [place] [address] 384: Powerhouse Laborer/Techni emil ID = [id number] for T Cecile millan POCT-GLUCOSE [id number] 11:31:00 Test Item Value Reference Range Interpretation Comments POC-GLUCOSE METER 169 mg/dL 70-110 H : TESTED A T [facility] 43438 (BEAKER) (test code [address], = 1538) [place] [address] 384: Powerhouse Laborer/Techni emil ID = [id number] for A Sheryl dawn POCT-GLUCOSE [id number] 11:31:00 Test Item Value Reference Range Interpretation Comments POC-GLUCOSE METER 75 mg/dL 70-110 : TESTED A T [facility] 17711 (BEAKER) (test code = [address], 1538) [place] [address] 384: Powerhouse Laborer/Techni emil ID = [id number] for A Sheryl dawn POCT-GLUCOSE [id number] 11:31:00 Test Item Value Reference Range Interpretation Comments POC-GLUCOSE METER 103 mg/dL 70-110 : TESTED A T [facility] 63995 (BEAKER) (test code [address], = 1538) [place] [address] 384: Powerhouse Laborer/Techni emil ID = [id number] for Sakina Araujo TISSUE [id number] 11:14:00Surgical Pathology Report Case: [id number] Authorizing Provider: Ramu Lu Collected: 07/28/2020 02:42 PM MD Marciano Ordering Location: [facility] - Perioperative Received: 07/28/2020 02:48 PM Serv ices Pathologist: Moi Ruffin MD Specimens: A) - Brain, brain tumor B) - Brain, Brain Tumor A. BRAIN, RIGHT FRONTAL, CRANIOTOMY:SECRETORY MENINGIOMA WITH ATYPICAL FEATURES (SEE COMMENT)B. BRAIN,RIGHT FRONTAL, CRANIOTOMY:SECRETORY MENINGIOMA WITH ATYPICAL FEATURES (SEE COMMENT) Signing Pathologist Direct Phone Line: [phone] signed by Moi Ruffin MD on 08/11/2020 at 11:14 AMThe meningioma is highly cellular with focally prominent nucleoli. Vague whorling is present, although some confluent growth is present. Mitoses number 1-2 or less per 10 high power kunz. No definite necrosis is present, and brain invasion is absent. There are multifocal pseudopsamomma bodies that a re filled with proteinaceous inclusions and are rimmed by MADISYN positive tumor cells, typical of the secretory subtype. The Ki67 proliferation index is 15.7%, consistent with a moderately elevated proliferation index. Given the high cellularity and focally prominent nucleoli, just short of fulfilling the criteria for Grade II meningioma, but elevated proliferation index, the tumor may be predisposed torecurrence or aggressive behavior. Close clinical follow-up may be warranted if clinically indicated. 79960 x 2; 15227; 55847; 63732Awrzx tumor. Procedure: Stealth craniotomy. A. Brain tumor; B. Brain tumorThe instrument, paperwork, containers and cassettes all read [id number].Received in formalin labeled with the patient's name (Henry), and medical record number. Specimen A: . Received in formalin labeled as "brain tumor" is a specimen that was previously submitted for frozen section evaluation. Thistissue will be transferred to cassette A1FS for permanent section. The remainder of the tissue in the container will be submitted in cassette A2 for permanent section. Specimen B: Received in formalin labeled as "brain tissue" are two luna-emmanuel rubbery segments of tissue. The first measures 2.5 x 1.7 x1.5 cm. The other measures 2.7 x 2.6 x 2.0 cm. Sectioning reveals a luna-emmanuel cut surface. The specimen is sectioned. The smaller segment is totally submitted in B1 and B2. The larger segment is totallysubmitted in B3 through B5. JF/pl INTRAOPERATIVE CONSULTATION WITH FROZEN [id number]: BRAIN, MASS LESION, CRANIOTOMY WITH FROZEN SECTION:- MENINGIOMANote: The above findings are preliminary based on limited evaluation at the time of surgery. (dg/es). Please refer to the final report.Quality of frozensection slide = AcceptableIdentify of patient = confirmed prior to giving verbal resultResults givendirectly to surgeon (Dr. Lu) at time of preliminary verify.Performed on A and BThe interpretation of this case included the use of immunohistochemistry or special stains.Control Slides Examined: In-house known positive controls were evaluated along with the test tissue. These control slides run alongside of the patients sample show appropriate staining. Internal positive and negative controls when available are evaluated Immunohistochemistry technical testing was performed at [facility], Pathology Laboratory where it was developed and its performance characteristics were determined. It has not been cleared or approved by the U.S. Food and Drug Administration. The FDA hasdetermined that such clearance or approval is not necessary. The test is used for clinical purposes. It should not be regarded as investigational or for research. This laboratory is certified under theClinical Laboratory Improvement Amendments of 1988 (CLIA-88) as qualified to perform high complexityclinical laboratory testing.POCT-GLUCOSE [id number] 12:25:00 Test Item Value Reference Range Interpretation Comments POC-GLUCOSE METER 130 mg/dL 70-110 H : TESTED A T [facility] 42272 (BEAKER) (test code [address], = 1538) [place] [address] 384: Powerhouse Laborer/Techni emil ID = [id number] for Gibson Obregon POCT-GLUCOSE [id number] 05:39:00 Test Item Value Reference Range Interpretation Comments POC-GLUCOSE METER 106 mg/dL 70-110 : TESTED A T [facility] 47156 (BEAKER) (test code [address], = 1538) [place] [address] 384: Powerhouse Laborer/Techni emil ID = [id number] for Damien Cisneros POCT-GLUCOSE [id number] 21:35:00 Test Item Value Reference Range Interpretation Comments POC-GLUCOSE METER 130 mg/dL 70-110 H : TESTED A T [facility] 93453 (BEAKER) (test code [address], = 1538) [place] [address] 384: Powerhouse Laborer/Techni emil ID = [id number] for Damien Cisneros POCT-GLUCOSE [id number] 14:45:00 Test Item Value Reference Range Interpretation Comments POC-GLUCOSE METER 165 mg/dL 70-110 H : TESTED A T [facility] 88112 (BEAKER) (test code [address], = 1538) [place] [address] 384: Powerhouse Laborer/Techni emil ID = [id number] for Damien Cisneros POCT-GLUCOSE [id number] 12:10:00 Test Item Value Reference Range Interpretation Comments POC-GLUCOSE METER 214 mg/dL 70-110 H : TESTED A T [facility] 90462 (BEAKER) (test code [address], = 1538) [place] [address] 384: Powerhouse Laborer/Techni emil ID = [id number] for Melissa Cecile millan POCT-GLUCOSE [id number] 05:51:00 Test Item Value Reference Range Interpretation Comments POC-GLUCOSE METER 103 mg/dL 70-110 : TESTED A T [facility] 72528 (BEAKER) (test code [address], = 1538) [place] [address] 384: Powerhouse Laborer/Techni emil ID = [id number] for Damien Cisneros POCT-GLUCOSE [id number] 15:14:00 Test Item Value Reference Range Interpretation Comments POC-GLUCOSE METER 104 mg/dL 70-110 : TESTED A T [facility] 07916 (BEAKER) (test code [facility], = 1538) [place] [address] 384: Powerhouse Laborer/Techni emil ID = [id number] for Toña Pacheco POCT-GLUCOSE [id number] 15:13:00 Test Item Value Reference Range Interpretation Comments POC-GLUCOSE METER 156 mg/dL 70-110 H : TESTED A T [facility] 29672 (BEAKER) (test code [facility], = 1538) [place] [address] 384: Powerhouse Laborer/Techni emil ID = [id number] for Keanu Wilde POCT-GLUCOSE [id number] 15:12:00 Test Item Value Reference Range Interpretation Comments POC-GLUCOSE METER 89 mg/dL 70-110 : TESTED A T [facility] 00127 (BEAKER) (test code = [facility] [address] [facility], 1538) [place] [address] 384: Powerhouse Laborer/Techni emil ID = [id number] for Damien Cisneros POCT-GLUCOSE [id number] 15:12:00 Test Item Value Reference Range Interpretation Comments POC-GLUCOSE METER 228 mg/dL 70-110 H : Notified RN/MD: TESTED (BEAKER) (test code AT [facility] [address] [facility] = 1538) [place] [place] [address]: Powerhouse Laborer/Techni emil ID = [id number] for Damien Cisneros POCT-GLUCOSE [id number] 15:12:00 Test Item Value Reference Range Interpretation Comments POC-GLUCOSE METER 111 mg/dL 70-110 H : TESTED A T [facility] 91441 (BEAKER) (test code [facility], = 1538) [place] [address] 384: Powerhouse Laborer/Techni emil ID = [id number] for S lennyAmber pate POCT-GLUCOSE [id number] 07:46:00 Test Item Value Reference Range Interpretation Comments POC-GLUCOSE METER 93 mg/dL 70-110 : TESTED A T [facility] 62510 (BEAKER) (test code = [facility], 1538) [place] [address] 384: Powerhouse Laborer/Techni emil ID = [id number] for Jessica Nguyen POCT-GLUCOSE [id number] 11:33:00 Test Item Value Reference Range Interpretation Comments POC-GLUCOSE METER 170 mg/dL 70-110 H : TESTED Joe Torres [facility] [address] (BEAKER) (test code [address], = 1538) [facility] 77 384: Powerhouse Laborer/Techni emil ID = [id number] for Radha Caballero SARS-COV2/RT-PCR ([facility])2020-08-05 11:10:00 Test Item Value Reference Range Interpretation Comments SARS-COV2/RT-PCR (test Negative Not Detected, Negative, code = 1887234) See external report for linked test SARS-COV-2 PERFORMING LAB [facility] (test code = 5148753) Negative result for this test determines that [...] of the Act.Fact Sheet for Healthcare Prov iders:https://www.Printed [employer]ce.[employer]/sites/default/files/product/documents/Fact_Sheet_HC _Ptsqnyfrg_Otqt_YOBX-DaF-6.pdfFact Sheet for Healthcare Patients:https://www.Crushpath/sites/default/files/product/docume nts/Cljp_Wsjck_Uibdbmtl_Rvsh_IIMO-EzI-0.pdfPerforming Laboratory:[facility], [place] [address]CFXL-INHLKOT METER 2020-08-04 21:50:00 Test Item Value Reference Range Interpretation Comments POC-GLUCOSE METER 145 mg/dL 70-110 H : TESTED A T [facility] 70958 (BEAKER) (test code [facility], = 1538) [place] [address] 384: Powerhouse Laborer/Techni emil ID = [id number] for Toña Pacheco POCT-GLUCOSE [id number] 16:42:00 Test Item Value Reference Range Interpretation Comments POC-GLUCOSE METER 171 mg/dL 70-110 H : TESTED A T [facility] 81558 (BEAKER) (test code [facility], = 1538) [place] [address] 384: Powerhouse Laborer/Techni emil ID = [id number] for Keanu Wilde POCT-GLUCOSE [id number] 11:09:00 Test Item Value Reference Range Interpretation Comments POC-GLUCOSE METER 146 mg/dL 70-110 H : TESTED A T [facility] 22584 (BEAKER) (test code [facility], = 1538) [place] [address] 384: Powerhouse Laborer/Techni emil ID = [id number] for Marylu Batres CBC W/PLT COUNT & AUTO [id number] 09:57:00 Test Item Value Reference Range Interpretation [...] PERCENT (BEAKER) (test code = 2801) POCT-GLUCOSE [id number] 07:28:00 Test Item Value Reference Range Interpretation Comments POC-GLUCOSE METER 91 mg/dL 70-110 : TESTED A T [facility] [address]179 (BEAKER) (test code = [facility], 1538) [place] [address] 384: Powerhouse Laborer/Techni emil ID = [id number] for Roland-Alfonso bay, Loa POCT-GLUCOSE [id number] 06:00:00 Test Item Value Reference Range Interpretation Comments POC-GLUCOSE METER 93 mg/dL 70-110 : TESTED A T [facility] 90229 (BEAKER) (test code = [facility] [address], 1537) [place] [address] 384: Powerhouse Laborer/Techni emil ID = [id number] for Shoemaker-Alfonso phu, Loa POCT-GLUCOSE [id number] 22:06:00 Test Item Value Reference Range Interpretation Comments POC-GLUCOSE METER 115 mg/dL 70-110 H : TESTED A T [facility] 13583 (BEAKER) (test code [address], = 1538) [place] [address] 384: Powerhouse Laborer/Techni emil ID = [id number] for Nays-Roman, Radha POCT-GLUCOSE [id number] 22:05:00 Test Item Value Reference Range Interpretation Comments POC-GLUCOSE METER 148 mg/dL 70-110 H : TESTED A T [facility] 26162 (BEAKER) (test code [address], = 1538) [place] [address] 384: Powerhouse Laborer/Techni emil ID = [id number] for Nays-Roman, Radha POCT-GLUCOSE [id number] 05:23:00 Test Item Value Reference Range Interpretation Comments POC-GLUCOSE METER 108 mg/dL 70-110 : TESTED A T [facility] 91022 (BEAKER) (test code [address], = 1538) [place] [address] 384: Powerhouse Laborer/Techni emil ID = [id number] for A Jessica saenz POCT-GLUCOSE [id number] 22:26:00 Test Item Value Reference Range Interpretation Comments POC-GLUCOSE METER 152 mg/dL 70-110 H : TESTED A T [facility] 89849 (BEAKER) (test code [address], = 153) [place] [address] 384: Powerhouse Laborer/Techni emil ID = [id number] for Antony mazariegos Artem POCT-GLUCOSE [id number] 11:46:00 Test Item Value Reference Range Interpretation Comments POC-GLUCOSE METER 189 mg/dL 70-110 H : TESTED A T [facility] 98102 (BEAKER) (test code [address], = 1538) [place] [address] 384: Powerhouse Laborer/Techni emil ID = [id number] for Marylu Batres POCT-GLUCOSE [id number] 09:46:00 Test Item Value Reference Range Interpretation Comments POC-GLUCOSE METER 152 mg/dL 70-110 H : TESTED A T [facility] 31133 (BEAKER) (test code [address], = 1538) [place] [address] 384: Powerhouse Laborer/Techni emil ID = [id number] for R Lilibeth somersa POCT-GLUCOSE [id number] 06:51:00 Test Item Value Reference Range Interpretation Comments POC-GLUCOSE METER 103 mg/dL 70-110 : TESTED A T [facility] 82888 (BEAKER) (test code [address], = 1538) [place] [address] 384: Powerhouse Laborer/Techni emil ID = [id number] for Shoemaker-Alfonso phu, [place] POCT-GLUCOSE [id number] 22:14:00 Test Item Value Reference Range Interpretation Comments POC-GLUCOSE METER 137 mg/dL 70-110 H : TESTED A T [facility] 45057 (BEAKER) (test code [address], = 1538) [place] [address] 384: Powerhouse Laborer/Techni emil ID = [id number] for Shoemaker-Alfonso phu, [place] POCT-GLUCOSE [id number] 16:25:00 Test Item Value Reference Range Interpretation Comments POC-GLUCOSE METER 133 mg/dL 70-110 H : TESTED A T [facility] 13630 (BEAKER) (test code [address], = 1538) [place] [address] 384: Powerhouse Laborer/Techni emil ID = [id number] for Maury Obregonn POCT-GLUCOSE [id number] 12:01:00 Test Item Value Reference Range Interpretation Comments POC-GLUCOSE METER 126 mg/dL 70-110 H : TESTED A T [facility] 34013 (BEAKER) (test code [address], = 1538) [place] [address] 384: Powerhouse Laborer/Techni emil ID = [id number] for Kyara solis, Gibson POCT-GLUCOSE [id number] 05:35:00 Test Item Value Reference Range Interpretation Comments POC-GLUCOSE METER 136 mg/dL 70-110 H : TESTED A T [facility] 41284 (BEAKER) (test code [address], = 1538) [facility] 77 384: Powerhouse Laborer/Techni emil ID = [id number] for A Jessica saenz BASIC METABOLIC [id number] 04:34:00 Test Item Value Reference Range Interpretation [...] S NOT APPLICABLE FOR DIALYSIS PATIEN TS. Powerhouse Laborer ID - [id number] W/PLT COUNT & AUTO [id number] 03:55:00 Test Item Value Reference Range Interpretation [...] PERCENT (BEAKER) (test code = 2801) POCT-GLUCOSE [id number] 21:42:00 Test Item Value Reference Range Interpretation Comments POC-GLUCOSE METER 159 mg/dL 70-110 H : TESTED A T [facility] 70853 (BEAKER) (test code [address], = 1538) [place] [address] 384: Powerhouse Laborer/Techni emil ID = [id number] for B Toña luther POCT-GLUCOSE [id number] 11:41:00 Test Item Value Reference Range Interpretation Comments POC-GLUCOSE METER 182 mg/dL 70-110 H : TESTED A T [facility] 74041 (BEAKER) (test code [address], = 1538) [place] [address] 384: Powerhouse Laborer/Techni emil ID = [id number] for Soledad Wilson POCT-GLUCOSE [id number] 06:11:00 Test Item Value Reference Range Interpretation Comments POC-GLUCOSE METER 170 mg/dL 70-110 H : TESTED A T [facility] [address] (BEAKER) (test code [facility] [address] [facility], = 1538) [place] [address] 384: Powerhouse Laborer/Techni emil ID = [id number] for Irene Hardin MR, BRAIN, [id number] 18:43:00S/p resectionUnlisted Reason for Exam - Click Yes and Enter Reason Below->No [facility] 1950 Sex: FFINAL REPORT MR, BRAIN, [...] no residual tumor is identified. Signed: Keely Fernandez MDReport Verified Date/Time: 07/29/2020 18:43:09 Reading Location: [address] Neuro Reading Room [id number] 05:31:00 Test Item Value Reference Range Interpretation Comments MAGNESIUM (BEAKER) (test code = 1.8 mg/dL 1.5-3.0 627) Powerhouse Laborer ID - [id number] METABOLIC [id number] 04:14:00 Test Item Value Reference Range Interpretation [...] S NOT APPLICABLE FOR DIALYSIS PATIEN TS. Powerhouse Laborer ID - [id number] (HEMOGRAM ONLY)2020-07-29 03:43:00 Test Item Value Reference [...] 0-0 (BEAKER) (test code = 413) POCT-GLUCOSE [id number] 00:24:00 Test Item Value Reference Range Interpretation Comments POC-GLUCOSE METER 208 mg/dL 70-110 H : TESTED A T [facility] [address] (BEAKER) (test code [facility], = 1538) [place] [address] 384: Powerhouse Laborer/Techni emil ID = [id number] for Andrea Mejia SARS-COV2/RT-PCR ([facility])2020-07-28 17:27:00 Test Item Value Reference Range Interpretation Comments SARS-COV2/RT-PCR (test Negative Not Detected, Negative, code = 2317228) See external report for linked test SARS-COV-[address] [facility] (test code = 5346506) Negative result for this test determines that [...] of the Act.Fact Sheet for Healthcare Prov iders:https://www.Crushpath/sites/default/files/product/documents/Fact_Sheet_HC _Dvjlezcab_Kybk_ZOGP-EwI-0.pdfFact Sheet for Healthcare Patients:https://www.Crushpath/sites/default/files/product/docume nts/Mjvq_Leygp_Kfmahkbq_Fogj_AOWN-CwE-0.pdfPerforming Laboratory:[facility] Talamantes[place], [place] [address]XC/[id number] 04:58:00 Test Item Value Reference Range Interpretation [...] 2.5-3.5 for patients with mechanical heart valves.PROTHROMBIN TIME/[id number] 04:57:00 Test Item Value Reference Range Interpretation Comments PROTIME (BEAKER) (test code = 14.3 seconds 11.8-14.4 759) INR (BEAKER) (test code = 370) 1.11 1.20-1.50 L RECOMMENDED COUMADIN/WARFARIN INR THERAPY RANGESSTANDARD DOSE: 2.0 - 3.0 Includes: PROPHYLAXIS for venous thrombosis, systemic embolization; TREATMENT for venous thrombosis and/or pulmonary embolus.HIGH RISK: Target INR is 2.5-3.5 for patients with mechanical heart valves.POCT-GLUCOSE [id number] 22:05:00 Test Item Value Reference Range Interpretation Comments POC-GLUCOSE METER 167 mg/dL 70-110 H : TESTED A T [facility] 09539 (BEAKER) (test code [address], = 1538) [place] [address] 384: Powerhouse Laborer/Techni emil ID = [id number] for C Katarina hernandezfer POCT-GLUCOSE [id number] 16:10:00 Test Item Value Reference Range Interpretation Comments POC-GLUCOSE METER 120 mg/dL 70-110 H : TESTED A T [facility] 51271 (BEAKER) (test code [address], = 1538) [place] [address] 384: Powerhouse Laborer/Techni emil ID = [id number] for T u-Haja, Aquilito POCT-GLUCOSE [id number] 11:14:00 Test Item Value Reference Range Interpretation Comments POC-GLUCOSE METER 106 mg/dL 70-110 : TESTED A T [facility] 68175 (BEAKER) (test code [address], = 1538) [place] [address] 384: Powerhouse Laborer/Techni emil ID = [id number] for T u-Haja, Aquilito POCT-GLUCOSE [id number] 05:21:00 Test Item Value Reference Range Interpretation Comments POC-GLUCOSE METER 136 mg/dL 70-110 H : TESTED A T [facility] 00491 (BEAKER) (test code [address], = 1538) [place] [address] 384: Powerhouse Laborer/Techni emil ID = [id number] for C anaca Daya POCT-GLUCOSE [id number] 20:53:00 Test Item Value Reference Range Interpretation Comments POC-GLUCOSE METER 136 mg/dL 70-110 H : TESTED A T [facility] 42841 (BEAKER) (test [facility], = 1538) [place] [address] 384: Powerhouse Laborer/Techni emil ID = [id number] for Daya Coats POCT-GLUCOSE [id number] 17:21:00 Test Item Value Reference Range Interpretation Comments POC-GLUCOSE METER 132 mg/dL 70-110 H : TESTED A T [facility] 15453 (BEAKER) (test code [address], = 1538) [place] [address] 384: Powerhouse Laborer/Techni emil ID = [id number] for P elisabeth, Liz POCT-GLUCOSE [id number] 11:58:00 Test Item Value Reference Range Interpretation Comments POC-GLUCOSE METER 118 mg/dL 70-110 H : TESTED A T [facility] 29220 (BEAKER) (test [facility], = 1538) [place] [address] 384: Powerhouse Laborer/Techni emil ID = [id number] for P elisabeth, Liz POCT-GLUCOSE [id number] 05:51:00 Test Item Value Reference Range Interpretation Comments POC-GLUCOSE METER 125 mg/dL 70-110 H : TESTED A T [facility] 76830 (BEAKER) (test code [facility], = 1538) [place] [address] 384: Powerhouse Laborer/Techni emil ID = [id number] for M ang, Patsy POCT-GLUCOSE [id number] 21:10:00 Test Item Value Reference Range Interpretation Comments POC-GLUCOSE METER 85 mg/dL 70-110 : TESTED A T [facility] 52684 (BEAKER) (test code = [facility] [address], 1538) [place] [address] 384: Powerhouse Laborer/Techni emil ID = [id number] for M ang, Patsy POCT-GLUCOSE [id number] 16:40:00 Test Item Value Reference Range Interpretation Comments POC-GLUCOSE METER 207 mg/dL 70-110 H : TESTED A T [facility] 17865 (BEAKER) (test code [facility] [address], = 1538) [place] [address] 384: Powerhouse Laborer/Techni emil ID = [id number] for P elisabeth, Liz POCT-GLUCOSE [id number] 11:54:00 Test Item Value Reference Range Interpretation Comments POC-GLUCOSE METER 187 mg/dL 70-110 H : TESTED A T [facility] 10118 (BEAKER) (test code [facility], = 1538) [place] [address] 384: Powerhouse Laborer/Techni emil ID = [id number] for Liz Maddox BASIC METABOLIC [id number] 04:45:00 Test Item Value Reference Range Interpretation [...] S NOT APPLICABLE FOR DIALYSIS PATIEN TS. Powerhouse Laborer ID - [id number] 03:59:00 Test Item Value Reference Range Interpretation Comments POC-GLUCOSE METER 126 mg/dL 70-110 H : TESTED A T [facility] 09051 (BEAKER) (test code [facility], = 1538) [place] [address] 384: Powerhouse Laborer/Techni emil ID = [id number] for Patsy Thibodeaux CBC W/PLT COUNT & AUTO [id number] 03:57:00 Test Item Value Reference Range Interpretation [...] PERCENT (BEAKER) (test code = 2801) POCT-GLUCOSE [id number] 20:30:00 Test Item Value Reference Range Interpretation Comments POC-GLUCOSE METER 133 mg/dL 70-110 H : TESTED A T [facility] 66724 (BEAKER) (test code [facility] [address] [facility], = 1538) [place] [address] 384: Powerhouse Laborer/Techni emil ID = [id number] for Mario Alberto Thibodeauxanca POCT-GLUCOSE [id number] 15:57:00 Test Item Value Reference Range Interpretation Comments POC-GLUCOSE METER 261 mg/dL 70-110 H : TESTED A T [facility] 82010 (BEAKER) (test code [facility] [address], = 1538) [place] [address] 384: Powerhouse Laborer/Techni emil ID = [id number] for T u-Haja, Aquilito POCT-GLUCOSE [id number] 11:36:00 Test Item Value Reference Range Interpretation Comments POC-GLUCOSE METER 134 mg/dL 70-110 H : TESTED A T [facility] 09415 (BEAKER) (test code [facility] [address], = 1538) [place] [address] 384: Powerhouse Laborer/Techni emil ID = [id number] for T u-Haja, Aquilito POCT-GLUCOSE [id number] 06:20:00 Test Item Value Reference Range Interpretation Comments POC-GLUCOSE METER 119 mg/dL 70-110 H : TESTED A T [facility] 39551 (BEAKER) (test code [facility] [address] [facility], = 1538) [place] [address] 384: Powerhouse Laborer/Techni emil ID = [id number] for Mario Alberto Thibodeauxanca POCT-GLUCOSE [id number] 21:11:00 Test Item Value Reference Range Interpretation Comments POC-GLUCOSE METER 112 mg/dL 70-110 H : TESTED A T [facility] 11414 (BEAKER) (test code [facility] [address] [facility], = 1538) [place] [address] 384: Powerhouse Laborer/Techni emil ID = [id number] for Mario Alberto Thibodeauxanca POCT-GLUCOSE [id number] 16:23:00 Test Item Value Reference Range Interpretation Comments POC-GLUCOSE METER 130 mg/dL 70-110 H : TESTED A T [facility] 08166 (BEAKER) (test code [facility] [address] [address] [facility], = 1538) [place] [address] 384: Powerhouse Laborer/Techni emil ID = [id number] for Herman Toneyasa POCT-GLUCOSE [id number] 11:44:00 Test Item Value Reference Range Interpretation Comments POC-GLUCOSE METER 242 mg/dL 70-110 H : TESTED A T [facility] 74954 (BEAKER) (test code [facility], = 1538) [facility] 77 384: Powerhouse Laborer/Techni emil ID = [id number] for May Toney CBC W/PLT COUNT & AUTO [id number] 04:32:00 Test Item Value Reference Range Interpretation [...] PERCENT (BEAKER) (test code = 2801) SARS-COV2/RT-PCR ([facility])2020-07-22 09:14:00 Test Item Value Reference Range Interpretation Comments SARS-COV2/RT-PCR (test Negative Not Detected, Negative, code = 2341746) See external report for linked test SARS-COV-2 PERFORMING LAB [facility] (test code = 8240063) Negative result for this test determines that [...] the Montaño SARS-CoV-2 assay.Fact Sheet for Healthcare Providers:https://www.[employer].[facility]/wilfredo/RT_SAR V-KbO-0_RHZ_Owvy_Mzsmn_82-115755.pdfFact Sheet for Healthcare Patients:https://www.[employer].[facility]/s al/SR_RGBG-VnT-4_Syhcwci_Kkly_Uetko_QU_06-961120Y2.pdfPerforming Laboratory:[facility] [place] [address] BASIC METABOLIC [id number] 05:03:00 Test Item Value Reference Range Interpretation [...] S NOT APPLICABLE FOR DIALYSIS PATIEN TS. Powerhouse Laborer ID - [id number] W/PLT COUNT & AUTO [id number] 04:34:00 Test Item Value Reference Range Interpretation [...] code = 2801) CT, SPINE, LUMBAR, WO [id number] 10:50:00Pt had recent nerve block done in lumbar area, rule out abscess.Unlisted Reason for Exam - Click Yesand Enter Reason Below->No [facility] 1950 Sex: FFINAL REPORT CT, SPINE, [...] MDReport Verified Date/Time: 07/21/2020 10:50:54 Reading Location: [facility] C013V Neuro Reading Room MR, BRAIN, [id number] 10:28:00Please complete with stealth protocolUnlisted Reason for Exam - Click Yes and Enter Reason Below->YesUnlisted Reason for Exam->brain massDeos the patient have an implanted electronic device?->No [facility] : 1950 Sex: FFINAL REPORT MR, BRAIN, [...] herniation of the cingulate gyrus. Signed: JR Zapien Robert MDReport Verified Date/Time: 07/21/2020 10:28:53 Reading Location: [address] Neuro Reading Room BASIC METABOLIC [id number] 06:42:00 Test Item Value Reference Range Interpretation [...] S NOT APPLICABLE FOR DIALYSIS PATIEN TS. Powerhouse Laborer ID - [id number] W/PLT COUNT & AUTO [id number] 06:13:00 Test Item Value Reference Range Interpretation [...] code = 2801) URINALYSIS W/ REFLEX URINE [id number] 13:49:00 Test Item Value Reference Range Interpretation [...] = 516) SOURCE(BEAKER) (test code = 2795) Powerhouse Laborer ID - [auto]Powerhouse Laborer ID - [email or web address] [id number] 06:51:00 Test Item Value Reference Range Interpretation Comments PROTIME (BEAKER) (test code = 15.4 seconds 11.8-14.4 H 759) INR (BEAKER) (test code = 370) 1.22 1.20-1.50 RECOMMENDED COUMADIN/WARFARIN INR THERAPY RANGESSTANDARD DOSE: 2.0 - 3.0 Includes: PROPHYLAXIS for venous thrombosis, systemic embolization; TREATMENT for venous thrombosis and/or pulmonary embolus.HIGH RISK: Target INR is 2.5-3.5 for patients with mechanical heart valves.CT, CHEST, WITHOUT [id number] 05:01:00Unlisted Reason for Exam - Click Yes and Enter Reason Below- >YesUnlisted Reason for Exam->ruleout masses [facility] : 1950 Sex: FFINAL REPORT CT, CHEST, [...] 2.1 x 2.3 cm.Musculoskeletal: No acute abnormality. Spbw-ph-ntivdjid lumbar spondylosis. Additional Findings: None. IMPRESSION:ABSENCE OF [...] physician on 07/20/2020 4:56 AM. Signed: Chencho Nicholeort Verified Date/Time: 07/20/2020 05:01:28 CT, [id number] 05:01:00Unlisted Reason for Exam - Click Yes and Enter Reason Below- >YesUnlisted Reason for Exam->ruleout masses [facility] : 1950 Sex: FFINAL REPORT CT, CHEST, [...] 2.1 x 2.3 cm.Musculoskeletal: No acute abnormality. Jwtn-od-viujspsg lumbar spondylosis. Additional Findings: None. IMPRESSION:ABSENCE OF [...] S NOT APPLICABLE FOR DIALYSIS PATIEN TS. Powerhouse Laborer ID - SHERFARAPID INFLUENZA A&B [id number] 03:46:00 Test Item Value Reference Range Interpretation [...] WBC 0-0 (BEAKER) (test code = 413) Notes Date/Time Note Provider Source 2020-07-20 15:32:01-00:00 ALYSE CALDERÓN [facility] CONS[facility] [place] FACILITY: [facility] Billing #: [id number] Room: [address] [place] [address] MR #: [id number] : 1950 DATE OF ADMISSION: 07/20/2020 DATE OF CONSULTATION: 07/20/2020 REQUESTING PHYSICIAN: LINE TESTER: Alyse Calderón MD REASON FOR CONSULT: Abdominal pain. HISTORY OF PRESENT ILLNESS: The patient is a 70- year-old female, who came with fatigue and memory loss an d neurological symptoms. She was found to have a brain tumor on CT scan. She was ultimately abdominal pain and her CT abdomen showed perforated sigmoid diverticulitis. Surgery was c onsulted for evaluation. PAST MEDICAL HISTORY: Arthritis, hypertension. PAST SURGICAL HISTORY: Appendectomy and back winnie francesco. FAMILY HISTORY: Noncontributory. SOCIAL HISTORY: Denies current smoking, alcohol or drug abuse. ALLERGIES: NO KNOWN DRUG ALLERGIES. REVIEW OF SYSTEMS: A 12-point review is negative except for chief c omplaint and past medical history. MEDICATION: Reviewed per EMR. PHYSICAL EXAMINATION: GENERAL: No acute distress. Alert and oriented x 3. CARDIOVASCULAR: Regular rate and rhythm. RESPIRATORY: Clear to auscultation bilaterally. ABDOMEN: Soft. Minimal discomfort in lower abdom en. No real peritonitis or rigidity. EXTREMITIES: No edema, cyanosis or clubbing. NEUROLOGICALLY: The patient was in bed. __. LABORATORY DATA: Reviewed. Her white cell count is 11,000. Rest of labs are okay. In terms of her CT, the a bdomen showed the sigmoid diverticulitis, microperforation wit h a small 2 x 2 cm abscess near by. ASSESSMENT AND PLAN: This is a 70-year-old femal e with perforated sigmoid diverticulitis localized with a small abscess in the right, not amenable to drainage b y IR, so at this point we will continue nonoperative managem ent, IV antibiotics only and she has no pain. I will jim it ideally would like to treat initial nonoperative and kahlil dge her to an elective surgery in 4 to 6 weeks, however the brain tumor status, we will a wait for her surgery plans and then depending on that we will decide our timing of colon intervention. MELINDA/GEOVANNA /[id number]
[2023-01-07] MEDS ORDERED: NA CHLORIDE 0.9% 500 ML ONE (12:23)
[2023-01-07 12:30] LABS: Absolute Lymphocytes (CBC) 1.1 K/uL (0.7-4.9); Hematocrit 40.3 % (36.0-45.0); Lymphocytes % 12.8 % (15.3-44.8); MCV 82.6 fL (80-100); MPV 6.6 fL (7.6-11.3); RBC Red Blood Cell Count 4.88 M/uL (3.86-4.86)
--- NOTE | 2023-01-07 12:40 | RAD REPORT ---
EXAM DESCRIPTION: CT - Head Brain Wo Cont - 01/07/2023 12:30 pm CLINICAL HISTORY: DIZZINESS COMPARISON: None TECHNIQUE: All CT scans are performed using dose optimization technique as appropriate and may inclu de automated exposure control or mA/KV adjustment according to patient size. FINDINGS: No intracranial hemorrhage, hydrocephalus or extra-axial fluid collection.No areas of brai n edema or evidence of midline shift. Right frontal craniotomy. Right frontal encephalomalacia. Mild chronic small vessel ischemic changes. The paranasal sinuses and mastoids are clear. The calvarium is intact. IMPRESSION: No acute intracranial abnormality.
[2023-01-07 12:48] LABS: Albumin 3.8 g/dL (3.4-5.0); Bilirubin Total 0.5 mg/dL (0.2-1.0); Potassium 3.4 mEq/L (3.5-5.1); Protein, Total 6.9 g/dL (6.4-8.2); Troponin High Sensitivity 6.1 pg/mL (<58.9)
--- NOTE | 2023-01-07 14:16 | EDPHYS ---
Physician Documentation [facility] Name: Davina Niño Age: 72 yrs Sex: Female : 1950 Arrival Date: 01/07/2023 Time: 11:59 Bed 8 Private MD: ED Physician Aroldo Gudino HPI: 01/07 14:04 This 72 yrs old Female presents to ER via EMS with complaints of Diarrhea, bs3 Near Syncope. 14:04 Patient with history of hypertension hyperlipidemia peripheral artery disease she notes bs3 that she has had diarrhea for the past 4 days today she got up and ambulated and immediate became dizzy she did not pass out she did not fall or hit her head but she eased herself down she notes that she has no recent antibiotic use currently no abdominal pain no fevers chills she is concerned as she has a history of brain tumor about something in her brain she denies any exertional syncope she does note that she has recently increased the dose of her blood pressure medications and she has been titrating it up. Historical: - Allergies: 12:04 mesalamine; kc6 - PMHx: 12:04 Hyperlipidemia; Hypertension; kc6 - PSHx: 12:04 Brain Tumor removed 2019; Colon resection 2020; Cholecystectomy; Appendectomy; kc6 - Immunization history:: Client reports having NOT received the Covid vaccine. Flu vaccine is not up to date. - Social history:: Smoking status: Patient denies any tobacco usage or history of. ROS: 14:05 Constitutional: Negative for fever, chills bs3 14:05 All other systems are negative. Exam: 14:05 Constitutional: This is a well developed, well nourished patient who is awake, alert, bs3 and in no acute distress. Head/Face: Normocephalic, atraumatic. ENT: mmm, no posterior phyarngeal erythema Neck: Trachea midline, no thyromegaly, no neck stiffness Chest/axilla: Normal chest wall appearance and motion. Nontender with no deformity. No lesions are appreciated. Cardiovascular: Regular rate and rhythm with a normal S1 and S2. symmetric pulses in upper extremities Respiratory: Lungs have equal breath sounds bilaterally, clear to auscultation, no respiratory distress Abdomen/GI: Soft, non-tender, no rebound or guarding Skin: Warm, dry with normal turgor. Normal color with no rashes, no lesions, and no evidence of cellulitis. MS/ Extremity: Pulses equal, no cyanosis. Neurovascular intact. Full, normal range of motion. Neuro: Awake and alert, GCS 15, oriented to person, place, time, and situation. Cranial nerves II-XII grossly intact. Motor strength 5/5 in all extremities. Sensory grossly intact. 14:05 Normal sinus rhythm at [address] elevation or depressions right bundle branch block QTc 492 Vital Signs: 12:02 BP 175 / 82; Pulse 66; Resp 17 S; Pulse Ox 100% on R/A; Weight 64.41 kg (R); Height 5 kc6 ft. 4 in. (R); Pain 0/10; 13:02 BP 160 / 93; Pulse 75; Resp 18; Pulse Ox 99% on R/A; ld1 14:14 BP 174 / 89; Pulse 82; Resp 18 S; Pulse Ox 100% on R/A; kc6 12:02 Body Mass Index 24.37 (64.41 kg, 162.56 cm) kc6 12:02 Pain Scale: Adult kc6 MDM: 12:07 Patient medically screened. bs3 14:13 ED course: Work-up negative I think her symptoms are likely multifactorial in the bs3 setting of standing up increasing her carvedilol and diarrhea will decrease her carvedilol advised outpatient follow-up hydration and better eating habits return precautions given. 14:16 Data reviewed: vital signs, nurses notes. bs3 01/07 12:08 Order name: CBC with Diff; Complete Time: 12:42 bs3 01/07 12:08 Order name: Comprehensive Metabolic Panel; Complete Time: 13:04 bs3 03 12:08 Order name: Lipase; Complete Time: 13:04 bs3 / 12:08 Order name: Troponin High Sensitivity; Complete Time: 13:04 bs3 / 12:08 Order name: CT Head Brain wo Cont; Complete Time: 12:42 bs3 / 12:08 Order name: EKG - Nurse/Tech; Complete Time: 12:45 bs3 Administered Medications: 12:19 Drug: NS 0.9% IV 500 ml Route: IV; Rate: bolus; Site: left antecubital; kc6 13:50 Follow up: Response: No adverse reaction; IV Status: Completed infusion; IV Intake: kc6 500ml Disposition Summary: 01/07/23 14:14 Discharge Ordered Location: Home bs3 Problem: new bs3 Symptoms: have improved bs3 Condition: Stable bs3 Diagnosis - Syncope Near bs3 Followup: bs3 - With: John Murrieta MD - When: 2 - 3 days - Reason: Recheck today's complaints Discharge Instructions: - Discharge Summary Sheet bs3 - Near-Syncope bs3 Forms: - Medication Reconciliation Form bs3 - Thank You Letter bs3 - Antibiotic Education bs3 - Prescription Opioid Use bs3 Prescriptions: - Carvedilol 6.25 mg Oral Tablet - take 1 tablet by ORAL route 2 times per day for 7 days with food; 14 tablet; bs3 Refills: 0, Product Selection Permitted Signatures: Dispatcher [employer] Yadi Rock RN RN ld1 Ting Prieto RN RN kc6 Aroldo Gudino MD MD bs3
--- NOTE | 2023-01-07 14:16 | ER ---
Nurse's Notes [facility] Name: Davina Niño Age: 72 yrs Sex: Female : 1950 Arrival Date: 01/07/2023 Time: 11:59 Bed 8 Private MD: Diagnosis: Syncope Near Presentation: 01/07 12:02 Chief complaint: EMS states: pt has had diarrhea x5 days. pt recently had her kc6 carvedilol dose increased and when ambulating from the chair to couch had a near syncopal episode. 4mg of IV zofran given en route for nausea. Coronavirus screen: At this time, the client does not indicate any symptoms associated with coronavirus-19. Ebola Screen: No symptoms or risks identified at this time. Initial Sepsis Screen: Does the patient meet any 2 criteria? No. Patient's initial sepsis screen is negative. Does the patient have a suspected source of infection? No. Patient's initial sepsis screen is negative. Risk Assessment: Do you want to hurt yourself or someone else? Patient reports no desire to harm self or others. Onset of symptoms was January 07, 2023. 12:02 Method Of Arrival: EMS: [facility] kc6 12:02 Acuity: VERONICA 3 kc6 Triage Assessment: 12:04 General: Appears in no apparent distress. comfortable, Behavior is calm, cooperative, kc6 appropriate for age. Pain: Denies pain. EENT: No signs and/or symptoms were reported regarding the EENT system. Neuro: Gonzalez Agitation-Sedation Scale (RASS): 0 - Alert and Calm Level of Consciousness is awake, alert, obeys commands, Oriented to person, place, time, situation, Appropriate for age. Cardiovascular: Capillary refill < 3 seconds Rhythm is sinus rhythm. Respiratory: Airway is patent Trachea midline Respiratory effort is even, unlabored, Respiratory pattern is regular, symmetrical. GI: Abdomen is flat, non-distended, Reports diarrhea, nausea, Patient currently denies abdominal pain, vomiting. : No signs and/or symptoms were reported regarding the genitourinary system. Derm: No signs and/or symptoms reported regarding the dermatologic system. Skin is intact, Skin is dry, Skin is pale, Skin temperature is warm. Musculoskeletal: No signs and/or symptoms reported regarding the musculoskeletal system. Circulation, motion, and sensation intact. Capillary refill < 3 seconds, Range of motion: intact in all extremities. Historical: - Allergies: 12:04 mesalamine; kc6 - PMHx: 12:04 Hyperlipidemia; Hypertension; kc6 - PSHx: 12:04 Brain Tumor removed 2019; Colon resection 2020; Cholecystectomy; Appendectomy; kc6 - Immunization history:: Client reports having NOT received the Covid vaccine. Flu vaccine is not up to date. - Social history:: Smoking status: Patient denies any tobacco usage or history of. Screenin:05 [facility] ED Fall Risk Assessment (Adult) History of falling in the last 3 months, kc6 including since admission No falls in past 3 months (0 pts) Confusion or Disorientation No (0 pts) Intoxicated or Sedated No (0 pts) Impaired Gait No (0 pts) Mobility Assist Device Used No (0 pt) Altered Elimination No (0 pt) Score/Fall Risk Level 0 - 2 = Low Risk Oriented to surroundings, Maintained a safe environment, Educated pt \T\ family on fall prevention, incl call for assistance when getting out of bed, Assessed \T\ reinforced patient's understanding of fall precautions, Hourly rounding (assess needs \T\ fall precautionary measures) done. Abuse screen: Denies threats or abuse. Denies injuries from another. Nutritional screening: No deficits noted. Tuberculosis screening: No symptoms or risk factors identified. Assessment: 12:05 Reassessment: please see triage assessment. kc6 13:02 Reassessment: Patient appears in no apparent distress at this time. No changes from ld1 previously documented assessment. Patient and/or family updated on plan of care and expected duration. Pain level reassessed. Patient is alert, oriented x 3, equal unlabored respirations, skin warm/dry/pink. 14:14 Reassessment: Patient appears in no apparent distress at this time. No changes from kc6 previously documented assessment. Patient and/or family updated on plan of care and expected duration. Pain level reassessed. Patient is alert, oriented x 3, equal unlabored respirations, skin warm/dry/pink. Vital Signs: 12:02 BP 175 / 82; Pulse 66; Resp 17 S; Pulse Ox 100% on R/A; Weight 64.41 kg (R); Height 5 kc6 ft. 4 in. (R); Pain 0/10; 13:02 BP 160 / 93; Pulse 75; Resp 18; Pulse Ox 99% on R/A; ld1 14:14 BP 174 / 89; Pulse 82; Resp 18 S; Pulse Ox 100% on R/A; kc6 12:02 Body Mass Index 24.37 (64.41 kg, 162.56 cm) kc6 12:02 Pain Scale: Adult kc6 ED Course: 12:01 Patient arrived in ED. ld1 12:02 Ting Prieto, RN is Primary Nurse. kc6 12:04 Triage completed. kc6 12:04 Arm band placed on. kc6 12:05 Maintain EMS IV. Dressing intact. Good blood return noted. Site clean \T\ dry. Gauge \T\ georgette 6 site: 20G LAC. 12:06 Patient has correct armband on for positive identification. Bed in low position. Call kc6 light in reach. Side rails up X2. 12:07 Aroldo Gudino MD is Attending Physician. bs3 12:31 CT Head Brain wo Cont In Process Unspecified. EDMS 14:14 John Murrieta MD is Referral Physician. bs3 14:34 No provider procedures requiring assistance completed. IV discontinued, intact, ld1 bleeding controlled, No redness/swelling at site. Administered Medications: 12:19 Drug: NS 0.9% IV 500 ml Route: IV; Rate: bolus; Site: left antecubital; kc6 13:50 Follow up: Response: No adverse reaction; IV Status: Completed infusion; IV Intake: kc6 500ml Medication: 14:35 VIS not applicable for this client. ld1 Intake: 13:50 IV: 500ml; Total: 500ml. kc6 Outcome: 14:14 Discharge ordered by . bs3 14:34 Discharged to home ambulatory, with family. ld1 14:34 Condition: stable 14:34 Discharge instructions given to patient, Instructed on discharge instructions, follow up and referral plans. Demonstrated understanding of instructions, follow-up care. 14:35 Patient left the ED. ld1 Signatures: Dispatcher [employer] EDMS Yadi Franco RN RN ld1 Ting Prieto, OBIE RN kc6 Aroldo Gudino MD MD bs3 Corrections: (The following items were deleted from the chart) 12:06 12:02 Chief complaint: EMS states: pt has had diarrhea x5 days. pt recently had her kc6 carvedilol dose increased and when ambulating from the chair to couch had a near syncopal episode kc6
[2023-01-07 14:46] VITALS: BP 174/89; O2SAT 100
--- NOTE | 2023-01-09 10:18 | EKG ---
Test Date: 2023-01-07 Test Time: 12:42:36 Take Out Waiter/Waitress: Sky GARCIA MEASUREMENT RESULTS: Intervals: Rate: 72 MO: 148 QRSD: 124 QT: 450 QTc: 492 [place]: P: 24 MO: 148 QRS: 98 T: 30 INTERPRETIVE STATEMENTS: Normal sinus rhythm Right bundle branch block Abnormal ECG Compared to ECG 11/07/2022 23:47:59 No significant changes Electronically Signed On 01-09-23 10:14:06 CDT by Georgi Gonzalez
== END 2023-01-07 14:35 | disposition home or self-care (01) ==
LOC: ER 11:59
DX: R55 Syncope and collapse (principal); R19.7 Diarrhea, unspecified; I10 Essential (primary) hypertension; E78.5 Hyperlipidemia, unspecified; Z85.841 Personal history of malignant neoplasm of brain; Z88.8 Allergy status to other drugs, medicaments and biological substances
CPT/HCPCS: 96361; 93005; 85025; 36415; 84484; 83690; 80053; 70450; 96360; 99284; J7040

== ENCOUNTER 2023-04-27 10:15 | Emergency (ER) | payer OTHER ==
--- OUTSIDE RECORDS SUMMARY | 2023-04-27 10:21 | XMS REPORT | Continuity of Care Document ---
:1950 Author Organization [facility] t Address [address] [place] [address] Care Team Providers Name Role Phone Efe Martinez MD Primary Care Physician [email or web address] Attending Clinician Unavailable Doctor Unassigned, Moen[place]opi Attending Clinician Unavailable HERIBERTO WORTHINGTON Attending Clinician Unavailable MD ALYSE RODRIGUEZ Attending Clinician Unavailable ALYSE RODRIGUEZ Attending Clinician Unavailable ALEXANDRO SELF Attending Clinician Unavailable ALEXANDRO SELF Attending Clinician Unavailable Alexandro Self MD Attending Clinician AMIE GALARZA Attending Clinician Unavailable STONE GRIFFITHS Attending Clinician Unavailable Debra Simpson RN Attending Clinician Unavailable [email or web address]_[place] Admitting Clinician Unavailable ALYSE RODRIGUEZ Admitting Clinician Unavailable MD ALYSE RODRIGUEZ Admitting Clinician Unavailable Payers Payer Name Policy Type Policy Number Effective Date Expiration Date [facility] - [id number] [employer] (MEDICARE REPLACEMENT/ADVANTAGE - PPO) Problems Condition Condition Condition Status Onset Resolution Last Treating Co mments Source Name Details Category Date Date Treatment Clinician Date Diverticul Diverticul Disease Active 2020- M ethodi itis of itis of 2-12 st large large 00:00: Hospita intestine intestine 00 l with with abscess abscess without without bleeding bleeding Brain Brain Disease Active 2019-08 Overview: Method i tumor tumor 09-[address] (benign) (benign) 00:00: g of this Hos rosario 00 note l might be different from the original. 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 Arthritis Arthritis Problem Active Com mon of foot, of foot, Spirit right right - [facility] Allergies, Adverse Reactions, Alerts Allergy Allergy Status Severity Reaction(s) Onset Inactive Treating Comm ents Source Name Type Date Date Clinician NO KNOWN Drug Active Univers ALLERGIE Class ity of S [facility] Family History Family Member Diagnosis Comments Start Date Stop Date Source Paternal grandfather Heart disease [facility] Paternal grandfather [facility] Paternal grandmother [facility] Natural father Hyperlipidemia Method [facility] Natural father Hypertension [facility] Maternal grandfather Heart disease [facility] Maternal grandmother Hypert[facility] Natural mother Cancer [facility] Natural mother Hyperlipidemia Method [facility] Natural mother Hypertension [facility] Natural mother Stroke [facility] Social History Social Habit Start Date Stop Date Quantity Comments Source Gender identity 2021-06-30 Identifies as Method ist 11:02:11 female gender Hospital (finding) Sexual orientation 2021-06-30 Heterosexual Meth odist 11:02:11 (finding) Hospital Exposure to Not sure University of SARS-CoV-2 (event) [facility] History of Social 2022-10-15 2022-10-[address] function 00:00:00 00:00:00 Hospital Alcohol intake 2020-09-22 2020-09-22 Ex-drinker [facility] 00:00:00 00:00:00 (finding) Hospital Tobacco use and 2020-09-09 2020-09-09 Smokeless tobacco Me odi exposure 00:00:00 00:00:00 non-user Hospital Alcohol Comment 2020-09-09 2020-09-09 sober [address] 00:00:00 00:00:00 Hospital Sex Assigned At [birth year] F [facility] 00:00:00 00:00:00 Hospital Smoking Status Start Date Stop Date Source Never smoked tobacco [facility] Medications Ordered Filled Start Stop Current Ordering Indication Dosage Frequency Signature Comments Components Source Medication Medication Date Date Medication? Clinician (SIG) Name Name metoprolol Yes 50mg QD Take 50 mg M ethodi succinate 2-[address] XL 17:39: daily. Hospita (TOPROL-XL) 34 l 50 mg 24 hr tablet cyclosporin Yes QD Apply to Me thodi e [...] ophthalmic 34 eye l solution nightly. metoprolol Yes 50mg QD Take 50 mg M ethodi succinate 2-[address] XL 17:39: daily. Hospita (TOPROL-XL) 34 l 50 mg 24 hr tablet cyclosporin 0 Yes QD Apply to Me thodi e (RESTASIS 2-[address] OPHT) 17:39: Both eyes Hospita 34 l telmisartan 0 Yes 1{tbl} QD Take 1 Me thodi -hydrochlor 2-[address] othiazid 17:39: mouth Hospita (MICARDIS 34 daily. l HCT) 80-12.5 mg per tablet DULoxetine 0 Yes 60mg QD Take 60 mg M [...] hr tablet cyclosporin Yes QD Apply to Me thodi e (RESTASIS 2-[address] OPHT) 17:39: Both eyes Hospita 34 l telmisartan 0 Yes 1{tbl} QD Take 1 Me thodi -hydrochlor 2-[address] othiazid 17:39: mouth Hospita (MICARDIS 34 daily. l HCT) 80-12.5 mg per tablet DULoxetine 0 Yes 60mg QD Take 60 mg M [...] ta ophthalmic 34 eye l solution nightly. DULoxetine 2019-08 Yes 60mg Take 60 mg U nivers (CYMBALTA) 1-10 by mouth ity o f 60 mg 15:47: daily. [facility] Branch pregabalin 2019-08 Yes 50mg Take 50 mg U nivers 50 mg 1-10 by mouth ity of capsule 15:47: at [place] bedtime. Medical Branch DULoxetine 2019-08 Yes 60mg Take 60 mg U nivers (CYMBALTA) 1-10 by mouth ity o f 60 mg 15:47: daily. [facility] pregabalin 2019-08 Yes 50mg Take 50 mg U nivers 50 mg 1-10 by mouth ity of capsule 15:47: at [place] bedtime. Medical Branch DULoxetine 2019-08 Yes 60mg Take 60 mg U nivers (CYMBALTA) 1-10 by mouth ity o f 60 mg 15:47: daily. [facility] Branch pregabalin 2019-08 Yes 50mg Take 50 mg U nivers 50 mg 1-10 by mouth ity of capsule 15:47: at [place] bedtime. Medical Branch DULoxetine 2019-08 Yes 60mg Take 60 mg U nivers (CYMBALTA) 1-10 by mouth ity o f 60 mg 15:47: daily. [facility] pregabalin 2019-08 Yes 50mg Take 50 mg U nivers 50 mg 1-10 by mouth ity of capsule 15:47: at [place] bedtime. Medical Branch DULoxetine 2019-08 Yes 60mg Take 60 mg U nivers (CYMBALTA) 1-10 by mouth ity o f 60 mg 15:47: daily. [facility] pregabalin 2019-08 Yes 50mg Take 50 mg U nivers 50 mg 1-10 by mouth ity of capsule 15:47: at [place] 01 bedtime. Medical Branch pravastatin 2019-08 Yes 80mg Take 80 mg Univers 80 mg 1-10 by mouth ity of tablet 15:41: at [place] 53 bedtime. Medical Branch telmisartan 2019-08 Yes [...] 2 mg ity of tablet 15:41: tablet [place] [address] Medical Branch pravastatin 2019-08 Yes 80mg Take 80 mg Univers 80 mg 1-10 by mouth ity of tablet 15:41: at [place] 53 bedtime. Medical Branch telmisartan 2019-08 Yes [...] 2 mg ity of tablet 15:41: tablet [place] [address] Medical Branch pravastatin 2019-08 Yes 80mg Take 80 mg Univers 80 mg 1-10 by mouth ity of tablet 15:41: at [place] 53 bedtime. Medical Branch telmisartan 2019-08 Yes [...] 2 mg ity of tablet 15:41: tablet [place] [address] Medical Branch pravastatin 2019-08 Yes 80mg Take 80 mg Univers 80 mg 1-10 by mouth ity of tablet 15:41: at [place] 53 bedtime. Medical Branch telmisartan 2019-08 Yes [...] 2 mg ity of tablet 15:41: tablet [place] [address] Medical Branch pravastatin 2019-08 Yes 80mg Take 80 mg Univers 80 mg 1-10 by mouth ity of tablet 15:41: at [place] [address] bedtime. Medical Branch telmisartan 2019-08 Yes 1{tbl} [...] 2 mg ity of tablet 15:41: tablet [place] [address] Medical Branch DULoxetine 2019-08 Yes 60mg Take 60 mg U nivers (CYMBALTA) 1-10 by mouth ity o f 60 mg 09:47: daily. [place] capsule Medical Branch pregabalin 2019-08 Yes 50mg Take 50 mg U nivers 50 mg 1-10 by mouth ity of capsule 09:47: at [place] [address] bedtime. Medical Branch DULoxetine 2019-08 Yes 60mg Take 60 mg U nivers (CYMBALTA) 1-10 by mouth ity o f 60 mg 09:47: daily. [place] capsule Medical Branch pregabalin 2019-08 Yes 50mg Take 50 mg U nivers 50 mg 1-10 by mouth ity of capsule 09:47: at [place] [address] bedtime. Medical Branch pravastatin 2019-08 Yes 80mg [...] 2 mg ity of tablet 09:41: tablet [place] 53 Medical Branch pravastatin 2019- Yes 80mg Take [...] 2 mg ity of tablet 09:41: tablet [place] [address] Medical Branch meloxicam 2020-0 2020- No 7.5mg [...] 2 mg ity of tablet 21:20: tablet [place] [facility] ARIPiprazol 2019-0 Yes aripiprazo Univers e 2 mg 7-07 le 2 mg ity of tablet 21:20: tablet [place] [facility] ARIPiprazol 2020-0 Yes aripiprazo Univers e 2 mg 7-07 le 2 mg ity of tablet 21:20: tablet [place] 19 Medical Branch ARIPiprazol 2020-0 Yes aripiprazo Univers e 2 mg 7-07 le 2 mg ity of tablet 21:20: tablet 19 Medical Branch SERTraline 2019-0 2020- No 150mg Take 150 U nivers 50 mg 7-07 07-07 mg by ity of tablet 21:19: 00:00 mouth [place] 43 :00 daily. Medical Branch SERTraline 0 2020- No 150mg Take 150 U nivers [...] tablet by ity o f 00:00: mouth (two) Medical times Branch daily. latanoprost 2020-0 [...] by ity o f 00:00: mouth 2 [place] [address] (two) Medical times [place] daily. latanoprost 2020-0 Yes INSTILL 1 U nivers 0.005 % 6-10 DROP INTO ity of ophthalmic 00:00: RIGHT EYE [place] drops 00 ONCE DAILY Medical AT BEDTIME Branch mupirocin 2020-0 Yes [id number] Apply to Univers (BACTROBAN) 4-11 area(s) 3 ity of 2 % cream 00:00: (three) [place] 00 times Medical daily. Branch mupirocin 2020-0 Yes [id number] Apply to Univers (BACTROBAN) 4-11 area(s) 3 ity of 2 % cream 00:00: (three) [place] 00 times Medical daily. Branch mupirocin 2 2020-0 Yes [id number] Apply to Univers % ointment 4-11 area(s) 3 ity of 00:00: (three) [place] 00 times Medical daily. Branch mupirocin 2020-0 Yes [id number] Apply to Univers (BACTROBAN) 4-11 area(s) 3 ity of 2 % cream 00:00: (three) [place] 00 times Medical daily. Branch mupirocin 2020-0 Yes [id number] Apply to Univers (BACTROBAN) 4-11 area(s) 3 ity of 2 % cream 00:00: (three) [place] 00 times Medical daily. Branch mupirocin 2 2020-0 Yes [id number] Apply to Univers % ointment 4-11 area(s) 3 ity of 00:00: (three) [place] 00 times Medical daily. Branch mupirocin 2020-0 Yes [id number] Apply to Univers (BACTROBAN) 4-11 area(s) 3 ity of 2 % cream 00:00: (three) [place] 00 times Medical daily. Branch mupirocin 2020-0 Yes [id number] Apply to Univers (BACTROBAN) 4-11 area(s) 3 ity of 2 % cream 00:00: (three) [place] 00 times Medical daily. Branch mupirocin 2 2020-0 Yes [id number] Apply to Univers % ointment 4-11 area(s) 3 ity of 00:00: (three) [place] 00 times Medical daily. Branch mupirocin 2020-0 Yes [id number] Apply to Univers (BACTROBAN) 4-11 area(s) 3 ity of 2 % cream 00:00: (three) [place] 00 times Medical daily. Branch mupirocin 2020-0 Yes [id number] Apply to Univers (BACTROBAN) 4-11 area(s) 3 ity of 2 % cream 00:00: (three) [place] 00 times Medical daily. Branch mupirocin 2 2020-0 Yes [id number] Apply to Univers % ointment 4-11 area(s) 3 ity of 00:00: (three) [place] 00 times Medical daily. Branch mupirocin 2020-0 Yes [id number] Apply to Univers (BACTROBAN) 4-11 area(s) 3 ity of 2 % cream 00:00: (three) [place] 00 times Medical daily. Branch mupirocin 2020-0 Yes [id number] Apply to Univers (BACTROBAN) 4-11 area(s) 3 ity of 2 % cream 00:00: (three) [place] 00 times Medical daily. Branch mupirocin 2 2020-0 Yes [id number] Apply to Univers % ointment 4-11 area(s) 3 ity of 00:00: (three) [place] 00 times Medical daily. Branch mupirocin 2020-0 Yes [id number] Apply to Univers (BACTROBAN) 4-11 area(s) 3 ity of 2 % cream 00:00: (three) [place] 00 times Medical daily. Branch mupirocin 2020-0 Yes [id number] Apply to Univers (BACTROBAN) 4-11 area(s) 3 ity of 2 % cream 00:00: (three) [place] 00 times Medical daily. Branch mupirocin 2 2020-0 Yes [id number] Apply to Univers % ointment 4-11 area(s) 3 ity of 00:00: (three) [place] 00 times Medical daily. Branch mupirocin 2020-0 Yes [id number] Apply to Univers (BACTROBAN) 4-11 area(s) 3 ity of 2 % cream 00:00: (three) [place] 00 times Medical daily. Branch mupirocin 2020-0 Yes [id number] Apply to Univers (BACTROBAN) 4-11 area(s) 3 ity of 2 % cream 00:00: (three) [place] 00 times Medical daily. Branch mupirocin 2 2020-0 Yes [id number] Apply to Univers % ointment 4-11 area(s) 3 ity of 00:00: (three) [place] 00 times Medical daily. Branch mupirocin 2020-0 Yes [id number] Apply to Univers (BACTROBAN) 4-11 area(s) 3 ity of 2 % cream 00:00: (three) [place] 00 times Medical daily. Branch mupirocin 2020-0 Yes [id number] Apply to Univers (BACTROBAN) 4-11 area(s) 3 ity of 2 % cream 00:00: (three) [place] 00 times Medical daily. Branch mupirocin 2 2020-0 Yes [id number] Apply to Univers % ointment 4-11 area(s) 3 ity of 00:00: (three) [place] 00 times Medical daily. Branch mupirocin 2020-0 Yes [id number] Apply to Univers (BACTROBAN) 4-11 area(s) 3 ity of 2 % cream 00:00: (three) [place] 00 times Medical daily. Branch mupirocin 2020-0 Yes [id number] Apply to Univers (BACTROBAN) 4-11 area(s) 3 ity of 2 % cream 00:00: (three) [place] 00 times Medical daily. Branch mupirocin 2 2020-0 Yes [id number] Apply to Univers % ointment 4-11 area(s) 3 ity of 00:00: (three) [place] 00 times Medical daily. Branch mupirocin 2020-0 Yes [id number] Apply to Univers (BACTROBAN) 4-11 area(s) 3 ity of 2 % cream 00:00: (three) [place] 00 times Medical daily. Branch mupirocin 2020-0 Yes [id number] Apply to Univers (BACTROBAN) 4-11 area(s) 3 ity of 2 % cream 00:00: (three) [place] 00 times Medical daily. Branch mupirocin 2 2020-0 Yes [id number] Apply to Univers % ointment 4-11 area(s) 3 ity of 00:00: (three) [place] 00 times Medical daily. Branch mupirocin 2020-0 Yes [id number] Apply to Univers (BACTROBAN) 4-11 area(s) 3 ity of 2 % cream 00:00: (three) [place] 00 times Medical daily. Branch mupirocin 2020-0 Yes [id number] Apply to Univers (BACTROBAN) 4-11 area(s) 3 ity of 2 % cream 00:00: (three) [place] 00 times Medical daily. Branch mupirocin 2020-0 Yes [id number] Apply to Univers (BACTROBAN) 4-11 area(s) 3 ity of 2 % cream 00:00: (three) [place] 00 times Medical daily. Branch mupirocin 2020-0 Yes [id number] Apply to Univers (BACTROBAN) 4-11 area(s) 3 ity of 2 % cream 00:00: (three) [place] 00 times Medical daily. Branch mupirocin 2020-0 Yes [id number] Apply to Univers (BACTROBAN) 4-11 area(s) 3 ity of 2 % cream 00:00: (three) [place] 00 times Medical daily. Branch mupirocin 2020-0 Yes [id number] Apply to Univers (BACTROBAN) 4-11 area(s) 3 ity of 2 % cream 00:00: (three) [place] 00 times Medical daily. Branch mupirocin 2 2020-0 Yes [id number] Apply to Univers % ointment 4-11 area(s) 3 ity of 00:00: (three) [place] 00 times Medical daily. Branch mupirocin 2020-0 Yes [id number] Apply to Univers (BACTROBAN) 4-11 area(s) 3 ity of 2 % cream 00:00: (three) [place] 00 times Medical daily. Branch mupirocin 2020-0 Yes [id number] Apply to Univers (BACTROBAN) 4-11 area(s) 3 ity of 2 % cream 00:00: (three) [place] 00 times Medical daily. Branch mupirocin 2 2020-0 Yes [id number] Apply to Univers % ointment 4-11 area(s) 3 ity of 00:00: (three) [address] Medical daily. Branch ezetimibe 2018-08 Yes 10mg Take 10 mg Un jes 10 mg 2-06 by mouth ity of tablet 21:23: daily. [address] ezetimibe 2018-08 Yes 10mg Take 10 mg Un jes 10 mg 2-06 by mouth ity of tablet 21:23: daily. [address] ezetimibe 2018-08 Yes 10mg Take 10 mg Un jes 10 mg 2-06 by mouth ity of tablet 21:23: daily. [address] ezetimibe 2018-08 Yes 10mg Take 10 mg Un jes 10 mg 2-06 by mouth ity of tablet 21:23: daily. [address] ezetimibe 2018-08 Yes 10mg Take 10 mg Un jes 10 mg 2-06 by mouth ity of tablet 21:23: daily. [address] ezetimibe 2018-08 Yes 10mg Take 10 mg Un jes 10 mg 2-06 by mouth ity of tablet 21:23: daily. [address] ezetimibe 2018-08 Yes 10mg Take 10 mg Un jes 10 mg 2-06 by mouth ity of tablet 21:23: daily. [address] ezetimibe 2018-08 Yes 10mg Take 10 mg Un jes 10 mg 2-06 by mouth ity of tablet 21:23: daily. [address] ezetimibe 2018-08 Yes 10mg Take 10 mg Un jes 10 mg 2-06 by mouth ity of tablet 21:23: daily. [address] ezetimibe 2018-08 Yes 10mg Take 10 mg Un jes 10 mg 2-06 by mouth ity of tablet 21:23: daily. [address] ezetimibe 2018-08 Yes 10mg Take 10 mg Un jes 10 mg 2-06 by mouth ity of tablet 21:23: daily. [address] ezetimibe 2018-08 Yes 10mg Take 10 mg Un jes 10 mg 2-06 by mouth ity of tablet 21:23: daily. [address] ezetimibe 2018-08 Yes 10mg Take 10 mg Un jes 10 mg 2-06 by mouth ity of tablet 21:23: daily. [place] [address] Medical Branch ezetimibe 2018-08 Yes 10mg Take 10 mg Un jes 10 mg 2-06 by mouth ity of tablet 21:23: daily. [place] [address] Medical Branch ezetimibe 2018-08 Yes 10mg Take 10 mg Un jes 10 mg 2-06 by mouth ity of tablet 21:23: daily. [place] [address] Medical Branch SERTraline 2018-08 Yes 150mg Take [...] by mouth ity of tablet 15:23: daily. [place] [address] Medical Branch ezetimibe 2018-08 Yes 10mg Take 10 mg Un jes 10 mg 2-06 by mouth ity of tablet 15:23: daily. [place] [address] Medical Branch DIETARY 2018-08 Yes 1{tbl} Take 1 Univer s SUPPLEMENT 2-06 tablet by ity of ORAL 15:21: mouth [place] 39 daily. Medical Branch DIETARY 2018-08 Yes 1{tbl} Take 1 Univer s SUPPLEMENT 2-06 tablet by ity of ORAL 15:21: mouth [place] 39 daily. Medical Branch metoprolol 2019- Yes TAKE 1 [...] ity of (0.1 %) 00:00: IN EACH [place] nasal spray 00 NOSTRIL Medic al ONCE DAILY Branch azelastine 2018-08 Yes USE 2 Univer s 137 mcg 0-22 SPRAY(S) ity of (0.1 %) 00:00: IN EACH [place] nasal spray 00 NOSTRIL Medic al ONCE DAILY Branch azelastine 2018-08 Yes USE 2 Univer s 137 mcg 0-22 SPRAY(S) ity of (0.1 %) 00:00: IN EACH [place] nasal spray 00 NOSTRIL Medic al ONCE DAILY Branch azelastine 2018-08 Yes USE 2 Univer s 137 mcg 0-22 SPRAY(S) ity of (0.1 %) 00:00: IN EACH [place] nasal spray 00 NOSTRIL Medic al ONCE DAILY Branch azelastine 2018-08 Yes USE 2 Univer s 137 mcg 0-22 SPRAY(S) ity of (0.1 %) 00:00: IN EACH [place] nasal spray 00 NOSTRIL Medic al ONCE DAILY Branch azelastine 2018-08 Yes USE 2 Univer s 137 mcg 0-22 SPRAY(S) ity of (0.1 %) 00:00: IN EACH [place] nasal spray 00 NOSTRIL Medic al ONCE DAILY Branch azelastine 2018-08 Yes USE 2 Univer s 137 mcg 0-22 SPRAY(S) ity of (0.1 %) 00:00: IN EACH [place] nasal spray 00 NOSTRIL Medic al ONCE DAILY Branch azelastine 2018-08 Yes USE 2 Univer s 137 mcg 0-22 SPRAY(S) ity of (0.1 %) 00:00: IN EACH [place] nasal spray 00 NOSTRIL Medic al ONCE DAILY Branch azelastine 2018-08 Yes USE 2 Univer s 137 mcg 0-22 SPRAY(S) ity of (0.1 %) 00:00: IN EACH [place] nasal spray 00 NOSTRIL Medic al ONCE DAILY Branch azelastine 2018-08 Yes USE 2 Univer s 137 mcg 0-22 SPRAY(S) ity of (0.1 %) 00:00: IN EACH [place] nasal spray 00 NOSTRIL Medic al ONCE DAILY Branch azelastine 2018-08 Yes USE 2 Univer s 137 mcg 0-22 SPRAY(S) ity of (0.1 %) 00:00: IN EACH [place] nasal spray 00 NOSTRIL Medic al ONCE DAILY Branch azelastine 2018-08 Yes USE 2 Univer s 137 mcg 0-22 SPRAY(S) ity of (0.1 %) 00:00: IN EACH [place] nasal spray 00 NOSTRIL Medic al ONCE DAILY Branch azelastine 2018-08 Yes USE 2 Univer s 137 mcg 0-22 SPRAY(S) ity of (0.1 %) 00:00: IN EACH [place] nasal spray 00 NOSTRIL Medic al ONCE DAILY Branch azelastine 2018-08 Yes USE 2 Univer s 137 mcg 0-22 SPRAY(S) ity of (0.1 %) 00:00: IN EACH [place] nasal spray 00 NOSTRIL Medic al ONCE DAILY Branch azelastine 2018-08 Yes USE 2 Univer s 137 mcg 0-22 SPRAY(S) ity of (0.1 %) 00:00: IN EACH [place] nasal spray 00 NOSTRIL Medic al ONCE DAILY Branch azelastine 2018-08 Yes USE 2 Univer s 137 mcg 0-22 SPRAY(S) ity of (0.1 %) 00:00: IN EACH [place] nasal spray 00 NOSTRIL Medic al ONCE DAILY Branch azelastine 2018-08 Yes USE 2 Univer s 137 mcg 0-22 SPRAY(S) ity of (0.1 %) 00:00: IN EACH [place] nasal spray 00 NOSTRIL Medic al ONCE DAILY Branch Tramadol Tramadol 2017-08 Yes [place] 1 tablet Common HCl HCl 0-12 [place] as needed [facility]: - [facility] [address] [facility] Pravastatin Pravastatin Yes [place] not Common Sodium Sodium [place] defined [facility] Sertraline Sertraline Yes [place] not Common HCl HCl [place] defined [facility] Telmisartan Telmisartan Yes [place] not Common -HCTZ -HCTZ [place] defined [facility] Move Free Move Free Yes [place] not Co mmon [facility] defined [facility] Advance Advance [facility] Latanoprost Latanoprost Yes [place] not Common [place] defined [facility] Meloxicam Meloxicam Yes [place] TAKE 1 Common [place] TABLET BY Spirit MOUTH ONCE - [facility] DAILY [facility] Amlodipine Amlodipine Yes [place] not Common Besylate Besylate [facility] defined [facility] Aspirin 81 Aspirin 81 Yes [place] not Common [place] defined [facility] tramadol tramadol Yes [place] not Comm on [place] defined [facility] Ezetimibe Ezetimibe Yes [place] not Co mmon [place] defined [facility] Restasis Restasis Yes [place] not Comm on [place] defined [facility] Modafinil Modafinil Yes [place] not Co mmon [place] defined [facility] Vital Signs Vital Name Observation Time Observation Value Comments Source Systolic blood 2020-06-16 15:42:00 120 mm[Hg] Univer sity of pressure [facility] Diastolic blood 2020-06-16 15:42:00 60 mm[Hg] Unive rsity of pressure [facility] Heart rate 2020-06-16 15:42:00 82 /min [facility] Body weight 2020-06-16 15:42:[address] [facility] BMI 2020-06-16 15:42:00 28.84 kg/m2 [facility] Oxygen saturation in 2020-06-16 15:42:00 97 /min [facility] blood by [facility] Pulse oximetry Branch Systolic blood 2020-06-16 15:42:00 120 mm[Hg] Univer sity of pressure [place] [facility] [place] Diastolic blood 2020-06-16 15:42:00 60 mm[Hg] Unive rsity of pressure [facility] Heart rate 2020-06-16 15:42:00 82 /min Universi ty of [facility] Body weight 2020-06-16 15:42:00 76.204 kg Universi ty of [facility] BMI 2020-06-16 15:42:00 28.84 kg/m2 Universi ty [facility] Oxygen saturation in 2020-06-16 15:42:00 97 /min University of Arterial blood by [facility] Pulse oximetry Branch Systolic blood 2020-02-11 21:18:00 149 mm[Hg] Univer sity of pressure [facility] Diastolic blood 2020-02-11 21:18:00 80 mm[Hg] Unive rsity of pressure [facility] Heart rate 2020-02-11 21:17:00 74 /min Universi ty of [facility] Respiratory rate 2020-02-11 21:17:00 19 /min Univ ersity of [facility] Body weight 2020-02-11 21:17:00 77.474 kg Universi ty [facility] BMI 2020-02-11 21:17:00 29.32 kg/m2 Universi ty [facility] Procedures Procedure Date / Time Performing Clinician Source Performed AUTHORIZATION FOR 2022-09-21 06:01:00 Doctor Unassigned, No Univ ersity [facility] RELEASE OF [facility] Branch AUTHORIZATION FOR 2022-08-24 06:01:00 Doctor Unassigned, No Univ ersity [facility] RELEASE OF [facility] Branch REFERRAL- 2020-02-25 05:01:00 Doctor Unassigned, No Univer sity [facility] REQUEST/RESPONSE [facility] COGNITIVE ASSESSMENT 2020-02-11 05:01:00 Doctor Unassigned, No U [facility]iversity of [facility] COGNITIVE ASSESSMENT 2019-08-19 06:01:00 Doctor Unassigned, No U [facility] of [facility] Plan of Care Planned Activity Planned Date Details Comments Source Future Scheduled 2023-04-18 Screening for [facility] Test 22:05:09 malignant neoplasm of colon (procedure) [code = [id number]] Future Scheduled 2023-04-18 Screening for [facility] Test 22:05:09 malignant neoplasm of colon (procedure) [code = 573239234] Future Scheduled 2023-04-18 Screening for [facility] Test 22:05:09 malignant neoplasm of colon (procedure) [code = 869702946] Future Scheduled 2023-04-18 COVID-19 VACCINE (#1) [facility] 22:05:09 [code = COVID-19 VACCINE (#1)] Future Scheduled 2023-04-18 Hepatitis C screening [facility] Test 22:05:09 (procedure) [code = 252844437] Future Scheduled 2023-04-18 BREAST CANCER [facility] Test 22:05:09 SCREENING [code = BREAST CANCER SCREENING] Future Scheduled 2023-04-18 Screening for [facility] Test 22:05:09 malignant neoplasm of colon (procedure) [code = 366640461] Future Scheduled 2023-04-18 Screening for [facility] Test 22:05:09 malignant neoplasm of colon (procedure) [code = 820589803] Future Scheduled 2023-04-18 SHINGLES VACCINES (1 Met [facility] Test 22:05:09 of 2) [code = SHINGLES VACCINES (1 of 2)] Future Scheduled 2023-04-18 65+ PNEUMOCOCCAL [facility] Test 22:05:09 VACCINE (1 - PCV) [code = 65+ PNEUMOCOCCAL VACCINE (1 - PCV)] Future Scheduled 2023-04-18 INFLUENZA VACCINE (#1) [facility] Test 22:05:09 [code = INFLUENZA VACCINE (#1)] Future Scheduled 2023-01-04 COVID-19 VACCINE (#1) [facility] Test 13:22:43 [code = COVID-19 VACCINE (#1)] Future Scheduled 2023-01-04 Hepatitis C screening [facility] Test 13:22:43 (procedure) [code = 992419468] Future Scheduled 2023-01-04 BREAST CANCER [facility] Test 13:22:43 SCREENING [code = BREAST CANCER SCREENING] Future Scheduled 2023-01-04 COLONOSCOPY SCREENING [facility] 13:22:43 [code = COLONOSCOPY SCREENING] Future Scheduled 2023-01-04 SHINGLES VACCINES (1 Met [facility] Test 13:22:43 of 2) [code = SHINGLES VACCINES (1 of 2)] Future Scheduled 2023-01-04 65+ [facility]OCCAL [facility] 13:22:43 VACCINE (1 - PCV) [code = 65+ PNEUMOCOCCAL VACCINE (1 - PCV)] Future Scheduled 2023-01-04 INFLUENZA VACCINE [facility] 13:22:43 [code = INFLUENZA VACCINE] Future Scheduled 2022-11-07 COVID-19 VACCINE (#1) [facility] Test 03:07:05 [code = COVID-19 VACCINE (#1)] Future Scheduled 2022-11-07 Hepatitis C screening [facility] Test 03:07:05 (procedure) [code = 220287373] Future Scheduled 2022-11-07 BREAST CANCER [facility] Test 03:07:05 SCREENING [code = BREAST CANCER SCREENING] Future Scheduled 2022-11-[address] [facility] Test 03:07:05 [code = COLONOSCOPY SCREENING] Future Scheduled 2022-11-07 SHINGLES VACCINES (1 Met [facility] Test 03:07:05 of 2) [code = [...] PCV)] Future Scheduled 2022-11-03 INFLUENZA VACCINE Method [facility] Test 12:47:38 [code = INFLUENZA VACCINE] Future Scheduled 2022-11-03 COVID-19 VACCINE (#1) [facility] Test 12:47:38 [code = COVID-19 VACCINE (#1)] Future Scheduled 2022-11-03 Hepatitis C screening [facility] Test 12:47:38 (procedure) [code = 550735185] Future Scheduled 2022-11-03 BREAST CANCER [facility] Test 12:47:38 SCREENING [code = BREAST CANCER SCREENING] Future Scheduled 2022-11-[address] [facility] Test 12:47:38 [code = COLONOSCOPY SCREENING] Future Scheduled 2022-11-03 SHINGLES VACCINES (1 Met [facility] Test 12:47:38 of 2) [code = SHINGLES VACCINES (1 of 2)] Future Scheduled 2022-09-02 COVID-19 VACCINE (#1) [facility] 22:35:24 [code = COVID-19 VACCINE (#1)] Future Scheduled 2022-09-02 [facility] C [facility] Test 22:35:24 (procedure) [code = 141669588] Future Scheduled 2022-09-02 BREAST CANCER [facility] Test 22:35:24 SCREENING [code = BREAST CANCER SCREENING] Future Scheduled 2022-09-02 COLONOSCOPY [facility]CRE[facility] 22:35:24 [code = COLONOSCOPY SCREENING] Future Scheduled 2022-09-02 SHINGLES VACCINES (1 Met [facility] Test 22:35:24 of 2) [code = SHINGLES VACCINES (1 of 2)] Future Scheduled 2022-09-02 65+ [facility]OCOCCAL [facility] 22:35:24 VACCINE (1 - PCV) [code = 65+ PNEUMOCOCCAL VACCINE (1 - PCV)] Future Scheduled 2022-09-02 INFLUENZA VACCINE [facility] 22:35:24 [code = INFLUENZA VACCINE] Encounters Start End Encounter Admission Attending Care Care Encounter Source Date/Time Date/Time Type Type Clinicians Facility Department ID 2023-03-23 2023-03-23 Outpatient GC_GCBZW_Ro PRIV PRIV [id number] [facility] 00:00:00 00:00:00 man_Tayla [id number] [facility] 2023-03-17 2023-03-17 Outpatient GC_GCBZW_Ro PRIV PRIV [id number] [facility] 00:00:00 00:00:00 man_M [id number] [facility] 2023-02-23 2023-02-23 Outpatient GC_GCBZW_Ro PRIV PRIV [id number] [facility] 00:00:00 00:00:00 man_Tayla [id number] [facility] 2022-09-21 2022-09-21 Orders Doctor VALLE 1.2.840.114 [id number] [facility] 00:00:00 00:00:00 Only Unassigned, MAHAD [id number] ity of [place] [facility] [id number] [place] as [phone] [address] 2022-08-24 2022-08-24 Orders Doctor TORI 1.2.840.114 [id number] Univers 00:00:00 00:00:00 Only Unassigned, MAHAD [id number] ity of [place] [facility] [id number] [place] [phone] [address] 2020-09-18 2020-09-23 Inpatient FAKHRI, [facility] [id number] [address] [place] 00:00:00 00:00:00 ALIFIYA 887 Method i 2020-09-14 2020-09-14 Outpatient LOCRAND, [facility] [id number] [address] [place] 00:00:00 00:00:00 SAYL 815 Method i 2020-08-18 2020-08-18 Outpatient ALEXANDRO LARSON [facility] [id number] Univers 16:00:00 16:00:00 [facility] 2020-07-20 [facility] 1.2.840.114 [id number] Univers 00:00:00 00:00:00 Alexandro Fraga [id number] [place] [phone] Ne dic[address] 2020-06-23 2020-06-23 Telephone Clair, [facility] 1.2.840.114 [id number] Univers 00:00:00 00:00:00 Alexandro Fraga [id number] [id number] [phone] Ne dical nal [address] [place] [address] 2020-06-23 2020-06-23 [facility] 1.[facility].840.114 [id number] 00:00:00 00:00:00 Alexandro Fraga 350.1.13.10 [place] 4.2.7.2.686 Professio [phone] [address] 2020-06-22 2020-06-22 Telephone Clair, [facility] 1.2.840.114 [id number] Univers 00:00:00 00:00:00 Alexandro Fraga [id number] [id number] [phone] Ne dic[address] 2020-06-16 2020-06-16 Office Clair [facility] 1.2.840.114 [id number] Univers 09:24:15 10:41:13 Visit Alexandro Fraga 350.1.13.10 [id number] [phone] [address] 2020-06-16 2020-06-16 [facility] 1.2.840.114 [id number] [facility] 09:24:15 10:41:13 Visit Alexandro Fraga [id number] [place] [id number] Professio [phone] [address] 2020-06-16 2020-06-16 Outpatient ALEXANDRO LARSON [facility] [id number] Univers 09:40:00 09:40:00 ALEXANDRO SELF [facility] 2020-03-13 2020-03-13 Outpatient Sveta GALARZA [facility] [id number] Univers 08:30:00 08:30:00 AMIE [facility] 2020-02-25 2020-02-25 Orders Doctor VALLE 1.2.840.114 [id number] Univers 00:00:00 00:00:00 Only Unassigned, MAHAD 350.1.13.10 ity of [place] [facility] 4.2.7.2.686 [place] [phone] [address] 2020-02-17 2020-02-17 Outpatient ALEXANDRO LARSON [facility] [id number] Univers 11:00:00 11:00:00 ALEXANDRO SELF [facility] 2020-02-11 2020-02-11 Office Clair [facility] 1.2.840.114 [id number] Univers 16:01:34 16:54:44 Visit Alexandro Fraga 350.1.13.10 [place] [phone] Ne dical nal [address] [facility] 2020-02-11 2020-02-11 Outpatient Sveta ALEXANDRO SELF [facility] [id number] Univers 16:00:00 16:00:00 ALEXANDRO SELF ity of [facility] 2020-02-11 2020-02-11 Orders Doctor TORI 1.2.840.114 [id number] Univers 00:00:00 00:00:00 Only Unassigned, MAHAD 350.1.13.10 ity of [place] [facility] 4.2.7.2.686 [place] [phone] [address] 2019-11-16 2019-11-16 Outpatient Sveta GRIFFITHS [facility] [id number] Univers 12:00:00 12:00:00 STONE ity of [facility] 2019-11-16 2019-11-16 Nurse TORI Simpson 1.2.840.114 [id number] Univers 00:00:00 00:00:00 Triage Debra M MAHAD 350.1.13.10 ity of [facility] [id number] [place] [phone] [address] 2019-11-16 2019-11-16 Telephone TORI Simpson2.840.114 [id number] Univers 00:00:00 00:00:00 Debra M MAHAD 350.1.13.10 ity of [facility] [id number] [place] [phone] [address] 2019-11-16 2019-11-16 Telephone TORI Simpson.2.840.114 [id number] Univers 00:00:00 00:00:00 Debra M MAHAD 350.1.13.10 ity of [facility] [id number] [place] [phone] [address] 2019-11-04 2019-11-04 Out[facility] [id number] Common 08:36:00 08:36:00 t Bone Bone [facility] Sp[facility] t [facility] 2019-10-02 2019-10-02 Out[facility] [id number] Common 16:17:00 16:17:00 t Bone Bone and Spiri t and Joint [facility] 2019-08-19 2019-08-19 Office Clair FLLESLIE 1.2.840.114 [id number] Univers 16:09:28 16:55:12 Visit Alexandro Fraga 350.1.13.10 [place] of [place] [phone] Ne dical nal [address] 2019-08-19 2019-08-19 Orders Doctor TORI 1.2.840.114 [id number] Univers 00:00:00 00:00:00 Only Unassigned, MAHAD 350.1.13.10 ity of [facility] [id number] [place] [phone] [facility] [address] 2019-05-08 2019-05-08 Out[facility] [id number] Common 14:28:00 14:28:00 t Bone Bone and Spiri t and Joint [facility] 2019-04-11 2019-04-11 Out[facility] [id number] Common 13:30:00 13:30:00 t Bone Bone and Spiri t and Joint [facility] - [facility] 2019-04-04 2019-04-04 Out[facility] [id number] Common 08:30:00 08:30:00 t Bone Bone and Spiri t and Joint [facility] 2019-03-29 2019-03-29 Outpatient [facility] [id number] Common 08:30:00 08:30:00 t Bone Bone and Spiri t and Joint [facility] 2019-03-19 2019-03-19 Outpatient [facility] [id number] Common 15:30:00 15:30:00 t Bone Bone and Spiri t and Joint [facility] - [facility] 2019-03-19 2019-03-19 Outpatient [facility] [id number] Common 09:00:00 09:00:00 t Bone Bone and Spiri t and Joint [facility] - [facility] 2018-07-25 2018-07-25 Outpatient Sierra Kramer [id number] Common 08:38:00 08:38:00 t Bone Bone and Spiri t and Joint [facility] 2018-05-17 2018-05-17 Outpatient Sierra Kramer [id number] Common 09:23:00 09:23:00 t Bone Bone and Spiri t and Joint [facility] - [facility] 2018-05-08 2018-05-08 Outpatient Sierra Kramer [id number] Common 08:02:00 08:02:00 t Bone Bone and Spiri t and Joint [facility] Results Test Description Test Time Test Comments Results Result Comments Source SARS-CoV-2 (COVID-19) RNA [Presence] in Respiratory sp ecimen by 2020-09-14 22:54:18 KENNETH with probe detection Test Item Value Reference Range Interpretation Comme nts SARS-CoV-2 (COVID-19) RNA [Presence] in Respiratory Not detected No t-Detected specimen by KENNETH with probe detection (test code = 74629-0) Felix López [facility]
[2023-04-27] MEDS ORDERED: NA CHLORIDE 0.9% 1,000 ML ONE (10:47)
--- NOTE | 2023-04-27 10:48 | RAD REPORT ---
EXAM DESCRIPTION: CT - CTHCSPWOC - 04/27/2023 10:33 am CLINICAL HISTORY: Trauma, head and neck injury. TRAUMA COMPARISON: <Comparisons> TECHNIQUE: Axial 5 mm thick images of the head were obtained. Axial 2 mm thick images of the cervical spine were obtained with sagittal and coronal reconstruction images generated and reviewed. All CT scans are performed using dose optimization technique as appropriate and may include automated exposure control or mA/KV adjustment according to patient size. FINDINGS: CT HEAD WITHOUT CONTRAST: No acute hemorrhage, hydrocephalus or extra-axial collection is identified.Diminished density is seen in the white matter of the right frontal lobe.Evidence of previous surgical intervention right front al lobe is noted. Right frontal craniotomy is present. The paranasal sinuses and mastoids are clear.The calvarium is intact. CT CERVICAL SPINE WITHOUT CONTRAST: No fracture or subluxation.Postsurgical changes of ACDF spanning C6-7. Degenerative changes present a t C5-6, C6-7 and C7-T1.No prevertebral soft tissues swelling is identified. IMPRESSION: No acute intracranial or cervical spine findings. Postsurgical changes with gliosis identified right frontal lobe.
--- NOTE | 2023-04-27 10:52 | RAD REPORT ---
EXAM DESCRIPTION: RAD - Chest Single View - 04/27/2023 10:42 am CLINICAL HISTORY: near syncope Chest pain. COMPARISON: <Comparisons> FINDINGS: Portable technique limits examination quality. The lungs are grossly clear. The heart is upper limit normal in size. No displaced fractures.Cervical hardware plate. IMPRESSION: No acute intrathoracic process suspected.
[2023-04-27 10:58] LABS: Absolute Lymphocytes (CBC) 0.9 K/uL (0.7-4.9); Lymphocytes % 15.9 % (15.3-44.8); MCV 82.4 fL (80-100); MPV 6.6 fL (7.6-11.3); Platelets 270 thou/uL (152-406)
[2023-04-27 11:17] LABS: Albumin 3.6 g/dL (3.4-5.0); Bilirubin Direct 0.1 mg/dL (0-0.2); Bilirubin Indirect, Calculated 0.3 mg/dL (0.2-0.8); Bilirubin Total 0.4 mg/dL (0.2-1.0); Magnesium 2.3 mg/dL (1.6-2.4); Potassium 4.1 mEq/L (3.5-5.1); Protein, Total 6.7 g/dL (6.4-8.2); Troponin High Sensitivity 5.7 pg/mL (<58.9)
[2023-04-27 12:00] LABS: Specific Gravity 1.006 (1.005-1.030); Urine Bacteria <20 /HPF (<20); Urine Bilirubin NEGATIVE (Negative); Urine Blood Negative (Negative); Urine Clarity Turbid (Clear); Urine Color Light-Yellow (Yellow); Urine Glucose NEGATIVE (Negative); Urine Mucus Slight /HPF (None Seen); Urine Protein NEGATIVE (Negative); Urine RBC <5 /HPF (None Seen); Urine Urobilinogen Normal (Normal)
--- NOTE | 2023-04-27 12:20 | ER ---
Nurse's Notes [facility] Name: Davina Niño Age: 72 yrs Sex: Female : 1950 Arrival Date: 04/27/2023 Time: 10:15 Bed 6 Private MD: Diagnosis: Syncope Near Presentation: 04/27 10:22 Chief complaint: EMS states: Became dizzy while sitting on toilet, fell off and hit hb head on tile floor. Negative LOC, c/o dizziness and neck pain 02/13. SBP 160 supine, 140 sitting, 120 standing. Coronavirus screen: At this time, the client does not indicate any symptoms associated with coronavirus-19. Ebola Screen: No symptoms or risks identified at this time. Initial Sepsis Screen: Does the patient meet any 2 criteria? No. Patient's initial sepsis screen is negative. Does the patient have a suspected source of infection? No. Patient's initial sepsis screen is negative. Risk Assessment: Do you want to hurt yourself or someone else? Patient reports no desire to harm self or others. Onset of symptoms was April 27, 2023. 10:22 Method Of Arrival: EMS: [facility] hb 10:22 Acuity: VERONICA 3 hb Historical: - Allergies: 10:24 mesalamine; hb - Home Meds: 10:24 Amitriptyline Oral [Active]; budesonide 3 mg Oral CECX 3 caps once daily [Active]; hb hydroxyzine HCl 25 mg Oral tab 1 tab 3 times per day [Active]; metoprolol tartrate 50 mg Oral tab 1 tab 2 times per day [Active]; pregabalin 50 mg Oral cap 1 cap 3 times per day [Active]; Zoloft Oral [Active]; - PMHx: 10:24 Hyperlipidemia; Hypertension; hb - PSHx: 10:24 Appendectomy; Brain Tumor removed 2019; Cholecystectomy; Colon resection 2020; hb - Immunization history:: Adult Immunizations up to date. - Social history:: Smoking status: Patient denies any tobacco usage or history of. Screenin:08 [facility] ED Fall Risk Assessment (Adult) Score/Fall Risk Level 0 - 2 = Low Risk hb Oriented to surroundings, Maintained a safe environment. Abuse screen: Denies threats or abuse. Denies injuries from another. Nutritional screening: No deficits noted. Tuberculosis screening: No symptoms or risk factors identified. Assessment: 11:03 General: Appears in no apparent distress. Behavior is calm, cooperative. Pain: Pain hb currently is 7 out of 10 on a pain scale. Neuro: Level of Consciousness is awake, alert, obeys commands, Oriented to person, place, time, situation, Reports dizziness. Cardiovascular: Patient's skin is warm and dry. Respiratory: Respiratory effort is even, unlabored, Respiratory pattern is regular, symmetrical. GI: No signs and/or symptoms were reported involving the gastrointestinal system. : No signs and/or symptoms were reported regarding the genitourinary system. EENT: No signs and/or symptoms were reported regarding the EENT system. Derm: Skin is pink, warm \T\ dry. Musculoskeletal: Reports neck pain. 12:47 Reassessment: Patient appears in no apparent distress at this time. Patient and/or hb family updated on plan of care and expected duration. Pain level reassessed. Patient is alert, oriented x 3, equal unlabored respirations, skin warm/dry/pink. Vital Signs: 10:22 BP 181 / 102; Pulse 73; Resp 16; Temp 98.4(O); Pulse Ox 100% on R/A; Weight 67.13 kg; hb Height 5 ft. 4 in. ; Pain 7/10; 11:08 BP 185 / 69; Pulse 63; Resp 15; Pulse Ox 100% on R/A; hb 12:47 BP 170 / 81; Pulse 77; Resp 15; Pulse Ox 99% on R/A; hb 10:22 Body Mass Index 25.40 (67.13 kg, 162.56 cm) hb 10:22 Pain Scale: Adult hb ED Course: 10:17 Patient arrived in ED. em1 10:18 Bhavesh French MD is Attending Physician. rt 10:22 Debra Thomas, RN is Primary Nurse. hb 10:24 Triage completed. hb 10:33 CT Head C Spine In Process Unspecified. EDMS 10:44 XRAY Chest (1 view) In Process Unspecified. EDMS 10:48 Initial lab(s) drawn, by me, sent to lab. EKG done, by ED staff, reviewed by Bhavesh French MD. Inserted saline lock: 22 gauge in right antecubital area, using aseptic technique. Blood collected. 11:02 Arm band placed on. hb 11:08 Patient has correct armband on for positive identification. Placed in gown. Bed in low hb position. Call light in reach. Provided Education on: Tests. 13:19 No provider procedures requiring assistance completed. IV discontinued, intact, hb bleeding controlled, No redness/swelling at site. Administered Medications: 10:46 Drug: NS 0.9% IV 1000 ml IV at 1 bolus Per protocol; 1000 mL bolus Route: IV; Rate: 1 hb bolus; Site: right antecubital; 11:40 Follow up: Response: No adverse reaction; IV Status: Completed infusion; IV Intake: hb 1000ml 13:00 Drug: Metoprolol PO 50 mg PO once Route: PO; hb 14:00 Follow up: Response: No adverse reaction; Blood pressure is lowered hb 13:00 Drug: Acetaminophen PO 1000 mg PO once Route: PO; hb 14:30 Follow up: Response: Temperature is decreased hb Medication: 11:08 VIS not applicable for this client. hb Intake: 11:40 IV: 1000ml; Total: 1000ml. hb Outcome: 12:20 Discharge ordered by . rt 13:02 Discharge ordered by MD. rt 13:19 Discharged to home ambulatory, hb 13:19 Condition: stable 13:19 Discharge instructions given to patient, Instructed on discharge instructions, follow up and referral plans. medication usage, Demonstrated understanding of instructions, follow-up care, medications, 13:19 Patient left the ED. hb Signatures: Dispatcher [employer] EDMS Ruslan Perales em1 Debra Thomas RN RN hb Jackson, Kandis kj1 Bhavesh French MD MD rt Corrections: (The following items were deleted from the chart) 12:55 12:47 BP 168 / 88; Pulse 64bpm; Resp 15bpm; Pulse Ox 99% RA; hb hb
--- NOTE | 2023-04-27 12:21 | EDPHYS ---
Physician Documentation [facility] Name: Davina Niño Age: 72 yrs Sex: Female : 1950 Arrival Date: 04/27/2023 Time: 10:15 Bed 6 Private MD: ED Physician Bhavesh French HPI: 04/27 10:32 This 72 yrs old Female presents to ER via EMS with complaints of Dizziness. rt 10:32 Patient presents to the ED with near syncope. Patient was well when she woke up this rt morning, she walked to the restroom, and had a bowel movement. After having a bowel movement, she became acutely lightheaded and nauseated. Patient almost passed out when she stood up, causing her to fall and hitting her head. She denies total loss of consciousness. She does report a mild headache. EMS reports that she was orthostatic. She denies any dizziness when she lies down. Denies other acute complaints at this time, symptoms are moderate in severity, no other aggravating or alleviating factors.. Historical: - Allergies: 10:24 mesalamine; hb - Home Meds: 10:24 Amitriptyline Oral [Active]; budesonide 3 mg Oral CECX 3 caps once daily [Active]; hb hydroxyzine HCl 25 mg Oral tab 1 tab 3 times per day [Active]; metoprolol tartrate 50 mg Oral tab 1 tab 2 times per day [Active]; pregabalin 50 mg Oral cap 1 cap 3 times per day [Active]; Zoloft Oral [Active]; - PMHx: 10:24 Hyperlipidemia; Hypertension; hb - PSHx: 10:24 Appendectomy; Brain Tumor removed 2019; Cholecystectomy; Colon resection 2020; hb - Immunization history:: Adult Immunizations up to date. - Social history:: Smoking status: Patient denies any tobacco usage or history of. ROS: 10:32 Constitutional: Negative for fever, chills, and weight loss, Cardiovascular: Negative rt for chest pain, palpitations, and edema, Respiratory: Negative for shortness of breath, cough, wheezing, and pleuritic chest pain, Abdomen/GI: Negative for abdominal pain, nausea, vomiting, diarrhea, and constipation, MS/Extremity: Negative for injury and deformity, Skin: Negative for injury, rash, and discoloration, Psych: Negative for depression, anxiety, suicide ideation, homicidal ideation, and hallucinations, 10:32 Neuro: Positive for headache, near syncope, Exam: 10:32 Constitutional: This is a well developed, well nourished patient who is awake, alert, rt and in no acute distress. Head/Face: Normocephalic, atraumatic. Chest/axilla: Normal chest wall appearance and motion. Nontender with no deformity. No lesions are appreciated. Cardiovascular: Regular rate and rhythm with a normal S1 and S2. No gallops, murmurs, or rubs. Normal PMI, no JVD. No pulse deficits. Respiratory: Lungs have equal breath sounds bilaterally, clear to auscultation and percussion. No rales, rhonchi or wheezes noted. No increased work of breathing, no retractions or nasal flaring. Abdomen/GI: Soft, non-tender, with normal bowel sounds. No distension or tympany. No guarding or rebound. No evidence of tenderness throughout. Skin: Warm, dry with normal turgor. Normal color with no rashes, no lesions, and no evidence of cellulitis. MS/ Extremity: Pulses equal, no cyanosis. Neurovascular intact. Full, normal range of motion. Neuro: Awake and alert, GCS 15, oriented to person, place, time, and situation. Cranial nerves II-XII grossly intact. Motor strength 5/5 in all extremities. Sensory grossly intact. Cerebellar exam normal. Normal gait. Psych: Awake, alert, with orientation to person, place and time. Behavior, mood, and affect are within normal limits. 11:00 ECG was reviewed by the Attending Physician. rt Vital Signs: 10:22 BP 181 / 102; Pulse 73; Resp 16; Temp 98.4(O); Pulse Ox 100% on R/A; Weight 67.13 kg; hb Height 5 ft. 4 in. ; Pain 7/10; 11:08 BP 185 / 69; Pulse 63; Resp 15; Pulse Ox 100% on R/A; hb 12:47 BP 170 / 81; Pulse 77; Resp 15; Pulse Ox 99% on R/A; hb 10:22 Body Mass Index 25.40 (67.13 kg, 162.56 cm) hb 10:22 Pain Scale: Adult hb MDM: 10:18 Patient medically screened. rt 12:20 Differential diagnosis: cardiac arrhythmia, hypovolemia, near-syncope. Data reviewed: rt vital signs, nurses notes, lab test result(s), EKG, radiologic studies. Consideration of Admission/Observation Escalation of care including admission/observation considered. Patient with near syncope while having a bowel movement, negative work-up in the ED, possible vasovagal event. Patient with resolution of dizziness with IV fluids, exam is without difficulty, no focal neurodeficits. Patient likely to benefit from admission to the hospital, stable for outpatient care, return precautions discussed.. I considered the following discharge prescriptions or medication management in the emergency department Medications were administered in the Emergency Department. See MAR. Independent interpretation of the following test(s) in the Emergency Department CT Scan: My interpretation is No hemorrhage seen on interpretation of CT scan images. Test considered but Not performed:. Care significantly affected by the following chronic conditions: Hypertension. Counseling: I had a detailed discussion with the patient and/or guardian regarding the historical points, exam findings, and any diagnostic results supporting the discharge/admit diagnosis, lab results, radiology results, the need for outpatient follow up. Response to treatment: the patient's symptoms have resolved after treatment. 13:03 Management of patient was discussed with the following: Primary Care Provider: rt Discussed with patient's PCP, he is comfortable with discharge, will follow up with patient tomorrow.. 04/27 10:19 Order name: Basic Metabolic Panel; Complete Time: 11:18 rt 04/27 10:19 Order name: CBC with Diff; Complete Time: 11:18 rt 04/27 10:19 Order name: LFT's; Complete Time: 11:18 rt 04/27 10:19 Order name: Magnesium; Complete Time: 11:18 rt 04/27 10:19 Order name: NT PRO-BNP; Complete Time: 11:18 rt 04/27 10:19 Order name: Troponin HS; Complete Time: 11:18 rt 04/27 11:42 Order name: UAM; Complete Time: 12:02 rt 04/27 10:19 Order name: XRAY Chest (1 view); Complete Time: 11:00 rt 04/27 10:19 Order name: CT Head C Spine; Complete Time: 11:00 rt 04/27 10:19 Order name: EKG; Complete Time: 10:20 rt 04/27 10:19 Order name: Cardiac monitoring; Complete Time: 10:27 rt 04/27 10:19 Order name: EKG - Nurse/Tech; Complete Time: rt 04/27 10:19 Order name: IV Saline Lock; Complete Time: rt 04/27 10:19 Order name: Labs collected and sent; Complete Time: rt 04/27 10:19 Order name: O2 Per Protocol; Complete Time: 11:03 rt 04/27 10:19 Order name: O2 Sat Monitoring; Complete Time: rt EC:00 Rate is 68 beats/min. Rhythm is regular, Normal Sinus Rhythm with No ectopy, Right rt bundle branch block. QRS [place] is Normal. NM interval is normal. QT interval is normal. No Q waves. Interpreted by me. Administered Medications: 10:46 Drug: NS 0.9% IV 1000 ml IV at 1 bolus Per protocol; 1000 mL bolus Route: IV; Rate: 1 hb bolus; Site: right antecubital; 11:40 Follow up: Response: No adverse reaction; IV Status: Completed infusion; IV Intake: hb 1000ml 13:00 Drug: Metoprolol PO 50 mg PO once Route: PO; hb 14:00 Follow up: Response: No adverse reaction; Blood pressure is lowered hb 13:00 Drug: Acetaminophen PO 1000 mg PO once Route: PO; hb 14:30 Follow up: Response: Temperature is decreased hb Disposition Summary: 04/27/23 13:02 Discharge Ordered Notes: Location: Home(04/27/23 13:02) rt Problem: new(04/27/23 13:02) rt Symptoms: are resolved(04/27/23 13:02) rt Condition: Stable(04/27/23 13:02) rt Diagnosis - Syncope Near(04/27/23 13:02) rt Followup: rt - With: Private Physician - When: Tomorrow - Reason: Discharge Instructions: - Discharge Summary Sheet rt - Near-Syncope rt Forms: - Medication Reconciliation Form rt - Thank You Letter rt - Antibiotic Education rt - Prescription Opioid Use rt - Patient Portal Instructions rt - Leadership Thank You Letter rt Signatures: Dispatcher [employer] Debra Marinelli RN RN hb [place], Ryan, MD MD rt Corrections: (The following items were deleted from the chart) 12:49 12:20 Home rt rt 12:49 12:20 new rt rt 12:49 12:20 are resolved rt rt 12:20 Stable rt rt 12:20 Syncope Near rt rt
[2023-04-27] MEDS ORDERED: METOPROLOL TAR 50 MG TAB ONE (13:10)
[2023-04-27] MEDS ORDERED: ACETAMINOPHEN 325 MG TABLET ONE (13:11)
[2023-04-27 13:39] VITALS: TEMP 98.4
[2023-04-27 14:20] VITALS: BP 170/81; O2SAT 99
--- NOTE | 2023-04-28 17:14 | EKG ---
Test Date: 2023-04-27 Test Time: 10:41:47 Iron Piler: RILEY MEASUREMENT RESULTS: Intervals: Rate: 68 WI: 156 QRSD: 114 QT: 412 QTc: 438 [place]: P: 27 WI: 156 QRS: 17 T: 31 INTERPRETIVE STATEMENTS: Normal sinus rhythm Right bundle branch block Abnormal ECG Compared to ECG 01/07/2023 12:42:36 No significant changes Electronically Signed On 04-28-23 17:11:26 CDT by John Murrieta
== END 2023-04-27 13:19 | disposition home or self-care (01) ==
LOC: ER 10:15
DX: R55 Syncope and collapse (principal); R51.9 Headache, unspecified; I10 Essential (primary) hypertension; E78.5 Hyperlipidemia, unspecified; Z88.8 Allergy status to other drugs, medicaments and biological substances; Z86.011 Personal history of benign neoplasm of the brain
CPT/HCPCS: 93005; 85025; 81001; 80048; 36415; 83735; 80076; 84484; 83880; 70450; 72125; 71045; 96360; 99284; J7030

== ENCOUNTER 2023-11-04 12:47 | Emergency (ER) | payer OTHER ==
--- NOTE | 2023-11-04 13:33 | RAD REPORT ---
EXAM DESCRIPTION: April Single View11/04/2023 1:04 pm CLINICAL HISTORY: Hypertension and dizziness COMPARISON: 2022 FINDINGS: The lungs appear clear of acute infiltrate. The heart is normal size Chronic calcification right shoulder IMPRESSION: No acute abnormalities displayed
[2023-11-04 13:35] LABS: Absolute Monocytes 0.7 K/uL (0.1-1.3); Absolute Neutrophil 8.3 K/uL (1.8-8.0); Basophils % 0.5 % (0-1.3); Eosinophils % 0.3 % (0-4.4); Hematocrit 42.7 % (36.0-45.0); Hemoglobin 14.4 g/dL (12.0-15.0); MCH 28.5 pg (27.0-35.0); MCHC 33.8 g/dL (32.0-36.0); MCV 84.2 fL (80-100); MPV 6.6 fL (7.6-11.3); Monocytes % 6.8 % (3.3-12.3); Neutrophils % 82.4 % (41.7-73.7); Platelets 362 thou/uL (152-406); RBC Red Blood Cell Count 5.07 M/uL (3.86-4.86); Red Cell Distribution Width 13.2 % (12.1-15.2)
--- NOTE | 2023-11-04 13:53 | RAD REPORT ---
EXAM DESCRIPTION: CT - Head Brain Wo Cont - 11/04/2023 1:29 pm CLINICAL HISTORY: Dizziness COMPARISON: 2021 TECHNIQUE: Computed axial tomography of the head was obtained. IV contrast was not requested. All CT scans are performed using dose optimization technique as appropriate and may include automated exposure control or mA/KV adjustment according to patient size. FINDINGS: An intracranial bleed is not seen The ventricles are normal in caliber No extra-axial fluid collection is noted. Right craniotomy. Gliosis right frontal lobe unchanged Fluid within the sinuses/ mastoids is not seen. IMPRESSION: No acute intracranial abnormality is seen If patient's symptoms persist MRI of the brain would be recommended
[2023-11-04 13:54] LABS: Anion Gap 9.4 mEq/L (5.0-15.0); Magnesium 2.1 mg/dL (1.6-2.4); Potassium 3.4 mEq/L (3.5-5.1); Troponin High Sensitivity 9.2 pg/mL (<58.9)
[2023-11-04] MEDS ORDERED: ACETAMINOPHEN 500 MG TAB ONE (15:15)
[2023-11-04] MEDS ORDERED: MECLIZINE HCL 12.5 MG TAB ONE (15:15)
[2023-11-04] MEDS ORDERED: cloNIDine HCL 0.1 MG TAB ONE (15:18)
--- NOTE | 2023-11-04 15:48 | EDPHYS ---
Physician Documentation [facility] Name: Davina Niño Age: 73 yrs Sex: Female : 1950 Arrival Date: 11/04/2023 Time: 12:47 Bed 3 Private MD: ED Physician Brooks Franco HPI: 11/03 14:46 This 73 yrs old Female presents to ER via EMS with complaints of Dizziness, High Blood ms3 Pressure. 14:46 73-year-old female with past medical history of hyperlipidemia, hypertension presents ms3 to the emergency department for elevated blood pressure for the last 2 to 3 days and dizziness. EMS notes patient stated her blood pressure has been from 160-205 systolic. On EMS arrival patient's blood pressure was 190/100 and prior to arrival in the emergency department patient's blood pressure was 173/86. Patient denies pain at this time. Patient denies any alleviating or inciting factors. Historical: - Allergies: 13:01 mesalamine; db - PMHx: 13:01 Hyperlipidemia; Hypertension; db - PSHx: 13:01 Brain Tumor removed 2019; Appendectomy; Cholecystectomy; Colon resection 2020; db - Immunization history:: Adult Immunizations unknown. - Social history:: Smoking status: Patient denies any tobacco usage or history of. ROS: 14:46 Constitutional: Negative for fever, and chills. Neck: Negative for injury, pain, and ms3 swelling, Cardiovascular: Negative for chest pain, and palpitations. Respiratory: Negative for shortness of breath, cough, wheezing, and pleuritic chest pain, Abdomen/GI: Negative for abdominal pain, nausea, vomiting, diarrhea, and constipation, MS/Extremity: Negative for injury and deformity, 14:46 Neuro: Positive for dizziness, Exam: 14:46 Constitutional: This is a well developed, well nourished patient who is awake, alert, ms3 and in no acute distress. Head/Face: Normocephalic, atraumatic. Neck: Trachea midline, no cervical lymphadenopathy. Supple, full range of motion without nuchal rigidity, or vertebral point tenderness. No Meningismus. Chest/axilla: Normal chest wall appearance and motion. Nontender with no deformity. Cardiovascular: Regular rate and rhythm with a normal S1 and S2. No gallops, murmurs, or rubs. Normal PMI, no JVD. No pulse deficits. Respiratory: Lungs have equal breath sounds bilaterally, clear to auscultation and percussion. No rales, rhonchi or wheezes noted. No increased work of breathing, no retractions or nasal flaring. Abdomen/GI: Soft, non-tender, with normal bowel sounds. No distension or tympany. No guarding or rebound. No evidence of tenderness throughout. Skin: Warm, dry with normal turgor. Normal color with no rashes, no lesions, and no evidence of cellulitis. MS/ Extremity: Pulses equal, no cyanosis. Neurovascular intact. Full, normal range of motion. Neuro: Awake and alert, GCS 15, oriented to person, place, time, and situation. Cranial nerves II-XII grossly intact. Motor strength 5/5 in all extremities. Sensory grossly intact. Cerebellar exam normal. Normal gait. 18:42 ECG was reviewed by the Attending Physician. ms3 Vital Signs: 12:53 BP 189 / 99; Pulse 109; Resp 18; Temp 98.8(O); Pulse Ox 98% ; Weight 69.4 kg; Height 5 db ft. 4 in. ; 13:08 BP 186 / 100; Pulse 113; Resp 17; Pulse Ox 98% on R/A; db 14:47 BP 195 / 118; Pulse 109; Resp 20; Pulse Ox 98% on R/A; db 15:11 BP 208 / 118; Pulse 105; Resp 18; Pulse Ox 97% on R/A; db 15:46 BP 188 / 109; Pulse 105; Resp 18; Pulse Ox 99% on R/A; db 12:53 Body Mass Index 26.26 (69.40 kg, 162.56 cm) db MDM: 12:52 Patient medically screened. ms3 14:46 Differential diagnosis: cardiac arrhythmia, generalized weakness, idiopathic dizziness. ms3 15:47 Data reviewed: vital signs, nurses notes, lab test result(s), EKG, radiologic studies, ms3 and as a result, I will discharge patient. I considered the following discharge prescriptions or medication management in the emergency department Medications were administered in the Emergency Department. See MAR. Independent interpretation of the following test(s) in the Emergency Department EKG: See my EKG interpretation above. Historians other than the Patient: EMS: [facility]. Counseling: I had a detailed discussion with the patient and/or guardian regarding the historical points, exam findings, and any diagnostic results supporting the discharge/admit diagnosis, lab results, radiology results, the need for outpatient follow up, to return to the emergency department if symptoms worsen or persist or if there are any questions or concerns that arise at home. Special discussion: I discussed with the patient/guardian in detail that at this point there is no indication for admission to the hospital. It is understood, however, that if the symptoms persist or worsen the patient needs to return immediately for re-evaluation. 11/03 12:53 Order name: Basic Metabolic Panel; Complete Time: 13:57 ms3 11/03 12:53 Order name: CBC with Diff; Complete Time: 13:57 ms3 11/03 12:53 Order name: Magnesium; Complete Time: 13:57 ms3 11/03 12:53 Order name: Troponin HS; Complete Time: 13:57 ms3 11/03 12:53 Order name: XRAY Chest (1 view); Complete Time: 13:57 ms3 11/03 12:53 Order name: CT Head Brain wo Cont; Complete Time: 13:57 ms3 11/03 12:53 Order name: EKG; Complete Time: 12:53 ms3 11/03 12:53 Order name: Cardiac monitoring; Complete Time: 13:06 ms3 11/03 12:53 Order name: EKG - Nurse/Tech; Complete Time: 13:06 ms3 11/03 12:53 Order name: IV Saline Lock; Complete Time: 13:13 ms3 11/03 12:53 Order name: Labs collected and sent; Complete Time: 13:13 ms3 11/03 12:53 Order name: O2 Per Protocol; Complete Time: 13:06 ms3 11/03 12:53 Order name: O2 Sat Monitoring; Complete Time: 13:06 ms3 EC:42 Rate is 108 beats/min. Rhythm is regular. MI interval is normal. QRS interval is ms3 prolonged. Clinical impression: NSR w/ Non-specific ST/T Changes and RBBB. Interpreted by me. Reviewed by me. Administered Medications: 15:17 Drug: Meclizine PO 50 mg PO once Route: PO; db 16:00 Follow up: Response: No adverse reaction db 15:17 Drug: Acetaminophen PO 1000 mg PO once Route: PO; db 16:00 Follow up: Response: No adverse reaction db 15:21 Drug: cloNIDine PO 0.1 mg PO once Route: PO; mb9 16:00 Follow up: Response: No adverse reaction db Disposition Summary: 11/04/23 15:47 Discharge Ordered Notes: Location: Home ms3 Condition: Stable ms3 Diagnosis - Headache ms3 - Essential (primary) hypertension ms3 - Dizziness ms3 Followup: ms3 - With: Private Physician - When: 2 - 3 days - Reason: Recheck today's complaints Discharge Instructions: - Discharge Summary Sheet ms3 - General Headache Without Cause ms3 - Hypertension, Adult ms3 - DASH Eating Plan ms3 - Dizziness, [id number] ms3 Forms: - Medication Reconciliation Form ms3 - Thank You Letter ms3 - Antibiotic Education ms3 - Prescription Opioid Use ms3 - Patient Portal Instructions ms3 - Leadership Thank You Letter ms3 Signatures: Dispatcher [employer] EDMS Brooks Franco DO DO ms3 Whitley Roche RN RN Petra Schmid RN RN mb9 Corrections: (The following items were deleted from the chart) 12:53 12:53 BASIC METABOLIC PANEL+C.LAB.BRZ ordered. EDMS EDMS 12:53 12:53 CBC+H.LAB.BRZ ordered. EDMS EDMS 12:53 12:53 MAGNESIUM+C.LAB.BRZ ordered. EDMS EDMS 12:53 12:53 Troponin High Sensitivity+C.LAB.BRZ ordered. EDMS EDMS
--- NOTE | 2023-11-04 15:48 | ER ---
Nurse's Notes [facility] Name: Davina Niño Age: 73 yrs Sex: Female : 1950 Arrival Date: 11/04/2023 Time: 12:47 Bed 3 Private MD: Diagnosis: Headache;Essential (primary) hypertension;Dizziness Presentation: 11/03 12:53 Chief complaint: EMS states: HIGH BP AND DIZZINESS. ANXIOUS DUE TO BACK SURGERY PLANNED db FOR MONDAY. Coronavirus screen: Client denies travel out of the [place] in the last 14 days. At this time, the client does not indicate any symptoms associated with coronavirus-19. Ebola Screen: Patient negative for fever greater than or equal to 101.5 degrees Fahrenheit, and additional compatible Ebola Virus Disease symptoms Patient denies exposure to infectious person. Patient denies travel to an Ebola-affected area in the 21 days before illness onset. No symptoms or risks identified at this time. Initial Sepsis Screen: Does the patient meet any 2 criteria? No. Patient's initial sepsis screen is negative. Does the patient have a suspected source of infection? No. Patient's initial sepsis screen is negative. Risk Assessment: Do you want to hurt yourself or someone else? Patient reports no desire to harm self or others. Onset of symptoms was November 04, 2023. 12:53 Method Of Arrival: EMS: [facility] db 12:53 Acuity: VERONICA 2 db Triage Assessment: 12:53 General: Appears in no apparent distress. comfortable, Behavior is cooperative, db anxious. Pain: Complains of pain in head. Neuro: Level of Consciousness is awake, alert, obeys commands, Oriented to person, place, time, situation. Respiratory: Airway is patent Respiratory effort is even, unlabored, Respiratory pattern is regular, symmetrical. Historical: - Allergies: 13:01 mesalamine; db - PMHx: 13:01 Hyperlipidemia; Hypertension; db - PSHx: 13:01 Brain Tumor removed 2019; Appendectomy; Cholecystectomy; Colon resection 2020; db - Immunization history:: Adult Immunizations unknown. - Social history:: Smoking status: Patient denies any tobacco usage or history of. Screenin:14 [facility] ED Fall Risk Assessment (Adult) History of falling in the last 3 months, mb9 including since admission No falls in past 3 months (0 pts) Confusion or Disorientation No (0 pts) Intoxicated or Sedated No (0 pts) Impaired Gait Yes (1 pt) Mobility Assist Device Used No (0 pt) Altered Elimination No (0 pt) Score/Fall Risk Level 3 or more points = High Risk Oriented to surroundings, Maintained a safe environment, Educated pt \T\ family on fall prevention, incl call for assistance when getting out of bed, Assessed \T\ reinforced patient's understanding of fall precautions, Hourly rounding (assess needs \T\ fall precautionary measures) done. Abuse screen: Denies threats or abuse. Nutritional screening: No deficits noted. Tuberculosis screening: No symptoms or risk factors identified. Assessment: 13:00 Reassessment: Patient appears in no apparent distress at this time. SEE TRIAGE FOR db INITIAL ASSESSMENT. 13:10 Reassessment: Patient appears in no apparent distress at this time. Patient and/or db family updated on plan of care and expected duration. Pain level reassessed. Patient is alert, oriented x 3, equal unlabored respirations, skin warm/dry/pink. PATIENT ASSISTED TO BEDSIDE COMMODE. General: Appears in no apparent distress. comfortable, Behavior is calm, cooperative. 13:33 Reassessment: Patient appears in no apparent distress at this time. Patient and/or db family updated on plan of care and expected duration. Pain level reassessed. Patient is alert, oriented x 3, equal unlabored respirations, skin warm/dry/pink. Neuro: Level of Consciousness is awake, alert. Respiratory: Airway is patent Respiratory effort is even, unlabored. 14:15 Reassessment: PATIENT ASSISTED TO BEDSIDE COMMODE. db 14:56 Reassessment: Patient appears in no apparent distress at this time. Patient and/or db family updated on plan of care and expected duration. Pain level reassessed. Patient is alert, oriented x 3, equal unlabored respirations, skin warm/dry/pink. 15:18 Reassessment: Patient appears in no apparent distress at this time. Patient and/or db family updated on plan of care and expected duration. Pain level reassessed. Patient is alert, oriented x 3, equal unlabored respirations, skin warm/dry/pink. Pain: Complains of pain in head. 15:18 Reassessment: ERP notified of pts BP of 208/118. VO for 0.1 mg of Clondine. mb9 15:50 Reassessment: PATIENT ASSISTED TO BEDSIDE COMMODE PRIOR TO DC. db Vital Signs: 12:53 BP 189 / 99; Pulse 109; Resp 18; Temp 98.8(O); Pulse Ox 98% ; Weight 69.4 kg; Height 5 db ft. 4 in. ; 13:08 BP 186 / 100; Pulse 113; Resp 17; Pulse Ox 98% on R/A; db 14:47 BP 195 / 118; Pulse 109; Resp 20; Pulse Ox 98% on R/A; db 15:11 BP 208 / 118; Pulse 105; Resp 18; Pulse Ox 97% on R/A; db 15:46 BP 188 / 109; Pulse 105; Resp 18; Pulse Ox 99% on R/A; db 12:53 Body Mass Index 26.26 (69.40 kg, 162.56 cm) db ED Course: 12:51 Patient arrived in ED. bc6 12:52 Brooks Franco DO is Attending Physician. ms3 12:53 Arm band placed on Patient placed in an exam room. db 12:59 Whitley Roche, RN is Primary Nurse. db 13:01 Triage completed. db 13:06 XRAY Chest (1 view) In Process Unspecified. EDMS 13:06 EKG done, by ED staff, reviewed by Brooks Franco DO. mb9 13:13 No provider procedures requiring assistance completed. mb9 13:13 Patient has correct armband on for positive identification. Placed in gown. Bed in low mb9 position. Call light in reach. Side rails up X 1. Provided Education on: press call light if needing anything. Client placed on continuous cardiac and pulse oximetry monitoring. NIBP monitoring applied. environmental services associate on. 13:14 Assisted to bedside commode. mb9 13:15 Missed attempt(s): 20 gauge in left antecubital area. Bleeding controlled, band aid db applied, catheter tip intact. 13:20 Initial lab(s) drawn, by me, sent to lab. Inserted saline lock: 22 gauge in left wrist, db using aseptic technique. Blood collected. 13:[address] via stretcher. mb9 13:31 CT Head Brain wo Cont In Process Unspecified. EDMS 13:32 Patient moved back from CT. db 16:00 IV discontinued, intact, bleeding controlled, No redness/swelling at site. db Administered Medications: 15:17 Drug: Meclizine PO 50 mg PO once Route: PO; db 16:00 Follow up: Response: No adverse reaction db 15:17 Drug: Acetaminophen PO 1000 mg PO once Route: PO; db 16:00 Follow up: Response: No adverse reaction db 15:21 Drug: cloNIDine PO 0.1 mg PO once Route: PO; mb9 16:00 Follow up: Response: No adverse reaction db Medication: 13:14 VIS not applicable for this client. mb9 Output: 15:20 Urine: 300ml (Voided); Total: 300ml. db Outcome: 15:47 Discharge ordered by MD. ms3 16:00 Discharged to home via wheelchair, with friend, db 16:00 Condition: stable 16:00 Discharge instructions given to patient, cash clerk, Instructed on discharge instructions, follow up and referral plans. 16:15 Patient left the ED. db Signatures: Dispatcher [employer] EDMS Brooks Franco DO DO ms3 Whitley Roche RN RN db Petra Hernandez RN RN mb9 Evelyn Calvillo 6 Corrections: (The following items were deleted from the chart) 15:20 15:18 Reassessment: ERP notified of pts BP of 213/113. VO for 0.1 mg of Clondine mb9 mb9
[2023-11-04 16:24] VITALS: TEMP 98.8
[2023-11-04 16:50] VITALS: BP 188/109; O2SAT 99
--- NOTE | 2023-11-06 13:45 | EKG ---
Test Date: 2023-11-04 Test Time: 12:52:51 Dietitian Research: MB MEASUREMENT RESULTS: Intervals: Rate: 108 WV: 144 QRSD: 116 QT: 378 QTc: 506 [place]: P: 70 WV: 144 QRS: 3 T: 35 INTERPRETIVE STATEMENTS: Sinus tachycardia Possible Left atrial enlargement Right bundle branch block Cannot rule out Anterior infarct, age undetermined Abnormal ECG Compared to ECG 04/27/2023 10:41:47 Myocardial infarct finding now present Sinus rhythm no longer present Electronically Signed On 11-06-23 13:37:46 CDT by John Murrieta
== END 2023-11-04 16:15 | disposition home or self-care (01) ==
LOC: ER 12:47
DX: R51.9 Headache, unspecified (principal); I10 Essential (primary) hypertension; R42 Dizziness and giddiness; Z88.8 Allergy status to other drugs, medicaments and biological substances
CPT/HCPCS: 93005 ×2; 85025; 80048; 36415; 83735; 84484; 70450; 71045; 99285; J8597

== ENCOUNTER 2023-11-26 16:16 | Emergency (ER) | payer OTHER ==
[2023-11-26] MEDS ORDERED: ONDANSETRON 4 MG/2 ML VIAL ONE (16:38)
[2023-11-26] MEDS ORDERED: MORPHINE 4 MG/ML SYR ONE (16:38)
[2023-11-26] MEDS ORDERED: NA CHLORIDE 0.9% 1,000 ML ONE (16:39)
[2023-11-26 17:04] LABS: Absolute Basophils 0.1 K/uL (0-0.5); Absolute Lymphocytes (CBC) 1.2 K/uL (0.7-4.9); Absolute Monocytes 0.6 K/uL (0.1-1.3); Absolute Neutrophil 6.5 K/uL (1.8-8.0); Basophils % 0.6 % (0-1.3); Eosinophils % 0.3 % (0-4.4); Hemoglobin 13.4 g/dL (12.0-15.0); Lymphocytes % 14.1 % (15.3-44.8); MCH 28.1 pg (27.0-35.0); MCHC 34.3 g/dL (32.0-36.0); MCV 81.8 fL (80-100); MPV 6.6 fL (7.6-11.3); Monocytes % 7.1 % (3.3-12.3); Neutrophils % 77.9 % (41.7-73.7); Nucleated Red Blood Cells % 0.1 % (0-0); Platelets 337 thou/uL (152-406); RBC Red Blood Cell Count 4.77 M/uL (3.86-4.86); Red Cell Distribution Width 12.3 % (12.1-15.2)
--- NOTE | 2023-11-26 17:14 | RAD REPORT ---
EXAM DESCRIPTION: RAD - Chest Single View - 11/26/2023 4:50 pm CLINICAL HISTORY: weakness COMPARISON: Chest Single View dated 11/04/2023; Chest Single View dated 04/27/2023; Chest Pa And Lat ( 2 Views) dated 11/07/2022; Chest Single View dated 10/03/2022 FINDINGS: Lines: None. Lungs: No evidence of edema or pneumonia. Pleural: No significant pleural effusions or pneumothorax. Cardiac: The heart size is within normal limits. Mediastinum: Within normal limits. Bones: No acute fractures. ACDF spine. Other: None IMPRESSION: No acute cardiopulmonary disease.
[2023-11-26 17:19] LABS: ALT/SGPT 30 U/L (13-56); AST/SGOT 17 U/L (15-37); Albumin 3.3 g/dL (3.4-5.0); Alkaline Phosphatase 74 U/L (45-117); Anion Gap 8.1 mEq/L (5.0-15.0); BUN Blood Urea Nitrogen 13 mg/dL (7-18); Bicarbonate 33 mEq/L (21-32); Bilirubin Total 0.3 mg/dL (0.2-1.0); Globulin 3.2 g/dL (2.3-3.5); Glomerular Filtration Rate 83 ml/min (=/>90); Glucose Level 133 mg/dL (74-106); Magnesium 1.8 mg/dL (1.6-2.4); Potassium 3.1 mEq/L (3.5-5.1); Protein, Total 6.5 g/dL (6.4-8.2); Sodium Level 127 mEq/L (136-145); Thyroid Stimulating Hormone 0.719 uIU/mL (0.358-3.740)
[2023-11-26 17:38] LABS: Bilirubin Direct < 0.1 mg/dL (0-0.2); Bilirubin Indirect, Calculated ND mg/dL (0.2-0.8)
[2023-11-26 18:37] LABS: Sqamous Epithelial None Seen /HPF (None Seen); Urine Bacteria <20 /HPF (<20); Urine Culture Reflex Order NOT NEEDED; Urine Mucus Slight /HPF (None Seen); Urine RBC <5 /HPF (None Seen); Urine WBC <5 /HPF (<5)
[2023-11-26 18:39] LABS: Specific Gravity 1.007 (1.005-1.030); Urine Bilirubin NEGATIVE (Negative); Urine Blood Negative (Negative); Urine Clarity Clear (Clear); Urine Color Light-Yellow (Yellow); Urine Glucose NEGATIVE (Negative); Urine Ketones NEGATIVE (Negative); Urine Micro Reflex YN NO BILL NO MICROSCOPIC; Urine Nitrite NEGATIVE (Negative); Urine Protein NEGATIVE (Negative); Urine Urobilinogen Normal (Normal)
--- NOTE | 2023-11-26 18:53 | ER ---
Nurse's Notes [facility] Name: Davina Niño Age: 73 yrs Sex: Female : 1950 Arrival Date: 11/26/2023 Time: 16:16 Bed 2 Private MD: Diagnosis: Chronic back pain;Weakness Presentation: 11/25 16:19 Chief complaint: EMS states: toned out to patient home for general weakness X 2 days, ld1 chronic lower back pain. Coronavirus screen: At this time, the client does not indicate any symptoms associated with coronavirus-19. Ebola Screen: No symptoms or risks identified at this time. Risk Assessment: Do you want to hurt yourself or someone else? Patient reports no desire to harm self or others. Onset of symptoms was November 26, 2023. 16:19 Method Of Arrival: EMS: [facility] ld1 16:19 Acuity: VERONICA 3 ld1 19:12 Initial Sepsis Screen: Does the patient meet any 2 criteria? No. Patient's initial lg3 sepsis screen is negative. Does the patient have a suspected source of infection? No. Patient's initial sepsis screen is negative. Triage Assessment: 16:20 General: Appears in no apparent distress. comfortable, Behavior is calm, cooperative, ld1 appropriate for age. Pain: Complains of pain in back Pain does not radiate. Pain currently is 8 out of 10 on a pain scale. Quality of pain is described as throbbing, Pain began suddenly, Is continuous. EENT: No signs and/or symptoms were reported regarding the EENT system. Neuro: Level of Consciousness is awake, alert, obeys commands, Oriented to person, place, time, situation. Cardiovascular: Capillary refill < 3 seconds Patient's skin is warm and dry. Respiratory: Airway is patent Respiratory effort is even, unlabored. GI: Abdomen is round non-distended. : No signs and/or symptoms were reported regarding the genitourinary system. Derm: No signs and/or symptoms reported regarding the dermatologic system. Musculoskeletal: No signs and/or symptoms reported regarding the musculoskeletal system. Historical: - Allergies: 16:20 mesalamine; ld1 - PMHx: 16:20 Hyperlipidemia; Hypertension; ld1 - PSHx: 16:20 Appendectomy; Brain Tumor removed 2019; Colon resection 2020; Cholecystectomy; ld1 - Immunization history:: Adult Immunizations up to date. - Infectious Disease History:: Denies. - Social history:: Smoking status: Patient denies any tobacco usage or history of. - Family history:: not pertinent. Screenin:45 [facility] ED Fall Risk Assessment (Adult) History of falling in the last 3 months, bp including since admission No falls in past 3 months (0 pts). Abuse screen: Denies threats or abuse. Denies injuries from another. Nutritional screening: No deficits noted. Tuberculosis screening: No symptoms or risk factors identified. Assessment: 16:20 General: SEE TRIAGE NOTE. bp 18:46 Reassessment: Patient appears in no apparent distress at this time. No changes from ld1 previously documented assessment. Patient and/or family updated on plan of care and expected duration. Pain level reassessed. 19:10 General: Appears in no apparent distress. comfortable, Behavior is calm, cooperative. lg3 Pain: Complains of pain in back Pain does not radiate. Pain currently is 5 out of 10 on a pain scale. Is chronic. Neuro: No deficits noted. Gonzalez Agitation-Sedation Scale (RASS): 0 - Alert and Calm Level of Consciousness is awake, alert, obeys commands, Oriented to person, place, time, situation. Cardiovascular: No deficits noted. Denies chest pain, shortness of breath, Capillary refill < 3 seconds Clubbing of nail beds is absent JVD is absent Patient's skin is warm and dry. Respiratory: No deficits noted. Airway is patent Respiratory effort is even, unlabored, Respiratory pattern is regular, symmetrical, Breath sounds are clear bilaterally. GI: No deficits noted. No signs and/or symptoms were reported involving the gastrointestinal system. Abdomen is round non-distended. : No deficits noted. No signs and/or symptoms were reported regarding the genitourinary system. EENT: No deficits noted. No signs and/or symptoms were reported regarding the EENT system. Derm: No deficits noted. No signs and/or symptoms reported regarding the dermatologic system. Skin is intact, is healthy with good turgor, Skin is dry, Skin is normal, Skin temperature is warm. Musculoskeletal: No deficits noted. Circulation, motion, and sensation intact. Range of motion: intact in all extremities, Reports pain in back. Vital Signs: 16:26 Pulse 103; Resp 18; Temp 97.9(TE); Pulse Ox 99% on R/A; Weight 78.47 kg; Height 5 ft. 4 ld1 in. ; Pain 8/10; 16:27 BP 168 / 96; ld1 18:11 BP 168 / 78; Pulse 103; Resp 17; Pulse Ox 100% ; bp 18:46 BP 167 / 78; Pulse 114; Resp 25; Pulse Ox 100% on R/A; ld1 16:26 Body Mass Index 29.70 (78.47 kg, 162.56 cm) ld1 16:26 Pain Scale: Adult ld1 ED Course: 16:19 Patient arrived in ED. ld1 16:20 Triage completed. ld1 16:20 Bhavesh French MD is Attending Physician. rt 16:20 Arm band placed on right wrist. ld1 16:21 Pop Farrar, OIBE is Primary Nurse. bp 16:37 XRAY Chest (1 view) Sent. bp 16:45 Patient has correct armband on for positive identification. bp 16:46 TSH Sent. bp 16:46 Basic Metabolic Panel Sent. bp 16:46 CBC with Diff Sent. bp 16:46 LFT's Sent. bp 16:46 Magnesium Sent. bp 16:46 Troponin HS Sent. bp 16:46 Initial lab(s) drawn, by me, sent to lab. EKG done, by ED staff, reviewed by Bhavesh French MD. Maintain EMS IV. Dressing intact. Good blood return noted. Site clean \T\ dry. Gauge \T\ site: 20 R HAND. 16:53 XRAY Chest (1 view) In Process Unspecified. EDMS 18:11 UAM Sent. bp 18:11 Urine collected:. bp 19:10 No provider procedures requiring assistance completed. IV discontinued, intact, lg3 bleeding controlled, No redness/swelling at site. Pressure dressing applied. Administered Medications: 16:45 Drug: NS 0.9% IV 1000 ml IV at 1 bolus Per protocol; 1000 mL bolus Route: IV; Rate: 1 bp bolus; Site: right hand; 19:12 Follow up: Response: No adverse reaction; IV Status: Completed infusion; IV Intake: lg3 1000ml 16:45 Drug: morphine IVP or IV 4 mg IVP once over 4 mins Route: IVP; Infused Over: 4 mins; bp Site: right hand; 18:10 Follow up: Response: No adverse reaction bp 16:45 Drug: Ondansetron IVP 4 mg IVP once; over 2 minutes Route: IVP; Site: right hand; bp 18:11 Follow up: Response: No adverse reaction bp Medication: 19:10 VIS not applicable for this client. lg3 Intake: 19:12 IV: 1000ml; Total: 1000ml. lg3 Outcome: 18:52 Discharge ordered by . rt 19:10 Discharged to home via wheelchair, with significant other, lg3 19:10 Condition: stable 19:10 Discharge instructions given to patient, Instructed on discharge instructions, follow up and referral plans. Demonstrated understanding of instructions, follow-up care, 19:13 Patient left the ED. lg3 Signatures: Dispatcher [employer] EDMS Pop Farrar RN RN Alba Smith RN RN lg3 Yadi Franco RN RN ld1 Bhavesh French MD MD rt
--- NOTE | 2023-11-26 18:53 | EDPHYS ---
Physician Documentation [facility] Name: Davina Niño Age: 73 yrs Sex: Female : 1950 Arrival Date: 11/26/2023 Time: 16:16 Bed 2 Private MD: ED Physician Bhavesh French HPI: 11/25 17:21 This 73 yrs old Female presents to ER via EMS with complaints of General Weakness, rt Flank Pain. 17:21 Patient presents to the ED with about 3 days of generalized weakness. Patient also has rt history of chronic back pain, states that that is worsening. She does have a operation scheduled for next month. She denies other acute complaints at this time. Symptoms are moderate in severity, no other aggravating alleviating factors.. Historical: - Allergies: 16:20 mesalamine; ld1 - PMHx: 16:20 Hyperlipidemia; Hypertension; ld1 - PSHx: 16:20 Appendectomy; Brain Tumor removed 2019; Colon resection 2020; Cholecystectomy; ld1 - Immunization history:: Adult Immunizations up to date. - Infectious Disease History:: Denies. - Social history:: Smoking status: Patient denies any tobacco usage or history of. - Family history:: not pertinent. ROS: 17:21 Constitutional: Negative for fever, chills, and weight loss, Cardiovascular: Negative rt for chest pain, palpitations, and edema, Respiratory: Negative for shortness of breath, cough, wheezing, and pleuritic chest pain, Abdomen/GI: Negative for abdominal pain, nausea, vomiting, diarrhea, and constipation, MS/Extremity: Negative for injury and deformity, Skin: Negative for injury, rash, and discoloration, Psych: Negative for depression, anxiety, suicide ideation, homicidal ideation, and hallucinations, 17:21 Back: Positive for pain at rest, pain with movement, 17:21 Neuro: Positive for weakness, Negative for altered mental status, Exam: 17:21 Constitutional: This is a well developed, well nourished patient who is awake, alert, rt and in no acute distress. Head/Face: Normocephalic, atraumatic. Chest/axilla: Normal chest wall appearance and motion. Nontender with no deformity. No lesions are appreciated. Cardiovascular: Regular rate and rhythm with a normal S1 and S2. No gallops, murmurs, or rubs. Normal PMI, no JVD. No pulse deficits. Respiratory: Lungs have equal breath sounds bilaterally, clear to auscultation and percussion. No rales, rhonchi or wheezes noted. No increased work of breathing, no retractions or nasal flaring. Abdomen/GI: Soft, non-tender, with normal bowel sounds. No distension or tympany. No guarding or rebound. No evidence of tenderness throughout. Skin: Warm, dry with normal turgor. Normal color with no rashes, no lesions, and no evidence of cellulitis. MS/ Extremity: Pulses equal, no cyanosis. Neurovascular intact. Full, normal range of motion. Neuro: Awake and alert, GCS 15, oriented to person, place, time, and situation. Cranial nerves II-XII grossly intact. Motor strength 5/5 in all extremities. Sensory grossly intact. Cerebellar exam normal. Normal gait. 17:21 ECG was reviewed by the Attending Physician. Vital Signs: 16:26 Pulse 103; Resp 18; Temp 97.9(TE); Pulse Ox 99% on R/A; Weight 78.47 kg; Height 5 ft. 4 ld1 in. ; Pain 8/10; 16:27 BP 168 / 96; ld1 18:11 BP 168 / 78; Pulse 103; Resp 17; Pulse Ox 100% ; bp 18:46 BP 167 / 78; Pulse 114; Resp 25; Pulse Ox 100% on R/A; ld1 16:26 Body Mass Index 29.70 (78.47 kg, 162.56 cm) ld1 16:26 Pain Scale: Adult ld1 MDM: 16:25 Patient medically screened. rt 19:40 Differential diagnosis: Electrolyte disturbance, chronic back pain, UTI, dysrhythmia. rt Data reviewed: vital signs, nurses notes, lab test result(s), EKG. Consideration of Admission/Observation Escalation of care including admission/observation considered. Patient has unremarkable labs except for minor hypokalemia, hyponatremia. Do not believe this requires admission to the hospital at this time. Patient is repeatedly requesting to be admitted to the hospital. I informed the patient that she has no admittable diagnoses at this time. She does have chronic back pain, instructed to follow-up with her spine surgeon as an outpatient.. I considered the following discharge prescriptions or medication management in the emergency department Medications were administered in the Emergency Department. See GENIE. Test considered but Not performed: CT: Chronic back pain, CT scan of the C-spine not indicated. Care significantly affected by the following chronic conditions: Hypertension. Counseling: I had a detailed discussion with the patient and/or guardian regarding the historical points, exam findings, and any diagnostic results supporting the discharge/admit diagnosis, lab results, the need for outpatient follow up. Special discussion: I discussed with the patient/guardian in detail that at this point there is no indication for admission to the hospital. It is understood, however, that if the symptoms persist or worsen the patient needs to return immediately for re-evaluation. 11/25 16:32 Order name: Basic Metabolic Panel; Complete Time: 18:45 rt 11/25 16:32 Order name: CBC with Diff; Complete Time: 17:16 rt 11/25 16:32 Order name: LFT's; Complete Time: 18:45 rt 11/25 16:32 Order name: Magnesium; Complete Time: 18:45 rt 11/25 16:32 Order name: Troponin HS; Complete Time: 18:45 rt 11/25 16:32 Order name: TSH; Complete Time: 18:45 rt 11/25 16:32 Order name: UAM; Complete Time: 18:47 rt 11/25 16:32 Order name: XRAY Chest (1 view); Complete Time: 17:16 rt 11/25 16:32 Order name: Cardiac monitoring; Complete Time: 16:36 rt 11/25 16:32 Order name: EKG - Nurse/Tech; Complete Time: 16:46 rt 11/25 16:32 Order name: IV Saline Lock; Complete Time: 16:46 rt 11/25 16:32 Order name: Labs collected and sent; Complete Time: 16:46 rt 11/25 16:32 Order name: O2 Per Protocol; Complete Time: 16:36 rt 11/25 16:32 Order name: O2 Sat Monitoring; Complete Time: 16:36 rt EC: Rate is 95 beats/min. Rhythm is regular, Normal Sinus Rhythm with No ectopy, Right rt bundle branch block. QRS [place] is Normal. OR interval is normal. QRS interval is normal. QT interval is normal. No Q waves. No ST changes noted. Interpreted by me. Administered Medications: 16:45 Drug: NS 0.9% IV 1000 ml IV at 1 bolus Per protocol; 1000 mL bolus Route: IV; Rate: 1 bp bolus; Site: right hand; 19:12 Follow up: Response: No adverse reaction; IV Status: Completed infusion; IV Intake: lg3 1000ml 16:45 Drug: morphine IVP or IV 4 mg IVP once over 4 mins Route: IVP; Infused Over: 4 mins; bp Site: right hand; 18:10 Follow up: Response: No adverse reaction bp 16:45 Drug: Ondansetron IVP 4 mg IVP once; over 2 minutes Route: IVP; Site: right hand; bp 18:11 Follow up: Response: No adverse reaction bp Disposition Summary: 11/26/23 18:52 Discharge Ordered Notes: Location: Home rt Problem: an ongoing problem rt Symptoms: have improved rt Condition: Stable rt Diagnosis - Chronic back pain rt - Weakness rt Followup: rt - With: Private Physician - When: 2 - 3 days - Reason: Discharge Instructions: - Discharge Summary Sheet rt - Chronic Back Pain rt - Weakness rt Forms: - Medication Reconciliation Form rt - Thank You Letter rt - Antibiotic Education rt - Prescription Opioid Use rt - Patient Portal Instructions rt - Leadership Thank You Letter rt Signatures: Dispatcher [employer] Pop Benitez RN RN bp Yadi Franco RN RN ld1 Bhavesh French MD MD rt Alba Hills RN lg3 Corrections: (The following items were deleted from the chart) 17:25 17:21 Rate is 98 beats/min. Rhythm is regular, Normal Sinus Rhythm with No ectopy. QRS rt [place] is Normal. OR interval is normal. QRS interval is normal. QT interval is normal. No Q waves. No ST changes noted. Interpreted by me. rt
[2023-11-26 20:02] VITALS: BP 167/78; TEMP 97.9; O2SAT 100
== END 2023-11-26 19:13 | disposition home or self-care (01) ==
LOC: ER 16:16
DX: R53.1 Weakness (principal); M54.9 Dorsalgia, unspecified; Z88.8 Allergy status to other drugs, medicaments and biological substances
CPT/HCPCS: 96361; 85025; 81001; 80048; 36415; 83735; 80076; 84443; 84484; 71045; 96375; 96374; 99284; J2405; J7030; 93005

== ENCOUNTER 2023-12-05 16:48 | Inpatient (IN) | payer OTHER ==
[2023-12-05] MEDS ORDERED: NA CHLORIDE 0.9% 1,000 ML ONE (17:11)
[2023-12-05 17:18] LABS: Absolute Lymphocytes (CBC) 1.3 K/uL (0.7-4.9); Absolute Monocytes 0.7 K/uL (0.1-1.3); Absolute Neutrophil 3.8 K/uL (1.8-8.0); Basophils % 0.8 % (0-1.3); Eosinophils % 0.6 % (0-4.4); Hematocrit 36.6 % (36.0-45.0); Hemoglobin 12.4 g/dL (12.0-15.0); Lymphocytes % 21.7 % (15.3-44.8); MCH 28.3 pg (27.0-35.0); MCV 83.2 fL (80-100); MPV 6.6 fL (7.6-11.3); Monocytes % 12.7 % (3.3-12.3); Neutrophils % 64.2 % (41.7-73.7); Platelets 290 thou/uL (152-406); Red Cell Distribution Width 11.9 % (12.1-15.2)
[2023-12-05 17:24] LABS: PT Prothrombin Time 13.2 SECONDS (9.5-12.5); Protime INR 1.21
--- NOTE | 2023-12-05 17:58 | RAD REPORT ---
EXAM DESCRIPTION: RAD - Chest Single View - 12/05/2023 5:52 pm CLINICAL HISTORY: COUGH Chest pain. COMPARISON: Chest Single View dated 11/26/2023; Chest Single View dated 11/04/2023; Chest Single View dated 04/27/2023; Chest Pa And Lat (2 Views) dated 11/07/2022 FINDINGS: Portable technique limits examination quality. Mild interstitial pulmonary edema seen. The heart is moderately enlarged. No displaced fractures.Cerv ical hardware plate. IMPRESSION: Mild CHF.
[2023-12-05 18:09] LABS: ALT/SGPT 25 U/L (13-56); AST/SGOT 9 U/L (15-37); Albumin 3.1 g/dL (3.4-5.0); Alkaline Phosphatase 68 U/L (45-117); Anion Gap 8.7 mEq/L (5.0-15.0); BUN Blood Urea Nitrogen 11 mg/dL (7-18); Bicarbonate 33 mEq/L (21-32); Bilirubin Total 0.3 mg/dL (0.2-1.0); Globulin 3.1 g/dL (2.3-3.5); Glomerular Filtration Rate 65 ml/min (=/>90); Glucose Level 98 mg/dL (74-106); Lipase 31 U/L (13-75); Magnesium 1.7 mg/dL (1.6-2.4); NT PRO-BNP 117 pg/mL (<450); Potassium 2.7 mEq/L (3.5-5.1); Protein, Total 6.2 g/dL (6.4-8.2); Sodium Level 128 mEq/L (136-145); Troponin High Sensitivity 6.9 pg/mL (<58.9)
[2023-12-05 18:11] LABS: Bilirubin Direct < 0.1 mg/dL (0-0.2); Bilirubin Indirect, Calculated ND mg/dL (0.2-0.8)
--- NOTE | 2023-12-05 18:13 | RAD REPORT ---
EXAM DESCRIPTION: CT - Chest Abd Pelvis Wo Con - 12/05/2023 5:44 pm CLINICAL HISTORY: Chest and abdomen pain. Abdominal distention;Cough COMPARISON: Thorax W/ Con dated 11/07/2022 TECHNIQUE: A limited noncontrast study was performed. All CT scans are performed using dose optimization technique as appropriate and may include automated exposure control or mA/KV adjustment according to patient size. FINDINGS: The lungs are clear.No pleural or pericardial effusion.No intrathoracic adenopathy. The liver contains an 18 mm cyst. Spleen, pancreas, adrenal glands and kidneys are within normal limi ts. No bowel obstruction, free air, free fluid or abscess. Prominent stool is seen throughout the colon. Postsurgical changes are present in the rectosigmoid. Absent appendix. No pathologic lymphadenopathy in the abdomen or pelvis. No worrisome osseous finding. Moderate multilevel lumbar degenerative changes. IMPRESSION: No acute process is detected.
[2023-12-05 18:38] LABS: Specific Gravity < 1.005 (1.005-1.030); Sqamous Epithelial None Seen /HPF (None Seen); Urine Bacteria <20 /HPF (<20); Urine Bilirubin NEGATIVE (Negative); Urine Blood Negative (Negative); Urine Clarity Clear (Clear); Urine Color Colorless (Yellow); Urine Culture Reflex Order NOT NEEDED; Urine Glucose NEGATIVE (Negative); Urine Ketones NEGATIVE (Negative); Urine Microscopic Reflex YN ORDER UMIC; Urine Nitrite NEGATIVE (Negative); Urine Protein NEGATIVE (Negative); Urine RBC <5 /HPF (None Seen); Urine Urobilinogen Normal (Normal); Urine WBC <5 /HPF (<5)
--- NOTE | 2023-12-05 19:13 | EDPHYS ---
Physician Documentation [facility] Name: Davina Niño Age: 73 yrs Sex: Female : 1950 Arrival Date: 12/05/2023 Time: 16:48 Bed 2 Private MD: ED Physician Bandar Barker HPI: 12/04 17:24 This 73 yrs old Female presents to ER via Ambulatory with complaints of Blood donte Pressure Problem. 17:24 weak , low bp. The patient has experienced near-syncope, almost passed out, felt donte generally weak. Onset: The symptoms/episode began/occurred just prior to arrival. Duration: The patient has had multiple episodes, that last 30 second(s). The patient presents with dizziness, feeling faint, generalized weakness. Modifying factors: The symptoms are alleviated by lying down, the symptoms are aggravated by standing up. Severity of symptoms: At their worst the symptoms were moderate in the emergency department the symptoms are unchanged. Context: the episode(s) was witnessed, by EMS personnel, by family. Historical: - Allergies: 16:54 mesalamine; ld1 - PMHx: 16:54 Hyperlipidemia; Hypertension; ld1 - PSHx: 16:54 Appendectomy; Brain Tumor removed 2019; Cholecystectomy; Colon resection 2020; ld1 - Immunization history:: Adult Immunizations up to date. - Infectious Disease History:: Denies. - Social history:: Smoking status: Patient denies any tobacco usage or history of. - Family history:: not pertinent. ROS: 17:24 Constitutional: Negative for fever, chills, and weight loss, Eyes: Negative for injury, donte pain, redness, and discharge, ENT: Negative for injury, pain, and discharge, Neck: Negative for injury, pain, and swelling, Cardiovascular: Negative for chest pain, palpitations, and edema, Respiratory: Negative for shortness of breath, cough, wheezing, and pleuritic chest pain, Abdomen/GI: Negative for abdominal pain, nausea, vomiting, diarrhea, and constipation, Back: Negative for injury and pain, : Negative for injury, bleeding, discharge, and swelling, MS/Extremity: Negative for injury and deformity, Skin: Negative for injury, rash, and discoloration, Psych: Negative for depression, anxiety, suicide ideation, homicidal ideation, and hallucinations, Allergy/Immunology: Negative for hives, rash, and allergies, Endocrine: Negative for neck swelling, polydipsia, polyuria, polyphagia, and marked weight changes, Hematologic/Lymphatic: Negative for swollen nodes, abnormal bleeding, and unusual bruising, 17:24 Neuro: Positive for dizziness, near syncope, weakness, Exam: 17:24 Constitutional: This is a well developed, well nourished patient who is awake, alert, donte and in no acute distress. Head/Face: Normocephalic, atraumatic. Eyes: Pupils equal round and reactive to light, extra-ocular motions intact. Lids and lashes normal. Conjunctiva and sclera are non-icteric and not injected. Cornea within normal limits. Periorbital areas with no swelling, redness, or edema. ENT: Nares patent. No nasal discharge, no septal abnormalities noted. Tympanic membranes are normal and external auditory canals are clear. Oropharynx with no redness, swelling, or masses, exudates, or evidence of obstruction, uvula midline. Mucous membranes moist. Neck: Trachea midline, no thyromegaly or masses palpated, and no cervical lymphadenopathy. Supple, full range of motion without nuchal rigidity, or vertebral point tenderness. No Meningismus. Chest/axilla: Normal chest wall appearance and motion. Nontender with no deformity. No lesions are appreciated. Cardiovascular: Regular rate and rhythm with a normal S1 and S2. No gallops, murmurs, or rubs. Normal PMI, no JVD. No pulse deficits. Respiratory: Lungs have equal breath sounds bilaterally, clear to auscultation and percussion. No rales, rhonchi or wheezes noted. No increased work of breathing, no retractions or nasal flaring. Abdomen/GI: Soft, non-tender, with normal bowel sounds. No distension or tympany. No guarding or rebound. No evidence of tenderness throughout. Back: No spinal tenderness. No costovertebral tenderness. Full range of motion. Female : Normal external genitalia. Skin: Warm, dry with normal turgor. Normal color with no rashes, no lesions, and no evidence of cellulitis. MS/ Extremity: Pulses equal, no cyanosis. Neurovascular intact. Full, normal range of motion. Neuro: Awake and alert, GCS 15, oriented to person, place, time, and situation. Cranial nerves II-XII grossly intact. Motor strength 5/5 in all extremities. Sensory grossly intact. Cerebellar exam normal. Normal gait. Psych: Awake, alert, with orientation to person, place and time. Behavior, mood, and affect are within normal limits. 17:24 ECG was reviewed by the Attending Physician. 17:24 Musculoskeletal/extremity: DVT Exam: No signs of deep vein thrombosis. no pain, no swelling, no tenderness, negative Homans' sign noted on exam, no appreciated bluish discoloration, no erythema, no increased warmth, Vital Signs: 16:52 BP 139 / 69; Pulse 77; Resp 18; Temp 98.1(TE); Pulse Ox 95% on R/A; Weight 72.12 kg; ld1 Height 5 ft. 4 in. ; Pain 0/10; 18:08 BP 169 / 117; Pulse 86; Resp 23; Pulse Ox 98% on R/A; ld1 20:30 BP 160 / 73; Pulse 87; Resp 18; Temp 98; Pulse Ox 99% on R/A; rv 16:52 Body Mass Index 27.29 (72.12 kg, 162.56 cm) ld1 16:52 Pain Scale: Adult ld1 Raffy Coma Score: 20:30 Eye Response: spontaneous(4). Motor Response: obeys commands(6). Verbal Response: rv oriented(5). Total: 15. MDM: 16:56 Patient medically screened. donte 17:27 Differential Diagnosis sepsis, flu. Differential Diagnosis: aortic aneurysm, cardiac donte arrhythmia, emotional response, GI bleed, vasovagal episode, cardiac arrhythmia, generalized weakness, GI bleed, hypovolemia, idiopathic dizziness. Data reviewed: vital signs, nurses notes, lab test result(s), EKG, radiologic studies. Consideration of Admission/Observation Escalation of care including admission/observation considered. I considered the following discharge prescriptions or medication management in the emergency department Medications were administered in the Emergency Department. See MAR. Independent interpretation of the following test(s) in the Emergency Department EKG: See my EKG interpretation above. Test considered but Not performed: Ultrasound no abd usg. Historians other than the Patient: EMS: ems well informed. Care significantly affected by the following chronic conditions: Hypertension, hyperlipidemia. Counseling: I had a detailed discussion with the patient and/or guardian regarding the historical points, exam findings, and any diagnostic results supporting the discharge/admit diagnosis, lab results, radiology results, the need for further work-up and treatment in the hospital. 12/04 16:56 Order name: Basic Metabolic Panel; Complete Time: 19:08 12/04 16:56 Order name: CBC with Diff; Complete Time: 19:08 12/04 16:56 Order name: LFT's; Complete Time: 19:08 12/04 16:56 Order name: Magnesium; Complete Time: 19:08 12/04 16:56 Order name: NT PRO-BNP; Complete Time: 19:08 12/04 16:56 Order name: PT-INR; Complete Time: 19:08 12/04 16:56 Order name: Troponin HS; Complete Time: 19:08 12/04 16:56 Order name: Urinalysis w/ reflexes; Complete Time: 19:08 12/04 16:56 Order name: Lipase; Complete Time: 19:08 12/04 17:16 Order name: glucometer results - FOR PT WITH NO ID; Complete Time: 19:08 ld1 12/04 19:11 Order name: Phosphorus 12/04 19:11 Order name: Urine Osmolality 12/04 19:11 Order name: Urine Sodium Random 12/04 19:11 Order name: Osmolality, Serum 12/04 16:56 Order name: XRAY Chest (1 view); Complete Time: 19:08 12/04 17:23 Order name: CT Chest Abdomen Pelvis W/O Contrast; Complete Time: 19:08 12/04 16:56 Order name: Cardiac monitoring; Complete Time: 16:57 12/04 16:56 Order name: EKG - Nurse/Tech; Complete Time: 16:57 12/04 16:56 Order name: IV Saline Lock; Complete Time: 16:57 12/04 16:56 Order name: Labs collected and sent; Complete Time: 16:57 12/04 16:56 Order name: O2 Per Protocol; Complete Time: 16:57 12/04 16:56 Order name: O2 Sat Monitoring; Complete Time: 16:57 donte EC:24 Rate is 77 beats/min. Rhythm is regular. QRS [place] is Normal. [place] interval is normal. QT donte interval is normal. No Q waves. T waves are Normal. No ST changes noted. Clinical impression: NSR w/ Non-specific ST/T Changes and No evidence of ischemia. Interpreted by me. Reviewed by me. Administered Medications: 17:50 Drug: NS 0.9% IV 1000 ml IV at 1 bolus Per protocol; 1000 mL bolus Route: IV; Rate: 1 me1 bolus; Site: right antecubital; 21:03 Follow up: IV Status: Completed infusion; IV Intake: 1000ml rv 19:23 Drug: Potassium PO Effervescent Tablet 50 mEq PO once; dissolve in 4 ounces of water or rv juice Route: PO; 21:03 Follow up: Response: No adverse reaction rv 19:23 Drug: Potassium Chloride IV 20 mEq IV at per protocol once; administer over 1-2 hours rv Route: IV; Rate: per protocol; Site: right hand; 21:03 Follow up: IV Status: Infusion continued upon admission rv 19:31 Drug: NS 0.9% with KCl IV 20 mEq/L 1000 ml IV at 125 ml/hr continuous Route: IV; Rate: me1 125 ml/hr; Site: left antecubital; 21:03 Follow up: IV Status: Infusion continued upon admission rv Disposition Summary: 12/05/23 19:12 Hospitalization Ordered Notes: Hospitalization Status: Inpatient Admission donte Provider: Efe Martinez cha Location: Telemetry/MedSurg (Inpatient) donte Condition: Fair donte Problem: new donte Symptoms: have improved donte Bed/Room Type: Standard donte Room Assignment: 221(12/05/23 20:00) rv1 Diagnosis - Hypotension, unspecified donte - Hypo-osmolality and hyponatremia donte - Hypokalemia donte - Weakness donte Forms: - Medication Reconciliation Form donte - SBAR form donte - Leadership Thank You Letter donte Signatures: Dispatcher [employer] Bandar Elliott MD MD cha Vicente, Ronaldo RN RN rv Yadi Franco RN RN ld1 Yue Shine rv1 Sadaf Schultz RN RN me1 Corrections: (The following items were deleted from the chart) 17:16 17:16 GLUCATNOID ordered. EDMS EDMS 19:11 19:11 PHOSPHORUS+C.LAB.BRZ ordered. EDMS EDMS 19:11 19:11 Osmolality, Urine ordered. EDMS EDMS 19:11 19:11 URINE SODIUM RANDOM+CHEM UR.LAB.BRZ ordered. EDMS EDMS 19: 19:11 OSMOLALITY, SERUM+SC.LAB.BRZ ordered. EDMS EDMS 20:00 19:12 donte rv1
--- NOTE | 2023-12-05 19:13 | ER ---
Nurse's Notes [facility] Name: Davina Niño Age: 73 yrs Sex: Female : 1950 Arrival Date: 12/05/2023 Time: 16:48 Bed 2 Private MD: Diagnosis: Hypotension, unspecified;Hypo-osmolality and hyponatremia;Hypokalemia;Weakness Presentation: 12/04 16:52 Chief complaint: EMS states: toned out to pt home for low BP of 76/49. Upon arrival to 1 ER pt BP 139/69, denies pain. Coronavirus screen: At this time, the client does not indicate any symptoms associated with coronavirus-19. Ebola Screen: No symptoms or risks identified at this time. Initial Sepsis Screen: Does the patient meet any 2 criteria? No. Patient's initial sepsis screen is negative. Does the patient have a suspected source of infection? No. Patient's initial sepsis screen is negative. Risk Assessment: Do you want to hurt yourself or someone else? Patient reports no desire to harm self or others. Onset of symptoms. 16:52 Method Of Arrival: Ambulatory ld1 16:52 Acuity: VERONICA 3 ld1 Triage Assessment: 16:54 General: Appears in no apparent distress. comfortable, Behavior is calm, cooperative, ld1 appropriate for age. Pain: Denies pain. EENT: No signs and/or symptoms were reported regarding the EENT system. EENT: Neuro: Level of Consciousness is awake, alert, obeys commands, Oriented to person, place, time, situation. Cardiovascular: Capillary refill < 3 seconds Patient's skin is warm and dry. Rhythm is sinus rhythm. Respiratory: Airway is patent Respiratory effort is even, unlabored. GI: Abdomen is round non-distended. : No signs and/or symptoms were reported regarding the genitourinary system. Derm: No signs and/or symptoms reported regarding the dermatologic system. Musculoskeletal: No signs and/or symptoms reported regarding the musculoskeletal system. Historical: - Allergies: 16:54 mesalamine; ld1 - PMHx: 16:54 Hyperlipidemia; Hypertension; ld1 - PSHx: 16:54 Appendectomy; Brain Tumor removed 2019; Cholecystectomy; Colon resection 2020; ld1 - Immunization history:: Adult Immunizations up to date. - Infectious Disease History:: Denies. - Social history:: Smoking status: Patient denies any tobacco usage or history of. - Family history:: not pertinent. Screenin:56 [facility] ED Fall Risk Assessment (Adult) History of falling in the last 3 months, ld1 including since admission No falls in past 3 months (0 pts). Abuse screen: Denies threats or abuse. Denies injuries from another. Nutritional screening: No deficits noted. Tuberculosis screening: No symptoms or risk factors identified. Assessment: 16:56 Reassessment: See triage assessmnet. ld1 Vital Signs: 16:52 BP 139 / 69; Pulse 77; Resp 18; Temp 98.1(TE); Pulse Ox 95% on R/A; Weight 72.12 kg; ld1 Height 5 ft. 4 in. ; Pain 0/10; 18:08 BP 169 / 117; Pulse 86; Resp 23; Pulse Ox 98% on R/A; ld1 20:30 BP 160 / 73; Pulse 87; Resp 18; Temp 98; Pulse Ox 99% on R/A; rv 16:52 Body Mass Index 27.29 (72.12 kg, 162.56 cm) ld1 16:52 Pain Scale: Adult ld1 Raffy Coma Score: 20:30 Eye Response: spontaneous(4). Motor Response: obeys commands(6). Verbal Response: rv oriented(5). Total: 15. ED Course: 16:52 Patient arrived in ED. ld1 16:54 Triage completed. ld1 16:54 Arm band placed on right wrist. ld1 16:56 Bandar Barker MD is Attending Physician. [facility] 16:56 Patient has correct armband on for positive identification. Placed in gown. Bed in low ld1 position. Call light in reach. Side rails up X2. threat monitoring analyst on. Pulse ox on. NIBP on. Door closed. Noise minimized. Warm blanket given. 16:56 No provider procedures requiring assistance completed. Maintain EMS IV. Dressing ld1 intact. Good blood return noted. Site clean \T\ dry. Gauge \T\ site: 20G LAC - 20G RH. 16:57 Yadi Franco, OBIE is Primary Nurse. ld1 17:46 CT Chest Abdomen Pelvis W/O Contrast In Process Unspecified. EDMS 17:55 XRAY Chest (1 view) In Process Unspecified. EDMS 19:11 Efe Martinez MD is Hospitalizing Provider. [facility] 21:05 Patient admitted, IV remains in place. rv Administered Medications: 17:50 Drug: NS 0.9% IV 1000 ml IV at 1 bolus Per protocol; 1000 mL bolus Route: IV; Rate: 1 me1 bolus; Site: right antecubital; 21:03 Follow up: IV Status: Completed infusion; IV Intake: 1000ml rv 19:23 Drug: Potassium PO Effervescent Tablet 50 mEq PO once; dissolve in 4 ounces of water or rv juice Route: PO; 21:03 Follow up: Response: No adverse reaction rv 19:23 Drug: Potassium Chloride IV 20 mEq IV at per protocol once; administer over 1-2 hours rv Route: IV; Rate: per protocol; Site: right hand; 21:03 Follow up: IV Status: Infusion continued upon admission rv 19:31 Drug: NS 0.9% with KCl IV 20 mEq/L 1000 ml IV at 125 ml/hr continuous Route: IV; Rate: me1 125 ml/hr; Site: left antecubital; 21:03 Follow up: IV Status: Infusion continued upon admission rv Medication: 16:56 VIS not applicable for this client. ld1 Intake: 21:03 IV: 1000ml; Total: 1000ml. rv Outcome: 19:12 Decision to Hospitalize by Provider. [facility] 21:05 Admitted to Med/surg accompanied by nurse, via stretcher, room 221, with chart, Report rv called to faxed and received by Daya 21:05 Condition: good 21:05 Instructed on the need for admit, 21:05 Patient left the ED. rv Signatures: Dispatcher [employer] EDME Bandar Barker MD MD cha Vicente, Ronaldo RN RN rv Yadi Franco RN RN ld1 Sadaf Schultz RN RN me1
[2023-12-05] MEDS ORDERED: POTASSIUM 25 MEQ EFFERV TAB ONE (19:17)
[2023-12-05] MEDS ORDERED: KCL 20 MEQ/100 mL IVPB 100 ML IV ONE (19:17)
[2023-12-05] MEDS ORDERED: NS KCL 20MEQ 1,000 ML IV ONE (19:17)
[2023-12-05] MEDS ORDERED: ONDANSETRON 4 MG/2 ML VIAL IV PRN (22:11)
[2023-12-05 23:33] LABS: Potassium 3.6 mEq/L (3.5-5.1); Troponin High Sensitivity 6.8 pg/mL (<58.9)
[2023-12-05 23:49] VITALS: BMI 26.9
[2023-12-06] MEDS: ACETAMINOPHEN 500 MG TAB PO PRN (00:49)
[2023-12-06] MEDS: POTASSIUM 25 MEQ EFFERV TAB PO SCH (00:51)
[2023-12-06] MEDS: NS KCL 20MEQ 20 MEQ/1,000 ML BAG IV SCH (00:57)
[2023-12-06] MEDS: ASPIRIN EC 81 MG TAB PO SCH (08:06)
[2023-12-06 08:28] LABS: Absolute Eosinophils 0.1 K/uL (0-0.5); Absolute Lymphocytes (CBC) 1.9 K/uL (0.7-4.9); Absolute Monocytes 0.6 K/uL (0.1-1.3); Absolute Neutrophil 2.8 K/uL (1.8-8.0); Basophils % 0.8 % (0-1.3); Hematocrit 39.1 % (36.0-45.0); Hemoglobin 13.5 g/dL (12.0-15.0); Lymphocytes % 35.7 % (15.3-44.8); MCH 28.6 pg (27.0-35.0); MCHC 34.6 g/dL (32.0-36.0); MCV 82.6 fL (80-100); MPV 6.6 fL (7.6-11.3); Monocytes % 10.4 % (3.3-12.3); Neutrophils % 52.1 % (41.7-73.7); Nucleated Red Blood Cells % 0.1 % (0-0); Platelets 292 thou/uL (152-406); RBC Red Blood Cell Count 4.74 M/uL (3.86-4.86); Red Cell Distribution Width 12.6 % (12.1-15.2)
[2023-12-06 08:41] LABS: Anion Gap 3.1 mEq/L (5.0-15.0); Potassium 3.1 mEq/L (3.5-5.1)
[2023-12-06] MEDS: clonazePAM 0.5 MG TAB PO PRN (12:01)
--- NOTE | 2023-12-06 13:05 | EKG ---
Test Date: 2023-12-06 Test Time: 10:42:56 Diamond Saw Operator: ARLEEN MEASUREMENT RESULTS: Intervals: Rate: 83 DC: 148 QRSD: 110 QT: 386 QTc: 453 [place]: P: DC: 148 QRS: -46 T: -48 INTERPRETIVE STATEMENTS: Normal sinus rhythm Left axis deviation Right bundle branch block Cannot rule out Anterior infarct, age undetermined Abnormal ECG Compared to ECG 12/05/2023 16:49:01 Left-axis deviation now present Myocardial infarct finding now present Electronically Signed On 12-06-23 13:04:57 CDT by John Murrieta
--- NOTE | 2023-12-06 13:08 | EKG ---
Test Date: 2023-12-05 Test Time: 16:49:01 Target Setter: BRODERICK MEASUREMENT RESULTS: Intervals: Rate: 77 LA: 168 QRSD: 134 QT: 458 QTc: 518 [place]: P: 72 LA: 168 QRS: 50 T: 48 INTERPRETIVE STATEMENTS: Normal sinus rhythm Right bundle branch block Abnormal ECG Compared to ECG 11/26/2023 16:47:02 Ventricular premature complex(es) no longer present Electronically Signed On 12-06-23 13:05:57 CDT by John Murrieta
[2023-12-06] MEDS: carvediloL 6.25 MG TAB PO SCH (16:23)
--- NOTE | 2023-12-06 17:59 | P.HP ---
Patient History Date of Service: 12/06/23 Reason for admission: WEAK, BACK PAIN, NOT ABLE TO WALK MUCH History of Present Illness: KRYSTAL HENRY IS HYPOCHONDRIAC AND HAS MANY MANY SYMPTOMS FOR ABOUT 2 YEARS INCLUDING UNCONTROLLED HTN AND SE TO MANY MEDS, CHRONIC DIARRHEA THAT ALL TURNED OUT TO BE RELATED TO ANXIETY AND DEPRESSION. SHE WAS CONTROLLED FOR LAST 3 MONTHS AND THEN QUESTION CAME ABOUT HE SURGERY FOR BACK PAIN AND SHE HAS GONE BACK TO SEVERE ANXIETY AND DEPRESSION MODE AGAIN. SHE HAS NO CHEST PAIN. SHE COMPLIANS OF BACK PAIN AND NOT ABLE TO WALK WORRIED ABOUT SURGERY. "SHOULD I NOT DO IT?" 'I AM WORRIED". Allergies Mesalamine = DIARRHEA Zoloft = NAUSEA Mirtazapine = NAUSEA Venlafaxine = DIARRHEA Escitalopram = GAVE SWEATS AmLODIPine = SWEATS Budesonide = SWEAT Drug Intolerances or Problem List 2021 HTN (hypertension) [I10] stopped losartan when starting carolina to prevent hyperK. carolina worked well to tx HTN. however stopped carolina given hyponatremia. BP stable CTM KLONOPIN HELPED TO CONTROL IT. BEFORE THAT WE HAD NO CONTROL. stopped losartan when starting carolina to prevent hyperK. carolina worked well to tx HTN. however stopped carolina given hyponatremia. BP stable CTM KLONOPIN HELPED TO CONTROL IT. BEFORE THAT WE HAD NO CONTROL. 2021 Depression with anxiety [F41.8] chronic. cont sertraline 25mg and amitryptyline 10mg. stop hydroxyzine and see if symptoms stay the same. if symptoms return restart it. give 6-8 week trial sertraline chronic. cont sertraline 25mg and amitryptyline 10mg. stop hydroxyzine and see if symptoms stay the same. if symptoms return restart it. give 6-8 week trial sertraline 2021 Dyslipidemia [E78.5] 2021 Lumbosacral radiculopathy due to degenerative joint disease of spine [M47.27] MODERATE ON X RAY MODERATE ON X RAY 2014 History of meningioma [Z86.018] R FRONTO TEMPORAL- DR. SITA NORRIS. R FRONTO TEMPORAL- DR. SITA NORRIS. 2022 Fatigue [R53.83] chronic. suspect combo of ROSALINA and HPA axis dysfunction. plan as under those problems normal sleep study chronic. suspect combo of ROSALINA and HPA axis dysfunction. plan as under those problems normal sleep study 2023 Peripheral vascular disease [I73.9 0.3] R calf causing pain. rediscuss w Dr. reyes as absent flow R ant tibial artery R calf causing pain. rediscuss w Dr. 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 ccp , randy neg. 2022 Lumbar spinal stenosis [M48.061] L4.5 SEVERE STENOSIS L4.5 SEVERE STENOSIS 2021 Back pain [M54.9] -- resolved on 12/12/20222021 Lumbar radicular pain [M54.16] -- resolved on 12/12/20222022 Chronic diarrhea [K52.9] -- resolved on 12/12/2022 hx partial colectomy. resolved with stopping venlafaxine. do not take colesevaleem hx partial colectomy. resolved with stopping venlafaxine. do not take colesevaleem 2022 History of partial colectomy [Z90.49] -- resolved on 12/12/20222022 Nausea [R11.0] -- resolved on 03/28/2023 [facility]- ST TEST NEG 2021 CT NEG SONOGRAM , HIDA PENDING EGD DONE. RESLOVED AFTER CHOLECYSTECTOMY RECURRED AFTER TWO DAYS. ANGIO NEG. 2022 NORMAL METANEPHRINES [facility]- ST TEST NEG 2021 CT NEG SONOGRAM , HIDA PENDING EGD DONE. RESLOVED AFTER CHOLECYSTECTOMY RECURRED AFTER TWO DAYS. ANGIO NEG. 2022 NORMAL METANEPHRINES History PMH: add past history item PSH: C6/[address] QUEZADA APPENDECTOMY HISORY OF MENINGIOMA. FRONTOTEPORAL Allergies mesalamine Adverse Reaction (Verified 11/07/22 19:13) Nausea/Vomiting Home medications list reviewed: Yes Home Medications: Bimatoprost [Lumigan] 1 drop OP BEDTIME 11/07/22 clonazePAM [Clonazepam] 1 tab PO 1X 12/05/23 Aripiprazole [Abilify] 1 tab PO BID 12/06/23 Carvedilol [Coreg] 1 tab PO BID 12/06/23 Duloxetine HCl [Cymbalta] 2 12/06/23 Eszopiclone [Lunesta] 12/06/23 Olmesartan Medoxomil 1 mg 12/06/23 - Past Medical/Surgical History Has patient received pneumonia vaccine in the past: Yes Diabetic: No -: brain tumor -: sigmoid colon -: diverticulitis -: HTN -: HLD -: squamous cell carcinoma -: brain tumor removal -: R knee meniscus tear repair -: appendectomy -: bunyon removal R foot -: eyelid lesion removal -: C6,7 herniated disk repair -: L eye Cataract Sx - Family History Mother -: Stroke, Cancer Father -: Heart disease Notes: quadruple bypass, COPD Sister -: Heart disease, Cancer Notes: Breast cancer, triple bypass - Social History Smoking Status: Unknown if ever smoked Alcohol use: No CD- Drugs: No Caffeine use: Yes Review of Systems General: Weakness Physical Examination - Vital Signs Temperature: 98.8 F Blood Pressure: 146/68 Pulse: 76 Respirations: 16 Pulse Ox (%): 99 - Physical Exam General: Mild distress, Other (WORRIED LOOK) HEENT: Atraumatic, PERRLA, Mucous membr. moist/pink, EOMI, Sclerae nonicteric Neck: Supple, 2+ carotid pulse no bruit, No LAD, Without JVD or thyroid abnorma lity Respiratory: Clear to auscultation bilaterally, Normal air movement Cardiovascular: Regular rate/rhythm, Normal S1 S2 Gastrointestinal: Normal bowel sounds, No tenderness Musculoskeletal: No tenderness Integumentary: No rashes Neurological: Normal gait, Normal speech, Normal strength at 5/5 x4 extr, Normal tone, Normal affect Lymphatics: No axilla or inguinal lymphadenopathy - Studies Laboratory Data (last 24 hrs) 12/05/23 12/05/23 17:00 17:00 Sodium 128 L Potassium 2.7 L BUN 11 Creatinine 0.92 Glucose 98 Phosphorus 3.2 Magnesium 1.7 Total Bilirubin 0.3 AST 9 L ALT 25 Alkaline Phosphatase 68 Lipase 31 Assessment and Plan - Problems (Diagnosis) (1) Hyponatremia Current Visit: Yes Status: Acute Plan: IMPROVED WITH IV FLUIDS IT WAS FROM CHLORTHALIDONE STOPPED NOW. (2) Hypokalemia Current Visit: Yes Status: Acute Plan: SAME ABOVE. (3) Uncontrolled hypertension Current Visit: Yes Status: Acute Plan: KLONOPIN FOR ANXIETY REALLY HELPED HER BP I EXPECTED. (4) Severe depression Current Visit: Yes Status: Chronic Plan: CONTINUE DULOXETINE AND ABILIFY. SHE HAS BEEN TO PSYCH MD BUT ENDS UP SEEING A PA WITHOUT MUCH HELP. - Advance Directives Does patient have a Living Will: Yes Does patient have a Durable POA for Healthcare: Yes
[2023-12-06] MEDS: ARIPiprazole 5 MG TAB PO SCH (20:57)
[2023-12-06] MEDS: FAMOTIDINE 20 MG/2 ML VIAL IV SCH (20:57)
[2023-12-06 21:58] VITALS: O2SAT 96
[2023-12-07] MEDS: SPIRONOLACTONE 25 MG TABLET PO SCH (08:27)
[2023-12-07] MEDS: carvediloL 12.5 MG TAB PO SCH (08:28)
[2023-12-07 09:28] LABS: Absolute Lymphocytes (CBC) 0.9 K/uL (0.7-4.9); Absolute Monocytes 0.3 K/uL (0.1-1.3); Absolute Neutrophil 3.9 K/uL (1.8-8.0); Basophils % 0.9 % (0-1.3); Eosinophils % 0.5 % (0-4.4); Hematocrit 41.4 % (36.0-45.0); Hemoglobin 14.3 g/dL (12.0-15.0); Lymphocytes % 17.8 % (15.3-44.8); MCH 28.6 pg (27.0-35.0); MCHC 34.6 g/dL (32.0-36.0); MCV 82.6 fL (80-100); MPV 6.2 fL (7.6-11.3); Monocytes % 5.6 % (3.3-12.3); Neutrophils % 75.2 % (41.7-73.7); Nucleated Red Blood Cells % 0.1 % (0-0); Platelets 293 thou/uL (152-406); RBC Red Blood Cell Count 5.01 M/uL (3.86-4.86); Red Cell Distribution Width 12.2 % (12.1-15.2)
[2023-12-07 09:46] LABS: Anion Gap 8.1 mEq/L (5.0-15.0); Potassium 4.1 mEq/L (3.5-5.1)
[2023-12-07 12:59] VITALS: TEMP 96.8
[2023-12-07 13:27] VITALS: BP 160/87
--- NOTE | 2023-12-07 13:27 | EKG ---
Test Date: 2023-12-07 Test Time: 09:04:17 Laboratory Veterinarian: ARLEEN MEASUREMENT RESULTS: Intervals: Rate: 113 MS: 138 QRSD: 134 QT: 364 QTc: 499 [place]: P: 69 MS: 138 QRS: 168 T: 53 INTERPRETIVE STATEMENTS: Sinus tachycardia Right bundle branch block Left posterior fascicular block Bifascicular block Abnormal ECG Compared to ECG 12/06/2023 10:42:56 Left posterior fascicular block now present Bifascicular block now present Sinus rhythm no longer present Left-axis deviation no longer present Myocardial infarct finding no longer present Electronically Signed On 12-07-23 13:26:43 CDT by John Murrieta
[2023-12-07] MEDS ORDERED: clonazePAM 0.5 MG TAB PO SCH (14:00)
[2023-12-07] MEDS ORDERED: carvediloL 6.25 MG TAB PO SCH (17:00)
--- NOTE | 2023-12-07 22:01 | P.DS ---
Admission Date: 12/05/23 Discharge Date: 12/07/23 Disposition: DC HOME/HOME HEALTH CARE Discharge Condition: FAIR Reason for Admission: WEAK, BACK PAIN, NOT ABLE TO WALK MUCH - Problems (1) Hyponatremia Status: Acute (2) Hypokalemia Status: Acute (3) Uncontrolled hypertension Status: Acute (4) Severe depression Status: Chronic Brief History of Present Illness: KRYSTAL HENRY IS HYPOCHONDRIAC AND HAS MANY MANY SYMPTOMS FOR ABOUT 2 YEARS INCLUDING UNCONTROLLED HTN AND SE TO MANY MEDS, CHRONIC DIARRHEA THAT ALL TURNED OUT TO BE RELATED TO ANXIETY AND DEPRESSION. SHE WAS CONTROLLED FOR LAST 3 MONTHS AND THEN QUESTION CAME ABOUT HE SURGERY FOR BACK PAIN AND SHE HAS GONE BACK TO SEVERE ANXIETY AND DEPRESSION MODE AGAIN. SHE HAS NO CHEST PAIN. SHE COMPLIANS OF BACK PAIN AND NOT ABLE TO WALK WORRIED ABOUT SURGERY. "SHOULD I NOT DO IT?" 'I AM WORRIED". Allergies Mesalamine = DIARRHEA Zoloft = NAUSEA Mirtazapine = NAUSEA Venlafaxine = DIARRHEA Escitalopram = GAVE SWEATS AmLODIPine = SWEATS Budesonide = SWEAT Drug Intolerances or Problem List 2021 HTN (hypertension) [I10] stopped losartan when starting carolina to prevent hyperK. carolina worked well to tx HTN. however stopped carolina given hyponatremia. BP stable CTM KLONOPIN HELPED TO CONTROL IT. BEFORE THAT WE HAD NO CONTROL. stopped losartan when starting carolina to prevent hyperK. carolina worked well to tx HTN. however stopped carolina given hyponatremia. BP stable CTM KLONOPIN HELPED TO CONTROL IT. BEFORE THAT WE HAD NO CONTROL. 2021 Depression with anxiety [F41.8] chronic. cont sertraline 25mg and amitryptyline 10mg. stop hydroxyzine and see if symptoms stay the same. if symptoms return restart it. give 6-8 week trial sertraline chronic. cont sertraline 25mg and amitryptyline 10mg. stop hydroxyzine and see if symptoms stay the same. if symptoms return restart it. give 6-8 week trial sertraline 2021 Dyslipidemia [E78.5] 2021 Lumbosacral radiculopathy due to degenerative joint disease of spine [M47.27] MODERATE ON X RAY MODERATE ON X RAY 2014 History of meningioma [Z86.018] R FRONTO TEMPORAL- DR. SITA NORRIS. R FRONTO TEMPORAL- DR. SITA NORRIS. 2022 Fatigue [R53.83] chronic. suspect combo of ROSALINA and HPA axis dysfunction. plan as under those problems normal sleep study chronic. suspect combo of ROSALINA and HPA axis dysfunction. plan as under those problems normal sleep study 2022 Peripheral vascular disease [I73.9 0.3] R calf causing pain. rediscuss w Dr. reyes as absent flow R ant tibial artery R calf causing pain. rediscuss w Dr. reyes as absent flow R ant tibial artery 2022 Lymphocytic colitis [K52.832] started ennterocort per sweat started ennterocort per sweat 2022 Nydauentgaqo-upxrahomh-kdkezgs axis dysfunction [E23.3 0.2] stage 2 cortisol dysfunction: MBSR and daily stress formula fullscripts stage 2 cortisol dysfunction: MBSR and daily stress formula fullscripts 2022 Iron deficiency anemia [D50.9] ferritin 29 continue hemaplex ferritin 29 continue hemaplex 2022 Palpitation [R00.2] 2022 RBBB [I45.10] 2022 Polyarthritis [M13.0] ccp , randy neg. ccp , randy neg. 2022 Lumbar spinal stenosis [M48.061] L4.5 SEVERE STENOSIS L4.5 SEVERE STENOSIS 2021 Back pain [M54.9] -- resolved on 12/12/20222021 Lumbar radicular pain [M54.16] -- resolved on 12/12/20222022 Chronic diarrhea [K52.9] -- resolved on 12/12/2022 hx partial colectomy. resolved with stopping venlafaxine. do not take colesevaleem hx partial colectomy. resolved with stopping venlafaxine. do not take colesevaleem 2022 History of partial colectomy [Z90.49] -- resolved on 12/12/20222022 Nausea [R11.0] -- resolved on 03/28/2023 [facility]- ST TEST NEG 2021 CT NEG SONOGRAM , HIDA PENDING EGD DONE. RESLOVED AFTER CHOLECYSTECTOMY RECURRED AFTER TWO DAYS. ANGIO NEG. 2022 NORMAL METANEPHRINES [facility]- ST TEST NEG 2021 CT NEG SONOGRAM , HIDA PENDING EGD DONE. RESLOVED AFTER CHOLECYSTECTOMY RECURRED AFTER TWO DAYS. ANGIO NEG. 2022 NORMAL METANEPHRINES History PMH: add past history item PSH: C6/[address] QUEZADA APPENDECTOMY HISORY OF MENINGIOMA. FRONTOTEPORAL KRYSTAL IS BETTER WITH BP AND ELECTROLYTES I CHANGED MEDS TO KLONOPIN TID HER BP IS RELATED TO SEVERE ANXIETY. IT BROUGHT DOWN BP FROM 200 TO 146 SYSTOLIC. SHE IS STABLE WITH HH. I TALKED TO HER DAUGHTER AND I ASKED HER TO MOVE TO [place] WITH HER SHE IS VERY LONELY AND DEPRESSED HERE. Vital Signs/Physical Exam: Temp Pulse Resp BP Pulse Ox 96.8 F 98 H 16 160/87 H 97 12/07/23 12:00 12/07/23 13:21 12/07/23 12:00 12/07/23 13:21 12/07/23 12:00 Laboratory Data at Discharge: WBC 5.20 thou/uL (4.3-10.9) 12/07/23 09:20 Hgb 14.3 g/dL (12.0-15.0) 12/07/23 09:20 Hct 41.4 % (36.0-45.0) 12/07/23 09:20 Plt Count 293 thou/uL (152-406) 12/07/23 09:20 PT 13.2 SECONDS (9.5-12.5) H 12/05/23 17:00 INR 1.21 12/05/23 17:00 Sodium 131 mEq/L (136-145) L 12/07/23 09:20 Potassium 4.1 mEq/L (3.5-5.1) D 12/07/23 09:20 BUN 7 mg/dL (7-18) 12/07/23 09:20 Creatinine 0.92 mg/dL (0.55-1.02) 12/07/23 09:20 Glucose 234 mg/dL (74-106) H 12/07/23 09:20 Phosphorus 3.2 mg/dL (2.5-4.9) 12/05/23 17:00 Magnesium 1.7 mg/dL (1.6-2.4) 12/05/23 17:00 Total Bilirubin 0.3 mg/dL (0.2-1.0) 12/05/23 17:00 AST 9 U/L (15-37) L 12/05/23 17:00 ALT 25 U/L (13-56) 12/05/23 17:00 Alkaline Phosphatase 68 U/L (45-117) 12/05/23 17:00 Lipase 31 U/L (13-75) 12/05/23 17:00 Home Medications: Bimatoprost [Lumigan] 1 drop OP BEDTIME 11/07/22 clonazePAM [Clonazepam] 1 tab PO 1X 12/05/23 Aripiprazole [Abilify] 1 tab PO BID 12/06/23 Carvedilol [Coreg] 1 tab PO BID 12/06/23 Duloxetine HCl [Cymbalta] 2 12/06/23 ARIPiprazole [Abilify*] 5 mg PO BEDTIME tab 12/07/23 Spironolactone 50 mg PO DAILY #90 12/07/23 carvediloL [Coreg*] 12.5 mg PO BIDWM #180 tab 12/07/23 clonazePAM [Klonopin*] 0.5 mg PO TID tab 12/07/23 New Medications: carvediloL [Coreg*] 12.5 mg PO BIDWM #180 tab Spironolactone 50 mg PO DAILY #90 Followup: Efe Martinez MD [Primary Care Provider] -
== END 2023-12-07 13:54 | disposition home health service (06) | DRG 641 ==
LOC: ER 16:48 → ERHOLD 19:48 → 2ND 20:25
PROVIDERS: ADMIT Internal Medicine; ATTEND Internal Medicine
DX: E87.1 Hypo-osmolality and hyponatremia (principal); E87.6 Hypokalemia; E78.5 Hyperlipidemia, unspecified; I10 Essential (primary) hypertension; I95.9 Hypotension, unspecified; F41.9 Anxiety disorder, unspecified; F32.A Depression, unspecified; K52.9 Noninfective gastroenteritis and colitis, unspecified; Z88.8 Allergy status to other drugs, medicaments and biological substances; Z90.49 Acquired absence of other specified parts of digestive tract; Z79.02 Long term (current) use of antithrombotics/antiplatelets; Z79.899 Other long term (current) drug therapy
CPT/HCPCS: 36415; 71045; 71250; 74176; 80048; 80076; 81001; 82947; 83690; 83735; 83880; 84100; 84132; 84484; 85025; 85610; 93005; 96361; 96365; 96366; 97116; 97161; 97530; 99285; J3480; J7030

== ENCOUNTER 2024-03-07 11:33 | Day surgery (SDC) | payer OTHER ==
[2024-03-05 09:48] LABS: Absolute Basophils 0.1 K/uL (0-0.5); Absolute Lymphocytes (CBC) 1.5 K/uL (0.7-4.9); Absolute Monocytes 0.7 K/uL (0.1-1.3); Absolute Neutrophil 4.9 K/uL (1.8-8.0); Basophils % 0.7 % (0-1.3); Eosinophils % 0.4 % (0-4.4); Hematocrit 36.3 % (36.0-45.0); Hemoglobin 11.9 g/dL (12.0-15.0); Lymphocytes % 20.4 % (15.3-44.8); MCH 26.8 pg (27.0-35.0); MCHC 32.8 g/dL (32.0-36.0); MCV 81.7 fL (80-100); MPV 6.3 fL (7.6-11.3); Monocytes % 9.4 % (3.3-12.3); Neutrophils % 69.1 % (41.7-73.7); Platelets 463 thou/uL (152-406); RBC Red Blood Cell Count 4.44 M/uL (3.86-4.86); Red Cell Distribution Width 12.6 % (12.1-15.2)
[2024-03-05 10:00] LABS: Anion Gap 9.6 mEq/L (5.0-15.0); Potassium 3.6 mEq/L (3.5-5.1)
[2024-03-05 10:03] LABS: PT Prothrombin Time 13.8 SECONDS (9.4-12.5); PTT, Activated Partial Thromb 41.7 SECONDS (24.3-36.9); Protime INR 1.24
--- NOTE | 2024-03-06 11:47 | EKG ---
Test Date: 2024-03-05 Test Time: 09:37:32 Occupational Therapist: TIARA MEASUREMENT RESULTS: Intervals: Rate: 97 MS: 168 QRSD: 116 QT: 374 QTc: 474 [place]: P: 81 MS: 168 QRS: 101 T: 54 INTERPRETIVE STATEMENTS: Normal sinus rhythm Low voltage QRS Right bundle branch block Abnormal ECG Compared to ECG 12/07/2023 09:04:17 Low QRS voltage now present Sinus tachycardia no longer present Left posterior fascicular block no longer present Bifascicular block no longer present Electronically Signed On 03-06-24 11:44:06 CDT by Austin Farrell
[2024-03-07] MEDS ORDERED: NA CHLORIDE 0.9% 500 ML ONE (11:43)
[2024-03-07 13:37] VITALS: TEMP 98.3
[2024-03-07] MEDS ORDERED: HEPA 1000U/500MLS 2,000 UNIT/1,000 ML BAG IV ONE (13:59)
[2024-03-07] MEDS ORDERED: LIDOCAINE 1% 20 ML MDV ONE (13:59)
[2024-03-07] MEDS ORDERED: ATROPINE SULF 1 MG/10 ML SYR IV ONE (13:59)
[2024-03-07] MEDS ORDERED: MIDAZOLAM HCL 2 MG/2 ML INJ ONE (13:59)
[2024-03-07] MEDS ORDERED: HEPARIN 5000 UNIT/ML 1 ML VIAL ONE (14:00)
[2024-03-07] MEDS ORDERED: FENTANYL CITR 100 MCG/2 ML ONE (14:00)
[2024-03-07] MEDS ORDERED: NITROGLYCERIN/D5W 50 MG/250 ML BTL IV ONE (14:00)
[2024-03-07] MEDS ORDERED: VERAPAMIL HCL 10 MG/4 ML VIAL IV ONE (14:10)
--- NOTE | 2024-03-07 16:16 | OP ---
Date of Procedure: 03/07/2024 Surgeon: ELVIA BASILIO Procedure Performed: Peripheral angiogram with runoff. Indication: Peripheral vascular disease. Access: Right radial artery 6-Italian closed with TR band. Complications: None. Bleeding: Less than 50 mL. Anesthesia: Total sedation time is 30 minutes. She had been given fentanyl and Versed. Description Of Procedure: After risks, benefits, and alternatives were explained, patient agreed to the procedure and signed informed consent. The patient was brought into the cardiac catheterization laboratory, prepped and draped in the usual sterile fashion. Then, I accessed right radial artery us ing pediatric micropuncture kit, placed a 6-Italian Slender sheath and took long pigtail catheter 4-Fr ench and placed in distal aorta, performed distal aortogram and runoff and then removed the catheter and the sheath, placed TR band with good hemostasis. Findings: 1.Distal aorta is widely patent. 2.Right lower extremity: The right common iliac, external iliac, internal iliac, common femoral are widely patent, and the profunda and SFA proximally are widely patent. Distal SFA has mild 30% steno sis and triple-vessel runoff are patent without significant stenosis. 3.Left lower extremity: Left common iliac, external iliac, internal iliac, common femoral, and prof unda are widely patent and the SFA is widely patent. Proximally and distally, there is focal 40% and the popliteal artery has 50% stenosis and triple-vessel runoff below the knee are widely patent. Conclusion: Axoc-eh-illojono peripheral vascular disease. Plan: Medical management. /GEOVANNA Voice ID: [id number] Report ID: [id number]
[2024-03-07 17:10] VITALS: BP 150/64; O2SAT 100
== END 2024-03-07 16:30 | disposition home or self-care (01) ==
LOC: CCL 11:33
PROVIDERS: ATTEND Internal Medicine
DX: I70.223 Atherosclerosis of native arteries of extremities with rest pain, bilateral legs (principal); I34.0 Nonrheumatic mitral (valve) insufficiency; I11.0 Hypertensive heart disease with heart failure; I50.32 Chronic diastolic (congestive) heart failure; G62.9 Polyneuropathy, unspecified; E78.2 Mixed hyperlipidemia; F32.A Depression, unspecified; Z79.899 Other long term (current) drug therapy; Z88.5 Allergy status to narcotic agent; Z88.8 Allergy status to other drugs, medicaments and biological substances; Z82.49 Family history of ischemic heart disease and other diseases of the circulatory system
CPT/HCPCS: 93005; 85025; 80048; 36415; 85610; 85730; 36200; 75630; 76937; C1893; Q9966; J1644; J2001; J2250; J3010; J7040; 99152; 99153; J0461

== ENCOUNTER 2024-03-29 13:57 | Emergency (ER) | payer OTHER ==
[2024-03-29 14:51] LABS: Absolute Lymphocytes (CBC) 0.9 K/uL (0.7-4.9); Absolute Monocytes 0.8 K/uL (0.1-1.3); Absolute Neutrophil 6.4 K/uL (1.8-8.0); Basophils % 0.1 % (0-1.3); Hematocrit 39.6 % (36.0-45.0); Hemoglobin 12.8 g/dL (12.0-15.0); Lymphocytes % 11.3 % (15.3-44.8); MCH 26.8 pg (27.0-35.0); MCHC 32.4 g/dL (32.0-36.0); MCV 82.7 fL (80-100); MPV 6.8 fL (7.6-11.3); Monocytes % 9.6 % (3.3-12.3); Platelets 449 thou/uL (152-406); RBC Red Blood Cell Count 4.78 M/uL (3.86-4.86); Red Cell Distribution Width 13.4 % (12.1-15.2)
--- NOTE | 2024-03-29 14:56 | RAD REPORT ---
EXAM DESCRIPTION: RAD - Chest Single View - 03/29/2024 2:49 pm CLINICAL HISTORY: Chest pain;SOB Chest pain. COMPARISON: <Comparisons> FINDINGS: Portable technique limits examination quality. The lungs are grossly clear. The heart is upper limit of normal in size. No displaced fractures.Cervi joie hardware plate. IMPRESSION: No acute intrathoracic process suspected.
[2024-03-29 15:07] LABS: ALT/SGPT 32 U/L (13-56); AST/SGOT 12 U/L (15-37); Albumin 3.4 g/dL (3.4-5.0); Alkaline Phosphatase 58 U/L (45-117); Anion Gap 9.6 mEq/L (5.0-15.0); BUN Blood Urea Nitrogen 16 mg/dL (7-18); Bicarbonate 26 mEq/L (21-32); Bilirubin Total 0.3 mg/dL (0.2-1.0); Globulin 3.5 g/dL (2.3-3.5); Glomerular Filtration Rate 84 ml/min (=/>90); Glucose Level 156 mg/dL (74-106); Magnesium 2.1 mg/dL (1.6-2.4); Potassium 3.6 mEq/L (3.5-5.1); Protein, Total 6.9 g/dL (6.4-8.2); Sodium Level 132 mEq/L (136-145)
[2024-03-29 15:10] LABS: Bilirubin Direct < 0.2 mg/dL (0-0.2); Bilirubin Indirect, Calculated 0.1 mg/dL (0.2-0.8)
[2024-03-29 15:50] LABS: Specific Gravity 1.006 (1.005-1.030); Sqamous Epithelial None Seen /HPF (None Seen); Urine Bacteria <20 /HPF (<20); Urine Bilirubin NEGATIVE (Negative); Urine Blood Negative (Negative); Urine Clarity Clear (Clear); Urine Color Colorless (Yellow); Urine Crystals Unidentified Few /HPF (None Seen); Urine Culture Reflex Order NOT NEEDED; Urine Glucose NEGATIVE (Negative); Urine Ketones NEGATIVE (Negative); Urine Microscopic Reflex YN ORDER UMIC; Urine Nitrite NEGATIVE (Negative); Urine Protein NEGATIVE (Negative); Urine RBC <5 /HPF (None Seen); Urine Urobilinogen Normal (Normal); Urine WBC <5 /HPF (<5); Urine Yeast (Budding) Trace /HPF (None Seen); Urine pH 6.5 (5.0-7.0)
[2024-03-29 15:51] LABS: Barbiturates NEGATIVE (NEGATIVE); Benzodiazepines NEGATIVE (NEGATIVE); Cocaine NEGATIVE (NEGATIVE); METHAMPHETAM NEGATIVE (NEGATIVE); Methadone NEGATIVE (NEGATIVE); Opiates NEGATIVE (NEGATIVE); Phencyclidine NEGATIVE (NEGATIVE); THC Cannibis NEGATIVE (NEGATIVE)
[2024-03-29 15:59] LABS: SARS-CoV-2 Antigen CONTROL BLUE LINE VIS/BG OK; SARS-CoV-2 Antigen Rapid Res Negative (Negative)
[2024-03-29] MEDS ORDERED: NA CHLORIDE 0.9% 1,000 ML ONE (16:03)
--- NOTE | 2024-03-29 17:45 | ER ---
Nurse's Notes [facility] Name: Davina Niño Age: 73 yrs Sex: Female : 1950 Arrival Date: 03/29/2024 Time: 13:57 Bed 16 Private MD: Diagnosis: Weakness Presentation: 03/29 14:18 Chief complaint: Patient states: generalized weakness x1 week. states she hasn't been kc6 able to sleep either. denies n/v/d or urinary symptoms. Coronavirus screen: At this time, the client does not indicate any symptoms associated with coronavirus-19. Ebola Screen: No symptoms or risks identified at this time. Initial Sepsis Screen: Does the patient meet any 2 criteria? No. Patient's initial sepsis screen is negative. Does the patient have a suspected source of infection? No. Patient's initial sepsis screen is negative. Risk Assessment: Do you want to hurt yourself or someone else? Patient reports no desire to harm self or others. Onset of symptoms was March 29, 2024. 14:18 Method Of Arrival: Wheelchair kc6 14:18 Acuity: VERONICA 3 kc6 Triage Assessment: 14:20 General: Appears in no apparent distress. comfortable, well groomed, well developed, kc6 Behavior is calm, cooperative, appropriate for age. Pain: Denies pain. Neuro: Level of Consciousness is awake, alert, obeys commands, Oriented to person, place, time, situation, Appropriate for age. Derm: No signs and/or symptoms reported regarding the dermatologic system. Skin is intact, is healthy with good turgor, Skin is pink, warm \T\ dry. Historical: - Allergies: 14:20 mesalamine; kc6 - PMHx: 14:20 Hyperlipidemia; Hypertension; kc6 14:22 Hypercholesterolemia; Anxiety; Depressive disorder; kc6 - PSHx: 14:20 Appendectomy; Brain Tumor removed 2019; Cholecystectomy; Colon resection 2020; L4 and kc6 L5 (Colon resection 2020); - Immunization history:: Adult Immunizations up to date. - Infectious Disease History:: Denies. - Social history:: Smoking status: Patient denies any tobacco usage or history of. Screenin:20 Clinical [place] Withdrawal Assessment for Alcohol, revised (CIWA-Ar): rs5 Nausea/Vomiting:. [facility] ED Fall Risk Assessment (Adult) History of falling in the last 3 months, including since admission No falls in past 3 months (0 pts) Confusion or Disorientation No (0 pts) Intoxicated or Sedated No (0 pts) Impaired Gait No (0 pts) Mobility Assist Device Used No (0 pt) Altered Elimination No (0 pt) Score/Fall Risk Level 0 - 2 = Low Risk Oriented to surroundings, Maintained a safe environment. Abuse screen: Denies threats or abuse. Nutritional screening: No deficits noted. Tuberculosis screening: No symptoms or risk factors identified. Assessment: 14:20 General: Appears in no apparent distress. comfortable, Behavior is calm, cooperative. rs5 Pain: Denies pain. Neuro: Level of Consciousness is awake, alert, obeys commands, Oriented to person, place, time, situation. Cardiovascular: Patient's skin is warm and dry. Respiratory: Airway is patent Respiratory effort is even, unlabored, Respiratory pattern is regular, symmetrical. GI: Abdomen is round non-distended, Abd is soft and non tender X 4 quads. : No signs and/or symptoms were reported regarding the genitourinary system. EENT: No signs and/or symptoms were reported regarding the EENT system. Derm: Skin is intact, Skin is pink, warm \T\ dry. Musculoskeletal: Range of motion: intact in all extremities, pt reports generalized weakness. 15:33 Reassessment: Patient and/or family updated on plan of care and expected duration. Pain rs5 level reassessed. Patient is alert, oriented x 3, equal unlabored respirations, skin warm/dry/pink. 16:05 Reassessment: Patient and/or family updated on plan of care and expected duration. Pain rs5 level reassessed. Patient is alert, oriented x 3, equal unlabored respirations, skin warm/dry/pink. 17:19 Reassessment: pt ambulated per MD orders, ambulated 20 ft to restroom and back, denies rs5 dizziness. Pt ambulated with steady gate, reports generalized weakness, provider notified. 18:01 Reassessment: Patient and/or family updated on plan of care and expected duration. Pain rs5 level reassessed. Patient is alert, oriented x 3, equal unlabored respirations, skin warm/dry/pink. Patient states feeling better. Vital Signs: 14:18 BP 159 / 101; Pulse 97; Resp 18 S; Temp 98.9(O); Pulse Ox 100% on R/A; Weight 68.04 kg kc6 (R); Height 5 ft. 4 in. (R); Pain 0/10; 14:20 BP 160 / 92; kc6 17:00 BP 145 / 88; Pulse 80; Resp 17; Pulse Ox 98% on R/A; rs5 18:01 BP 140 / 80; Pulse 77; Resp 16; Pulse Ox 98% on R/A; rs5 14:18 Body Mass Index 25.75 (68.04 kg, 162.56 cm) kc6 14:18 Pain Scale: Adult [facility] ED Course: 14:00 Patient arrived in ED. ra3 14:08 Iwona Hagan PA-C is PHCP. sb4 14:08 Hugo Matta MD is Attending Physician. sb4 14:20 Triage completed. kc6 14:20 Arm band placed on. kc6 14:20 Patient has correct armband on for positive identification. Placed in gown. Bed in low rs5 position. Call light in reach. Side rails up X2. 14:20 No provider procedures requiring assistance completed. rs5 14:28 Oc Friend, OBIE is Primary Nurse. rs5 14:51 Chest Single View XRAY In Process Unspecified. EDMS 17:03 LAB Add On Sent. sb4 17:44 Efe Martinez MD is Referral Physician. sb4 18:02 IV discontinued, intact, bleeding controlled, No redness/swelling at site. Pressure rs5 dressing applied. Administered Medications: 16:06 Drug: NS 0.9% IV 1000 ml IV at 1 bolus Per protocol; 1000 mL bolus Route: IV; Rate: 1 rs5 bolus; Site: left antecubital; 17:00 Follow up: IV Status: Completed infusion rs5 Medication: 15:54 VIS not applicable for this client. rs5 Outcome: 17:44 Discharge ordered by . sb4 18:01 Discharged to home ambulatory, rs5 18:01 Condition: stable 18:01 Discharge instructions given to patient, family, Instructed on discharge instructions, follow up and referral plans. Demonstrated understanding of instructions, follow-up care, 18:02 Patient left the ED. rs5 Signatures: Dispatcher [employer] Ting Dominique RN RN Iwona Caputo PA-C PA-C sb4 Oc Friend, RN RN rs5 Georgia Abdalla ra3
--- NOTE | 2024-03-29 17:45 | EDPHYS ---
Physician Documentation [facility] Name: Davina Niño Age: 73 yrs Sex: Female : 1950 Arrival Date: 03/29/2024 Time: 13:57 Bed 16 Private MD: ED Physician Hugo Matta HPI: 03/29 14:26 This 73 yrs old Female presents to ER via Wheelchair with complaints of General sb4 Weakness. 14:26 . sb4 14:26 Patient reports generalized weakness times a little over a week. She states that she sb4 had an L4-L5 fusion back in December and is unsure if this is related. She denies any pain in her lower back, just feels very weak. She states that she was started on a statin a few days ago but was experiencing weakness before that. Denies any confusion, blurry vision, headache, nausea, vomiting, diarrhea. Historical: - Allergies: 14:20 mesalamine; kc6 - PMHx: 14:20 Hyperlipidemia; Hypertension; kc6 14:22 Hypercholesterolemia; Anxiety; Depressive disorder; kc6 - PSHx: 14:20 Appendectomy; Brain Tumor removed 2019; Cholecystectomy; Colon resection 2020; L4 and kc6 L5 (Colon resection 2020); - Immunization history:: Adult Immunizations up to date. - Infectious Disease History:: Denies. - Social history:: Smoking status: Patient denies any tobacco usage or history of. ROS: 14:27 Constitutional: Negative for fever, chills, and weight loss, sb4 14:27 Neuro: Positive for weakness, 14:27 All other systems are negative, Exam: 14:27 Head/Face: Normocephalic, atraumatic. Eyes: Extra-ocular motions intact. Periorbital sb4 areas with no swelling, redness, or edema. ENT: Mucous membranes moist. Cardiovascular: Regular rate and rhythm with a normal S1 and S2. Respiratory: Lungs have equal breath sounds bilaterally, clear to auscultation and percussion. No rales, rhonchi or wheezes noted. No increased work of breathing, no retractions or nasal flaring. Abdomen/GI: Soft, non-tender, no distension. Skin: Warm, dry with normal turgor. Normal color with no rashes, no lesions, and no evidence of cellulitis. 14:27 Constitutional: The patient appears in no acute distress, alert, awake, Vital Signs: 14:18 BP 159 / 101; Pulse 97; Resp 18 S; Temp 98.9(O); Pulse Ox 100% on R/A; Weight 68.04 kg kc6 (R); Height 5 ft. 4 in. (R); Pain 0/10; 14:20 BP 160 / 92; kc6 17:00 BP 145 / 88; Pulse 80; Resp 17; Pulse Ox 98% on R/A; rs5 18:01 BP 140 / 80; Pulse 77; Resp 16; Pulse Ox 98% on R/A; rs5 14:18 Body Mass Index 25.75 (68.04 kg, 162.56 cm) kc6 14:18 Pain Scale: Adult kc6 MDM: 14:16 Patient medically screened. sb4 17:45 Data reviewed: vital signs, nurses notes, lab test result(s), radiologic studies, and sb4 as a result, I will discharge patient. Counseling: I had a detailed discussion with the patient and/or guardian regarding the historical points, exam findings, and any diagnostic results supporting the discharge/admit diagnosis, the presence of at least one elevated blood pressure reading (>120/80) during this emergency department visit, lab results, radiology results, the need for outpatient follow up, for definitive care, to return to the emergency department if symptoms worsen or persist or if there are any questions or concerns that arise at home. 03/29 14:25 Order name: Basic Metabolic Panel; Complete Time: 15:14 sb4 03/29 14:25 Order name: CBC with Diff; Complete Time: 14:53 sb4 03/29 14:25 Order name: Hepatic Function; Complete Time: 15:14 sb4 03/29 14:25 Order name: Magnesium; Complete Time: 15:14 sb4 03/29 14:25 Order name: UDS; Complete Time: 15:54 sb4 03/29 14:25 Order name: Urinalysis w/ reflexes; Complete Time: 15:54 sb4 03/29 14:26 Order name: SARS RAPID; Complete Time: 16:21 sb4 03/29 14:26 Order name: Flu; Complete Time: 16:21 sb4 03/29 14:27 Order name: CK; Complete Time: 16:21 sb4 03/29 16:25 Order name: LAB Add On; Complete Time: 17:03 sb4 03/29 16:34 Order name: Thyroid Stimulating Hormone; Complete Time: 17:02 EDMS 03/29 14:25 Order name: Chest Single View XRAY; Complete Time: 14:57 sb4 03/29 14:25 Order name: Cardiac monitoring; Complete Time: 14:48 sb4 03/29 14:25 Order name: IV Saline Lock; Complete Time: 14:48 sb4 03/29 14:25 Order name: Labs collected and sent; Complete Time: 14:48 sb4 03/29 14:25 Order name: O2 Per Protocol; Complete Time: 14:48 sb4 03/29 14:25 Order name: O2 Sat Monitoring; Complete Time: 14:48 sb4 03/29 17:02 Order name: Misc. Order: ambulate; Complete Time: 17:19 sb4 Administered Medications: 16:06 Drug: NS 0.9% IV 1000 ml IV at 1 bolus Per protocol; 1000 mL bolus Route: IV; Rate: 1 rs5 bolus; Site: left antecubital; 17:00 Follow up: IV Status: Completed infusion rs5 Disposition Summary: 03/29/24 17:44 Discharge Ordered Notes: Location: Home sb4 Problem: an ongoing problem sb4 Symptoms: are unchanged sb4 Condition: Stable sb4 Diagnosis - Weakness sb4 Followup: sb4 - With: Efe Martinez MD - When: 1 week - Reason: Recheck today's complaints, Re-evaluation by your physician Discharge Instructions: - Discharge Summary Sheet sb4 - Weakness sb4 Forms: - Patient Portal Instructions sb4 - Leadership Thank You Letter sb4 Signatures: Dispatcher [employer] Ting Dominique, RN RN kc6 Iwona Hagan PA-C PA-C sb4 Oc Friend RN RN rs5
[2024-03-29 18:16] VITALS: TEMP 98.9
[2024-03-29 18:21] VITALS: O2SAT 98
[2024-03-29 18:22] VITALS: BP 140/80
== END 2024-03-29 18:02 | disposition home or self-care (01) ==
LOC: ER 13:57
DX: R53.1 Weakness (principal); E78.00 Pure hypercholesterolemia, unspecified; I10 Essential (primary) hypertension; Z11.52 Encounter for screening for COVID-19
CPT/HCPCS: 85025; 81001; 80048; 36415; 83735; 82550; 80076; 84443; 80307; 87804 ×2; 71045; 96360; 99284; 87811; J7030

== ENCOUNTER 2024-12-12 12:23 | Emergency (ER) | payer OTHER ==
[2024-12-12 13:18] LABS: Absolute Basophils 0.1 K/uL (0-0.5); Absolute Eosinophils 0.1 K/uL (0-0.5); Absolute Lymphocytes (CBC) 1.7 K/uL (0.7-4.9); Absolute Monocytes 0.7 K/uL (0.1-1.3); Basophils % 0.6 % (0-1.3); Eosinophils % 1.2 % (0-4.4); Hematocrit 39.1 % (36.0-45.0); Hemoglobin 13.8 g/dL (12.0-15.0); Lymphocytes % 17.7 % (15.3-44.8); MCH 28.9 pg (27.0-35.0); MCHC 35.4 g/dL (32.0-36.0); MCV 81.6 fL (80-100); MPV 6.7 fL (7.6-11.3); Monocytes % 7.5 % (3.3-12.3); Nucleated Red Blood Cells % 0.1 % (0-0); Platelets 323 thou/uL (152-406); RBC Red Blood Cell Count 4.79 M/uL (3.86-4.86)
[2024-12-12 13:43] LABS: ALT/SGPT 35 U/L (13-56); AST/SGOT 17 U/L (15-37); Albumin 3.3 g/dL (3.4-5.0); Albumin/Globulin Ratio 1.1 (1.1-1.8); Alkaline Phosphatase 55 U/L (45-117); Anion Gap 10.8 mEq/L (5.0-15.0); BUN Blood Urea Nitrogen 14 mg/dL (7-18); Bicarbonate 29 mEq/L (21-32); Bilirubin Total 0.4 mg/dL (0.2-1.0); Globulin 3.1 g/dL (2.3-3.5); Glomerular Filtration Rate 73 ml/min (=/>90); Glucose Level 114 mg/dL (74-106); Potassium 3.8 mEq/L (3.5-5.1); Protein, Total 6.4 g/dL (6.4-8.2); Sodium Level 138 mEq/L (136-145); Troponin High Sensitivity 6.4 pg/mL (<58.9)
[2024-12-12 13:45] LABS: Bilirubin Direct < 0.2 mg/dL (0-0.2); Bilirubin Indirect, Calculated 0.2 mg/dL (0.2-0.8)
--- NOTE | 2024-12-12 14:26 | RAD REPORT ---
EXAMINATION: ONE VIEW CHEST XR CLINICAL INDICATION: Female, 74 years old.,generalized weakness TECHNIQUE: Frontal chest projection is submitted. Examination is limited by patient positioning and t echnique. COMPARISON: 03/29/2024 FINDINGS: The lungs are well inflated and again mildly hyperlucent, but clear. No pneumothorax or sizable effu tessa. The heart is normal in size. Mediastinal contours are unremarkable. IMPRESSION: No acute intrathoracic abnormalities.
[2024-12-12 15:39] LABS: Specific Gravity 1.027 (1.005-1.030); Sqamous Epithelial <5 /HPF (None Seen); Transitional Epithelial <5 /HPF (None Seen); Urine Bacteria <20 /HPF (<20); Urine Bilirubin NEGATIVE (Negative); Urine Blood Negative (Negative); Urine Clarity Clear (Clear); Urine Color Yellow (Yellow); Urine Glucose NEGATIVE (Negative); Urine Ketones 1+ (Negative); Urine Micro Reflex YN NO BILL MICROSCOPIC; Urine Mucus Slight /HPF (None Seen); Urine Nitrite NEGATIVE (Negative); Urine Protein 1+ (Negative); Urine RBC <5 /HPF (None Seen); Urine Urobilinogen 1+ (Normal); Urine WBC Clump Rare /HPF (None Seen)
--- NOTE | 2024-12-12 16:08 | EDPHYS ---
Physician Documentation [facility] Name: Davina Niño Age: 74 yrs Sex: Female : 1950 Arrival Date: 12/12/2024 Time: 12:23 Bed 18 Private MD: ED Physician Brooks Franco HPI: 12/12 14:24 This 74 yrs old Female presents to ER via Wheelchair with complaints of General ms3 Weakness. 14:24 74-year-old female with past medical history of depression, anxiety, ms3 hypercholesterolemia, hyperlipidemia, hypertension presents to the emergency department for generalized weakness that has been ongoing for 4 to 5 days. Patient endorses urinary frequency. She denies urgency or dysuria. Patient denies urinary incontinence, decreased sensation. She does note she had a lower back nerve block on Monday for her chronic back pain.. Historical: - Allergies: 12:37 mesalamine; iw 12:37 Hydrocodone-Acetaminophen; iw - PMHx: 12:37 depressive disorder; Anxiety; Hypercholesterolemia; Hyperlipidemia; Hypertension; iw - PSHx: 12:37 Appendectomy; Brain Tumor removed 2019; Cholecystectomy; Colon resection 2020; L4 and iw L5 (2020); - Immunization history:: Adult Immunizations not up to date. - Infectious Disease History:: Denies. - Social history:: Smoking status: Patient denies any tobacco usage or history of. ROS: 14:24 Cardiovascular: Negative for chest pain, and palpitations. Respiratory: Negative for ms3 shortness of breath, cough, wheezing, and pleuritic chest pain, 14:24 MS/Extremity: Negative for injury and deformity, Skin: Negative for injury, rash, and discoloration, 14:24 Constitutional: Positive for generalized weakness, Exam: 14:24 Constitutional: This is a well developed, well nourished patient who is awake, alert, ms3 and in no acute distress. Cardiovascular: Regular rate and rhythm with a normal S1 and S2. No gallops, murmurs, or rubs. Normal PMI, no JVD. No pulse deficits. Respiratory: Lungs have equal breath sounds bilaterally, clear to auscultation and percussion. No rales, rhonchi or wheezes noted. No increased work of breathing, no retractions or nasal flaring. Abdomen/GI: Soft, non-tender, with normal bowel sounds. No distension or tympany. No guarding or rebound. No evidence of tenderness throughout. Skin: Warm, dry with normal turgor. Normal color with no rashes, no lesions, and no evidence of cellulitis. MS/ Extremity: Pulses equal, no cyanosis. Neurovascular intact. Full, normal range of motion. Neuro: Awake and alert, GCS 15, oriented to person, place, time, and situation. Cranial nerves II-XII grossly intact. Motor strength 5/5 in all extremities. Sensory grossly intact. Cerebellar exam normal. 14:27 ECG was reviewed by the Attending Physician. ms3 Vital Signs: 12:34 BP 116 / 70; Pulse 68; Resp 16; Temp 98.2(O); Pulse Ox 97% on R/A; Weight 65.32 kg; iw Height 5 ft. 4 in. ; 13:00 BP 145 / 78; Pulse 66; Resp 20; Pulse Ox 100% on R/A; kj2 14:00 BP 157 / 70; Pulse 65; Resp 20; Pulse Ox 100% ; kj2 14:53 BP 143 / 64; Pulse 63; Resp 18; Pulse Ox 100% ; kj2 16:20 BP 142 / 68; Pulse 60; Resp 20; Temp 98.2; Pulse Ox 100% on R/A; kj2 12:34 Body Mass Index 24.72 (65.32 kg, 162.56 cm) iw MDM: 12:29 Medical Screening Exam initiated ms3 14:27 Differential Diagnosis Electrolyte abnormality vs ACS vs UTI. ms3 16:08 Data reviewed: vital signs, nurses notes, lab test result(s), EKG, radiologic studies, ms3 and as a result, I will discharge patient. Independent interpretation of the following test(s) in the Emergency Department EKG: See my EKG interpretation above. Counseling: I had a detailed discussion with the patient and/or guardian regarding the historical points, exam findings, and any diagnostic results supporting the discharge/admit diagnosis, lab results, radiology results, the need for outpatient follow up, to return to the emergency department if symptoms worsen or persist or if there are any questions or concerns that arise at home. Special discussion: I discussed with the patient/guardian in detail that at this point there is no indication for admission to the hospital. It is understood, however, that if the symptoms persist or worsen the patient needs to return immediately for re-evaluation. ED course: Discussed labs, EKG, chest x-ray findings with patient. Patient to follow-up with primary care physician in 2 to 3 days. Patient understands and agrees with plan. All questions were answered. Return precautions discussed include worsening symptoms, or any other concerns. On reevaluation patient is alert, in no apparent distress, nontoxic-appearing, speaking full sentences, sensation present in bilateral lower extremities.. 12/12 12:47 Order name: Basic Metabolic Panel; Complete Time: 14:01 ms3 12/12 12:47 Order name: CBC with Diff; Complete Time: 14:01 ms3 12/12 12:47 Order name: LFT's; Complete Time: 14:01 ms3 12/12 12:47 Order name: Magnesium; Complete Time: 14:01 ms3 12/12 12:47 Order name: Troponin HS; Complete Time: 14:01 ms3 12/12 14:29 Order name: UA W/ Microscopic; Complete Time: 15:46 ms3 12/12 12:47 Order name: XRAY Chest (1 view); Complete Time: 14:29 ms3 12/12 12:47 Order name: Cardiac monitoring; Complete Time: 13:38 ms3 12/12 12:47 Order name: EKG - Nurse/Tech; Complete Time: 13:38 ms3 12/12 12:47 Order name: IV Saline Lock; Complete Time: 13:12 ms3 12/12 12:47 Order name: Labs collected and sent; Complete Time: 13:12 ms3 12/12 12:47 Order name: O2 Per Protocol; Complete Time: 13:12 ms3 12/12 12:47 Order name: O2 Sat Monitoring; Complete Time: 13:12 ms3 EC:27 Rate is 64 beats/min. Rhythm is regular. QRS [place] is Normal. [place] interval is normal. QRS ms3 interval is prolonged. QT interval is normal. Clinical impression: NSR w/ Non-specific ST/T Changes and RBBB. Interpreted by me. Reviewed by me. Administered Medications: No medications were administered Disposition Summary: 12/12/24 16:08 Discharge Ordered Notes: Location: Home ms3 Condition: Stable ms3 Diagnosis - Muscle weakness (generalized) ms3 - Essential (primary) hypertension ms3 Followup: ms3 - With: Private Physician - When: 2 - 3 days - Reason: Recheck today's complaints Discharge Instructions: - Discharge Summary Sheet ms3 - Hypertension, Adult ms3 - Weakness ms3 - DASH Eating Plan ms3 Forms: - Medication Reconciliation Form ms3 - Antibiotic Education ms3 - Prescription Opioid Use ms3 - Patient Portal Instructions ms3 - Leadership Thank You Letter ms3 Signatures: Dispatcher [employer] Etta Villatoro RN RN iw Brokos Franco, DO ms3 Corrections: (The following items were deleted from the chart) 12:48 12:48 Chest Single View+RAD.RAD.BRZ ordered. EDMS EDMS 14:27 14:24 Constitutional: This is a well developed, well nourished patient who is awake, ms3 alert, and in no acute distress. Cardiovascular: Regular rate and rhythm with a normal S1 and S2. No gallops, murmurs, or rubs. Normal PMI, no JVD. No pulse deficits. Respiratory: Lungs have equal breath sounds bilaterally, clear to auscultation and percussion. No rales, rhonchi or wheezes noted. No increased work of breathing, no retractions or nasal flaring. Abdomen/GI: Soft, non-tender, with normal bowel sounds. No distension or tympany. No guarding or rebound. No evidence of tenderness throughout. Skin: Warm, dry with normal turgor. Normal color with no rashes, no lesions, and no evidence of cellulitis. MS/ Extremity: Pulses equal, no cyanosis. Neurovascular intact. Full, normal range of motion. Neuro: Awake and alert, GCS 15, oriented to person, place, time, and situation. Cranial nerves II-XII grossly intact. Motor strength 5/5 in all extremities. Sensory grossly intact. Cerebellar exam normal. Normal gait. ms3 14:30 14:30 UA W/ Microscopic+U.LAB.BRZ ordered. EDMS EDMS
--- NOTE | 2024-12-12 16:08 | ER ---
Nurse's Notes [facility] Name: Davina Niño Age: 74 yrs Sex: Female : 1950 Arrival Date: 12/12/2024 Time: 12:23 Bed 18 Private MD: Diagnosis: Muscle weakness (generalized);Essential (primary) hypertension Presentation: 12/12 12:34 Chief complaint: Patient states: they did a procedure on my back on Monday and put some iw medicine in my back for pain control, this is the first of three procedures, was done by Dr. Tanvir Nathan, now feels weak all over, pain is better , feels like she cannot get up and walk because her legs feels weak , denies urinary or stool incontinence. Coronavirus screen: At this time, the client does not indicate any symptoms associated with coronavirus-19. Ebola Screen: No symptoms or risks identified at this time. Initial Sepsis Screen: Does the patient meet any 2 criteria? No. Patient's initial sepsis screen is negative. Does the patient have a suspected source of infection? No. Patient's initial sepsis screen is negative. Risk Assessment: Do you want to hurt yourself or someone else? Patient reports no desire to harm self or others. Onset of symptoms was December 07, 2024. 12:34 Method Of Arrival: Wheelchair iw 12:34 Acuity: VERONICA 3 iw Historical: - Allergies: 12:37 mesalamine; iw 12:37 Hydrocodone-Acetaminophen; iw - PMHx: 12:37 depressive disorder; Anxiety; Hypercholesterolemia; Hyperlipidemia; Hypertension; iw - PSHx: 12:37 Appendectomy; Brain Tumor removed 2019; Cholecystectomy; Colon resection 2020; L4 and iw L5 (2020); - Immunization history:: Adult Immunizations not up to date. - Infectious Disease History:: Denies. - Social history:: Smoking status: Patient denies any tobacco usage or history of. Screenin:00 [facility] ED Fall Risk Assessment (Adult) History of falling in the last 3 months, kj2 including since admission No falls in past 3 months (0 pts) Confusion or Disorientation No (0 pts) Intoxicated or Sedated No (0 pts) Impaired Gait Yes (1 pt) Mobility Assist Device Used Yes (1 pt) Altered Elimination No (0 pt) Score/Fall Risk Level 3 or more points = High Risk Maintained a safe environment, Hourly rounding (assess needs \T\ fall precautionary measures) done, Utilized family, sitter, or virtual acid recovery operator as indicated. Abuse screen: Denies threats or abuse. Denies injuries from another. Nutritional screening: No deficits noted. Tuberculosis screening: No symptoms or risk factors identified. Assessment: 13:00 General: Appears in no apparent distress. Behavior is calm, cooperative. Pain: kj2 Complains of pain in back Pain currently is 3 out of 10 on a pain scale. Neuro: Level of Consciousness is awake, alert, obeys commands, Oriented to person, place, time, situation. Cardiovascular: Patient's skin is warm and dry. Respiratory: Airway is patent Respiratory effort is unlabored. GI: No signs and/or symptoms were reported involving the gastrointestinal system. : No signs and/or symptoms were reported regarding the genitourinary system. 14:00 Reassessment: Patient appears in no apparent distress at this time. Patient and/or kj2 family updated on plan of care and expected duration. Pain level reassessed. Patient is alert, oriented x 3, equal unlabored respirations, skin warm/dry/pink. 14:53 Reassessment: Patient appears in no apparent distress at this time. Patient and/or kj2 family updated on plan of care and expected duration. Pain level reassessed. Patient is alert, oriented x 3, equal unlabored respirations, skin warm/dry/pink. 16:20 Reassessment: Patient appears in no apparent distress at this time. Patient and/or kj2 family updated on plan of care and expected duration. Pain level reassessed. Patient is alert, oriented x 3, equal unlabored respirations, skin warm/dry/pink. Vital Signs: 12:34 BP 116 / 70; Pulse 68; Resp 16; Temp 98.2(O); Pulse Ox 97% on R/A; Weight 65.32 kg; iw Height 5 ft. 4 in. ; 13:00 BP 145 / 78; Pulse 66; Resp 20; Pulse Ox 100% on R/A; kj2 14:00 BP 157 / 70; Pulse 65; Resp 20; Pulse Ox 100% ; kj2 14:53 BP 143 / 64; Pulse 63; Resp 18; Pulse Ox 100% ; kj2 16:20 BP 142 / 68; Pulse 60; Resp 20; Temp 98.2; Pulse Ox 100% on R/A; kj2 12:34 Body Mass Index 24.72 (65.32 kg, 162.56 cm) iw ED Course: 12:28 Patient arrived in ED. al6 12:29 Brooks Franco DO is Attending Physician. ms3 12:37 Triage completed. iw 12:38 Arm band placed on. iw 12:53 Santa Washburn, RN is Primary Nurse. kj2 13:00 Patient has correct armband on for positive identification. Bed in low position. Call kj2 light in reach. Adult w/ patient. Provided Education on: call light. 13:06 XRAY Chest (1 view) In Process Unspecified. EDMS 16:37 No provider procedures requiring assistance completed. IV discontinued, intact, kj2 bleeding controlled, No redness/swelling at site. Pressure dressing applied. Administered Medications: No medications were administered Medication: 16:36 VIS not applicable for this client. kj2 Outcome: 16:08 Discharge ordered by MD. ms3 16:37 Discharged to home ambulatory, kj2 16:37 Condition: stable 16:37 Discharge instructions given to patient, capsule filler, Instructed on discharge instructions, follow up and referral plans. Demonstrated understanding of instructions, follow-up care, 16:52 Patient left the ED. kj2 Signatures: Dispatcher [employer] Etta Vlilatoro, RN RN iw Brooks Franco DO DO ms3 Santa Washburn, RN RN kj2 Annemarie Brasher al6 Corrections: (The following items were deleted from the chart) 12:38 12:34 BP 116 / 70; Pulse 68bpm; Resp 16bpm; Pulse Ox 97% RA; iw iw 12:39 12:34 BP 116 / 70; Pulse 68bpm; Resp 16bpm; Pulse Ox 97% RA; 65.32 kg; Height 5 ft. 4 iw in.; BMI: 24.7; iw
[2024-12-12 17:02] VITALS: O2SAT 100
[2024-12-12 17:04] VITALS: TEMP 98.2
[2024-12-12 17:07] VITALS: BP 142/68
--- NOTE | 2024-12-16 12:11 | EKG ---
Test Date: 2024-12-12 Test Time: 13:29:30 [place] [employer]: RILEY MEASUREMENT RESULTS: Intervals: Rate: 64 WI: 118 QRSD: 122 QT: 456 QTc: 470 [place]: P: 40 WI: 118 QRS: 16 T: 34 INTERPRETIVE STATEMENTS: Normal sinus rhythm Right bundle branch block Abnormal ECG Compared to ECG 03/05/2024 09:37:32 No significant changes Electronically Signed On 12-16-24 12:08:03 CDT by Austin Farrell
== END 2024-12-12 16:52 | disposition home or self-care (01) ==
LOC: ER 12:23
DX: M62.81 Muscle weakness (generalized) (principal); I10 Essential (primary) hypertension; E78.5 Hyperlipidemia, unspecified
CPT/HCPCS: 36415; 71045; 80048; 80076; 81001; 83735; 84484; 85025; 93005; 99283